=== PATIENT | female | born 1960 | race African-American/Black ===

== ENCOUNTER 2016-08-29 16:27 | Emergency (ER) | payer MEDICARE, OTHER ==
[~2016-08-29] VITALS: Ht 162.6 cm; Wt 113.4 kg
[~2016-08-29 16:27] MED LIST: ATOR10TA PO; CITA20TA9 PO; CYCL10TA2 PO; DOXE10CA PO; DULO60CA6 PO; FERR325T58 PO; GABA600T2 PO; GLIM1TAB2 PO; IBUP-1007 PO; LINA5TAB PO; MORP30TA83 PO; ONDA4TAB12 PO; OXYC10TA32 PO; OXYC20TA34 PO; OXYC30TA PO; POLY17PO5 PO; POTA10TA10 PO; PREG75CA PO; TRAZ100T12 PO; TRAZ50TA15 PO; VENL75CA PO; WARF5TAB PO
[2016-08-29 16:45] VITALS: BP 135/73
[2016-08-29] MEDS ORDERED: OXYCODONE/APAP 10/325 TABLET. PO ONE (17:00)
--- NOTE | 2016-08-29 17:32 | PHYS DOC ---
Past Medical History Past Medical History: Arthritis, Diabetes-Type II, Fibromyalgia, High Cholesterol, Hypertension, Hepatitis, Other Additional Past Medical Histor: HEP C, DM WITH NEUROPATHY, back pain,insomnia, chronic cough Past Surgical History: Hip Replacement, Hysterectomy, Tonsillectomy, Other Additional Past Surgical Histo: ROTATOR CUFF SX, CYST REMOVAL X 3, R FOOT SX WITH NERVE DAMAGE low back Alcohol Use: None Drug Use: None Adult General Chief Complaint Chief Complaint: KNEE INJURY HPI HPI 56-year-old female states one of her knees gave out she fell to the ground landing on both of her knees. She states she now has quite a bit knee pain. She states she took more than 20 mg of OxyContin prior to arrival secondary to the pain. She denies any other injuries. She was able to stand after the injury. [] Review of Systems Review of Systems Constitutional: Denies fever or chills [] Eyes: Denies change in visual acuity, redness, or eye pain [] HENT: Denies nasal congestion or sore throat [] Respiratory: Denies cough or shortness of breath [] Cardiovascular: No additional information not addressed in HPI [] GI: Denies abdominal pain, nausea, vomiting, bloody stools or diarrhea [] : Denies dysuria or hematuria [] Musculoskeletal: Per history of present illness [] Integument: Denies rash or skin lesions [] Neurologic: Denies headache, focal weakness or sensory changes [] Endocrine: Denies polyuria or polydipsia [] Current Medications Current Medications Current Medications Medications (Trade) Dose Ordered Sig/Doris Start Time Stop Time Status Last Admin Dose Admin Oxycodone/ Acetaminophen (Percocet 10/325) 1 tab 1X ONCE 08/29/16 17:00 08/29/16 17:01 DC Allergies Allergies Allergies Coded Allergies Type Severity Reaction Last Updated Verified metformin Allergy Intermediate Diarrhea 04/20/16 Yes sitagliptin Allergy Intermediate Diarrhea 04/20/16 Yes milk Allergy Mild 04/20/16 Yes Physical Exam Physical Exam Constitutional: Well developed, well nourished, no acute distress, non-toxic appearance. [] HENT: Normocephalic, atraumatic, bilateral external ears normal, oropharynx moist, no oral exudates, nose normal. [] Eyes: PERRLA, EOMI, conjunctiva normal, no discharge. [] Neck: Normal range of motion, no tenderness, supple, no stridor. [] Cardiovascular:Heart rate regular rhythm, no murmur [] Lungs & Thorax: Bilateral breath sounds clear to auscultation [] Abdomen: Bowel sounds normal, soft, no tenderness, no masses, no pulsatile masses. [] Skin: Warm, dry, no erythema, no rash. [] Back: No tenderness, no CVA tenderness. [] Extremities: Mild tenderness palpable over both patellas no patellar apprehension no obvious deformity. [] Neurologic: Alert and oriented X 3, normal motor function, normal sensory function, no focal deficits noted. [] Psychologic: Affect normal, judgement normal, mood normal. [] Current Patient Data Vital Signs Vital Signs Date Time Temp Pulse Resp B/P Pulse Ox O2 Delivery O2 Flow Rate FiO2 08/29/16 16:45 98.2 58 22 135/73 97 Room Air 98.2 EKG EKG [] Radiology/Procedures Radiology/Procedures [] Impressions: Bilateral knee x-rays: Negative exam as interpreted by me Course & Med Decision Making Course & Med Decision Making Pertinent Labs and Imaging studies reviewed. (See chart for details) [] Dragon Disclaimer Dragon Disclaimer This electronic medical record was generated, in whole or in part, using a voice recognition dictation system. Departure Departure Impression: Primary Impression: Knee contusion Disposition: 01 HOME, SELF-CARE Condition: STABLE Referrals: STEFAN CAMARA MD (PCP) Patient Instructions: Knee Pain Additional Instructions: Take your pain medicine as needed. Follow with Dr. Sutherland this week for recheck. Return him or department with any new or concerning symptoms Problem Qualifiers Primary Impression: Knee contusion Encounter type: initial encounter Laterality: unspecified laterality Qualified Code: S80.00XA - Contusion of unspecified knee, initial encounter SARA STANLEY DO Aug 29, 2016 17:32
--- NOTE | 2016-08-30 08:02 | RAD ---
Exam performed: 3 views bilateral knee. Clinical indication: Bilateral knee pain, status post fall today Date of Service: 08/29/16 Comparison:3 views bilateral knees from 07/28/16 Findings: There is minimal narrowing of the left medial tibiofemoral joint. The patellofemoral joint is essentially preserved. There is no acute fracture or dislocation. No soft tissue swelling or joint effusion seen. There is mild narrowing of the right patellofemoral joint with osteophytic spurring. There is also spurring of the right tibial spine. There is no acute fracture or dislocation. No soft tissue swelling or joint effusion seen. Impression: Degenerative arthrosis involving bilateral knees as outlined above. No acute bony abnormality seen.
[2016-09-07] MEDS ORDERED: HYDR-2672 PO (13:10)
== END 2016-08-29 18:04 | disposition home or self-care (01) ==
LOC: ER 16:27
DX: S80.02XA Contusion of left knee, initial encounter (principal); S80.01XA Contusion of right knee, initial encounter; E11.40 Type 2 diabetes mellitus with diabetic neuropathy, unspecified; M19.90 Unspecified osteoarthritis, unspecified site; M79.7 Fibromyalgia; E78.00 Pure hypercholesterolemia, unspecified; I10 Essential (primary) hypertension; G47.00 Insomnia, unspecified; Z96.649 Presence of unspecified artificial hip joint; Z88.8 Allergy status to other drugs, medicaments and biological substances; Z86.19 Personal history of other infectious and parasitic diseases; Z91.011 Allergy to milk products; Z90.710 Acquired absence of both cervix and uterus; W18.39XA Other fall on same level, initial encounter; Y93.89 Activity, other specified; Y92.89 Other specified places as the place of occurrence of the external cause; Y99.8 Other external cause status
CPT/HCPCS: 73562; 99284

== ENCOUNTER → 2016-09-07 | Outpatient (CLI) | payer MEDICARE, OTHER ==
[2016-08-29 16:45] VITALS: BP 135/73
[~2016-09-07] MED LIST changes: +HYDR-2672 PO
--- NOTE | 2016-09-07 13:31 | EKG ---
[facility] [address] [place] [address] Test Date: 2016-09-07 Test Time: 13:38:36 Pat Name: YANNICK KNIGHT Department: Room: Gender: F Science Writer: WIL : 1960 Requested By: BERNADETTE TOLENTINO Order Number: [id number] Reading MD: Measurements Intervals [place] Rate: 54 P: 44 NH: 190 QRS: 0 QRSD: 90 T: 20 QT: 448 QTc: 427 Interpretive Statements SINUS RHYTHM LEFTWARD AXIS OTHERWISE NORMAL ECG RI6.01 Compared to ECG 04/05/2016 12:57:22 No significant changes
[2016-09-07 14:47] LABS: INR 1.1 (0.8-1.1); PROTHROMBIN TIME PATIENT 13.4 SEC (11.7-14.0)
--- NOTE | 2016-09-07 14:52 | RAD ---
EXAM: Chest 2 views. HISTORY: Preoperative risk factors. COMPARISON: 11/23/2015. FINDINGS: Frontal and lateral views of the chest are obtained. There are no confluent infiltrates. There is no pneumothorax or pleural effusion. The heart is mildly enlarged. There are atherosclerotic calcifications of the aorta. There are moderate compression deformities within the upper thoracic spine. IMPRESSION: 1. Mild cardiomegaly.
== END | disposition home or self-care (01) ==
LOC: SURGPAT 12:20
PROVIDERS: ATTEND Orthopaedic Surgery
DX: Z01.818 Encounter for other preprocedural examination (principal); Z96.651 Presence of right artificial knee joint; I51.7 Cardiomegaly; I70.0 Atherosclerosis of aorta
CPT/HCPCS: 36415; 71020; 82040; 83036; 85610; 85651; 85730; 87641; 93005

== ENCOUNTER → 2016-09-08 | Outpatient (CLI) | payer MEDICARE, OTHER ==
[2016-08-29 16:45] VITALS: BP 135/73
[2016-09-08 13:01] LABS: BILIRUBIN,URINE NEGATIVE (NEG); GLUCOSE,URINE NEGATIVE (NEG); NITRITE,URINE NEGATIVE (NEG); PROTEIN,URINE NEGATIVE (NEG-TRACE); UROBILINOGEN,URINE 0.2 mg/dL (0.2 mg/dL)
[2016-09-08 13:14] LABS: BACTERIA,URINE 0 /HPF (0-FEW); RBC,URINE 0 /HPF (0-2); SQUAMOUS EPITHELIAL CELL,UR FEW /LPF
== END | disposition home or self-care (01) ==
LOC: LAB 12:35
PROVIDERS: ATTEND Orthopaedic Surgery
DX: Z96.651 Presence of right artificial knee joint (principal)
CPT/HCPCS: 81001

== ENCOUNTER 2016-09-21 05:48 | Inpatient (IN) | payer MEDICARE, OTHER ==
[2016-09-21] VITALS (8 sets, daily range): BP systolic 138–169; BP diastolic 73–94
[~2016-09-21] VITALS: Ht 165.1 cm; Wt 130.6 kg
[2016-09-21] MEDS ORDERED: CELECOXIB 200 MG CAPSULE PO PRN (06:00)
[2016-09-21] MEDS ORDERED: CEFAZOLIN 2GM PREMIX 50 ML IV PRN (06:00)
[2016-09-21] MEDS ORDERED: HYDROCODONE/APAP 7.5/325MG TABLET. PO PRN ×2 (06:00→11:00)
[2016-09-21] MEDS ORDERED: TRANEXAMIC ACID 1,000 MG in IV NS 50ML -- 1ST BAG INJ ONE (06:00)
[2016-09-21] MEDS ORDERED: MORPHINE SULFATE 5 MG, KETOROLAC TROMETHAMINE 30 MG, ROPIVacaine 0.5% PF 60 ML, EPINEPH... INT ART ONE ×5 (06:00)
[2016-09-21] MEDS ORDERED: FENTANYL PF 100 MCG/2 ML VIAL. IV PRN ×2 (07:00→11:00)
[2016-09-21] MEDS ORDERED: PROCHLORPERAZINE 10 MG/2 ML VIAL. IV PRN ×2 (07:00→11:00)
[2016-09-21] MEDS ORDERED: LIDOCAINE 1% 1 ML SYRINGE. ID PRN (07:00)
[2016-09-21] MEDS ORDERED: IV RINGERS,LACTATED 1000ML 1,000 ML IV SCH (07:00)
[2016-09-21] MEDS ORDERED: ROCURONIUM 50 MG/5 ML VIAL. ONE (07:20)
[2016-09-21] MEDS ORDERED: FENTANYL PF 250 MCG/5 ML VIAL. ONE (07:20)
[2016-09-21] MEDS ORDERED: ONDANSETRON PF 4 MG/2 ML VIAL. ONE (07:21)
[2016-09-21] MEDS ORDERED: DEXAMETHASONE SOD PHOS 20 MG/5 ML VIAL. ONE (07:21)
[2016-09-21] MEDS ORDERED: PHENYLEPHRINE in 0.9% NACL PF 1 MG/10 ML DISP.SYRIN. IV ONE (07:21)
[2016-09-21] MEDS ORDERED: PROPOFOL 20 ML IV ONE (07:21)
[2016-09-21] MEDS ORDERED: LIDOCAINE 2% 100 MG/5 ML DISP.SYRIN. ONE (07:21)
[2016-09-21] MEDS ORDERED: DESFLURANE > 120 MINUTES IH ONE (07:21)
[2016-09-21] MEDS ORDERED: TRANEXAMIC ACID 1,000 MG in IV NS 50ML -- 2ND BAG INJ ONE (08:00)
[2016-09-21] MEDS ORDERED: ESMOLOL 100 MG/10 ML VIAL. IV ONE (08:17)
[2016-09-21] MEDS ORDERED: LABETALOL 20 MG/4 ML DISP.SYRIN. ONE (08:19)
[2016-09-21] MEDS ORDERED: NEOSTIGMINE METHYLSULFATE 5 MG/5 ML SYRINGE. ONE (09:44)
[2016-09-21] MEDS ORDERED: GLYCOPYRROLATE 1 MG/5 ML VIAL. ONE (09:44)
--- NOTE | 2016-09-21 10:12 | HP ---
ADMIT DATE: 09/21/2016 PREOPERATIVE HISTORY AND PHYSICAL PRINCIPAL DIAGNOSIS: Right knee pain. HISTORY OF PRESENT ILLNESS: The patient continues to have right knee pain very severely, limiting her activities of daily living, it has been unresponsive to injections, activity modification and is giving her a lot of problems walking, getting up from a chair, stairs, aching after activity and wishes to really be much more active than what the knee allows her at this point. PAST MEDICAL HISTORY: Significant for type 2 diabetes, inflammatory bowel disease, incontinence, obesity, osteoarthritis, traumatic brain injury, depression, anxiety, vitamin D deficiency, hyperlipidemia. PAST SURGICAL HISTORY: Significant for previous rotator cuff repair, foot surgery, , tonsil-adenoidectomy, hysterectomy, lumbar fusion and a right total hip arthroplasty, doing very well. FAMILY HISTORY: Mother and father both , mother from a brain tumor and father from complications of diabetes. SOCIAL HISTORY: Denies smoking, alcohol or drug use. She lives alone. MEDICATIONS: List is reviewed. ALLERGIES: INCLUDE METFORMIN AND JANUVIA. REVIEW OF SYSTEMS: Denies any chest pain, shortness of breath, fever, chills, radiating pain in the extremities, focal weakness, numbness, tingling, recent visual changes, change in bowel or bladder habits, urinary incontinence is at baseline. PHYSICAL EXAMINATION: HEENT: Atraumatic, normocephalic. HEART: Regular rate and rhythm. LUNGS: Clear to auscultation bilaterally. ABDOMEN: Benign. EXTREMITIES: Examination of bilateral knees reveals joint line tenderness, worse on the right than the left. She has moderate patellofemoral crepitus, tenderness over the patellofemoral joint bilaterally, no tracking or instability. She has slight valgus on the right, normal alignment on the left, normal motion, stability of bilateral hips and ankles with intact motor function, distal pulses, sensation, reflexes and skin in both lower extremities throughout. IMAGING: X-rays show degenerative changes, most prominent in the lateral and patellofemoral compartments on the right, mainly isolated to patellofemoral compartment on the left. IMPRESSION: Bilateral knee pain, right worse and right knee degenerative joint disease. TREATMENT PLAN: I went over with her previously the risks, benefits, postoperative course of total knee arthroplasty as she has exhausted her nonoperative alternatives, is not really a candidate for a brace. I went over with her that weight loss is certainly very desirable as the more weight she carries, worse complications typically of premature wear or loosening as well as difficulty with her diabetes, which can raise the risk of an infection and other complications also. We also talked about the possibility of nerve or blood vessel damage, other medical or other anesthetic complications. All her questions were answered. Consent was obtained and she agrees to proceed with operative evaluation and treatment and will undergo joint center admission following her surgery today. BERNADETTE TOLENTINO MD DR: ERIN/karey JOB#: [id number] / [id number] STEFAN Skinner MD
[2016-09-21] MEDS: MORPHINE SULFATE 2 MG/ML DISP.SYRIN. IV PRN ×2 (10:36→10:53)
[2016-09-21] MEDS: FENTANYL PF 100 MCG/2 ML VIAL. IV PRN ×7 (10:37→19:20)
[2016-09-21] MEDS ORDERED: OXYCODONE/APAP 5/325 TABLET. PO PRN (11:00)
[2016-09-21] MEDS ORDERED: 0.9 % SODIUM CHLORIDE 10 ML DISP.SYRIN. IV PRN (11:00)
[2016-09-21] MEDS ORDERED: PROCHLORPERAZINE 5 MG TABLET. PO PRN (11:00)
[2016-09-21] MEDS ORDERED: DIPHENHYDRAMINE 50 MG/ML VIAL IV PRN (11:00)
[2016-09-21] MEDS ORDERED: TRAMADOL 50 MG TABLET. PO PRN ×2 (11:00)
[2016-09-21] MEDS ORDERED: ACETAMINOPHEN 325 MG TABLET. PO PRN (11:00)
[2016-09-21] MEDS ORDERED: IV DEXTROSE 5 %-0.45 % NACL 1,000 ML IV SCH (11:00)
[2016-09-21] MEDS ORDERED: MORPHINE SULFATE 4 MG/ML DISP.SYRIN. IV PRN ×2 (11:00)
[2016-09-21] MEDS ORDERED: MORPHINE SULFATE 2 MG/ML DISP.SYRIN. IV PRN (11:00)
[2016-09-21] MEDS ORDERED: DEXTROSE 50% 25 GM / 50ML DISP.SYRIN. IV PRN ×2 (11:00→14:45)
[2016-09-21] MEDS ORDERED: CALCIUM CARBONATE 500 MG TAB.CHEW PO PRN (11:00)
[2016-09-21] MEDS ORDERED: ZOLPIDEM 5 MG TABLET. PO PRN (11:00)
[2016-09-21] MEDS ORDERED: MORPHINE SULFATE 10 MG/ML VIAL. IV PRN (11:00)
[2016-09-21] MEDS: HYDROMORPHONE 2 MG/ML VIAL. IV PRN ×4 (11:07→11:49)
--- NOTE | 2016-09-21 11:13 | PDOC ---
BRIEF OPERATIVE NOTE Date: Sep 21, 2016 Pre-Op Diagnosis djd right knee Post-Op Diagnosis same Procedure Performed right total knee arthroplasty Surgeon Koko Anesthesia Type: General Blood Loss 500cc Specimens Obtained cartilage surfaces to pathology Findings above Complications none BERNADETTE TOLENTINO MD Sep 21, 2016 11:13
[2016-09-21] MEDS ORDERED: ONDANSETRON ODT 4 MG TAB.RAPDIS PO PRN (11:15)
[2016-09-21] MEDS ORDERED: HYDROCODONE/APAP 10/325 TABLET. PO PRN (11:15)
--- NOTE | 2016-09-21 11:27 | RAD ---
Indication postop knee replacement. AP and lateral views of the right knee were obtained. There is a total knee replacement. No complication is seen.
[2016-09-21 13:04] LABS: INR 1.1 (0.8-1.1); PROTHROMBIN TIME PATIENT 13.5 SEC (11.7-14.0)
[2016-09-21] MEDS: CEFAZOLIN SODIUM 3 GM in IV NORMAL SALINE 100ML 100 ML IV SCH ×2 (14:27→19:20)
[2016-09-21] MEDS: GABAPENTIN 300 MG CAPSULE. PO SCH ×2 (15:48→21:12)
[2016-09-21] MEDS ORDERED: WARFARIN 7.5 MG TABLET. PO ONE (16:00)
[2016-09-21] MEDS: INSULIN ASPART 300 UNITS/3 ML INSULN.PEN SQ SCH (16:14)
[2016-09-21] MEDS: FERROUS SULFATE 325 MG TABLET PO SCH (17:15)
[2016-09-21] MEDS: KETOROLAC TROMETHAMINE 30 MG, BUPIVACAINE MPF 0.25% 20 ML, EPINEPHRINE 0.5 MG in TOTAL ... INT ART SCH ×2 (17:18→18:54)
[2016-09-21] MEDS ORDERED: OXYCODONE ER 10 MG TAB.ER.12H. PO SCH (21:00)
[2016-09-21] MEDS ORDERED: FERROUS SULFATE 325 MG TABLET PO SCH (21:00)
[2016-09-21] MEDS: OXYCODONE ER 40 MG TAB.ER.12H. PO SCH (21:12)
[2016-09-21] MEDS: DOXEPIN HCL 10 MG CAPSULE PO SCH (21:12)
[2016-09-21] MEDS: ATORVASTATIN CALCIUM 10 MG TABLET. PO SCH (21:12)
[2016-09-21] MEDS: traZODone 50 MG TABLET. PO SCH (21:12)
[2016-09-21] MEDS: CYCLOBENZAPRINE 10 MG TABLET. PO SCH (21:12)
[2016-09-21] MEDS: CELECOXIB 200 MG CAPSULE PO SCH (21:13)
[2016-09-22] MEDS: CEFAZOLIN SODIUM 3 GM in IV NORMAL SALINE 100ML 100 ML IV SCH (02:30)
[2016-09-22 03:30] VITALS: BP 124/69
[2016-09-22] MEDS ORDERED: MAGNESIUM HYDROXIDE 2,400 MG/30 ML ORAL.SUSP. PO PRN (06:00)
[2016-09-22] MEDS: FENTANYL PF 100 MCG/2 ML VIAL. IV PRN ×2 (06:39→12:18)
[2016-09-22 06:49] LABS: HEMATOCRIT 28.6 % (36.0-47.0); HEMOGLOBIN 9.4 g/dL (12.0-15.5); RED BLOOD COUNT 3.49 x10^6/uL (3.50-5.40); RED CELL DISTRIBUTION WIDTH 19.2 % (11.5-14.5); WHITE BLOOD COUNT 10.1 x10^3/uL (4.0-11.0)
[2016-09-22 07:01] LABS: INR 1.2 (0.8-1.1); PROTHROMBIN TIME PATIENT 14.4 SEC (11.7-14.0)
[2016-09-22 07:43] VITALS: BP 145/53
[2016-09-22] MEDS: INSULIN ASPART 300 UNITS/3 ML INSULN.PEN SQ SCH ×3 (08:00→17:06)
[2016-09-22] MEDS: LINAGLIPTIN 5 MG TABLET PO SCH (08:06)
[2016-09-22] MEDS: CITALOPRAM 20 MG TABLET. PO SCH (08:07)
[2016-09-22] MEDS: CELECOXIB 200 MG CAPSULE PO SCH ×2 (08:07→21:30)
[2016-09-22] MEDS: SENNOSIDES/DOCUSATE 8.6/50MG TABLET. PO SCH (08:07)
[2016-09-22] MEDS: GABAPENTIN 300 MG CAPSULE. PO SCH ×3 (08:07→21:30)
[2016-09-22] MEDS: OXYCODONE ER 40 MG TAB.ER.12H. PO SCH ×2 (08:08→21:29)
[2016-09-22] MEDS: CYCLOBENZAPRINE 10 MG TABLET. PO SCH ×3 (08:08→21:30)
[2016-09-22] MEDS: POTASSIUM CHLORIDE 10 MEQ TABLET.ER. PO SCH (08:08)
[2016-09-22] MEDS: MULTIVITAMIN with MINERAL TABLET. PO SCH (08:08)
[2016-09-22] MEDS: FERROUS SULFATE 325 MG TABLET PO SCH ×2 (08:08→17:03)
[2016-09-22] MEDS: GLIMEPIRIDE 2 MG TABLET PO SCH (08:09)
--- NOTE | 2016-09-22 11:01 | OP ---
DATE OF SURGERY: 09/21/2016 PREOPERATIVE DIAGNOSIS: Right knee degenerative joint disease. POSTOPERATIVE DIAGNOSIS: Right knee degenerative joint disease. PROCEDURE: Right total knee arthroplasty. SURGEON: Monico Sutherland M.D. ANESTHESIA: General endotracheal. ESTIMATED BLOOD LOSS: About 500 mL. COMPLICATIONS: None. OPERATIVE INDICATIONS: The patient is a 56-year-old female with severe right knee pain, unresponsive to nonoperative management including corticosteroid and hyaluronic acid injections and activity modification. She says that her pain is so severe and it is markedly affecting her daily activities of living. We had previously gone over the possibility of continued pain, nerve, or blood vessel damage, medical or other anesthetic complications, infection, premature wear or loosening, especially increased risk of complications with her diabetes and her weight. All of her questions were answered. Consent was obtained and she agrees to proceed with operative evaluation and treatment. DESCRIPTION OF PROCEDURE: The patient was identified, procedure verified, patient placed in the supine position on operating table and a thigh tourniquet was placed on the right lower extremity and the right lower extremity was prepped and draped in standard sterile fashion. After timeout was performed, the patient and procedure identified and verified. The right lower extremity was exsanguinated by elevation, tourniquet inflated to 350 mmHg and a standard midline incision was made with a medial parapatellar approach. Patella was everted, fat pad was excised and had severe chondromalacia. She had significant degenerative changes particularly in the lateral compartment with lateral tibial plateau wear and then also had lateral osteophytes present. The ACL was excised and the femoral drill was used to establish path with an intramedullary guide, which was set 5 degree right with standard distal cut. The anterior, posterior measuring jig was then used with posterior condyles as the reference and sized at a size 5 femur with 3 degrees external rotation, then drilled in this position. The anterior, posterior and chamfer cuts were then made. Tibial extramedullary cutting guide was used and a 10-mm spacer block revealed excellent ligament balance in flexion and extension, along with good balance in varus and valgus. Trial components were then placed with a size E tibial component. A size 5 trial femoral component and a 10-mm medial congruent spacer, which again gave excellent range of motion stability and ligament balance. Patella was resurfaced with a 32-mm trial patellar button medialized with lateral bone removed to avoid impingement and excellent tracking was noted. The trial components were removed. It should be noted that through the process of obtaining the cuts, tourniquet was noted to be ineffective probably establishing a venous tourniquet and I elected to take the tourniquet down after approximately one half hour. Bleeding points in the capsule were controlled by electrocautery. Thorough irrigation carried out with normal saline solution and Roseann Persona components were cemented in with polymethylmethacrylate cement as follows following preparation and drying of the bone, a size E standard tibial component, a size 5 standard femoral component. Excess cement was removed. A size 10 medial congruent spacer was used with the knee held in extension and a size 32-mm vitamin E patellar button. Removal was then accomplished of the spacer and no inner reaming soft tissues. Excess cement was removed as well with an osteotome and the corresponding 10-mm vitamin E medial congruent spacer was placed and locked into place. The pain catheter mixture was injected into the tissues of pain catheter and Hemovac drain was placed. The retinaculum was closed with #2 Ethibond suture in an interrupted fashion, #1 Vicryl in a running fashion for support. Subcutaneous closure with buried Vicryl sutures, skin closure with danay. Sterile dressings were applied. The patient was extubated and transferred to postop holding in stable condition having tolerated the procedure well. MONICO SUTHERLAND MD DR: ERIN/karey JOB#: [id number] / [id number] STEFAN Skinner MD
[2016-09-22] MEDS: OXYCODONE/APAP 7.5/325 TABLET. PO PRN (11:22)
[2016-09-22] MEDS: HYDROCODONE/APAP 10/325 TABLET. PO PRN ×2 (15:30→19:30)
[2016-09-22] MEDS ORDERED: BISACODYL 10 MG SUPP.RECT PR PRN (16:00)
[2016-09-22] MEDS ORDERED: WARFARIN 6 MG TABLET. PO ONE (16:00)
[2016-09-22 18:10] VITALS: BP 126/69
--- NOTE | 2016-09-22 19:02 | PDOC ---
PROGRESS NOTES Subjective Subjective Problems overnight: Ciara looks very comfortable today she said she got around well yesterday with physical therapy little bit more pain today but pleased with her progress so far Objective Vital Signs Vital Signs Date Time Temp Pulse Resp B/P Pulse Ox O2 Delivery O2 Flow Rate FiO2 09/22/16 18:10 97.7 69 18 126/69 95 Room Air 97.7 09/22/16 08:30 2.0 Physical Exam Dressings were clean dry intact pain catheter would not infuse but Hemovac is intact she has good range of motion stability intact distal neurovascular status Labs Laboratory Tests Test 09/21/16 06:45 09/21/16 10:40 09/21/16 12:45 09/21/16 16:00 Glucose (Fingerstick) 156mg/dL (70-99) 231mg/dL (70-99) 234mg/dL (70-99) Prothrombin Time 13.5SEC (11.7-14.0) Prothromb Time International Ratio 1.1 (0.8-1.1) Test 09/22/16 06:15 White Blood Count 10.1x10^3/uL (4.0-11.0) Red Blood Count 3.49x10^6/uL (3.50-5.40) Hemoglobin 9.4g/dL (12.0-15.5) Hematocrit 28.6% (36.0-47.0) Mean Corpuscular Volume 82fL (79-100) Mean Corpuscular Hemoglobin 27pg (25-35) Mean Corpuscular Hemoglobin Concent 33g/dL (31-37) Red Cell Distribution Width 19.2% (11.5-14.5) Platelet Count 254x10^3/uL (140-400) Prothrombin Time 14.4SEC (11.7-14.0) Prothromb Time International Ratio 1.2 (0.8-1.1) Laboratory Tests Test 09/22/16 06:15 White Blood Count 10.1x10^3/uL (4.0-11.0) Red Blood Count 3.49x10^6/uL (3.50-5.40) Hemoglobin 9.4g/dL (12.0-15.5) Hematocrit 28.6% (36.0-47.0) Mean Corpuscular Volume 82fL (79-100) Mean Corpuscular Hemoglobin 27pg (25-35) Mean Corpuscular Hemoglobin Concent 33g/dL (31-37) Red Cell Distribution Width 19.2% (11.5-14.5) Platelet Count 254x10^3/uL (140-400) Prothrombin Time 14.4SEC (11.7-14.0) Prothromb Time International Ratio 1.2 (0.8-1.1) Imaging Postop x-rays show excellent placement of the total knee arthroplasty Assessment Assessment POD# [1], S/P [right total knee arthroplasty] Problems: Plan Plan of Care Continue mobilize with physical therapy She is on chronic pain medication including OxyContin and breakthrough as necessary Coumadin anticoagulation Placement plans on discharge BERNADETTE TOLENTINO MD Sep 22, 2016 19:02
[2016-09-22] MEDS: traZODone 50 MG TABLET. PO SCH (21:30)
[2016-09-22] MEDS: ATORVASTATIN CALCIUM 10 MG TABLET. PO SCH (21:30)
[2016-09-22] MEDS: DOXEPIN HCL 10 MG CAPSULE PO SCH (21:30)
[2016-09-23] MEDS: OXYCODONE/APAP 7.5/325 TABLET. PO PRN ×3 (03:04→17:13)
[2016-09-23 05:30] VITALS: BP 133/77
[2016-09-23] MEDS: FENTANYL PF 100 MCG/2 ML VIAL. IV PRN ×4 (05:32→19:45)
[2016-09-23 06:37] LABS: HEMATOCRIT 26.7 % (36.0-47.0); HEMOGLOBIN 8.5 g/dL (12.0-15.5)
[2016-09-23 07:05] LABS: INR 1.3 (0.8-1.1); PROTHROMBIN TIME PATIENT 15.6 SEC (11.7-14.0)
[2016-09-23] MEDS: FERROUS SULFATE 325 MG TABLET PO SCH ×2 (08:43→17:13)
[2016-09-23] MEDS: OXYCODONE ER 40 MG TAB.ER.12H. PO SCH ×2 (08:44→20:57)
[2016-09-23] MEDS: POTASSIUM CHLORIDE 10 MEQ TABLET.ER. PO SCH (08:44)
[2016-09-23] MEDS: SENNOSIDES/DOCUSATE 8.6/50MG TABLET. PO SCH (08:44)
[2016-09-23] MEDS: CITALOPRAM 20 MG TABLET. PO SCH (08:44)
[2016-09-23] MEDS: GLIMEPIRIDE 2 MG TABLET PO SCH (08:44)
[2016-09-23] MEDS: CYCLOBENZAPRINE 10 MG TABLET. PO SCH ×3 (08:44→20:56)
[2016-09-23] MEDS: CELECOXIB 200 MG CAPSULE PO SCH ×2 (08:45→20:56)
[2016-09-23] MEDS: LINAGLIPTIN 5 MG TABLET PO SCH (08:45)
[2016-09-23] MEDS: MULTIVITAMIN with MINERAL TABLET. PO SCH (08:45)
[2016-09-23] MEDS: GABAPENTIN 300 MG CAPSULE. PO SCH ×3 (08:45→20:56)
[2016-09-23] MEDS: INSULIN ASPART 300 UNITS/3 ML INSULN.PEN SQ SCH ×3 (08:51→17:16)
--- NOTE | 2016-09-23 13:28 | PDOC ---
ORTHO PROGRESS NOTES Subjective Patient complains of pain, not well controlled with pain medication. Doing okay with therapy. Anticipates going home tomorrow. Asking about wheelchair. Post-op Day: 2 (Right TKA) Vitals Vital Signs Date Time Temp Pulse Resp B/P Pulse Ox O2 Delivery O2 Flow Rate FiO2 09/23/16 12:49 20 09/23/16 12:15 Room Air 09/23/16 09:15 96 09/23/16 05:30 98.2 71 133/77 98.2 09/22/16 08:30 2.0 Labs Laboratory Tests Test 09/21/16 16:00 09/22/16 06:15 09/22/16 06:38 09/22/16 11:20 Glucose (Fingerstick) 234mg/dL (70-99) 147mg/dL (70-99) 159mg/dL (70-99) White Blood Count 10.1x10^3/uL (4.0-11.0) Red Blood Count 3.49x10^6/uL (3.50-5.40) Hemoglobin 9.4g/dL (12.0-15.5) Hematocrit 28.6% (36.0-47.0) Mean Corpuscular Volume 82fL (79-100) Mean Corpuscular Hemoglobin 27pg (25-35) Mean Corpuscular Hemoglobin Concent 33g/dL (31-37) Red Cell Distribution Width 19.2% (11.5-14.5) Platelet Count 254x10^3/uL (140-400) Prothrombin Time 14.4SEC (11.7-14.0) Prothromb Time International Ratio 1.2 (0.8-1.1) Test 09/22/16 16:41 09/23/16 06:10 09/23/16 06:26 09/23/16 11:35 Glucose (Fingerstick) 192mg/dL (70-99) 157mg/dL (70-99) 137mg/dL (70-99) Hemoglobin 8.5g/dL (12.0-15.5) Hematocrit 26.7% (36.0-47.0) Mean Corpuscular Hemoglobin Concent 32g/dL (31-37) Prothrombin Time 15.6SEC (11.7-14.0) Prothromb Time International Ratio 1.3 (0.8-1.1) Laboratory Tests Test 09/22/16 16:41 09/23/16 06:10 09/23/16 06:26 09/23/16 11:35 Glucose (Fingerstick) 192mg/dL (70-99) 157mg/dL (70-99) 137mg/dL (70-99) Hemoglobin 8.5g/dL (12.0-15.5) Hematocrit 26.7% (36.0-47.0) Mean Corpuscular Hemoglobin Concent 32g/dL (31-37) Prothrombin Time 15.6SEC (11.7-14.0) Prothromb Time International Ratio 1.3 (0.8-1.1) Notes Patient is awake and alert sitting up in bed. Breathing unlabored, no acute distress. She is a little bit drowsy but she recently got a dose of fentanyl. She is able answer questions appropriately. Incision covered with dressing, shadow drainage noted on distal portion. Moderate edema. Neurovascular intact distally right lower extremity. Problems: (1) Right knee DJD Assessment and Plan Pain moderate only controlled. I explained to the patient that when she is on a significant amount of pain medication prior to the surgery to sometimes difficult to control pain and this will take time to improve. I strongly discouraged a wheelchair and explained how it is important to move and walk on her knee to prevent scar tissue adhesions that would limit her range of motion. She voiced understanding Anticoagulation per pharmacy Anticipate discharge tomorrow Problem Qualifiers (1) Right knee DJD: Osteoarthritis type: primary Qualified Code: M17.11 - Unilateral primary osteoarthritis, right knee GAYE STRONG APRN Sep 23, 2016 13:28
--- NOTE | 2016-09-23 15:37 | PATHOLOGY ---
PATHOLOGY REPORT * * * * * * * * FINAL DIAGNOSIS: Segments of bone and soft tissue, right total knee arthroplasty: - Advanced degenerative arthritis. (JPM:; d/t: 09/23/16) REPORT ELECTRONICALLY SIGNED BY: Eloy Fairbanks M.D. DATE/TIME: 09/23/2016 15:36 * * * * * * * * GROSS PATHOLOGY: Received in formalin labeled "Yannick Knight, right knee bone and tissue," are multiple segments of bone, including tibial plateau, measuring 12.8 x 7.5 x 2.4 cm in aggregate dimensions admixed with soft tissue; meniscus is present. The specimen shows focal eburnation of the articular surfaces. [employer] sections of bone and soft tissue are submitted in cassette A1, following decalcification. (CAA; 09/21/2016) INITIAL CPT CODE(S): A; 02942, 23098 Professional services performed [place] [facility] [place] [address] Technical services performed by [facility] at [address] [place] [address]. SPECIMEN(S) RECEIVED: A.Right knee bone and tissue CLINICAL HISTORY: OA PATIENT: YANNICK KNIGHT /AGE: 10 1960 (Age: 56) PATIENT #: [id number] ALT CASE #: SPECIMEN COLLECTION DATE: 09/21/2016 SPECIMEN RECEIVED DATE: 09/21/2016 [facility] - [address] [place] [address] - PHONE: [phone] * * * END OF REPORT * * *
[2016-09-23] MEDS ORDERED: WARFARIN 6 MG TABLET. PO ONE (16:00)
[2016-09-23] MEDS ORDERED: WARFARIN 5 MG TABLET. PO ONE (16:00)
[2016-09-23 17:47] VITALS: BP 102/61
[2016-09-23] MEDS: DOXEPIN HCL 10 MG CAPSULE PO SCH (20:56)
[2016-09-23] MEDS: ATORVASTATIN CALCIUM 10 MG TABLET. PO SCH (20:56)
[2016-09-23] MEDS: traZODone 50 MG TABLET. PO SCH (20:57)
[2016-09-24] MEDS: OXYCODONE/APAP 7.5/325 TABLET. PO PRN ×5 (04:20→17:55)
[2016-09-24 04:46] LABS: INR 1.4 (0.8-1.1); PROTHROMBIN TIME PATIENT 16.6 SEC (11.7-14.0)
[2016-09-24 04:48] VITALS: BP 118/68
[2016-09-24] MEDS: INSULIN ASPART 300 UNITS/3 ML INSULN.PEN SQ SCH ×3 (08:00→16:55)
[2016-09-24] MEDS: POTASSIUM CHLORIDE 10 MEQ TABLET.ER. PO SCH (08:58)
[2016-09-24] MEDS: GABAPENTIN 300 MG CAPSULE. PO SCH ×2 (08:59→15:48)
[2016-09-24] MEDS: CYCLOBENZAPRINE 10 MG TABLET. PO SCH ×2 (08:59→15:48)
[2016-09-24] MEDS: OXYCODONE ER 40 MG TAB.ER.12H. PO SCH (08:59)
[2016-09-24] MEDS: CELECOXIB 200 MG CAPSULE PO SCH (09:01)
[2016-09-24] MEDS: MULTIVITAMIN with MINERAL TABLET. PO SCH (09:01)
[2016-09-24] MEDS: FERROUS SULFATE 325 MG TABLET PO SCH ×2 (09:01→16:52)
[2016-09-24] MEDS: LINAGLIPTIN 5 MG TABLET PO SCH (09:01)
[2016-09-24] MEDS: GLIMEPIRIDE 2 MG TABLET PO SCH (09:02)
[2016-09-24] MEDS: SENNOSIDES/DOCUSATE 8.6/50MG TABLET. PO SCH (09:02)
[2016-09-24] MEDS: CITALOPRAM 20 MG TABLET. PO SCH (09:02)
--- NOTE | 2016-09-24 09:04 | DS ---
DATE OF DISCHARGE: 09/24/2016 PRINCIPAL DIAGNOSIS: Degenerative joint disease, right knee. PROCEDURE: Right total knee arthroplasty. DISPOSITION: Home with home health care, weightbearing as tolerated, standard total knee protocol. Report any redness, drainage, fever, chills, uncontrolled pain or other problems. Follow up in [address] Sutherland. Outpatient physical therapy plan following her initial home health. DISCHARGE MEDICATIONS: Include Coumadin as directed by anticoagulation clinic, resume preoperative OxyContin 40 mg p.o. b.i.d. scheduled and Percocet 7.5/325 one p.o. q. 6 hours p.r.n. breakthrough and resume rest of her preoperative medications. BRIEF DESCRIPTION OF HOSPITAL COURSE: The patient is a 56-year-old female that underwent an uncomplicated right total knee arthroplasty. Postoperatively, was medically stable. Pain generally well controlled. She did have some after the intraarticular injection were off and was taking some supplemental fentanyl particularly with physical therapy, had worse pain yesterday, better controlled last night and has been controlled on oral pain medication described above, otherwise was medically stable, getting along well with physical therapy, minimal incisional drainage, excellent range of motion, intact distal neurovascular status and following physical therapy, today was discharged home in stable condition again with home health initially, outpatient physical therapy to follow in her discharge plan. BERNADETTE SUTHERLAND MD DR: ERIN/karey JOB#: [id number] / [id number]
[2016-09-24 09:36] LABS: HEMATOCRIT 25.3 % (36.0-47.0); HEMOGLOBIN 8.3 g/dL (12.0-15.5)
[2016-09-24] MEDS ORDERED: OXYC-244 PO (10:32)
[2016-09-24] MEDS ORDERED: WARF7.5T PO (10:33)
[2016-09-24] MEDS ORDERED: WARFARIN 7.5 MG TABLET. PO ONE (12:00)
[2016-09-24 16:06] VITALS: BP 126/66
== END 2016-09-24 18:52 | disposition home health service (06) | DRG 470 ==
LOC: OPSVCIP 05:48 → 4 SOUTHEST 12:00
PROVIDERS: ADMIT Orthopaedic Surgery; ATTEND Orthopaedic Surgery
PROC: 0SRC0J9 Replacement of Right Knee Joint with Synthetic Substitute, Cemented, Open Approach (ICD-10-PCS; principal; 2016-09-21 07:30)
DX: M17.11 Unilateral primary osteoarthritis, right knee (principal); Z68.42 Body mass index [BMI] 45.0-49.9, adult; E11.9 Type 2 diabetes mellitus without complications; E78.5 Hyperlipidemia, unspecified; M94.20 Chondromalacia, unspecified site; Z83.3 Family history of diabetes mellitus; E66.9 Obesity, unspecified; F32.9 Major depressive disorder, single episode, unspecified; F41.9 Anxiety disorder, unspecified; Z88.8 Allergy status to other drugs, medicaments and biological substances; Z91.011 Allergy to milk products
CPT/HCPCS: 36415; 73560; 82947; 85014; 85018; 85027; 85610; 86850; 86900; 86901; 88305; 88311; J0171; J0690; J1100; J1170; J1815; J1885; J2270; J2370; J2405; J2704; J2710; J2795; J3010; J3490; J7030; J7120; Q0162; 97116; 97150; 97530; 97535; C1769

== ENCOUNTER 2016-10-23 15:09 | Emergency (ER) | payer MEDICARE, OTHER ==
[~2016-10-23 15:09] MED LIST changes: +OXYC-244 PO; +WARF7.5T PO
[2016-10-23 15:11] VITALS: BP 152/87
[2016-10-23] MEDS ORDERED: KETOROLAC TROMETHAMINE 60 MG/2 ML INJ. IM ONE (15:45)
[2016-10-23] MEDS ORDERED: HYDROMORPHONE 2 MG/ML VIAL. IM ONE (15:45)
[2016-10-23] MEDS ORDERED: OXYC40TA21 PO (15:52)
[2016-10-23] MEDS ORDERED: OXYC-244 PO (15:52)
--- NOTE | 2016-10-23 15:52 | PHYS DOC ---
Past Medical History Past Medical History: Arthritis, Diabetes-Type II, Fibromyalgia, High Cholesterol, Hypertension, Hepatitis, Other Additional Past Medical Histor: HEP C, DM WITH NEUROPATHY, back pain,insomnia, chronic cough Past Surgical History: Hip Replacement, Hysterectomy, Knee Replacement, Tonsillectomy, Other Additional Past Surgical Histo: ROTATOR CUFF SX, CYST REMOVAL X 3, R FOOT SX WITH NERVE DAMAGE low back Alcohol Use: None Drug Use: None Adult General Chief Complaint Chief Complaint: KNEE SWELLING HPI HPI Patient is a 56 year old female with history of fibromyalgia, high cholesterol , hypertension, diabetes type 2, who presents today with 10 out of 10 right knee pain that has been going on for couple days. Patient states she had knee replacement 4 weeks ago. She states she ran out of oxycodone and OxyContin. Dr. Loco was the orthopedic surgeon. He already called the ED and requested us to help patient with her pain. Review of Systems Review of Systems Constitutional: Denies fever or chills [] Eyes: Denies change in visual acuity, redness, or eye pain [] Musculoskeletal: Right knee pain Integument: Denies rash or skin lesions [] Neurologic: Denies headache, focal weakness or sensory changes [] Endocrine: Denies polyuria or polydipsia [] Current Medications Current Medications Current Medications Medications (Trade) Dose Ordered Sig/Doris Start Time Stop Time Status Last Admin Dose Admin Hydromorphone HCl (Dilaudid) 2 mg 1X ONCE 10/23/16 15:45 10/23/16 15:46 DC 10/23/16 15:44 2 MG Ketorolac Tromethamine (Toradol Im) 60 mg 1X ONCE 10/23/16 15:45 10/23/16 15:46 DC 10/23/16 15:45 60 MG Allergies Allergies Allergies Coded Allergies Type Severity Reaction Last Updated Verified metformin Allergy Intermediate Diarrhea 09/21/16 Yes sitagliptin Allergy Intermediate Diarrhea 09/21/16 Yes milk Allergy Mild 09/21/16 Yes Physical Exam Physical Exam Constitutional: Well developed, well nourished, no acute distress, non-toxic appearance. [] HENT: Normocephalic, atraumatic, bilateral external ears normal, oropharynx moist, no oral exudates, nose normal. [] Skin: Warm, dry, no erythema, no rash. [] Back: No tenderness, no CVA tenderness. [] Extremities: Right knee with no obvious deformity. Well healed surgical incision midline right knee. No signs of infection. Range of motion limited to the right knee due to pain. +2 right pedal pulse. Cap refill less than 2 seconds the right knee. Sensation intact to the right lower extremity. Neurologic: Alert and oriented X 3, normal motor function, normal sensory function, no focal deficits noted. [] Psychologic: Affect normal, judgement normal, mood normal. [] Current Patient Data Vital Signs Vital Signs Date Time Temp Pulse Resp B/P Pulse Ox O2 Delivery O2 Flow Rate FiO2 10/23/16 15:44 20 10/23/16 15:11 98.1 103 99 Room Air 98.1 EKG EKG [] Radiology/Procedures Radiology/Procedures [] Course & Med Decision Making Course & Med Decision Making Pertinent Labs and Imaging studies reviewed. (See chart for details) Patient is in the ED with right knee pain. No known injury. She had knee replacement 4 weeks ago. She ran out of her pain medicine.Dr. Loco called the ED and , requested us to assist patient with her pain. She'll be given Dilaudid IM in the ED and Toradol. She'll discharged with the same medicine she was taking OxyContin 40 mg twice a day and oxycodone 7.5 mg for breakthrough pain. She has an appointment with Dr. Loco Tuesday next week. Dragon Disclaimer Dragon Disclaimer This electronic medical record was generated, in whole or in part, using a voice recognition dictation system. Departure Departure Impression: Primary Impression: Right knee pain Disposition: HOME, SELF-CARE Condition: STABLE Referrals: STEFAN CAMARA MD (PCP) CHERRI SIFUENTES II, MD Follow-up with orthopedic doctor on Tuesday Patient Instructions: Knee Pain, [id number] Additional Instructions: You were seen for ongoing knee pain after surgery. Please take the prescribed medicines as ordered. Follow-up with on Tuesday as scheduled. Scripts Oxycodone/Apap 7.5-325 (Percocet 7.5-325 Mg Tablet)1 Each Tablet1 Tab PO Q4- 6HRS PRN PAIN #30 TAB Ref 0 for break through pain Prov:BONNIEUNGA,SANTIAGO TIPPLE GREASER 10/23/16 Oxycodone Hcl (Oxycontin)40 Mg Tab.er.12h40 Mg PO BID PAIN #20 TAB Prov:SANTIAGO ANDRADE APRN 10/23/16 Problem Qualifiers Primary Impression: Right knee pain Chronicity: acute Qualified Code: M25.561 - Pain in right knee SANTIAGO ANDRADE MARÍA Oct 23, 2016 15:52
== END 2016-10-23 16:03 | disposition home or self-care (01) ==
LOC: ER 15:09
DX: M25.561 Pain in right knee (principal); E11.40 Type 2 diabetes mellitus with diabetic neuropathy, unspecified; I10 Essential (primary) hypertension; E78.00 Pure hypercholesterolemia, unspecified; M79.7 Fibromyalgia; Z86.19 Personal history of other infectious and parasitic diseases; Z90.710 Acquired absence of both cervix and uterus; Z96.649 Presence of unspecified artificial hip joint; Z96.659 Presence of unspecified artificial knee joint; M19.90 Unspecified osteoarthritis, unspecified site; Z88.8 Allergy status to other drugs, medicaments and biological substances; Z91.011 Allergy to milk products
CPT/HCPCS: 96372; 99284; J1170; J1885

== ENCOUNTER → 2017-01-18 | Outpatient (CLI) | payer MEDICARE, OTHER ==
[~2017-01-18] MED LIST changes: -HYDR-2672 PO; +HYDR-2766 PO; -LINA5TAB PO; +LINA5TAB4 PO; -OXYC-244 PO; +OXYC-327 PO; -OXYC10TA32 PO; +OXYC10TA45 PO; +OXYC40TA21 PO; +POLY17PO29 PO; -POLY17PO5 PO; -POTA10TA10 PO; +POTA10TA12 PO; +WARF-78 PO; -WARF5TAB PO; -WARF7.5T PO; +WARF7.5T48 PO
--- NOTE | 2017-01-18 16:05 | KCIC ---
Bilateral lower extremity Doppler arterial ultrasound and ankle-brachial indices. TECHNIQUE: Grayscale, color Doppler and duplex analysis. Left ankle-brachial index measures 0.96. Right ankle brachial index measures 0.95. Right leg Right common femoral artery, superficial femoral artery and popliteal arteries demonstrate triphasic waveforms. Right posterior tibial artery demonstrates triphasic waveform. Peroneal artery, anterior tibial artery and dorsalis pedis artery demonstrate biphasic waveforms. No evidence of occlusion or evidence of a high-grade stenosis. Left leg Left common femoral artery and superficial femoral artery demonstrates triphasic waveforms. Left popliteal artery, posterior tibial artery, peroneal artery, anterior tibial artery and dorsalis pedis artery demonstrate biphasic waveforms. No evidence of occlusion or evidence suggestive of a high-grade stenosis. IMPRESSION: 1. Findings are compatible with generalized atherosclerotic disease, with distal biphasic waveforms bilaterally. No evidence of occlusive disease. 2. ABIs are at the lower limits of normal bilaterally. Electronically signed by: Howard Hylton MD (01/18/2017 4:01 PM) [facility]
== END | disposition home or self-care (01) ==
LOC: KCIC US 11:53
PROVIDERS: ATTEND Podiatrist Foot & Ankle Surgery
DX: I73.9 Peripheral vascular disease, unspecified (principal); I70.91 Generalized atherosclerosis
CPT/HCPCS: 93922; 93925

== ENCOUNTER → 2017-03-24 | Outpatient (CLI) | payer OTHER ==
[~2017-03-24] MED LIST changes: +GADOBUTROL 10 MMOL/10 ML VIAL IV ONE; +METH4TAB2 PO; +OXYC-323 PO
[2017-03-24 11:30] LABS: CREATININE 0.8 mg/dL (0.6-1.0); GFR 89.8
--- NOTE | 2017-03-24 14:39 | RAD ---
MRI of the lumbar spine without and with contrast 03/24/2017 Clinical history: Low back pain which radiates down both legs, right greater than left. History of lumbar fusion one year ago. TECHNIQUE: Unenhanced T1-weighted and T2-weighted sagittal and axial and inversion recovery sagittal images of the lumbar spine were obtained. After the intravenous administration of 10 cc of Gadavist, enhanced T1-weighted sagittal and axial images of the lumbar spine were obtained. FINDINGS: Comparison is made to a CT scan of the lumbar spine dated 08/21/2015. Additional comparison is made to a MRI of the lumbar spine dated 05/27/2015. On the CT scan hypoplastic ribs are seen at T12. L5 is partially sacralized. A somewhat hypoplastic disc is seen at L5-S1. Mild S-shaped curvature of the thoracolumbar spine is seen. Mild anterolisthesis of L4 in relation to L5 is again noted. The patient is post laminectomy and posterolateral fusion using what appears to be pedicle screws and stabilizing rods at L4-5. Degenerative signal changes are seen involving the L2-3, L3-4, L4-5 and L5-S1 discs. Loss of height of the L4-5 disc is noted. Degenerative signal changes are seen within the marrow surrounding this disc. A 1 cm hemangioma seen involving the L1 vertebral body. The conus medullaris is normal morphology, position, and signal characteristics. The L1-2 disc space is within normal limits. At the L2-3 and L3-4 disc spaces there are mild generalized disc bulges. Degenerative changes are seen involving the facet joints bilaterally. These findings do not result in significant central spinal canal or neural foraminal stenosis. At the L4-5 disc space there is a mild generalized disc bulge. This is eccentric to the right. Degenerative changes are seen involving the facet joints bilaterally. These findings when combined with the anterolisthesis result in moderate right neural foraminal stenosis. The left neural foramen is patent. At the L5-S1 disc space there is minimal generalized disc bulge. Degenerative changes are seen involving the facet joints bilaterally. These findings do not result in significant central spinal canal or neural foraminal stenosis. IMPRESSION: 1. Postlaminectomy and fusion at L4-5. 2. The changes of degenerative disc disease are seen involving the lumbar spine. These findings do not result in significant central spinal canal stenosis at any level. Moderate right neural foraminal stenosis is seen at L4-5. Electronically signed by: Fredy Layton MD (03/24/2017 2:36 PM) [facility]
== END | disposition home or self-care (01) ==
LOC: MRI 14:04
PROVIDERS: ATTEND Orthopaedic Surgery
DX: M54.5 Low back pain (principal); M25.562 Pain in left knee
CPT/HCPCS: 36415; 72158; 82565; A9585

== ENCOUNTER 2017-03-27 10:56 | Emergency (ER) | payer OTHER ==
[~2017-03-27] VITALS: Ht 165.1 cm; Wt 124.7 kg
[~2017-03-27 10:56] MED LIST changes: -GADOBUTROL 10 MMOL/10 ML VIAL IV ONE; -METH4TAB2 PO; -OXYC-323 PO
[2017-03-27 11:28] VITALS: BP 160/62
[2017-03-27] MEDS ORDERED: predniSONE 10 MG TABLET PO ONE (11:30)
[2017-03-27] MEDS ORDERED: HYDROmorphone 2 MG/ML VIAL IM ONE (11:30)
[2017-03-27] MEDS ORDERED: ONDANSETRON ODT 4 MG TAB.RAPDIS. PO ONE (11:30)
--- NOTE | 2017-03-27 11:37 | PHYS DOC ---
Past Medical History Past Medical History: Arthritis, Diabetes-Type II, Fibromyalgia, High Cholesterol, Hypertension, Hepatitis, Other Additional Past Medical Histor: HEP C, DM WITH NEUROPATHY, back pain,insomnia, chronic cough Past Surgical History: Hip Replacement, Hysterectomy, Knee Replacement, Tonsillectomy, Other Additional Past Surgical Histo: ROTATOR CUFF SX, CYST REMOVAL X 3, R FOOT SX WITH NERVE DAMAGE low back Alcohol Use: None Drug Use: None Adult General Chief Complaint Chief Complaint: LOWER BACK PAIN OR INJURY HPI HPI Patient is a 56 year old female who presents with complaint of right lower back pain. Patient states that she has history of sciatica and has been on chronic pain medications at home for treatment. Patient states that she started having worsening symptoms over the past 3 days. Patient states that currently her pain as 10 out of 10 and is causing severe problems with being able to walk as she is unable to do so because of her pain. Patient denies any loss of bowel or bladder control, saddle anesthesia, or foot drop. The patient had an MRI completed earlier this week. My review of the report showed no evidence of central canal stenosis but did show right neural foraminal stenosis at L4-L5. Patient states that she is currently on gabapentin therapy. Patient had been on OxyContin but states that she ran out of this medication prior to onset of worsening symptoms. Review of Systems Review of Systems Constitutional: Denies fever or chills [] Eyes: Denies change in visual acuity, redness, or eye pain [] HENT: Denies nasal congestion or sore throat [] Respiratory: Denies cough or shortness of breath [] Cardiovascular: Denies chest pain or edema[] GI: Denies abdominal pain, nausea, vomiting, bloody stools or diarrhea [] : Denies dysuria or hematuria [] Musculoskeletal: Back pain radiating into right lower extremity[] Integument: Denies rash or skin lesions [] Neurologic: Denies headache, focal weakness or sensory changes [] Current Medications Current Medications Current Medications Medications (Trade) Dose Ordered Sig/Doris Start Time Stop Time Status Last Admin Dose Admin Hydromorphone HCl (Dilaudid) 2 mg 1X ONCE 03/27/17 11:30 03/27/17 11:34 DC 03/27/17 11:41 2 MG Ondansetron HCl (Zofran Odt) 4 mg 1X ONCE 03/27/17 11:30 03/27/17 11:34 DC 03/27/17 11:40 4 MG Oxycodone/ Acetaminophen (Percocet 5/325) 1 tab 1X ONCE 03/27/17 12:45 03/27/17 12:46 03/27/17 12:34 1 TAB Prednisone (Prednisone) 50 mg 1X ONCE 03/27/17 11:30 03/27/17 11:34 DC 03/27/17 11:40 50 MG Allergies Allergies Allergies Coded Allergies Type Severity Reaction Last Updated Verified metformin Allergy Intermediate Diarrhea 09/21/16 Yes sitagliptin Allergy Intermediate Diarrhea 09/21/16 Yes milk Allergy Mild 09/21/16 Yes Physical Exam Physical Exam Constitutional: Alert, obese, afebrile, tearful, appears in moderate discomfort. [] HENT: Normocephalic, atraumatic, bilateral external ears normal, oropharynx moist, no oral exudates, nose normal. [] Eyes: PERRLA, EOMI, conjunctiva normal, no discharge. [] Neck: Normal range of motion, no tenderness, supple, no stridor. [] Cardiovascular:Heart rate regular rhythm, no murmur [] Lungs & Thorax: Bilateral breath sounds clear to auscultation [] Abdomen: Bowel sounds normal, soft, no tenderness, no masses, no pulsatile masses. [] Skin: Warm, dry, no erythema, no rash. [] Back: Right lower lumbar paraspinous muscle tenderness to palpation, no midline tenderness, positive straight leg test and right lower extremity. [] Extremities: No tenderness, no cyanosis, no clubbing, ROM intact, no edema. [] Neurologic: Alert and oriented X 3, normal motor function, normal sensory function, no focal deficits noted. [] Current Patient Data Vital Signs Vital Signs Date Time Temp Pulse Resp B/P (MAP) Pulse Ox O2 Delivery O2 Flow Rate FiO2 03/27/17 11:28 98.0 66 16 100 Room Air 98.0 Lab Values None performed EKG EKG Not performed[] Radiology/Procedures Radiology/Procedures Not performed[] Course & Med Decision Making Course & Med Decision Making Pertinent Labs and Imaging studies reviewed. (See chart for details) Patient was treated with oral prednisone, IM Dilaudid, and oral Zofran in the emergency department. On reevaluation, patient states that her pain has improved at this time. Patient was given bridge therapy with oral Percocet. Patient's symptoms are consistent with lumbosacral radiculopathy. Spoke with patient regarding the findings of her MRI from this past week. Advised patient to follow-up with both orthopedic surgeon, Dr. Sutherland, and her primary physician, Dr. Rothman in the next 2-3 days for reevaluation. Advised return emergency department for any worsening symptoms. We'll continue patient on outpatient course of Percocet and Medrol Dosepak until patient has been able to follow-up with her physicians. Patient voiced understanding and in agreement with treatment plan. Dragon Disclaimer Dragon Disclaimer This electronic medical record was generated, in whole or in part, using a voice recognition dictation system. Departure Departure Impression: Primary Impression: Lumbar radiculopathy Disposition: HOME, SELF-CARE Condition: IMPROVED Referrals: STEFAN ROTHMAN MD (PCP) Patient Instructions: Lumbosacral Radiculopathy Additional Instructions: Follow-up he primary doctor in 2-3 days for reevaluation. Return to emergency department for any worsening symptoms. Scripts Oxycodone/Apap 5-325 (PERCOCET 5-325 MG TABLET) 1 Each Tablet 1-2 TAB PO Q4-6HRS Y for PAIN, #20 TAB Prov: MARY FRAGOSO MD 03/27/17 Methylprednisolone (MEDROL) 4 Mg Tab.ds.pk 1 PKG PO UD, #1 PKG Prov: MARY FRAGOSO MD 03/27/17 MARY FRAGOSO MD Mar 27, 2017 11:36
[2017-03-27] MEDS ORDERED: METH4TAB2 PO (12:34)
[2017-03-27] MEDS ORDERED: OXYC-323 PO (12:34)
[2017-03-27] MEDS ORDERED: oxyCODONE/APAP 5/325 1 TAB TABLET PO ONE (12:45)
== END 2017-03-27 12:38 | disposition home or self-care (01) ==
LOC: ER 10:56
DX: M54.16 Radiculopathy, lumbar region (principal); M19.90 Unspecified osteoarthritis, unspecified site; E11.40 Type 2 diabetes mellitus with diabetic neuropathy, unspecified; M79.7 Fibromyalgia; E78.00 Pure hypercholesterolemia, unspecified; I10 Essential (primary) hypertension; E66.9 Obesity, unspecified; G89.29 Other chronic pain; G47.00 Insomnia, unspecified; Z86.19 Personal history of other infectious and parasitic diseases; Z79.84 Long term (current) use of oral hypoglycemic drugs; Z79.891 Long term (current) use of opiate analgesic; Z88.8 Allergy status to other drugs, medicaments and biological substances; Z91.011 Allergy to milk products; Z68.42 Body mass index [BMI] 45.0-49.9, adult
CPT/HCPCS: 96372; 99284; J1170; J7512; Q0162

== ENCOUNTER → 2017-04-13 | Outpatient (CLI) | payer OTHER ==
[2017-03-27 11:28] VITALS: BP 160/62
[~2017-04-13] MED LIST changes: +IOHEXOL 180 MG/ML 10 ML VIAL. ONE; +METH4TAB2 PO; +OXYC-323 PO; +OXYC-328 PO; +OXYC60TA7 PO; +methylPREDNISolone ACETATE 40 MG/ML VIAL. ONE; +methylPREDNISolone ACETATE 80 MG/ML VIAL. ONE
--- NOTE | 2017-04-13 11:07 | PN ---
DATE: 04/13/2017 PROGRESS NOTE FOR PAIN CLINIC DIAGNOSES: 1. Lumbar radiculopathy with post-lumbar laminectomy syndrome. 2. Right hip joint pain and right knee joint pain with osteoarthritis of the right hip and knee joint. HISTORY OF PRESENT ILLNESS: The patient is a 57-year-old female who returns for followup, last seen 02/2016. The patient underwent hip joint injection. She since had her right hip and right knee replaced over the last year, also has had decompressive lumbar laminectomy at L4-L5 with instrumentation and posterior fusion. The patient returns today reporting that she still has significant pain in the low back, more on the right side than the left, but present bilaterally in the lower extremities, mostly in the lateral aspect of the thighs, posterior thighs, medial thighs to some extent on the right side as well into the lower legs and calf, into the feet that is aching, shooting, tingling, burning, cramping, stabbing and constant. It can be severe and radiating into the legs. She rates it as a 10 on a scale of 10 at its worse, it averages at 10 and is 7 at least and is a 10 today. The patient reports that she is having some difficulty using her walker as her back is hurting more after the knee replacement on the right. The patient did have a new MRI scan of the lumbar spine, which is dated 03/24/2017, showing post-laminectomy and fusion at L4-L5 with degenerative disk disease involving the lumbar spine; moderate right neural foraminal stenosis at L4-L5 with eccentric generalized disk bulge to the right, resulting in moderate right neural foraminal stenosis. The patient reports no loss of motor function, but significant fatigability, difficulty walking without her walker, even bearing weight and standing. It is better with sitting or lying down. The patient reports it does awaken her from sleep about every 4 hours, she has to reposition or take pain medication to get back to sleep. PAST MEDICAL HISTORY: Significant for peripheral neuropathy, diabetes, fibromyalgia and hepatitis C. PAST SURGICAL HISTORY: Previous surgeries include rotator cuff repair, ovarian cystectomy, right foot surgery, recent right hip and right knee total replacement and lumbar laminectomy with fusion within the last year. CURRENT MEDICATIONS: Updated and well documented on the patient's chart. ALLERGIES: The patient has no known drug allergies, with the exception of JANUVIA AND METFORMIN. SOCIAL HISTORY: The patient does not use alcohol, does not smoke cigarettes and does not use any illegal or illicit drugs or substances. She is currently retired. REVIEW OF SYSTEMS: Positive for those items mentioned in the history of present illness. All systems reviewed and well documented on the patient's chart and otherwise negative. PHYSICAL EXAMINATION: VITAL SIGNS: The patient's blood pressure is 139/65, pulse 69, respirations 18 and temperature 98.2 degrees Fahrenheit. Height is 5 feet 5 inches, weight is 282 pounds. GENERAL: The patient is awake, alert, oriented and appropriate. She has a very pleasant demeanor. HEENT: Head shows normocephalic, atraumatic. Extraocular movements are intact and symmetrical. Oral cavity, mucous membranes moist and pink. Dentition is intact. NECK: Shows anterior throat supple, without palpable lymphadenopathy noted. Swallow reflex is symmetrical. CHEST: Shows normal on inspection. Breath sounds are clear to auscultation bilaterally. HEART: Shows S1 and S2 clear. No murmurs auscultated. ABDOMEN: Obese, soft, nontender and nondistended. No palpable organomegaly is noted. BACK: Shows spine grossly in the midline. Normal-appearing thoracic kyphosis and some flattening of the lumbar lordotic curvature. Well-healed midline surgical scar is noted in the lumbar distribution. Lumbar paraspinous muscle shows symmetrical on inspection with palpation. It shows some moderate tenderness throughout the upper, middle and lower distribution of the paraspinous muscles diffusely, slightly worse on the right than the left, but present bilaterally and symmetrical. The patient has good rotational motion both laterally as well as extension and flexion, without significant pain reported. Limited flexion to about 40 degrees, extension to about 10 degrees. EXTREMITIES: Lower extremities show deep tendon reflexes at 1+ in the patellar tendons. Motor exam is approximately 4 on a scale of 5, but symmetrical with dorsiflexion, extension, quadriceps and hamstring flexion. Peripheral pulses are 1+ posterior tibia. No peripheral edema is noted. The patient is walking with a significant shuffling gait and using a walker to ambulate. Options were discussed with the patient. The patient's old chart was reviewed as her current medication regimen and updated. Current review of systems updated today as well and we will proceed with a caudal approach epidural steroid injection today with fluoroscopic guidance. Risks were again discussed including, but not limited to bleeding, infection, possibility of epidural hematoma, subsequent neurologic compromise, dural puncture, headaches, spinal cord and/or nerve damage, side effects of steroid medication and poor results regarding pain control. The patient understands and wishes to proceed. The patient will return to the clinic in approximately 2 weeks for followup, was counseled to return appointment, activity level and side effects to be aware of. DIAGNOSES: Lumbar radiculopathy with post-lumbar laminectomy syndrome. PROCEDURE: Lumbar epidural steroid injection, open caudal approach using C-arm fluoroscopic guidance under sterile prep and drape using local anesthetic. MEDICATIONS INJECTED: A total of 120 Depo-Medrol plus 10 mL preservative-free normal saline and 2 mL of Isovue for contrast. CONDITION AT DISCHARGE: Stable. The patient tolerated the procedure well, had no complications. The patient will follow up again in 2 weeks. We also ordered water therapy for the patient to begin in the meantime and they will contact her to get discharged well. The patient was counseled as to activity level as well as increase in activity as tolerated and we will follow up as scheduled. NICOLETTE FRANK MD DR: ANJEL/karey JOB#: [id number] / [id number]
== END | disposition home or self-care (01) ==
LOC: PNCL 08:41
PROVIDERS: ATTEND Anesthesiology
DX: M54.16 Radiculopathy, lumbar region (principal); M96.1 Postlaminectomy syndrome, not elsewhere classified; E11.42 Type 2 diabetes mellitus with diabetic polyneuropathy; B19.20 Unspecified viral hepatitis C without hepatic coma; E78.00 Pure hypercholesterolemia, unspecified; I10 Essential (primary) hypertension; E66.9 Obesity, unspecified; F41.9 Anxiety disorder, unspecified; F32.9 Major depressive disorder, single episode, unspecified; Z90.710 Acquired absence of both cervix and uterus; Z86.69 Personal history of other diseases of the nervous system and sense organs; Z87.39 Personal history of other diseases of the musculoskeletal system and connective tissue; Z86.39 Personal history of other endocrine, nutritional and metabolic disease; Z96.641 Presence of right artificial hip joint; Z98.890 Other specified postprocedural states; Z91.011 Allergy to milk products; Z88.8 Allergy status to other drugs, medicaments and biological substances; Z91.048 Other nonmedicinal substance allergy status
CPT/HCPCS: 62323; J1030; J1040

== ENCOUNTER → 2017-05-18 | Outpatient (CLI) | payer OTHER ==
[~2017-05-18] MED LIST changes: +MORP1CAP13 PO
--- NOTE | 2017-05-18 22:02 | PAIN ---
DATE OF SERVICE: 05/18/2017 PROGRESS NOTE FOR PAIN CLINIC DIAGNOSES: 1. Lumbar radiculopathy with post-lumbar laminectomy syndrome. 2. Right hip joint pain and right knee joint pain with primary osteoarthritis. HISTORY OF PRESENT ILLNESS: The patient is a 57-year-old female who returns for followup status post caudal epidural steroid injections x 2. The patient reports about 30% improvement overall after the last injection, but about 50% before that. The pain has been returning now over the past few days, was much improved prior to that in the low back, bilateral lower extremities, right greater than left with radiation into the posterior gluteus, posterior thigh, posterior calf, again worse with walking and standing, change in positions, better with lying down or sitting. The patient reports the pain as a 10 on a scale of 10 at its worst, on average and at its least and is a 10 today. The patient reports it is sharp shooting, tingling, stabbing, radiating, becoming more severe and more constant. The patient reports no new motor or sensory deficits, no new bowel or bladder incontinence or other complaints. The patient reports that she has some occasional awakening at night from the pain, but it is only sporadic. She sleeps about 4 hours at a time and does not usually awaken up from the pain issues that she is unable to sleep. The patient reports otherwise doing well. No new changes. PHYSICAL EXAMINATION: VITAL SIGNS: The patient's blood pressure is 132/73, pulse 56, respirations 20, temperature 97.7 degrees Fahrenheit and weight is 276 pounds. GENERAL: The patient is awake, alert, oriented, appropriate and very pleasant demeanor. HEENT: Head shows normocephalic and atraumatic. Extraocular movements are intact and symmetrical. Oral cavity: Mucous membranes are moist and pink. Dentition is intact. NECK: Shows anterior throat supple without palpable lymphadenopathy noted. Swallow reflex is symmetrical. CHEST: Shows normal on inspection. Breath sounds are clear to auscultation bilaterally. HEART: Shows S1 and S2 clear. ABDOMEN: Obese, soft, nontender and nondistended. No palpable organomegaly noted. No rebound or guarding demonstrated. MUSCULOSKELETAL: Back shows spine grossly in the midline. Lumbar paraspinous muscle shows normal appearance with well-healed surgical scarring in the lumbar distribution, some flattening of the lumbar lordotic curvature and normal thoracic kyphotic curvature. Palpation of the lumbar paraspinous muscle shows diffuse tenderness to a moderate extent bilaterally throughout the middle and lower distribution of the paraspinous muscles, but without radiation. No tenderness over the sacrum or sacroiliac regions. The patient has good rotational motion of the lumbar spine, both laterally as well as extension and flexion. Lower extremities showed deep tendon reflexes 1+ in the patellar and tendo calcaneus tendons. Motor exam is approximately 4 on a scale of 5 pretty equal with dorsiflexion, extension, quadriceps and hamstring flexion and symmetrical right and left. Peripheral pulses are 1+. No peripheral edema is noted. Options were discussed with the patient. The patient's old chart was reviewed as is her current medication regimen and updated. Current review of systems updated today as well. We will proceed with a lumbar caudal approach epidural steroid injection today with fluoroscopic guidance. Risks were again discussed including, but not limited to bleeding, infection, possibility of epidural hematoma, subsequent neurologic compromise, dural puncture, headaches, spinal cord and/or nerve damage, side effects of steroid medication and poor results regarding pain control. The patient understands and wishes to proceed. The patient will return to the clinic in approximately 2 weeks for followup, was counseled on return appointment, activity level and side effects to be aware of. DIAGNOSIS: Lumbar radiculopathy with post-lumbar laminectomy syndrome. PROCEDURE: Caudal approach epidural steroid injection with C-arm fluoroscopic guidance under sterile prep and drape using local anesthetic. MEDICATIONS INJECTED: A total of 120 mg Depo-Medrol plus 10 mL of preservative-free normal saline and 2 mL of Isovue for contrast. CONDITION AT DISCHARGE: Stable. The patient tolerated the procedure well and had no complications. NICOLETTE FRANK MD DR: ANJEL/karey JOB#: [id number] / [id number]
== END ==
LOC: PNCL 10:15
PROVIDERS: ATTEND Anesthesiology
DX: M54.16 Radiculopathy, lumbar region (principal); M96.1 Postlaminectomy syndrome, not elsewhere classified; M16.11 Unilateral primary osteoarthritis, right hip; M17.11 Unilateral primary osteoarthritis, right knee; Z98.890 Other specified postprocedural states; E11.42 Type 2 diabetes mellitus with diabetic polyneuropathy; E78.00 Pure hypercholesterolemia, unspecified; I10 Essential (primary) hypertension; E66.9 Obesity, unspecified; K21.9 Gastro-esophageal reflux disease without esophagitis; Z90.710 Acquired absence of both cervix and uterus; Z96.641 Presence of right artificial hip joint; F32.9 Major depressive disorder, single episode, unspecified; F41.9 Anxiety disorder, unspecified; Z82.49 Family history of ischemic heart disease and other diseases of the circulatory system; Z83.3 Family history of diabetes mellitus
CPT/HCPCS: 62323; J1030; J1040

== ENCOUNTER → 2017-09-05 | Outpatient (CLI) | payer OTHER | END | disposition home or self-care (01) | LOC: PNCL 11:56 | DX: M54.16 Radiculopathy, lumbar region (principal); M17.11 Unilateral primary osteoarthritis, right knee; M25.551 Pain in right hip; R53.83 Other fatigue | CPT/HCPCS: G0463 ==

== ENCOUNTER 2017-09-21 15:17 | Emergency (ER) | payer OTHER ==
[2017-09-21 17:33] LABS: ADD MAN DIFF? NO
[2017-09-21 17:36] LABS: BASO # 0.1 x10^3/uL (0.0-0.2); BASO % 1 % (0-3); EOS # 0.1 x10^3/uL (0.0-0.7); EOS % 1 % (0-3); HEMATOCRIT 40.8 % (36.0-47.0); HEMOGLOBIN 13.5 g/dL (12.0-15.5); LYMPH # 2.3 x10^3/uL (1.0-4.8); LYMPH % 35 % (24-48); MEAN CORPUSCULAR HEMOGLOBIN 30 pg (25-35); MEAN CORPUSCULAR HGB CONC 33 g/dL (31-37); MEAN CORPUSCULAR VOLUME 92 fL (79-100); MONO # 0.4 x10^3/uL (0.0-1.1); MONO % 7 % (0-9); NEUT # 3.6 x10^3uL (1.8-7.7); NEUT % 56 % (31-73); PLATELET COUNT 254 x10^3/uL (140-400); RED BLOOD COUNT 4.45 x10^6/uL (3.50-5.40); RED CELL DISTRIBUTION WIDTH 13.4 % (11.5-14.5); WHITE BLOOD COUNT 6.4 x10^3/uL (4.0-11.0)
[2017-09-21 17:38] LABS: BILIRUBIN,URINE NEGATIVE (NEG); CLARITY,URINE CLEAR; COLOR,URINE YELLOW; GLUCOSE,URINE >=1000 mg/dL (NEG); NITRITE,URINE NEGATIVE (NEG); PROTEIN,URINE NEGATIVE (NEG-TRACE)
[2017-09-21 17:47] LABS: BACTERIA,URINE FEW /HPF (0-FEW); SQUAMOUS EPITHELIAL CELL,UR MOD /LPF
[2017-09-21 17:49] LABS: ANION GAP 11 (6-14); BLOOD UREA NITROGEN 9 mg/dL (7-20); BUN/CREATININE RATIO 13 (6-20); CALCIUM 9.2 mg/dL (8.5-10.1); CARBON DIOXIDE 28 mmol/L (21-32); CHLORIDE 103 mmol/L (98-107); CREATININE 0.7 mg/dL (0.6-1.0); GFR 104.4; GLUCOSE 143 mg/dL (70-99); POTASSIUM 3.7 mmol/L (3.5-5.1); SODIUM 142 mmol/L (136-145)
[2017-09-21 17:55] LABS: ALBUMIN 3.1 g/dL (3.4-5.0); ALBUMIN/GLOBULIN RATIO 0.6 (1.0-1.7); ALK PHOS 111 U/L (46-116); ALT (SGPT) 24 U/L (14-59); AST (SGOT) 32 U/L (15-37); LIPASE 123 U/L (73-393); TOTAL BILIRUBIN 0.6 mg/dL (0.2-1.0); TOTAL PROTEIN 8.4 g/dL (6.4-8.2)
[2017-09-21] MEDS: IV NORMAL SALINE 1000ML BAG 1,000 ML IV (18:16)
[2017-09-21] MEDS: FAMOTIDINE 20 MG/2 ML VIAL IVP (18:16)
[2017-09-21] MEDS: ONDANSETRON PF 4 MG/2 ML VIAL. IV (18:17)
[2017-09-21] MEDS: DICYCLOMINE 20 MG/2 ML AMPUL. IM (18:17)
[2017-09-21] MEDS: fentaNYL PF VIAL 100 MCG/2 ML VIAL IV (18:18)
[2017-09-21] MEDS: HYDROcodone/APAP 7.5/325MG 1 TAB TABLET PO (20:02)
== END 2017-09-21 20:15 | disposition home or self-care (01) ==
LOC: ER 15:17
DX: R10.32 Left lower quadrant pain (principal); R11.2 Nausea with vomiting, unspecified; R19.7 Diarrhea, unspecified; E11.40 Type 2 diabetes mellitus with diabetic neuropathy, unspecified; E78.00 Pure hypercholesterolemia, unspecified; I10 Essential (primary) hypertension; Z90.710 Acquired absence of both cervix and uterus; Z96.649 Presence of unspecified artificial hip joint; Z96.659 Presence of unspecified artificial knee joint; K58.9 Irritable bowel syndrome, unspecified; M79.7 Fibromyalgia; Z88.8 Allergy status to other drugs, medicaments and biological substances; Z91.011 Allergy to milk products
CPT/HCPCS: 36415; 74176; 80053; 81001; 83690; 85025; 96361; 96372; 96374; 96375; 99285-25; J0500; J2405; J3010; J7030; S0028

== ENCOUNTER 2017-09-27 15:21 | Inpatient (IN) | payer OTHER ==
[2017-09-27] MEDS: MORPHINE SULFATE 4 MG/ML DISP.SYRIN. IV/SQ ×2 (17:16→20:04)
[2017-09-27] MEDS: ONDANSETRON PF 4 MG/2 ML VIAL. IV (17:16)
[2017-09-27 17:19] LABS: BILIRUBIN,URINE NEGATIVE (NEG); CLARITY,URINE CLEAR; COLOR,URINE YELLOW; GLUCOSE,URINE >=1000 mg/dL (NEG); NITRITE,URINE NEGATIVE (NEG); PROTEIN,URINE NEGATIVE (NEG-TRACE)
[2017-09-27 17:23] LABS: ADD MAN DIFF? NO
[2017-09-27 17:26] LABS: BASO % 1 % (0-3); EOS % 1 % (0-3); HEMOGLOBIN 13.9 g/dL (12.0-15.5); LYMPH # 2.3 x10^3/uL (1.0-4.8); LYMPH % 30 % (24-48); MEAN CORPUSCULAR HEMOGLOBIN 30 pg (25-35); MEAN CORPUSCULAR HGB CONC 33 g/dL (31-37); MEAN CORPUSCULAR VOLUME 91 fL (79-100); MONO # 0.6 x10^3/uL (0.0-1.1); MONO % 8 % (0-9); NEUT # 4.6 x10^3uL (1.8-7.7); NEUT % 61 % (31-73); PLATELET COUNT 302 x10^3/uL (140-400); RED BLOOD COUNT 4.62 x10^6/uL (3.50-5.40); RED CELL DISTRIBUTION WIDTH 13.7 % (11.5-14.5); WHITE BLOOD COUNT 7.6 x10^3/uL (4.0-11.0)
[2017-09-27 17:36] LABS: BACTERIA,URINE FEW /HPF (0-FEW); SQUAMOUS EPITHELIAL CELL,UR MOD /LPF
[2017-09-27 17:39] LABS: ANION GAP 11 (6-14); BLOOD UREA NITROGEN 9 mg/dL (7-20); CALCIUM 9.9 mg/dL (8.5-10.1); CARBON DIOXIDE 28 mmol/L (21-32); CHLORIDE 100 mmol/L (98-107); GFR 69.1; GLUCOSE 195 mg/dL (70-99); POTASSIUM 3.4 mmol/L (3.5-5.1); SODIUM 139 mmol/L (136-145)
[2017-09-27] MEDS: 0.9 % SODIUM CHLORIDE 10 ML DISP.SYRIN. IV (17:44)
[2017-09-27 17:45] LABS: ALBUMIN 3.3 g/dL (3.4-5.0); ALK PHOS 121 U/L (46-116); ALT (SGPT) 25 U/L (14-59); AST (SGOT) 31 U/L (15-37); DIRECT BILIRUBIN 0.2 mg/dL (0.0-0.2); LIPASE 148 U/L (73-393); TOTAL BILIRUBIN 0.6 mg/dL (0.2-1.0); TOTAL PROTEIN 8.7 g/dL (6.4-8.2)
[2017-09-27] MEDS: IV NORMAL SALINE 1000ML BAG 1,000 ML IV ×2 (17:45→19:34)
[2017-09-27 17:52] LABS: TROPONINI < 0.017 ng/mL (0.000-0.055)
[2017-09-27 17:53] LABS: CKMB MASS 0.7 ng/mL (0.0-3.6); CREATINE KINASE 43 U/L (26-192)
[2017-09-27] MEDS ORDERED: ONDANSETRON PF 4 MG/2 ML VIAL. IV (18:15)
[2017-09-27] MEDS ORDERED: ACETAMINOPHEN 325 MG TABLET. PO (18:15)
[2017-09-27] MEDS ORDERED: oxyCODONE/APAP 10/325 1 TAB TABLET PO (23:45)
[2017-09-28] MEDS: DOXEPIN HCL 10 MG CAPSULE. PO ×2 (00:49→21:02)
[2017-09-28] MEDS: GABAPENTIN 300 MG CAPSULE. PO ×4 (00:49→21:02)
[2017-09-28] MEDS: CYCLOBENZAPRINE 10 MG TABLET. PO ×4 (00:49→21:02)
[2017-09-28] MEDS: traZODone 50 MG TABLET. PO ×2 (00:49→21:02)
[2017-09-28] MEDS: FERROUS SULFATE 325 MG TABLET. PO ×2 (08:00→16:27)
[2017-09-28] MEDS: POTASSIUM CHLORIDE 10 MEQ TABLET.ER. PO (09:00)
[2017-09-28] MEDS ORDERED: CYCLOBENZAPRINE 10 MG TABLET. PO (09:00)
[2017-09-28] MEDS: NON FORMULARY ITEM (Canagliflozin (Invokana) 100 MG) PO (09:00)
[2017-09-28] MEDS ORDERED: NON FORMULARY ITEM (Gabapentin 600 MG) PO (09:00)
[2017-09-28] MEDS ORDERED: DEXTROSE 50% 25 GM / 50ML DISP.SYRIN. IV (10:00)
[2017-09-28] MEDS: IV NORMAL SALINE 1000ML BAG 1,000 ML IV ×2 (10:12→11:34)
[2017-09-28 10:57] LABS: POC GLUCOSE 105 mg/dL (70-99)
[2017-09-28 11:05] LABS: POC GLUCOSE 98 mg/dL (70-99)
[2017-09-28] MEDS: INSULIN ASPART 300 UNITS/3 ML INSULN.PEN SQ ×2 (11:18→17:00)
[2017-09-28] MEDS: MORPHINE SULFATE 4 MG/ML DISP.SYRIN. IV ×2 (11:34→17:25)
[2017-09-28] MEDS: ONDANSETRON ODT 4 MG TAB.RAPDIS. PO ×2 (11:34→17:24)
[2017-09-28 17:08] LABS: POC GLUCOSE 87 mg/dL (70-99)
[2017-09-28] MEDS: POLYETHYLENE GLYCOL 3350 238 GM POWDER PO (17:42)
[2017-09-28] MEDS ORDERED: traZODone 50 MG TABLET. PO (21:00)
[2017-09-28] MEDS ORDERED: DOXEPIN HCL 10 MG CAPSULE. PO (21:00)
[2017-09-29] MEDS: GABAPENTIN 300 MG CAPSULE. PO ×3 (07:21→21:03)
[2017-09-29] MEDS: FERROUS SULFATE 325 MG TABLET. PO ×2 (07:21→17:20)
[2017-09-29] MEDS: CYCLOBENZAPRINE 10 MG TABLET. PO ×3 (07:21→21:03)
[2017-09-29] MEDS: POTASSIUM CHLORIDE 10 MEQ TABLET.ER. PO (07:21)
[2017-09-29] MEDS: INSULIN ASPART 300 UNITS/3 ML INSULN.PEN SQ ×4 (08:00→17:22)
[2017-09-29 08:10] LABS: POC GLUCOSE 117 mg/dL (70-99)
[2017-09-29] MEDS: HYDROcodone/APAP 5/325MG 1 TAB TABLET PO (09:19)
[2017-09-29] MEDS: ALPRAZolam 0.25 MG TABLET PO (10:21)
[2017-09-29] MEDS ORDERED: LIDOCAINE 1% PF 2 ML VIAL. ID (10:30)
[2017-09-29] MEDS ORDERED: fentaNYL PF VIAL 100 MCG/2 ML VIAL IV ×2 (10:30)
[2017-09-29] MEDS ORDERED: MIDAZOLAM HCL/PF 2 MG/2 ML VIAL. IV (10:30)
[2017-09-29] MEDS: IV RINGERS,LACTATED 1000ML 1,000 ML IV (11:49)
[2017-09-29 12:21] LABS: POC GLUCOSE 96 mg/dL (70-99)
[2017-09-29] MEDS ORDERED: PROPOFOL 20 ML IV (13:06)
[2017-09-29] MEDS: oxyCODONE/APAP 10/325 1 TAB TABLET PO ×2 (15:15→21:03)
[2017-09-29 16:30] LABS: POC GLUCOSE 105 mg/dL (70-99)
[2017-09-29] MEDS ORDERED: ZOLPIDEM 5 MG TABLET. PO (19:15)
[2017-09-29 20:02] LABS: POC GLUCOSE 205 mg/dL (70-99)
[2017-09-29] MEDS: traZODone 50 MG TABLET. PO (21:03)
[2017-09-29] MEDS: DOXEPIN HCL 10 MG CAPSULE. PO (21:03)
[2017-09-29 21:08] LABS: POC GLUCOSE 130 mg/dL (70-99)
[2017-09-30] MEDS: oxyCODONE/APAP 10/325 1 TAB TABLET PO (04:06)
[2017-09-30 08:24] LABS: POC GLUCOSE 176 mg/dL (70-99)
[2017-09-30] MEDS: CYCLOBENZAPRINE 10 MG TABLET. PO ×2 (09:20→13:58)
[2017-09-30] MEDS: POTASSIUM CHLORIDE 10 MEQ TABLET.ER. PO (09:20)
[2017-09-30] MEDS: FERROUS SULFATE 325 MG TABLET. PO ×2 (09:20→16:39)
[2017-09-30] MEDS: GABAPENTIN 300 MG CAPSULE. PO ×2 (09:21→13:58)
[2017-09-30] MEDS: INSULIN ASPART 300 UNITS/3 ML INSULN.PEN SQ ×3 (09:29→17:23)
[2017-09-30 11:40] LABS: POC GLUCOSE 170 mg/dL (70-99)
[2017-09-30 17:15] LABS: POC GLUCOSE 153 mg/dL (70-99)
[2017-10-01 05:28] LABS: HCV ANTIBODY >11.0 s/co ratio (0.0-0.9); HEP A IGM ABDY Negative (Negative); HEP B SURFACE AG Negative (Negative)
== END 2017-09-30 19:43 | disposition home or self-care (01) | DRG 394 ==
LOC: ER 15:21 → ED HOLD 18:16 → 5 NORTH 22:24
PROC: 0DJD8ZZ Inspection of Lower Intestinal Tract, Via Natural or Artificial Opening Endoscopic (ICD-10-PCS; principal; 2017-09-29 12:30)
DX: K43.9 Ventral hernia without obstruction or gangrene (principal); F11.20 Opioid dependence, uncomplicated; E11.42 Type 2 diabetes mellitus with diabetic polyneuropathy; E66.01 Morbid (severe) obesity due to excess calories; K31.84 Gastroparesis; Z68.42 Body mass index [BMI] 45.0-49.9, adult; E78.5 Hyperlipidemia, unspecified; F32.9 Major depressive disorder, single episode, unspecified; F41.9 Anxiety disorder, unspecified; G89.29 Other chronic pain; I10 Essential (primary) hypertension; K21.9 Gastro-esophageal reflux disease without esophagitis; K64.1 Second degree hemorrhoids; Z96.651 Presence of right artificial knee joint; Z96.641 Presence of right artificial hip joint; Z90.710 Acquired absence of both cervix and uterus; Z83.3 Family history of diabetes mellitus; N20.0 Calculus of kidney; K58.0 Irritable bowel syndrome with diarrhea; Z98.891 History of uterine scar from previous surgery; Z98.1 Arthrodesis status; Z88.8 Allergy status to other drugs, medicaments and biological substances; Z91.011 Allergy to milk products; M43.16 Spondylolisthesis, lumbar region; K42.9 Umbilical hernia without obstruction or gangrene; M19.90 Unspecified osteoarthritis, unspecified site; B19.20 Unspecified viral hepatitis C without hepatic coma; M54.9 Dorsalgia, unspecified; Z90.722 Acquired absence of ovaries, bilateral
CPT/HCPCS: 36415; 74176; 80048; 80074; 80076; 81001; 82553; 82962; 83690; 84484; 85025; 93005; 96374; 96375; 96376; 97110-GP; 97161-GP; 97166-GO; 99285; 99285-25; J1815; J2060; J2270; J2405; J2704; J7030; J7120; Q0162

== ENCOUNTER → 2017-11-02 | Outpatient (CLI) | payer OTHER ==
[~2017-11-02] MED LIST changes: -ATOR10TA PO; -CITA20TA9 PO; -CYCL10TA2 PO; -DOXE10CA PO; -DULO60CA6 PO; -FERR325T58 PO; -GABA600T2 PO; -GLIM1TAB2 PO; -HYDR-2766 PO; -IBUP-1007 PO; +IOHEXOL 180 MG/ML 10 ML VIAL.; -IOHEXOL 180 MG/ML 10 ML VIAL. ONE; -LINA5TAB4 PO; -METH4TAB2 PO; -MORP1CAP13 PO; -MORP30TA83 PO; -ONDA4TAB12 PO; -OXYC-323 PO; -OXYC-327 PO; -OXYC-328 PO; -OXYC10TA45 PO; -OXYC20TA34 PO; -OXYC30TA PO; -OXYC40TA21 PO; -OXYC60TA7 PO; -POLY17PO29 PO; -POTA10TA12 PO; -PREG75CA PO; -TRAZ100T12 PO; -TRAZ50TA15 PO; -VENL75CA PO; -WARF-78 PO; -WARF7.5T48 PO; +methylPREDNISolone ACETATE 40 MG/ML VIAL.; -methylPREDNISolone ACETATE 40 MG/ML VIAL. ONE; +methylPREDNISolone ACETATE 80 MG/ML VIAL.; -methylPREDNISolone ACETATE 80 MG/ML VIAL. ONE
== END | disposition home or self-care (01) ==
LOC: PNCL 10:00
DX: M54.16 Radiculopathy, lumbar region (principal); M96.1 Postlaminectomy syndrome, not elsewhere classified; M17.11 Unilateral primary osteoarthritis, right knee; M16.11 Unilateral primary osteoarthritis, right hip; I10 Essential (primary) hypertension; K21.9 Gastro-esophageal reflux disease without esophagitis; E11.42 Type 2 diabetes mellitus with diabetic polyneuropathy; F41.9 Anxiety disorder, unspecified; F32.9 Major depressive disorder, single episode, unspecified; E78.00 Pure hypercholesterolemia, unspecified; E66.9 Obesity, unspecified; M79.7 Fibromyalgia; Z98.890 Other specified postprocedural states; Z86.69 Personal history of other diseases of the nervous system and sense organs; Z90.710 Acquired absence of both cervix and uterus; Z96.641 Presence of right artificial hip joint; Z86.19 Personal history of other infectious and parasitic diseases; Z87.09 Personal history of other diseases of the respiratory system; Z82.49 Family history of ischemic heart disease and other diseases of the circulatory system; Z83.3 Family history of diabetes mellitus
CPT/HCPCS: 62323; J1030; J1040; Q9965

== ENCOUNTER → 2018-01-30 | Outpatient (CLI) | payer OTHER | END | disposition home or self-care (01) | LOC: MRI 09:44 | DX: S46.011A Strain of muscle(s) and tendon(s) of the rotator cuff of right shoulder, initial encounter (principal); M19.011 Primary osteoarthritis, right shoulder; X58.XXXA Exposure to other specified factors, initial encounter; Y93.89 Activity, other specified; Y92.89 Other specified places as the place of occurrence of the external cause; Y99.8 Other external cause status | CPT/HCPCS: 73221 ==

== ENCOUNTER → 2018-02-14 | Outpatient (CLI) | payer OTHER ==
[2017-09-30 15:00] VITALS: BP 118/66
[~2018-02-14] MED LIST changes: +ATOR10TA PO; +CANA100T PO; +CITA20TA9 PO; +CYCL10TA2 PO; +DOXE10CA PO; +DULO60CA6 PO; +FERR325T58 PO; +GABA600T2 PO; +GLIM1TAB2 PO; +HYDR-2766 PO; +HYDR-971 PO; +IBUP-1007 PO; -IOHEXOL 180 MG/ML 10 ML VIAL.; +LINA5TAB4 PO; +METH4TAB2 PO; +MORP1CAP13 PO; +MORP30TA83 PO; +ONDA4TAB10 SL; +ONDA4TAB12 PO; +OXYC-323 PO; +OXYC-327 PO; +OXYC-328 PO; +OXYC10TA45 PO; +OXYC20TA34 PO; +OXYC30TA PO; +OXYC40TA21 PO; +OXYC60TA7 PO; +POLY17PO29 PO; +POTA10TA12 PO; +PREG75CA PO; +TRAZ-85 PO; +TRAZ-86 PO; +VENL75CA PO; +WARF-78 PO; +WARF7.5T48 PO; -methylPREDNISolone ACETATE 40 MG/ML VIAL.; -methylPREDNISolone ACETATE 80 MG/ML VIAL.
--- NOTE | 2018-02-15 13:37 | RAD ---
History: Routine Screening. Technique: Bilateral digital mammographic routine views were obtained with CAD - computer aided detection. Comparison: None. Findings: Breast Tissue Density A : The breast tissue is predominately fatty replaced. There are no suspicious masses, microcalcifications or areas of architectural distortion. Impression: Negative mammogram. Recommendation: In the absence of new clinical symptoms or change in physical exam, annual screening mammography is recommended. BI-RADS Category 1: Negative. A mammogram does not have 100% sensitivity and therefore a negative imaging study should not delay further work up of a suspicious abnormality. The patient will receive a letter with the results in the mail. Patient information is entered into the reminder system with a target due date for the next screening mammogram. The patient will receive a reminder. "Our facility is accredited by the [employer] Mammography Program."
== END | disposition home or self-care (01) ==
LOC: MAMMO 13:59
PROVIDERS: ATTEND Family Medicine
DX: Z12.31 Encounter for screening mammogram for malignant neoplasm of breast (principal); E11.9 Type 2 diabetes mellitus without complications; I10 Essential (primary) hypertension; E78.00 Pure hypercholesterolemia, unspecified; M19.90 Unspecified osteoarthritis, unspecified site; K21.9 Gastro-esophageal reflux disease without esophagitis
CPT/HCPCS: 77067

== ENCOUNTER 2018-02-20 12:28 | Emergency (ER) | payer OTHER ==
[~2018-02-20] VITALS: Ht 165.1 cm; Wt 124.7 kg
[2018-02-20 14:03] VITALS: BP 155/83
--- NOTE | 2018-02-20 14:18 | PHYS DOC ---
Past Medical History Past Medical History: Arthritis, Diabetes-Type II, Fibromyalgia, High Cholesterol, Hypertension, Hepatitis, Other Additional Past Medical Histor: HEP C, DM WITH NEUROPATHY, back pain,insomnia, chronic cough Past Surgical History: Hip Replacement, Hysterectomy, Knee Replacement, Tonsillectomy, Other Additional Past Surgical Histo: ROTATOR CUFF SX, CYST REMOVAL X 3, R FOOT SX WITH NERVE DAMAGE low back Alcohol Use: None Drug Use: None Adult General Chief Complaint Chief Complaint: SHOULDER INJURY HPI HPI Patient is a 57 year old [f__sex] who presents with [] Review of Systems Review of Systems Constitutional: Denies fever or chills [] Eyes: Denies change in visual acuity, redness, or eye pain [] HENT: Denies nasal congestion or sore throat [] Respiratory: Denies cough or shortness of breath [] Cardiovascular: No additional information not addressed in HPI [] GI: Denies abdominal pain, nausea, vomiting, bloody stools or diarrhea [] : Denies dysuria or hematuria [] Musculoskeletal: Denies back pain or joint pain [] Integument: Denies rash or skin lesions [] Neurologic: Denies headache, focal weakness or sensory changes [] Endocrine: Denies polyuria or polydipsia [] All other systems were reviewed and found to be within normal limits, except as documented in this note. Current Medications Current Medications Current Medications Medications (Trade) Dose Ordered Sig/Dor[facility] Start Time Stop Time Status Last Admin Dose Admin Ketorolac Tromethamine (Toradol Im) 60 mg 1X ONCE 02/20/18 14:45 02/20/18 14:46 Allergies Allergies Allergies Coded Allergies Type Severity Reaction Last Updated Verified metformin Allergy Intermediate Diarrhea 09/29/17 Yes sitagliptin Allergy Intermediate Diarrhea 09/29/17 Yes milk Allergy Mild 09/29/17 Yes Physical Exam Physical Exam Constitutional: Well developed, well nourished, no acute distress, non-toxic appearance. [] HENT: Normocephalic, atraumatic, bilateral external ears normal, oropharynx moist, no oral exudates, nose normal. [] Eyes: PERRLA, EOMI, conjunctiva normal, no discharge. [] Neck: Normal range of motion, no tenderness, supple, no stridor. [] Cardiovascular:Heart rate regular rhythm, no murmur [] Lungs & Thorax: Bilateral breath sounds clear to auscultation [] Abdomen: Bowel sounds normal, soft, no tenderness, no masses, no pulsatile masses. [] Skin: Warm, dry, no erythema, no rash. [] Back: No tenderness, no CVA tenderness. [] Extremities: No tenderness, no cyanosis, no clubbing, ROM intact, no edema. [] Neurologic: Alert and oriented X 3, normal motor function, normal sensory function, no focal deficits noted. [] Psychologic: Affect normal, judgement normal, mood normal. [] Current Patient Data Vital Signs Vital Signs Date Time Temp Pulse Resp B/P (MAP) Pulse Ox O2 Delivery O2 Flow Rate FiO2 02/20/18 14:03 98.3 64 18 155/83 (107) 98 98.3 EKG EKG [] Radiology/Procedures Radiology/Procedures [] Course & Med Decision Making Course & Med Decision Making Pertinent Labs and Imaging studies reviewed. (See chart for details) [] Dragon Disclaimer Dragon Disclaimer This electronic medical record was generated, in whole or in part, using a voice recognition dictation system. Departure Departure Impression: Primary Impression: Shoulder pain Disposition: 01 HOME, SELF-CARE Condition: STABLE Referrals: STEFAN ROTHMAN MD (PCP) BERNADETTE SUTHERLAND MD Patient Instructions: Shoulder Pain Additional Instructions: Follow-up with Dr. Sutherland or Dr. Rothman for refill of your pain medication. Keep your scheduled orthopedic appointment. If worsening return to the emergency department. ALEJANDRA ALEGRE APRN Feb 20, 2018 14:18
[2018-02-20] MEDS ORDERED: KETOROLAC 60 MG/2 ML INJ. IM ONE (14:45)
== END 2018-02-20 14:44 | disposition home or self-care (01) ==
LOC: ER 12:28
DX: M25.511 Pain in right shoulder (principal); E78.00 Pure hypercholesterolemia, unspecified; I10 Essential (primary) hypertension; E11.40 Type 2 diabetes mellitus with diabetic neuropathy, unspecified; Z98.890 Other specified postprocedural states; M79.7 Fibromyalgia; Z88.8 Allergy status to other drugs, medicaments and biological substances; Z91.011 Allergy to milk products
CPT/HCPCS: 96372; 99283; J1885

== ENCOUNTER → 2018-03-01 | Outpatient (CLI) | payer OTHER ==
[2018-02-20 14:03] VITALS: BP 155/83
[~2018-03-01] MED LIST changes: +IOHEXOL 180 MG/ML 10 ML VIAL. ONE; +LIDOCAINE 2% PF 2ML VIAL. ONE; +methylPREDNISolone ACETATE 40 MG/ML VIAL. ONE; +methylPREDNISolone ACETATE 80 MG/ML VIAL. ONE
--- NOTE | 2018-03-01 21:59 | PAIN ---
DATE OF SERVICE: 03/01/2018 DIAGNOSES: Lumbar radiculopathy with post-lumbar laminectomy syndrome. HISTORY OF PRESENT ILLNESS: The patient is a 57-year-old female, returns for followup status post caudal epidural steroid injection x 1, 11/02/2017. The patient did very well with this with about 80% improvement initially, but the pain returned over the past 1-2 months. The patient reports she did very well for the first month or so, but the pain returning now that is over the past month or so. The patient reports no new motor or sensory deficits, no new bowel or bladder incontinence or other complaints. Still significant pain in the low back, bilateral lower extremities, mostly in the low back radiating to posterior gluteus, posterior thighs bilaterally, posterior calves bilaterally to the ankles, aching, sharp, stabbing, constant, becoming more severe, more unbearable in quality. The patient reports it is a 10 on a scale of 10 at its worst, average, and at its least and is a 10 on scale of 10 today. The patient reports no new motor or sensory deficits, better with lying down, occasionally awakens her from sleep at night, but not usually. The patient reports it is better off of her feet, sitting, or lying down. The patient has lost about 10 pounds since her last visit and is quite pleased with this and I encouraged her to continue with this as well as this will improve her pain also. PHYSICAL EXAMINATION: VITAL SIGNS: Today, the patient's blood pressure 138/79, pulse 67, respirations 18, temperature 98.2 degrees Fahrenheit, height is 5 feet 5 inches, weight is 256 pounds. GENERAL: The patient is awake, alert, oriented, appropriate, very pleasant demeanor. HEENT: Shows normocephalic, atraumatic. Extraocular movements are intact and symmetrical. Oral cavity: Mucous membranes moist and pink. Dentition is intact. NECK: Shows anterior throat supple without palpable lymphadenopathy noted. Swallow reflex symmetrical. CHEST: Shows normal on inspection. Breath sounds clear to auscultation bilaterally. HEART: Shows S1, S2 clear. No murmurs auscultated. ABDOMEN: Soft, nontender, nondistended. No palpable organomegaly. No rebound or guarding demonstrated. Obese. BACK: Shows spine grossly in the midline with normal-appearing thoracic kyphosis and minor flattening of lumbar lordotic curvature. Well healed surgical scarring of skin noted. Lumbar paraspinous muscle shows symmetrical on inspection. On palpation shows some mild tenderness, but only diffusely throughout the upper, middle and lower distribution of paraspinous muscles, and again without radiation, without asymmetry. The patient has good rotational motion of lumbar spine both laterally as well as extension and flexion without significant difficulty. EXTREMITIES: Lower extremities show deep tendon reflexes 1+ in the patellar and tendo calcaneus tendons are equal. Motor exam is approximately 4 on a scale of 5, but equal and symmetrical with dorsiflexion, extension, quadriceps and hamstring flexion bilaterally. Peripheral pulses are 1+ posterior tibia. No peripheral edema is noted. Options were discussed with the patient. The patient's old chart was reviewed as is her current medication regimen updated. Current review of systems is updated today as well. We will proceed with a second in this series of caudal epidural steroid injection. Risks were discussed including but not limited to bleeding, infection, possibility of epidural hematoma, subsequent neurologic compromise, dural puncture, headaches, spinal cord and/or nerve damage, side effects of steroid medication and poor results regarding pain control. The patient understands and wished to proceed. The patient will return to the clinic in approximately 2 weeks for followup. She was counseled to return appointment, activity level and side effects to be aware of. DIAGNOSIS: Lumbar radiculopathy with post-lumbar laminectomy syndrome. PROCEDURE: Caudal approach epidural steroid injection using C-arm fluoroscopic guidance under sterile prep and drape using local anesthetic. MEDICATION INJECTED: A total of 120 mg Depo-Medrol plus 10 mL of preservative-free normal saline and 2 mL of Isovue for contrast. CONDITION AT DISCHARGE: Stable. The patient tolerated the procedure well, had no complications. NICOLETTE FRANK MD DR: ANJEL/karey JOB#: [id number] / [id number]
== END | disposition home or self-care (01) ==
LOC: PNCL 10:20
PROVIDERS: ATTEND Anesthesiology
DX: M54.6 Pain in thoracic spine (principal); M96.1 Postlaminectomy syndrome, not elsewhere classified; Z88.8 Allergy status to other drugs, medicaments and biological substances; Z91.011 Allergy to milk products
CPT/HCPCS: 62323; J1030; J1040; J2001; Q9965

== ENCOUNTER 2018-07-27 18:30 | Inpatient (IN) | payer OTHER ==
[~2018-07-27] VITALS: Ht 165.1 cm; Wt 110.3 kg
[~2018-07-27 18:30] MED LIST changes: +ASPI325T8 PO; +ATOR10TA60 PO; +CLOP75TA PO; -HYDR-2766 PO; +HYDR-2769 PO; +HYDR-3164 PO; -HYDR-971 PO; -IOHEXOL 180 MG/ML 10 ML VIAL. ONE; -LIDOCAINE 2% PF 2ML VIAL. ONE; +LINA5TAB PO; -LINA5TAB4 PO; -OXYC-323 PO; -OXYC-327 PO; -OXYC-328 PO; -OXYC10TA45 PO; +OXYC10TA46 PO; +OXYC1TAB15 PO; +OXYC1TAB19 PO; +OXYC1TAB22 PO; -OXYC30TA PO; +OXYC30TA3 PO; -methylPREDNISolone ACETATE 40 MG/ML VIAL. ONE; -methylPREDNISolone ACETATE 80 MG/ML VIAL. ONE
[2018-07-27] MEDS ORDERED: NALOXONE 0.4 MG/ML VIAL. ONE (18:49)
[2018-07-27] MEDS ORDERED: NALOXONE 0.4 MG/ML VIAL. IV ONE (19:00)
[2018-07-27] MEDS ORDERED: IV NORMAL SALINE 500ML BAG 500 ML IV ONE (19:00)
[2018-07-27 19:30] LABS: BILIRUBIN,URINE NEGATIVE (NEG); CLARITY,URINE CLEAR; COLOR,URINE YELLOW; NITRITE,URINE POSITIVE (NEG); PROTEIN,URINE 100 mg/dL (NEG-TRACE)
[2018-07-27 19:30] LABS: BASO % 0 % (0-3); EOS % 0 % (0-3); HEMATOCRIT 37.3 % (36.0-47.0); HEMOGLOBIN 12.2 g/dL (12.0-15.5); LYMPH # 0.7 x10^3/uL (1.0-4.8); LYMPH % 6 % (24-48); MEAN CORPUSCULAR HEMOGLOBIN 30 pg (25-35); MEAN CORPUSCULAR HGB CONC 33 g/dL (31-37); MEAN CORPUSCULAR VOLUME 93 fL (79-100); MONO # 0.8 x10^3/uL (0.0-1.1); MONO % 7 % (0-9); NEUT # 9.7 x10^3uL (1.8-7.7); NEUT % 86 % (31-73); PLATELET COUNT 266 x10^3/uL (140-400); RED BLOOD COUNT 4.02 x10^6/uL (3.50-5.40); RED CELL DISTRIBUTION WIDTH 15.1 % (11.5-14.5); WHITE BLOOD COUNT 11.2 x10^3/uL (4.0-11.0)
[2018-07-27 19:37] LABS: CALCIUM 9.3 mg/dL (8.5-10.1); CREATININE 1.1 mg/dL (0.6-1.0); GFR 61.7; POTASSIUM 3.3 mmol/L (3.5-5.1)
[2018-07-27 19:37] LABS: BACTERIA,URINE MANY /HPF (0-FEW); BARBITURATES NEG (NEG); BENZODIAZEPINES NEG (NEG); CANNABINOIDS NEG (NEG); COCAINE NEG (NEG); METHADONE NEG (NEG); OPIATES POS (NEG); PHENCYCLIDINE NEG (NEG); SQUAMOUS EPITHELIAL CELL,UR OCC /LPF
[2018-07-27 19:38] LABS: AMPHETAMINE/METHAMPHETAMINE NEG (NEG)
[2018-07-27 19:44] LABS: INFLUENZA A PATIENT NEGATIVE (NEGATIVE); INFLUENZA B PATIENT NEGATIVE (NEGATIVE)
[2018-07-27 19:51] LABS: ALBUMIN 3.3 g/dL (3.4-5.0); ALBUMIN/GLOBULIN RATIO 0.6 (1.0-1.7); MAGNESIUM 1.8 mg/dL (1.8-2.4); TOTAL BILIRUBIN 0.6 mg/dL (0.2-1.0); TOTAL PROTEIN 8.5 g/dL (6.4-8.2)
[2018-07-27 19:53] LABS: % BANDS 2 % (0-9); % LYMPHS 6 % (24-48); % MONOS 8 % (0-10); % SEGS 84 % (35-66)
[2018-07-27 19:55] LABS: PLT ESTIMATE ADEQUATE (ADEQUATE)
[2018-07-27 19:57] LABS: ANISOCYTOSIS SLIGHT; OVALOCYTES FEW
[2018-07-27] MEDS ORDERED: cefTRIAXone IV Push 1 GM VIAL. IVP ONE (20:15)
[2018-07-27] MEDS ORDERED: KETOROLAC 30 MG/ML VIAL. IV ONE (20:30)
[2018-07-27] MEDS ORDERED: ACETAMINOPHEN 500 MG TABLET PO ONE (20:30)
--- NOTE | 2018-07-27 21:06 | PHYS DOC ---
Past Medical History Past Medical History: Arthritis, Diabetes-Type II, Fibromyalgia, High Cholesterol, Hypertension, Hepatitis, Other Additional Past Medical Histor: HEP C, DM WITH NEUROPATHY, back pain,insomnia, chronic cough Past Surgical History: Hip Replacement, Hysterectomy, Knee Replacement, Tonsillectomy, Other Additional Past Surgical Histo: ROTATOR CUFF SX, CYST REMOVAL X 3, R FOOT SX WITH NERVE DAMAGE low back Alcohol Use: None Drug Use: None Adult General Chief Complaint Chief Complaint: ALTERED MENTAL STATUS HPI HPI Patient is a 58-year-old female who presents via EMS with report of altered mental status and fever. EMS reports that patient not responsive to verbal stimuli and localizes to painful stimuli. Additional history is limited due to patient's mental status. Review of Systems Review of Systems Constitutional: Positive fever[] Cardiovascular: No additional information not addressed in HPI [] GI: No report of vomiting or diarrhea [] Neurologic: Positive mental status changes [] Unable to fully assess review of systems due to patient's mental status. Current Medications Current Medications Current Medications Medications (Trade) Dose Ordered Sig/[facility] Start Time Stop Time Status Last Admin Dose Admin Acetaminophen (Tylenol) 1,000 mg 1X ONCE 07/27/18 20:30 07/27/18 20:31 DC 07/27/18 20:45 1,000 MG Ceftriaxone Sodium (Rocephin) 1 gm 1X ONCE 07/27/18 20:15 07/27/18 20:18 DC Ketorolac Tromethamine (Toradol 30mg Vial) 30 mg 1X ONCE 07/27/18 20:30 07/27/18 20:31 DC 07/27/18 20:45 30 MG Naloxone HCl (Narcan) 0.8 mg 1X ONCE 07/27/18 19:00 07/27/18 19:01 DC 07/27/18 18:57 0.8 MG Sodium Chloride 500 ml @ 500 mls/hr 1X ONCE 07/27/18 19:00 07/27/18 20:12 DC 07/27/18 19:02 500 MLS/HR Allergies Allergies Allergies Coded Allergies Type Severity Reaction Last Updated Verified metformin Allergy Intermediate Diarrhea 09/29/17 Yes sitagliptin Allergy Intermediate Diarrhea 09/29/17 Yes milk Allergy Mild 09/29/17 Yes Physical Exam Physical Exam Constitutional: Well developed, well nourished, no acute distress, non-toxic appearance. [] HENT: Normocephalic, atraumatic, bilateral external ears normal, oropharynx moist, no oral exudates, nose normal. [] Eyes: PERRLA, EOMI, conjunctiva normal, no discharge. [] Neck: Normal range of motion, no tenderness, supple, no stridor. [] Cardiovascular:Heart rate regular rhythm, no murmur [] Lungs & Thorax: Bilateral breath sounds clear to auscultation [] Abdomen: Bowel sounds normal, soft, no tenderness, no masses, no pulsatile masses. [] Skin: Warm, dry, no erythema, no rash. [] Back: No tenderness, no CVA tenderness. [] Extremities: No tenderness, no cyanosis, no clubbing, ROM intact, no edema. [] Neurologic: Alert and oriented X 3, normal motor function, normal sensory function, no focal deficits noted. [] Psychologic: Affect normal, judgement normal, mood normal. [] Current Patient Data Vital Signs Vital Signs Date Time Temp Pulse Resp B/P (MAP) Pulse Ox O2 Delivery O2 Flow Rate FiO2 07/27/18 18:30 102.7 104 24 143/90 (107) 100 Nasal Cannula 2.0 102.7 Lab Values Laboratory Tests Test 07/27/18 19:00 07/27/18 19:15 Urine Collection Type U cath Urine Color Yellow Urine Clarity Clear Urine pH 6.0 Urine Specific [place] >=1.030 Urine Protein 100 mg/dL (NEG-TRACE) Urine Glucose (UA) >=1000 mg/dL (NEG) Urine Ketones (Stick) Negative mg/dL (NEG) Urine Blood Small (NEG) Urine Nitrite Positive (NEG) Urine Bilirubin Negative (NEG) Urine Urobilinogen Dipstick 1.0 mg/dL (0.2 mg/dL) Urine Leukocyte Esterase Negative (NEG) Urine RBC 1-2 /HPF (0-2) Urine WBC 5-10 /HPF (0-4) Urine Squamous Epithelial Cells Occ /LPF Urine Bacteria Many /HPF (0-FEW) Urine Opiates Screen Pos (NEG) Urine Methadone Screen Neg (NEG) Urine Barbiturates Neg (NEG) Urine Phencyclidine Screen Neg (NEG) Urine Amphetamine/Methamphetamine Neg (NEG) Urine Benzodiazepines Screen Neg (NEG) Urine Cocaine Screen Neg (NEG) Urine Cannabinoids Screen Neg (NEG) Urine Ethyl Alcohol Neg (NEG) White Blood Count 11.2 x10^3/uL (4.0-11.0) H Red Blood Count 4.02 x10^6/uL (3.50-5.40) Hemoglobin 12.2 g/dL (12.0-15.5) Hematocrit 37.3 % (36.0-47.0) Mean Corpuscular Volume 93 fL (79-100) Mean Corpuscular Hemoglobin 30 pg (25-35) Mean Corpuscular Hemoglobin Concent 33 g/dL (31-37) Red Cell Distribution Width 15.1 % (11.5-14.5) H Platelet Count 266 x10^3/uL (140-400) Neutrophils (%) (Auto) 86 % (31-73) H Lymphocytes (%) (Auto) 6 % (24-48) L Monocytes (%) (Auto) 7 % (0-9) Eosinophils (%) (Auto) 0 % (0-3) Basophils (%) (Auto) 0 % (0-3) Neutrophils # (Auto) 9.7 x10^3uL (1.8-7.7) H Lymphocytes # (Auto) 0.7 x10^3/uL (1.0-4.8) L Monocytes # (Auto) 0.8 x10^3/uL (0.0-1.1) Eosinophils # (Auto) 0.0 x10^3/uL (0.0-0.7) Basophils # (Auto) 0.0 x10^3/uL (0.0-0.2) Segmented Neutrophils % 84 % (35-66) H Band Neutrophils % 2 % (0-9) Lymphocytes % 6 % (24-48) L Monocytes % 8 % (0-10) Platelet Estimate Adequate (ADEQUATE) Anisocytosis Slight Ovalocytes Few Sodium Level 140 mmol/L (136-145) Potassium Level 3.3 mmol/L (3.5-5.1) L Chloride Level 101 mmol/L (98-107) Carbon Dioxide Level 26 mmol/L (21-32) Anion Gap 13 (6-14) Blood Urea Nitrogen 17 mg/dL (7-20) Creatinine 1.1 mg/dL (0.6-1.0) H Estimated GFR (Cockcroft-Gault) 61.7 BUN/Creatinine Ratio 15 (6-20) Glucose Level 184 mg/dL (70-99) H Lactic Acid Level 1.9 mmol/L (0.4-2.0) Calcium Level 9.3 mg/dL (8.5-10.1) Magnesium Level 1.8 mg/dL (1.8-2.4) Total Bilirubin 0.6 mg/dL (0.2-1.0) Aspartate Amino Transferase (AST) 23 U/L (15-37) Alanine Aminotransferase (ALT) 23 U/L (14-59) Alkaline Phosphatase 100 U/L (46-116) PF-Rpo-H-Type Natriuretic Peptide 237 pg/mL (0-124) H Total Protein 8.5 g/dL (6.4-8.2) H Albumin 3.3 g/dL (3.4-5.0) L Albumin/Globulin Ratio 0.6 (1.0-1.7) L Influenza Type A Antigen Negative (NEGATIVE) Influenza Type B Antigen Negative (NEGATIVE) Laboratory Tests 07/27/18 19:15 Laboratory Tests 07/27/18 19:15 EKG EKG [] Interpretation Time: EKG demonstrates normal sinus rhythm with rate of 98. Radiology/Procedures Radiology/Procedures [] Impressions: Chest x-ray demonstrates no acute process. Course & Med Decision Making Course & Med Decision Making Pertinent Labs and Imaging studies reviewed. (See chart for details) [] Dragon Disclaimer Dragon Disclaimer This electronic medical record was generated, in whole or in part, using a voice recognition dictation system. Departure Departure Impression: Primary Impression: Altered mental status Additional Impressions: Urinary tract infection Fever Admitting Physician: Adela Wright Condition: IMPROVED Referrals: STEFAN CAMARA MD (PCP) Problem Qualifiers Primary Impression: Altered mental status Altered mental status type: unspecified Qualified Codes: R41.82 - Altered mental status, unspecified Additional Impressions: Urinary tract infection Urinary tract infection type: site unspecified Hematuria presence: without hematuria Qualified Codes: N39.0 - Urinary tract infection, site not specified Fever Fever type: unspecified Qualified Codes: R50.9 - Fever, unspecified CONCEPCION CHARLES Jr. DO Jul 27, 2018 21:06
[2018-07-27] MEDS ORDERED: ONDANSETRON PF 4 MG/2 ML VIAL. IV PRN (21:15)
--- NOTE | 2018-07-27 21:36 | PDOC1 ---
History and Physical Date of Admission Date of Admission DATE: 07/27/18 TIME: 21:30 Source Source: Chart review, Patient History of Present Illness History of Present Illness Ciara is a 58-year-old female brought bu EMS with report of altered mental status and fever. She was obtunded on arrival, better with narcan, now drowsy again, taking percocet for chronic knee and hip pain, now with recent abd pain, pain with urination, burning, she reports days of abd pain and pain to right hip. She got toradol for pain in the ER, some more fatigued appearance now. Past Medical History Cardiovascular: No pertinent hx Pulmonary: No pertinent hx CENTRAL NERVOUS SYSTEM: Carpal Tunnel Syndrome GI: Irritable bowel disease Heme/Onc: No pertinent hx Hepatobiliary: No pertinent hx Psych: Anxiety, Depression, Other Musculoskeletal: low back pain, Osteoarthritis Rheumatologic: No pertinent hx Infectious disease: No pertinent hx Renal/: No pertinent hx Endocrine: Diabetes, Other Past Surgical History Past Surgical History: , Total hip replacement, Total knee replacement , Tonsillectomy, Hysterectomy, Other Family History Family History: No Significant, Hypertension Family History: Parent Social History Smoke: No ALCOHOL: none Drugs: None Current Problem List Problem List Problems Medical Problems: (1) Altered mental status Status: Acute (2) Fever Status: Acute (3) Urinary tract infection Status: Acute Current Medications Current Medications Current Medications Naloxone HCl (Narcan) 0.4 mg STK-MED ONCE .ROUTE ; Start 07/27/18 at 18:49; Stop 07/27/18 at 18:51; Status DC Sodium Chloride 500 ml @ 500 mls/hr 1X ONCE IV Last administered on at 19:02; Start 07/27/18 at 19:00; Stop 07/27/18 at 20:12; Status DC Naloxone HCl (Narcan) 0.8 mg 1X ONCE IV Last administered on 07/27/18at 18:57; Start 07/27/18 at 19:00; Stop 07/27/18 at 19:01; Status DC Ceftriaxone Sodium (Rocephin) 1 gm 1X ONCE IVP Last administered on 07/27/18at 21:23; Start 07/27/18 at 20:15; Stop 07/27/18 at 20:18; Status DC Ketorolac Tromethamine (Toradol 30mg Vial) 30 mg 1X ONCE IV Last administered on 07/27/18at 20:45; Start 07/27/18 at 20:30; Stop 07/27/18 at 20:31; Status DC Acetaminophen (Tylenol) 1,000 mg 1X ONCE PO Last administered on 07/27/18at 20: 45; Start 07/27/18 at 20:30; Stop 07/27/18 at 20:31; Status DC Ondansetron HCl (Zofran) 4 mg PRN Q8HRS PRN IV NAUSEA/VOMITING; Start 07/27/18 at 21:15; Stop 07/28/18 at 21:14 Sodium Chloride 1,000 ml @ 125 mls/hr Q8H IV ; Start 07/27/18 at 21:06; Stop at 21:05 Acetaminophen (Tylenol) 650 mg PRN Q4HRS PRN PO FEVER; Start 07/27/18 at 21:15 ; Stop 07/28/18 at 21:14 Active Scripts Active Aspirin 325 Mg Tablet 325 Mg PO [id number] 90 Days Atorvastatin Calcium 10 Mg Tablet 10 Mg PO QHS 90 Days Clopidogrel (Clopidogrel Bisulfate) 75 Mg Tablet 75 Mg PO DAILY 30 Days Zofran Odt (Ondansetron) 4 Mg Tab.rapdis 1 Tab SL Q8HRS PRN Iron Supplement (Ferrous Sulfate) 325 Mg Tablet 1 Tab PO BID Tradjenta (Linagliptin) 5 Mg Tablet 5 Mg PO DAILY Reported Invokana (Canagliflozin) 100 Mg Tablet 100 Mg PO DAILY Percocet 10-325 Mg Tablet (Oxycodone/Acetaminophen) 1 Each Tablet 1 Tab PO TID PRN Gabapentin 600 Mg Tablet 600 Mg PO TID Doxepin Hcl 10 Mg Capsule 10 Mg PO HS LAST DOSE GIVEN: DATE:09/23/16 TIME:9:00 p.m. NEXT DOSE DUE: DATE:09/24/16 TIME:9:00 p.m. Cyclobenzaprine Hcl 10 Mg Tablet 10 Mg PO TID last dose given at 1400 next dose is at bedtime or 9 pm NEXT DOSE DUE: DATE:04-23-16 TIME:12:30 if needed for muscle spasm Potassium Chloride 10 Meq Tablet.er 10 Meq PO DAILY LAST DOSE GIVEN: DATE:09/24/16 TIME:8:30 a.m. NEXT DOSE DUE: DATE:09/25/16 TIME:8:30 a.m. Ondansetron Odt (Ondansetron) 4 Mg Tab.rapdis 1 Tab PO PRN Q6-8HRS May resume at home as needed for nausea Trazodone Hcl 50 Mg Tablet 50 Mg PO HS LAST DOSE GIVEN: DATE:09/23/16 TIME:9:00 p.m. NEXT DOSE DUE: DATE:09/24/16 TIME:9:00 p.m. Allergies Allergies: Coded Allergies: metformin (Verified Allergy, Intermediate, Diarrhea, 09/29/17) sitagliptin (Verified Allergy, Intermediate, Diarrhea, 09/29/17) LINAGLIPTIN HOME MED milk (Verified Allergy, Mild, 09/29/17) ROS Review of System limited due to poor mental status, lethargic, unable to complete General: YES: Fatigue, Malaise Physical Exam General: Alert, Cooperative, mild distress, moderate distress, Other ( disoriented 07/07) HEENT: EOMI, Mucous membr. moist/pink Lungs: Clear to auscultation ( dull bases), Normal air movement Heart: no gallops Cardiovascular: S2 Abdomen: Normal bowel sounds, Soft (tender midline, ) Extremities: No cyanosis, Other (tr edema) Skin: No rashes Neuro: Normal tone, Sensation intact, Reflexes 2+ Psych/Mental Status: Other (lethargic, confused) Vitals Vitals Vital Signs Date Time Temp Pulse Resp B/P (MAP) Pulse Ox O2 Delivery O2 Flow Rate FiO2 07/27/18 18:30 102.7 104 24 143/90 (107) 100 Nasal Cannula 2.0 102.7 Labs Labs Laboratory Tests Test 07/27/18 19:00 07/27/18 19:15 Urine Collection Type U cath Urine Color Yellow Urine Clarity Clear Urine pH 6.0 Urine Specific [place] >=1.030 Urine Protein 100 mg/dL (NEG-TRACE) Urine Glucose (UA) >=1000 mg/dL (NEG) Urine Ketones (Stick) Negative mg/dL (NEG) Urine Blood Small (NEG) Urine Nitrite Positive (NEG) Urine Bilirubin Negative (NEG) Urine Urobilinogen Dipstick 1.0 mg/dL (0.2 mg/dL) Urine Leukocyte Esterase Negative (NEG) Urine RBC 1-2 /HPF (0-2) Urine WBC 5-10 /HPF (0-4) Urine Squamous Epithelial Cells Occ /LPF Urine Bacteria Many /HPF (0-FEW) Urine Opiates Screen Pos (NEG) Urine Methadone Screen Neg (NEG) Urine Barbiturates Neg (NEG) Urine Phencyclidine Screen Neg (NEG) Urine Amphetamine/Methamphetamine Neg (NEG) Urine Benzodiazepines Screen Neg (NEG) Urine Cocaine Screen Neg (NEG) Urine Cannabinoids Screen Neg (NEG) Urine Ethyl Alcohol Neg (NEG) White Blood Count 11.2 x10^3/uL (4.0-11.0) Red Blood Count 4.02 x10^6/uL (3.50-5.40) Hemoglobin 12.2 g/dL (12.0-15.5) Hematocrit 37.3 % (36.0-47.0) Mean Corpuscular Volume 93 fL (79-100) Mean Corpuscular Hemoglobin 30 pg (25-35) Mean Corpuscular Hemoglobin Concent 33 g/dL (31-37) Red Cell Distribution Width 15.1 % (11.5-14.5) Platelet Count 266 x10^3/uL (140-400) Neutrophils (%) (Auto) 86 % (31-73) Lymphocytes (%) (Auto) 6 % (24-48) Monocytes (%) (Auto) 7 % (0-9) Eosinophils (%) (Auto) 0 % (0-3) Basophils (%) (Auto) 0 % (0-3) Neutrophils # (Auto) 9.7 x10^3uL (1.8-7.7) Lymphocytes # (Auto) 0.7 x10^3/uL (1.0-4.8) Monocytes # (Auto) 0.8 x10^3/uL (0.0-1.1) Eosinophils # (Auto) 0.0 x10^3/uL (0.0-0.7) Basophils # (Auto) 0.0 x10^3/uL (0.0-0.2) Segmented Neutrophils % 84 % (35-66) Band Neutrophils % 2 % (0-9) Lymphocytes % 6 % (24-48) Monocytes % 8 % (0-10) Platelet Estimate Adequate (ADEQUATE) Anisocytosis Slight Ovalocytes Few Sodium Level 140 mmol/L (136-145) Potassium Level 3.3 mmol/L (3.5-5.1) Chloride Level 101 mmol/L (98-107) Carbon Dioxide Level 26 mmol/L (21-32) Anion Gap 13 (6-14) Blood Urea Nitrogen 17 mg/dL (7-20) Creatinine 1.1 mg/dL (0.6-1.0) Estimated GFR (Cockcroft-Gault) 61.7 BUN/Creatinine Ratio 15 (6-20) Glucose Level 184 mg/dL (70-99) Lactic Acid Level 1.9 mmol/L (0.4-2.0) Calcium Level 9.3 mg/dL (8.5-10.1) Magnesium Level 1.8 mg/dL (1.8-2.4) Total Bilirubin 0.6 mg/dL (0.2-1.0) Aspartate Amino Transf (AST/SGOT) 23 U/L (15-37) Alanine Aminotransferase (ALT/SGPT) 23 U/L (14-59) Alkaline Phosphatase 100 U/L (46-116) WR-Xbo-M-Type Natriuretic Peptide 237 pg/mL (0-124) Total Protein 8.5 g/dL (6.4-8.2) Albumin 3.3 g/dL (3.4-5.0) Albumin/Globulin Ratio 0.6 (1.0-1.7) Influenza Type A Antigen Negative (NEGATIVE) Influenza Type B Antigen Negative (NEGATIVE) Laboratory Tests Test 07/27/18 19:00 07/27/18 19:15 Urine Collection Type U cath Urine Color Yellow Urine Clarity Clear Urine pH 6.0 Urine Specific [place] >=1.030 Urine Protein 100 mg/dL (NEG-TRACE) Urine Glucose (UA) >=1000 mg/dL (NEG) Urine Ketones (Stick) Negative mg/dL (NEG) Urine Blood Small (NEG) Urine Nitrite Positive (NEG) Urine Bilirubin Negative (NEG) Urine Urobilinogen Dipstick 1.0 mg/dL (0.2 mg/dL) Urine Leukocyte Esterase Negative (NEG) Urine RBC 1-2 /HPF (0-2) Urine WBC 5-10 /HPF (0-4) Urine Squamous Epithelial Cells Occ /LPF Urine Bacteria Many /HPF (0-FEW) Urine Opiates Screen Pos (NEG) Urine Methadone Screen Neg (NEG) Urine Barbiturates Neg (NEG) Urine Phencyclidine Screen Neg (NEG) Urine Amphetamine/Methamphetamine Neg (NEG) Urine Benzodiazepines Screen Neg (NEG) Urine Cocaine Screen Neg (NEG) Urine Cannabinoids Screen Neg (NEG) Urine Ethyl Alcohol Neg (NEG) White Blood Count 11.2 x10^3/uL (4.0-11.0) Red Blood Count 4.02 x10^6/uL (3.50-5.40) Hemoglobin 12.2 g/dL (12.0-15.5) Hematocrit 37.3 % (36.0-47.0) Mean Corpuscular Volume 93 fL (79-100) Mean Corpuscular Hemoglobin 30 pg (25-35) Mean Corpuscular Hemoglobin Concent 33 g/dL (31-37) Red Cell Distribution Width 15.1 % (11.5-14.5) Platelet Count 266 x10^3/uL (140-400) Neutrophils (%) (Auto) 86 % (31-73) Lymphocytes (%) (Auto) 6 % (24-48) Monocytes (%) (Auto) 7 % (0-9) Eosinophils (%) (Auto) 0 % (0-3) Basophils (%) (Auto) 0 % (0-3) Neutrophils # (Auto) 9.7 x10^3uL (1.8-7.7) Lymphocytes # (Auto) 0.7 x10^3/uL (1.0-4.8) Monocytes # (Auto) 0.8 x10^3/uL (0.0-1.1) Eosinophils # (Auto) 0.0 x10^3/uL (0.0-0.7) Basophils # (Auto) 0.0 x10^3/uL (0.0-0.2) Segmented Neutrophils % 84 % (35-66) Band Neutrophils % 2 % (0-9) Lymphocytes % 6 % (24-48) Monocytes % 8 % (0-10) Platelet Estimate Adequate (ADEQUATE) Anisocytosis Slight Ovalocytes Few Sodium Level 140 mmol/L (136-145) Potassium Level 3.3 mmol/L (3.5-5.1) Chloride Level 101 mmol/L (98-107) Carbon Dioxide Level 26 mmol/L (21-32) Anion Gap 13 (6-14) Blood Urea Nitrogen 17 mg/dL (7-20) Creatinine 1.1 mg/dL (0.6-1.0) Estimated GFR (Cockcroft-Gault) 61.7 BUN/Creatinine Ratio 15 (6-20) Glucose Level 184 mg/dL (70-99) Lactic Acid Level 1.9 mmol/L (0.4-2.0) Calcium Level 9.3 mg/dL (8.5-10.1) Magnesium Level 1.8 mg/dL (1.8-2.4) Total Bilirubin 0.6 mg/dL (0.2-1.0) Aspartate Amino Transf (AST/SGOT) 23 U/L (15-37) Alanine Aminotransferase (ALT/SGPT) 23 U/L (14-59) Alkaline Phosphatase 100 U/L (46-116) YR-Bxo-S-Type Natriuretic Peptide 237 pg/mL (0-124) Total Protein 8.5 g/dL (6.4-8.2) Albumin 3.3 g/dL (3.4-5.0) Albumin/Globulin Ratio 0.6 (1.0-1.7) Influenza Type A Antigen Negative (NEGATIVE) Influenza Type B Antigen Negative (NEGATIVE) VTE Prophylaxis Ordered VTE Prophylaxis Devices: No VTE Pharmacological Prophylaxi: Yes Assessment/Plan Assessment/Plan acute metabolic encephalopathy UTI, suspect pyelonephritis from pain history sepsis obesity confusion from pain meds acute on chronic pain, knee pain, hip pain AIDE FERRO MD Jul 27, 2018 21:36
[2018-07-27 22:46] VITALS: BP 142/77
[2018-07-27] MEDS: IV NORMAL SALINE 1000ML BAG 1,000 ML IV SCH (23:19)
--- NOTE | 2018-07-28 02:01 | RAD ---
EXAM: CHEST 1 VIEW History: Fever COMPARISON: 09/07/2016 TECHNIQUE: Single portable radiograph of the chest FINDINGS: The cardiac silhouette is unremarkable. Minimal bibasilar lung airspace opacities. IMPRESSION: Minimal bibasilar lung airspace opacities likely atelectasis or infiltrates. Electronically signed by: Ashok Irvin MD (07/28/2018 1:56 AM) [facility]
[2018-07-28 02:48] VITALS: BP 123/72
[2018-07-28] MEDS: IV NORMAL SALINE 1000ML BAG 1,000 ML IV SCH ×2 (06:20→17:53)
--- NOTE | 2018-07-28 06:58 | EKG ---
[facility] [address] [place] [address] Test Date: 2018-07-27 Test Time: 19:21:12 Pat Name: YANNICK KNIGHT Department: Room: 4 Gender: F [employer]: : 1960 Requested By: CONCEPCION CHARLES Order Number: [id number] Reading MD: Shane Bravo Measurements Intervals [place] Rate: 98 P: 0 CO: 176 QRS: -1 QRSD: 92 T: 53 QT: 348 QTc: 446 Interpretive Statements SINUS RHYTHM LEFTWARD AXIS Electronically Signed On 08-02-2018 17:34:58 [employer] by Shane Bravo
[2018-07-28 07:41] VITALS: BP 133/63
[2018-07-28 08:38] LABS: BASO % 0 % (0-3); EOS % 0 % (0-3); HEMATOCRIT 35.3 % (36.0-47.0); HEMOGLOBIN 11.5 g/dL (12.0-15.5); LYMPH # 0.8 x10^3/uL (1.0-4.8); LYMPH % 6 % (24-48); MEAN CORPUSCULAR HEMOGLOBIN 30 pg (25-35); MEAN CORPUSCULAR HGB CONC 33 g/dL (31-37); MEAN CORPUSCULAR VOLUME 92 fL (79-100); MONO # 1.1 x10^3/uL (0.0-1.1); MONO % 9 % (0-9); NEUT # 11.5 x10^3uL (1.8-7.7); NEUT % 85 % (31-73); PLATELET COUNT 231 x10^3/uL (140-400); RED BLOOD COUNT 3.83 x10^6/uL (3.50-5.40); RED CELL DISTRIBUTION WIDTH 15.3 % (11.5-14.5); WHITE BLOOD COUNT 13.4 x10^3/uL (4.0-11.0)
[2018-07-28 08:55] LABS: CALCIUM 8.8 mg/dL (8.5-10.1); CREATININE 0.7 mg/dL (0.6-1.0); POTASSIUM 3.2 mmol/L (3.5-5.1)
[2018-07-28] MEDS ORDERED: ENOXAPARIN 40 MG/0.4 ML SYRINGE. SQ SCH (09:00)
[2018-07-28] MEDS ORDERED: KETOROLAC 15 MG/ML VIAL. IV ONE (09:15)
[2018-07-28] MEDS: ACETAMINOPHEN 325 MG TABLET. PO PRN ×2 (11:06→18:00)
[2018-07-28 11:24] VITALS: BP 127/67
[2018-07-28] MEDS ORDERED: ONDANSETRON PF 4 MG/2 ML VIAL. IV PRN (13:45)
[2018-07-28] MEDS ORDERED: AMPICILLIN SODIUM 2 GM in IV NORMAL SALINE 100ML 100 ML IV SCH (14:00)
[2018-07-28] MEDS ORDERED: oxyCODONE/APAP 5/325 1 TAB TABLET PO PRN (14:15)
--- NOTE | 2018-07-28 14:15 | PDOC ---
PROGRESS NOTES Chief Complaint Chief Complaint Met ken NUNEZ in the background of sepsis-resolved Narcotic dependence - on perc 10 UTI Gram-negative bacteremia Obesity, BMI 41 History of Present Illness History of Present Illness Encephalopathy has resolved-she is asking for Percocet tens Called by RN, gram-negative rods on blood cultures 2 out of 4 Did get Rocephin 1 Does have UTI on UA Plan Continue Rocephin IV daily Urine culture ID consult Okay for Percocet 10-mental status has resolved Vitals Vitals Vital Signs Date Time Temp Pulse Resp B/P (MAP) Pulse Ox O2 Delivery O2 Flow Rate FiO2 07/28/18 11:24 99.7 96 20 127/67 (87) 98 Room Air 99.7 07/28/18 07:41 2.0 Physical Exam General: Alert, Oriented X3, Cooperative, No acute distress, Other ( disoriented 07/07) Heart: Regular rate, Normal S1, Normal S2 Lungs: Clear Abdomen: Normal bowel sounds, Soft (tender midline, ) Extremities: No cyanosis, Other (tr edema) Skin: No rashes, No breakdown Labs LABS Laboratory Tests Test 07/27/18 19:00 07/27/18 19:15 07/28/18 07:28 07/28/18 08:10 Urine Collection Type U cath Urine Color Yellow Urine Clarity Clear Urine pH 6.0 Urine Specific [place] >=1.030 Urine Protein 100 mg/dL (NEG-TRACE) Urine Glucose (UA) >=1000 mg/dL (NEG) Urine Ketones (Stick) Negative mg/dL (NEG) Urine Blood Small (NEG) Urine Nitrite Positive (NEG) Urine Bilirubin Negative (NEG) Urine Urobilinogen Dipstick 1.0 mg/dL (0.2 mg/dL) Urine Leukocyte Esterase Negative (NEG) Urine RBC 1-2 /HPF (0-2) Urine WBC 5-10 /HPF (0-4) Urine Squamous Epithelial Cells Occ /LPF Urine Bacteria Many /HPF (0-FEW) Urine Opiates Screen Pos (NEG) Urine Methadone Screen Neg (NEG) Urine Barbiturates Neg (NEG) Urine Phencyclidine Screen Neg (NEG) Urine Amphetamine/Methamphetamine Neg (NEG) Urine Benzodiazepines Screen Neg (NEG) Urine Cocaine Screen Neg (NEG) Urine Cannabinoids Screen Neg (NEG) Urine Ethyl Alcohol Neg (NEG) White Blood Count 11.2 x10^3/uL (4.0-11.0) 13.4 x10^3/uL (4.0-11.0) Red Blood Count 4.02 x10^6/uL (3.50-5.40) 3.83 x10^6/uL (3.50-5.40) Hemoglobin 12.2 g/dL (12.0-15.5) 11.5 g/dL (12.0-15.5) Hematocrit 37.3 % (36.0-47.0) 35.3 % (36.0-47.0) Mean Corpuscular Volume 93 fL (79-100) 92 fL (79-100) Mean Corpuscular Hemoglobin 30 pg (25-35) 30 pg (25-35) Mean Corpuscular Hemoglobin Concent 33 g/dL (31-37) 33 g/dL (31-37) Red Cell Distribution Width 15.1 % (11.5-14.5) 15.3 % (11.5-14.5) Platelet Count 266 x10^3/uL (140-400) 231 x10^3/uL (140-400) Neutrophils (%) (Auto) 86 % (31-73) 85 % (31-73) Lymphocytes (%) (Auto) 6 % (24-48) 6 % (24-48) Monocytes (%) (Auto) 7 % (0-9) 9 % (0-9) Eosinophils (%) (Auto) 0 % (0-3) 0 % (0-3) Basophils (%) (Auto) 0 % (0-3) 0 % (0-3) Neutrophils # (Auto) 9.7 x10^3uL (1.8-7.7) 11.5 x10^3uL (1.8-7.7) Lymphocytes # (Auto) 0.7 x10^3/uL (1.0-4.8) 0.8 x10^3/uL (1.0-4.8) Monocytes # (Auto) 0.8 x10^3/uL (0.0-1.1) 1.1 x10^3/uL (0.0-1.1) Eosinophils # (Auto) 0.0 x10^3/uL (0.0-0.7) 0.0 x10^3/uL (0.0-0.7) Basophils # (Auto) 0.0 x10^3/uL (0.0-0.2) 0.0 x10^3/uL (0.0-0.2) Segmented Neutrophils % 84 % (35-66) Band Neutrophils % 2 % (0-9) Lymphocytes % 6 % (24-48) Monocytes % 8 % (0-10) Platelet Estimate Adequate (ADEQUATE) Anisocytosis Slight Ovalocytes Few Sodium Level 140 mmol/L (136-145) 140 mmol/L (136-145) Potassium Level 3.3 mmol/L (3.5-5.1) 3.2 mmol/L (3.5-5.1) Chloride Level 101 mmol/L (98-107) 103 mmol/L (98-107) Carbon Dioxide Level 26 mmol/L (21-32) 23 mmol/L (21-32) Anion Gap 13 (6-14) 14 (6-14) Blood Urea Nitrogen 17 mg/dL (7-20) 15 mg/dL (7-20) Creatinine 1.1 mg/dL (0.6-1.0) 0.7 mg/dL (0.6-1.0) Estimated GFR (Cockcroft-Gault) 61.7 104.0 BUN/Creatinine Ratio 15 (6-20) Glucose Level 184 mg/dL (70-99) 153 mg/dL (70-99) Lactic Acid Level 1.9 mmol/L (0.4-2.0) Calcium Level 9.3 mg/dL (8.5-10.1) 8.8 mg/dL (8.5-10.1) Magnesium Level 1.8 mg/dL (1.8-2.4) Total Bilirubin 0.6 mg/dL (0.2-1.0) Aspartate Amino Transf (AST/SGOT) 23 U/L (15-37) Alanine Aminotransferase (ALT/SGPT) 23 U/L (14-59) Alkaline Phosphatase 100 U/L (46-116) FB-[id number]-[id number]-Type Natriuretic Peptide 237 pg/mL (0-124) Total Protein 8.5 g/dL (6.4-8.2) Albumin 3.3 g/dL (3.4-5.0) Albumin/Globulin Ratio 0.6 (1.0-1.7) Influenza Type A Antigen Negative (NEGATIVE) Influenza Type B Antigen Negative (NEGATIVE) Group A Streptococcus Rapid Negative (NEGATIVE) Glucose (Fingerstick) 136 mg/dL (70-99) Test 07/28/18 11:50 Glucose (Fingerstick) 223 mg/dL (70-99) Review of Systems Review of Systems A 14 point ROS was completed with the following noted as positive: Other systems reviewed and negative. \CONSTITUTIONAL: No fever or chills EYES: No recent changes SKIN: No rash or itching CARDIOVASCULAR: No chest pain, syncope, palpitations, or edema RESPIRATORY: No SOB or cough GASTROINTESTINAL: No nausea, vomiting or abdominal pain NEUROLOGICAL: No headaches or weakness ENDOCRINE: No cold or heat intolerance GENITOURINARY: No urgency or frequency of urination MUSCULOSKELETAL: No back pain or joint pain LYMPHATICS: No enlarged lymph nodes PSYCHIATRIC: No anxiety or depression Assessment and Plan Assessmemt and Plan Problems Medical Problems: (1) Altered mental status Status: Acute (2) Fever Status: Acute (3) Urinary tract infection Status: Acute Comment Review of Relevant I have reviewed the following items melanie (where applicable) has been applied. Labs Laboratory Tests Test 07/27/18 19:00 07/27/18 19:15 07/28/18 07:28 07/28/18 08:10 Urine Collection Type U cath Urine Color Yellow Urine Clarity Clear Urine pH 6.0 Urine Specific [place] >=1.030 Urine Protein 100 mg/dL (NEG-TRACE) Urine Glucose (UA) >=1000 mg/dL (NEG) Urine Ketones (Stick) Negative mg/dL (NEG) Urine Blood Small (NEG) Urine Nitrite Positive (NEG) Urine Bilirubin Negative (NEG) Urine Urobilinogen Dipstick 1.0 mg/dL (0.2 mg/dL) Urine Leukocyte Esterase Negative (NEG) Urine RBC 1-2 /HPF (0-2) Urine WBC 5-10 /HPF (0-4) Urine Squamous Epithelial Cells Occ /LPF Urine Bacteria Many /HPF (0-FEW) Urine Opiates Screen Pos (NEG) Urine Methadone Screen Neg (NEG) Urine Barbiturates Neg (NEG) Urine Phencyclidine Screen Neg (NEG) Urine Amphetamine/Methamphetamine Neg (NEG) Urine Benzodiazepines Screen Neg (NEG) Urine Cocaine Screen Neg (NEG) Urine Cannabinoids Screen Neg (NEG) Urine Ethyl Alcohol Neg (NEG) White Blood Count 11.2 x10^3/uL (4.0-11.0) 13.4 x10^3/uL (4.0-11.0) Red Blood Count 4.02 x10^6/uL (3.50-5.40) 3.83 x10^6/uL (3.50-5.40) Hemoglobin 12.2 g/dL (12.0-15.5) 11.5 g/dL (12.0-15.5) Hematocrit 37.3 % (36.0-47.0) 35.3 % (36.0-47.0) Mean Corpuscular Volume 93 fL (79-100) 92 fL (79-100) Mean Corpuscular Hemoglobin 30 pg (25-35) 30 pg (25-35) Mean Corpuscular Hemoglobin Concent 33 g/dL (31-37) 33 g/dL (31-37) Red Cell Distribution Width 15.1 % (11.5-14.5) 15.3 % (11.5-14.5) Platelet Count 266 x10^3/uL (140-400) 231 x10^3/uL (140-400) Neutrophils (%) (Auto) 86 % (31-73) 85 % (31-73) Lymphocytes (%) (Auto) 6 % (24-48) 6 % (24-48) Monocytes (%) (Auto) 7 % (0-9) 9 % (0-9) Eosinophils (%) (Auto) 0 % (0-3) 0 % (0-3) Basophils (%) (Auto) 0 % (0-3) 0 % (0-3) Neutrophils # (Auto) 9.7 x10^3uL (1.8-7.7) 11.5 x10^3uL (1.8-7.7) Lymphocytes # (Auto) 0.7 x10^3/uL (1.0-4.8) 0.8 x10^3/uL (1.0-4.8) Monocytes # (Auto) 0.8 x10^3/uL (0.0-1.1) 1.1 x10^3/uL (0.0-1.1) Eosinophils # (Auto) 0.0 x10^3/uL (0.0-0.7) 0.0 x10^3/uL (0.0-0.7) Basophils # (Auto) 0.0 x10^3/uL (0.0-0.2) 0.0 x10^3/uL (0.0-0.2) Segmented Neutrophils % 84 % (35-66) Band Neutrophils % 2 % (0-9) Lymphocytes % 6 % (24-48) Monocytes % 8 % (0-10) Platelet Estimate Adequate (ADEQUATE) Anisocytosis Slight Ovalocytes Few Sodium Level 140 mmol/L (136-145) 140 mmol/L (136-145) Potassium Level 3.3 mmol/L (3.5-5.1) 3.2 mmol/L (3.5-5.1) Chloride Level 101 mmol/L (98-107) 103 mmol/L (98-107) Carbon Dioxide Level 26 mmol/L (21-32) 23 mmol/L (21-32) Anion Gap 13 (6-14) 14 (6-14) Blood Urea Nitrogen 17 mg/dL (7-20) 15 mg/dL (7-20) Creatinine 1.1 mg/dL (0.6-1.0) 0.7 mg/dL (0.6-1.0) Estimated GFR (Cockcroft-Gault) 61.7 104.0 BUN/Creatinine Ratio 15 (6-20) Glucose Level 184 mg/dL (70-99) 153 mg/dL (70-99) Lactic Acid Level 1.9 mmol/L (0.4-2.0) Calcium Level 9.3 mg/dL (8.5-10.1) 8.8 mg/dL (8.5-10.1) Magnesium Level 1.8 mg/dL (1.8-2.4) Total Bilirubin 0.6 mg/dL (0.2-1.0) Aspartate Amino Transf (AST/SGOT) 23 U/L (15-37) Alanine Aminotransferase (ALT/SGPT) 23 U/L (14-59) Alkaline Phosphatase 100 U/L (46-116) JK-Oco-S-Type Natriuretic Peptide 237 pg/mL (0-124) Total Protein 8.5 g/dL (6.4-8.2) Albumin 3.3 g/dL (3.4-5.0) Albumin/Globulin Ratio 0.6 (1.0-1.7) Influenza Type A Antigen Negative (NEGATIVE) Influenza Type B Antigen Negative (NEGATIVE) Group A Streptococcus Rapid Negative (NEGATIVE) Glucose (Fingerstick) 136 mg/dL (70-99) Test 07/28/18 11:50 Glucose (Fingerstick) 223 mg/dL (70-99) Laboratory Tests Test 07/27/18 19:00 07/27/18 19:15 07/28/18 07:28 07/28/18 08:10 Urine Collection Type U cath Urine Color Yellow Urine Clarity Clear Urine pH 6.0 Urine Specific [place] >=1.030 Urine Protein 100 mg/dL (NEG-TRACE) Urine Glucose (UA) >=1000 mg/dL (NEG) Urine Ketones (Stick) Negative mg/dL (NEG) Urine Blood Small (NEG) Urine Nitrite Positive (NEG) Urine Bilirubin Negative (NEG) Urine Urobilinogen Dipstick 1.0 mg/dL (0.2 mg/dL) Urine Leukocyte Esterase Negative (NEG) Urine RBC 1-2 /HPF (0-2) Urine WBC 5-10 /HPF (0-4) Urine Squamous Epithelial Cells Occ /LPF Urine Bacteria Many /HPF (0-FEW) Urine Opiates Screen Pos (NEG) Urine Methadone Screen Neg (NEG) Urine Barbiturates Neg (NEG) Urine Phencyclidine Screen Neg (NEG) Urine Amphetamine/Methamphetamine Neg (NEG) Urine Benzodiazepines Screen Neg (NEG) Urine Cocaine Screen Neg (NEG) Urine Cannabinoids Screen Neg (NEG) Urine Ethyl Alcohol Neg (NEG) White Blood Count 11.2 x10^3/uL (4.0-11.0) 13.4 x10^3/uL (4.0-11.0) Red Blood Count 4.02 x10^6/uL (3.50-5.40) 3.83 x10^6/uL (3.50-5.40) Hemoglobin 12.2 g/dL (12.0-15.5) 11.5 g/dL (12.0-15.5) Hematocrit 37.3 % (36.0-47.0) 35.3 % (36.0-47.0) Mean Corpuscular Volume 93 fL (79-100) 92 fL (79-100) Mean Corpuscular Hemoglobin 30 pg (25-35) 30 pg (25-35) Mean Corpuscular Hemoglobin Concent 33 g/dL (31-37) 33 g/dL (31-37) Red Cell Distribution Width 15.1 % (11.5-14.5) 15.3 % (11.5-14.5) Platelet Count 266 x10^3/uL (140-400) 231 x10^3/uL (140-400) Neutrophils (%) (Auto) 86 % (31-73) 85 % (31-73) Lymphocytes (%) (Auto) 6 % (24-48) 6 % (24-48) Monocytes (%) (Auto) 7 % (0-9) 9 % (0-9) Eosinophils (%) (Auto) 0 % (0-3) 0 % (0-3) Basophils (%) (Auto) 0 % (0-3) 0 % (0-3) Neutrophils # (Auto) 9.7 x10^3uL (1.8-7.7) 11.5 x10^3uL (1.8-7.7) Lymphocytes # (Auto) 0.7 x10^3/uL (1.0-4.8) 0.8 x10^3/uL (1.0-4.8) Monocytes # (Auto) 0.8 x10^3/uL (0.0-1.1) 1.1 x10^3/uL (0.0-1.1) Eosinophils # (Auto) 0.0 x10^3/uL (0.0-0.7) 0.0 x10^3/uL (0.0-0.7) Basophils # (Auto) 0.0 x10^3/uL (0.0-0.2) 0.0 x10^3/uL (0.0-0.2) Segmented Neutrophils % 84 % (35-66) Band Neutrophils % 2 % (0-9) Lymphocytes % 6 % (24-48) Monocytes % 8 % (0-10) Platelet Estimate Adequate (ADEQUATE) Anisocytosis Slight Ovalocytes Few Sodium Level 140 mmol/L (136-145) 140 mmol/L (136-145) Potassium Level 3.3 mmol/L (3.5-5.1) 3.2 mmol/L (3.5-5.1) Chloride Level 101 mmol/L (98-107) 103 mmol/L (98-107) Carbon Dioxide Level 26 mmol/L (21-32) 23 mmol/L (21-32) Anion Gap 13 (6-14) 14 (6-14) Blood Urea Nitrogen 17 mg/dL (7-20) 15 mg/dL (7-20) Creatinine 1.1 mg/dL (0.6-1.0) 0.7 mg/dL (0.6-1.0) Estimated GFR (Cockcroft-Gault) 61.7 104.0 BUN/Creatinine Ratio 15 (6-20) Glucose Level 184 mg/dL (70-99) 153 mg/dL (70-99) Lactic Acid Level 1.9 mmol/L (0.4-2.0) Calcium Level 9.3 mg/dL (8.5-10.1) 8.8 mg/dL (8.5-10.1) Magnesium Level 1.8 mg/dL (1.8-2.4) Total Bilirubin 0.6 mg/dL (0.2-1.0) Aspartate Amino Transf (AST/SGOT) 23 U/L (15-37) Alanine Aminotransferase (ALT/SGPT) 23 U/L (14-59) Alkaline Phosphatase 100 U/L (46-116) LZ-Eqk-G-Type Natriuretic Peptide 237 pg/mL (0-124) Total Protein 8.5 g/dL (6.4-8.2) Albumin 3.3 g/dL (3.4-5.0) Albumin/Globulin Ratio 0.6 (1.0-1.7) Influenza Type A Antigen Negative (NEGATIVE) Influenza Type B Antigen Negative (NEGATIVE) Group A Streptococcus Rapid Negative (NEGATIVE) Glucose (Fingerstick) 136 mg/dL (70-99) Test 07/28/18 11:50 Glucose (Fingerstick) 223 mg/dL (70-99) Microbiology 07/27/18 Blood Culture - Final, Complete Medications Current Medications Naloxone HCl (Narcan) 0.4 mg STK-MED ONCE .ROUTE ; Start 07/27/18 at 18:49; Stop 07/27/18 at 18:51; Status DC Sodium Chloride 500 ml @ 500 mls/hr 1X ONCE IV Last administered on 19:02; Start 07/27/18 at 19:00; Stop 07/27/18 at 20:12; Status DC Naloxone HCl (Narcan) 0.8 mg 1X ONCE IV Last administered on 07/27/18at 18:57; Start 07/27/18 at 19:00; Stop 07/27/18 at 19:01; Status DC Ceftriaxone Sodium (Rocephin) 1 gm 1X ONCE IVP Last administered on 07/27/18at 21:23; Start 07/27/18 at 20:15; Stop 07/27/18 at 20:18; Status DC Ketorolac Tromethamine (Toradol 30mg Vial) 30 mg 1X ONCE IV Last administered on 07/27/18at 20:45; Start 07/27/18 at 20:30; Stop 07/27/18 at 20:31; Status DC Acetaminophen (Tylenol) 1,000 mg 1X ONCE PO Last administered on 07/27/18at 20: 45; Start 07/27/18 at 20:30; Stop 07/27/18 at 20:31; Status DC Ondansetron HCl (Zofran) 4 mg PRN Q8HRS PRN IV NAUSEA/VOMITING; Start 07/27/18 at 21:15; Stop 07/28/18 at 13:43; Status DC Sodium Chloride 1,000 ml @ 125 mls/hr Q8H IV Last administered on 07/28/18at 06 :20; Start 07/27/18 at 21:06; Stop 07/28/18 at 21:05 Acetaminophen (Tylenol) 650 mg PRN Q4HRS PRN PO FEVER Last administered on 07/28at 11:06; Start 07/27/18 at 21:15; Stop 07/28/18 at 21:14 Enoxaparin Sodium (Lovenox Per Pharmacy Prophylaxis Dosing) 1 each PRN DAILY PRN MC SEE COMMENTS; Start 07/28/18 at 09:00 Enoxaparin Sodium (Lovenox 40mg Syringe) 40 mg DAILY SQ Last administered on at 09:16; Start 07/28/18 at 09:00 Ketorolac Tromethamine (Toradol 15mg Vial) 15 mg 1X ONCE IV Last administered on 07/28/18at 09:15; Start 07/28/18 at 09:15; Stop 07/28/18 at 09:16; Status DC Ondansetron HCl (Zofran) 4 mg PRN Q6HRS PRN IV NAUSEA/VOMITING; Start 07/28/18 at 13:45 Ampicillin Sodium 2 gm/Sodium Chloride 100 ml @ 200 mls/hr Q6HRS IV ; Start at 14:00 Active Scripts Active Aspirin 325 Mg Tablet 325 Mg PO DAILYWBKFT 90 Days Atorvastatin Calcium 10 Mg Tablet 10 Mg PO QHS 90 Days Clopidogrel (Clopidogrel Bisulfate) 75 Mg Tablet 75 Mg PO DAILY 30 Days Zofran Odt (Ondansetron) 4 Mg Tab.rapdis 1 Tab SL Q8HRS PRN Iron Supplement (Ferrous Sulfate) 325 Mg Tablet 1 Tab PO BID Tradjenta (Linagliptin) 5 Mg Tablet 5 Mg PO DAILY Reported Invokana (Canagliflozin) 100 Mg Tablet 100 Mg PO DAILY Percocet 10-325 Mg Tablet (Oxycodone/Acetaminophen) 1 Each Tablet 1 Tab PO TID PRN Gabapentin 600 Mg Tablet 600 Mg PO TID Doxepin Hcl 10 Mg Capsule 10 Mg PO HS LAST DOSE GIVEN: DATE:09/23/16 TIME:9:00 p.m. NEXT DOSE DUE: DATE:09/24/16 TIME:9:00 p.m. Cyclobenzaprine Hcl 10 Mg Tablet 10 Mg PO TID last dose given at 1400 next dose is at bedtime or 9 pm NEXT DOSE DUE: DATE:04-23-16 TIME:12:30 if needed for muscle spasm Potassium Chloride 10 Meq Tablet.er 10 Meq PO DAILY LAST DOSE GIVEN: DATE:09/24/16 TIME:8:30 a.m. NEXT DOSE DUE: DATE:09/25/16 TIME:8:30 a.m. Ondansetron Odt (Ondansetron) 4 Mg Tab.rapdis 1 Tab PO PRN Q6-8HRS May resume at home as needed for nausea Trazodone Hcl 50 Mg Tablet 50 Mg PO HS LAST DOSE GIVEN: DATE:09/23/16 TIME:9:00 p.m. NEXT DOSE DUE: DATE:09/24/16 TIME:9:00 p.m. Vitals/I & O Vital Sign - Last 24 Hours 07/27/18 07/27/18 07/27/18 07/27/18 18:30 20:00 20:15 20:30 Temp 102.7 102.7 Pulse 104 94 94 90 Resp B/P (MAP) 143/90 (107) Pulse Ox 100 97 96 91 O2 Delivery Nasal Cannula O2 Flow Rate 2.0 07/27/18 07/27/18 07/27/18 07/27/18 20:45 21:00 21:30 22:30 Pulse 91 96 98 Resp 27 20 Pulse Ox 96 92 100 O2 Delivery Nasal Cannula O2 Flow Rate 2.0 07/27/18 07/27/18 07/28/18 07/28/18 22:46 22:46 02:48 07:41 Temp 99.9 99.9 98.8 100.6 99.9 99.9 98.8 100.6 Pulse 106 106 73 113 Resp B/P (MAP) 142/77 (98) 142/77 (98) 123/72 (89) 133/63 (86) Pulse Ox 99 99 100 98 O2 Delivery Room Air Room Air Nasal Cannula Nasal Cannula O2 Flow Rate 2.0 2.0 07/28/18 07/28/18 08:00 11:24 Temp 99.7 99.7 Pulse 96 Resp 20 B/P (MAP) 127/67 (87) Pulse Ox 98 O2 Delivery Room Air Room Air Intake and Output 07/27/18 07/27/18 07/28/18 15:01 23:01 07:01 Output Total 300 ml Balance -300 ml MARYCRUZ MENDOSA MD Jul 28, 2018 14:15
[2018-07-28] MEDS: oxyCODONE/APAP 10/325 1 TAB TABLET PO PRN ×2 (15:00→21:09)
[2018-07-28 15:19] VITALS: BP 155/83
[2018-07-28] MEDS ORDERED: POTASSIUM CHLORIDE 20 MEQ TABLET.ER. PO ONE (16:00)
[2018-07-28] MEDS ORDERED: PIP/TAZO PER PHARMACY MC PRN (16:30)
[2018-07-28] MEDS: PIPERACILLIN/TAZOBACTAM 4.5 GM in IV NORMAL SALINE 100ML 100 ML IV SCH (17:53)
[2018-07-28] MEDS ORDERED: ONDANSETRON ODT 4 MG TAB.RAPDIS. PO PRN ×2 (18:15)
[2018-07-28 19:20] VITALS: BP 145/67
[2018-07-28] MEDS: traZODone 50 MG TABLET. PO SCH (19:55)
[2018-07-28] MEDS: LACTOBACILLUS RHAMNOSUS GG 1 CAPSULE. PO SCH (19:55)
[2018-07-28] MEDS: GABAPENTIN 300 MG CAPSULE. PO SCH (19:55)
[2018-07-28] MEDS: ATORVASTATIN CALCIUM 10 MG TABLET. PO SCH (19:55)
[2018-07-28] MEDS: DOXEPIN HCL 10 MG CAPSULE. PO SCH (19:55)
[2018-07-28] MEDS: CYCLOBENZAPRINE 10 MG TABLET. PO SCH (19:55)
[2018-07-28] MEDS ORDERED: cefTRIAXone IV Push 1 GM VIAL. IVP SCH (21:00)
[2018-07-28 23:25] VITALS: BP 151/74
[2018-07-29] MEDS: PIPERACILLIN/TAZOBACTAM 4.5 GM in IV NORMAL SALINE 100ML 100 ML IV SCH ×4 (01:46→18:34)
[2018-07-29 03:25] VITALS: BP 131/73
[2018-07-29 05:05] LABS: BASO % 0 % (0-3); EOS % 0 % (0-3); HEMATOCRIT 33.2 % (36.0-47.0); LYMPH # 0.8 x10^3/uL (1.0-4.8); LYMPH % 11 % (24-48); MEAN CORPUSCULAR HEMOGLOBIN 31 pg (25-35); MEAN CORPUSCULAR HGB CONC 33 g/dL (31-37); MEAN CORPUSCULAR VOLUME 93 fL (79-100); MONO # 0.5 x10^3/uL (0.0-1.1); MONO % 6 % (0-9); NEUT # 6.3 x10^3uL (1.8-7.7); NEUT % 83 % (31-73); PLATELET COUNT 211 x10^3/uL (140-400); RED BLOOD COUNT 3.59 x10^6/uL (3.50-5.40); RED CELL DISTRIBUTION WIDTH 14.9 % (11.5-14.5); WHITE BLOOD COUNT 7.6 x10^3/uL (4.0-11.0)
[2018-07-29 07:00] VITALS: BP 141/85
[2018-07-29] MEDS: GABAPENTIN 300 MG CAPSULE. PO SCH ×3 (08:06→20:56)
[2018-07-29] MEDS: LACTOBACILLUS RHAMNOSUS GG 1 CAPSULE. PO SCH ×2 (08:07→20:56)
[2018-07-29] MEDS: ASPIRIN 325 MG TABLET PO SCH (08:07)
[2018-07-29] MEDS: CLOPIDOGREL BISULFATE 75 MG TABLET PO SCH (08:07)
[2018-07-29] MEDS: CYCLOBENZAPRINE 10 MG TABLET. PO SCH ×3 (08:07→20:56)
[2018-07-29] MEDS: FERROUS SULFATE 325 MG TABLET. PO SCH ×2 (08:08→18:33)
[2018-07-29] MEDS: oxyCODONE/APAP 10/325 1 TAB TABLET PO PRN ×3 (08:08→20:56)
[2018-07-29] MEDS: LINAGLIPTIN 5 MG TABLET PO SCH (08:08)
[2018-07-29] MEDS: NON FORMULARY ITEM (Canagliflozin (Invokana) 100 MG) PO SCH (08:12)
[2018-07-29] MEDS ORDERED: POTASSIUM CHLORIDE 10 MEQ TABLET.ER. PO SCH (09:00)
--- NOTE | 2018-07-29 10:25 | PDOC ---
Infectious Disease Note Vital Sign Vital Signs Vital Signs Date Time Temp Pulse Resp B/P (MAP) Pulse Ox O2 Delivery O2 Flow Rate FiO2 07/29/18 08:08 20 Room Air 07/29/18 07:00 100.0 97 141/85 (103) 95 100.0 07/28/18 07:41 2.0 Labs Lab Laboratory Tests Test 07/28/18 11:50 07/28/18 17:10 07/28/18 21:10 07/29/18 04:00 Glucose (Fingerstick) 223 mg/dL (70-99) 109 mg/dL (70-99) 204 mg/dL (70-99) White Blood Count 7.6 x10^3/uL (4.0-11.0) Red Blood Count 3.59 x10^6/uL (3.50-5.40) Hemoglobin 11.0 g/dL (12.0-15.5) Hematocrit 33.2 % (36.0-47.0) Mean Corpuscular Volume 93 fL (79-100) Mean Corpuscular Hemoglobin 31 pg (25-35) Mean Corpuscular Hemoglobin Concent 33 g/dL (31-37) Red Cell Distribution Width 14.9 % (11.5-14.5) Platelet Count 211 x10^3/uL (140-400) Neutrophils (%) (Auto) 83 % (31-73) Lymphocytes (%) (Auto) 11 % (24-48) Monocytes (%) (Auto) 6 % (0-9) Eosinophils (%) (Auto) 0 % (0-3) Basophils (%) (Auto) 0 % (0-3) Neutrophils # (Auto) 6.3 x10^3uL (1.8-7.7) Lymphocytes # (Auto) 0.8 x10^3/uL (1.0-4.8) Monocytes # (Auto) 0.5 x10^3/uL (0.0-1.1) Eosinophils # (Auto) 0.0 x10^3/uL (0.0-0.7) Basophils # (Auto) 0.0 x10^3/uL (0.0-0.2) Test 07/29/18 08:15 Glucose (Fingerstick) 121 mg/dL (70-99) IMPRESSION: Minimal bibasilar lung airspace opacities likely atelectasis or infiltrates. Micro BLOOD CULTURE Final GRAM NEGATIVE RODS IN 3 OF 4 BOTTLES(ANAEROBIC BOTTLE THIS SET);REPRESENTING 2 SETS DRAWN. THE RESULT WAS CALLED TO ROB CHUNG(6S)ON 07/28/18 AT 1310 BY Robert BE. THE BLOOD CULTURE HAS BEEN SENT TO [facility] FOR FURTHER WORKUP. AMMENDED REPORT: 07/29/18 THE FINAL BOTTLE IS NOW POSITIVE, IT HAS BOTH GRAM NEGATIVE RODS AND GRAM POSITIVE COCCI. 4 OF 4 BOTTLES, TWO SETS DRAWN. Objective Assessment GNR sepsis, POA from 07/27/2018 GPC bacteremia (1 of 4 bottles), likely contaminate Questionable UTI, POA- asympto atic - has abd pain Fever Diarrhea h/o IBD Encephalopathy - improved Chronic knee pain h/o TKA, 2017 Chronic back pain Morbid obesity w/ BMI 40 DM II Hep C h/o treatment. Would need Viral load to see if still active Plan Plan of Care Continue Zosyn f/u GNR and GPC ID/sensitivities Vanc times one CT abd/pelvis f/u UC Pain management per primary Monitor labs/temp Supportive care Thank you [phone] Attending Co-Sign Attending Co-Sign The patient was seen and interviewed as well as examined at the bedside. The chart was reviewed. The case was discussed. Agree with the plan of care. CARRILLO MOSQUEDA APRN Jul 29, 2018 10:25 JOSEPH MOHAN MD Jul 29, 2018 17:19
[2018-07-29] MEDS ORDERED: IBUPROFEN 200 MG TABLET. PO PRN (11:15)
[2018-07-29 11:17] VITALS: BP 118/68
--- NOTE | 2018-07-29 11:22 | PDOC ---
PROGRESS NOTES Subjective Subjective Patient c/o pain "all over". Objective Objective Vital Signs Date Time Temp Pulse Resp B/P (MAP) Pulse Ox O2 Delivery O2 Flow Rate FiO2 07/29/18 08:08 20 Room Air 07/29/18 07:00 100.0 97 141/85 (103) 95 100.0 07/28/18 07:41 2.0 Intake and Output 07/29/18 07:01 Intake Total 750 ml Output Total 800 ml Balance -50 ml Intake Oral 750 ml Output Urine Total 800 ml # Voids 2 Physical Exam Abdomen: Normal bowel sounds, Soft Heart: Regular rate Extremities: No edema General: Alert, Oriented X3, No acute distress Lungs: Clear to auscultation Assessment Assessment Problems Medical Problems: (1) Altered mental status Status: Acute (2) Fever Status: Acute (3) Urinary tract infection Status: Acute Plan Plan of Care 1. Sepsis with probable UTI - blood cultures positive for GNR - now on Zosyn per ID. Continues to have intermittent fevers. Await final culture reports. 2. metabolic encephalopathy - appears resolved, patient at baseline mental status. 3. chronic pain - continue Percocet, add Ibuprofen prn. Avoid increasing narcotics. 4. DM2 - controlled, continue present medications. 5. hypokalemia - increase po replacement and follow. Comment Review of Relevant I have reviewed the following items melanie (where applicable) has been applied. Labs Laboratory Tests Test 07/27/18 19:00 07/27/18 19:15 07/28/18 07:28 07/28/18 08:10 Urine Collection Type U cath Urine Color Yellow Urine Clarity Clear Urine pH 6.0 Urine Specific [place] >=1.030 Urine Protein 100 mg/dL (NEG-TRACE) Urine Glucose (UA) >=1000 mg/dL (NEG) Urine Ketones (Stick) Negative mg/dL (NEG) Urine Blood Small (NEG) Urine Nitrite Positive (NEG) Urine Bilirubin Negative (NEG) Urine Urobilinogen Dipstick 1.0 mg/dL (0.2 mg/dL) Urine Leukocyte Esterase Negative (NEG) Urine RBC 1-2 /HPF (0-2) Urine WBC 5-10 /HPF (0-4) Urine Squamous Epithelial Cells Occ /LPF Urine Bacteria Many /HPF (0-FEW) Urine Opiates Screen Pos (NEG) Urine Methadone Screen Neg (NEG) Urine Barbiturates Neg (NEG) Urine Phencyclidine Screen Neg (NEG) Urine Amphetamine/Methamphetamine Neg (NEG) Urine Benzodiazepines Screen Neg (NEG) Urine Cocaine Screen Neg (NEG) Urine Cannabinoids Screen Neg (NEG) Urine Ethyl Alcohol Neg (NEG) White Blood Count 11.2 x10^3/uL (4.0-11.0) 13.4 x10^3/uL (4.0-11.0) Red Blood Count 4.02 x10^6/uL (3.50-5.40) 3.83 x10^6/uL (3.50-5.40) Hemoglobin 12.2 g/dL (12.0-15.5) 11.5 g/dL (12.0-15.5) Hematocrit 37.3 % (36.0-47.0) 35.3 % (36.0-47.0) Mean Corpuscular Volume 93 fL (79-100) 92 fL (79-100) Mean Corpuscular Hemoglobin 30 pg (25-35) 30 pg (25-35) Mean Corpuscular Hemoglobin Concent 33 g/dL (31-37) 33 g/dL (31-37) Red Cell Distribution Width 15.1 % (11.5-14.5) 15.3 % (11.5-14.5) Platelet Count 266 x10^3/uL (140-400) 231 x10^3/uL (140-400) Neutrophils (%) (Auto) 86 % (31-73) 85 % (31-73) Lymphocytes (%) (Auto) 6 % (24-48) 6 % (24-48) Monocytes (%) (Auto) 7 % (0-9) 9 % (0-9) Eosinophils (%) (Auto) 0 % (0-3) 0 % (0-3) Basophils (%) (Auto) 0 % (0-3) 0 % (0-3) Neutrophils # (Auto) 9.7 x10^3uL (1.8-7.7) 11.5 x10^3uL (1.8-7.7) Lymphocytes # (Auto) 0.7 x10^3/uL (1.0-4.8) 0.8 x10^3/uL (1.0-4.8) Monocytes # (Auto) 0.8 x10^3/uL (0.0-1.1) 1.1 x10^3/uL (0.0-1.1) Eosinophils # (Auto) 0.0 x10^3/uL (0.0-0.7) 0.0 x10^3/uL (0.0-0.7) Basophils # (Auto) 0.0 x10^3/uL (0.0-0.2) 0.0 x10^3/uL (0.0-0.2) Segmented Neutrophils % 84 % (35-66) Band Neutrophils % 2 % (0-9) Lymphocytes % 6 % (24-48) Monocytes % 8 % (0-10) Platelet Estimate Adequate (ADEQUATE) Anisocytosis Slight Ovalocytes Few Sodium Level 140 mmol/L (136-145) 140 mmol/L (136-145) Potassium Level 3.3 mmol/L (3.5-5.1) 3.2 mmol/L (3.5-5.1) Chloride Level 101 mmol/L (98-107) 103 mmol/L (98-107) Carbon Dioxide Level 26 mmol/L (21-32) 23 mmol/L (21-32) Anion Gap 13 (6-14) 14 (6-14) Blood Urea Nitrogen 17 mg/dL (7-20) 15 mg/dL (7-20) Creatinine 1.1 mg/dL (0.6-1.0) 0.7 mg/dL (0.6-1.0) Estimated GFR (Cockcroft-Gault) 61.7 104.0 BUN/Creatinine Ratio 15 (6-20) Glucose Level 184 mg/dL (70-99) 153 mg/dL (70-99) Lactic Acid Level 1.9 mmol/L (0.4-2.0) Calcium Level 9.3 mg/dL (8.5-10.1) 8.8 mg/dL (8.5-10.1) Magnesium Level 1.8 mg/dL (1.8-2.4) Total Bilirubin 0.6 mg/dL (0.2-1.0) Aspartate Amino Transf (AST/SGOT) 23 U/L (15-37) Alanine Aminotransferase (ALT/SGPT) 23 U/L (14-59) Alkaline Phosphatase 100 U/L (46-116) YD-Ghd-L-Type Natriuretic Peptide 237 pg/mL (0-124) Total Protein 8.5 g/dL (6.4-8.2) Albumin 3.3 g/dL (3.4-5.0) Albumin/Globulin Ratio 0.6 (1.0-1.7) Influenza Type A Antigen Negative (NEGATIVE) Influenza Type B Antigen Negative (NEGATIVE) Group A Streptococcus Rapid Negative (NEGATIVE) Glucose (Fingerstick) 136 mg/dL (70-99) Test 07/28/18 11:50 07/28/18 17:10 07/28/18 21:10 07/29/18 04:00 Glucose (Fingerstick) 223 mg/dL (70-99) 109 mg/dL (70-99) 204 mg/dL (70-99) White Blood Count 7.6 x10^3/uL (4.0-11.0) Red Blood Count 3.59 x10^6/uL (3.50-5.40) Hemoglobin 11.0 g/dL (12.0-15.5) Hematocrit 33.2 % (36.0-47.0) Mean Corpuscular Volume 93 fL (79-100) Mean Corpuscular Hemoglobin 31 pg (25-35) Mean Corpuscular Hemoglobin Concent 33 g/dL (31-37) Red Cell Distribution Width 14.9 % (11.5-14.5) Platelet Count 211 x10^3/uL (140-400) Neutrophils (%) (Auto) 83 % (31-73) Lymphocytes (%) (Auto) 11 % (24-48) Monocytes (%) (Auto) 6 % (0-9) Eosinophils (%) (Auto) 0 % (0-3) Basophils (%) (Auto) 0 % (0-3) Neutrophils # (Auto) 6.3 x10^3uL (1.8-7.7) Lymphocytes # (Auto) 0.8 x10^3/uL (1.0-4.8) Monocytes # (Auto) 0.5 x10^3/uL (0.0-1.1) Eosinophils # (Auto) 0.0 x10^3/uL (0.0-0.7) Basophils # (Auto) 0.0 x10^3/uL (0.0-0.2) Test 07/29/18 08:15 Glucose (Fingerstick) 121 mg/dL (70-99) Laboratory Tests Test 07/28/18 11:50 07/28/18 17:10 07/28/18 21:10 07/29/18 04:00 Glucose (Fingerstick) 223 mg/dL (70-99) 109 mg/dL (70-99) 204 mg/dL (70-99) White Blood Count 7.6 x10^3/uL (4.0-11.0) Red Blood Count 3.59 x10^6/uL (3.50-5.40) Hemoglobin 11.0 g/dL (12.0-15.5) Hematocrit 33.2 % (36.0-47.0) Mean Corpuscular Volume 93 fL (79-100) Mean Corpuscular Hemoglobin 31 pg (25-35) Mean Corpuscular Hemoglobin Concent 33 g/dL (31-37) Red Cell Distribution Width 14.9 % (11.5-14.5) Platelet Count 211 x10^3/uL (140-400) Neutrophils (%) (Auto) 83 % (31-73) Lymphocytes (%) (Auto) 11 % (24-48) Monocytes (%) (Auto) 6 % (0-9) Eosinophils (%) (Auto) 0 % (0-3) Basophils (%) (Auto) 0 % (0-3) Neutrophils # (Auto) 6.3 x10^3uL (1.8-7.7) Lymphocytes # (Auto) 0.8 x10^3/uL (1.0-4.8) Monocytes # (Auto) 0.5 x10^3/uL (0.0-1.1) Eosinophils # (Auto) 0.0 x10^3/uL (0.0-0.7) Basophils # (Auto) 0.0 x10^3/uL (0.0-0.2) Test 07/29/18 08:15 Glucose (Fingerstick) 121 mg/dL (70-99) Microbiology 07/27/18 Blood Culture - Final, Complete Medications Current Medications Naloxone HCl (Narcan) 0.4 mg STK-MED ONCE .ROUTE ; Start 07/27/18 at 18:49; Stop 07/27/18 at 18:51; Status DC Sodium Chloride 500 ml @ 500 mls/hr 1X ONCE IV Last administered on at 19:02; Start 07/27/18 at 19:00; Stop 07/27/18 at 20:12; Status DC Naloxone HCl (Narcan) 0.8 mg 1X ONCE IV Last administered on 07/27/18at 18:57; Start 07/27/18 at 19:00; Stop 07/27/18 at 19:01; Status DC Ceftriaxone Sodium (Rocephin) 1 gm 1X ONCE IVP Last administered on 07/27/18at 21:23; Start 07/27/18 at 20:15; Stop 07/27/18 at 20:18; Status DC Ketorolac Tromethamine (Toradol 30mg Vial) 30 mg 1X ONCE IV Last administered on 07/27/18at 20:45; Start 07/27/18 at 20:30; Stop 07/27/18 at 20:31; Status DC Acetaminophen (Tylenol) 1,000 mg 1X ONCE PO Last administered on 07/27/18at 20: 45; Start 07/27/18 at 20:30; Stop 07/27/18 at 20:31; Status DC Ondansetron HCl (Zofran) 4 mg PRN Q8HRS PRN IV NAUSEA/VOMITING; Start 07/27/18 at 21:15; Stop 07/28/18 at 13:43; Status DC Sodium Chloride 1,000 ml @ 125 mls/hr Q8H IV Last administered on 07/28/18at 17 :53; Start 07/27/18 at 21:06; Stop 07/28/18 at 21:05; Status DC Acetaminophen (Tylenol) 650 mg PRN Q4HRS PRN PO FEVER Last administered on 07/28at 18:00; Start 07/27/18 at 21:15; Stop 07/28/18 at 21:14; Status DC Enoxaparin Sodium (Lovenox Per Pharmacy Prophylaxis Dosing) 1 each PRN DAILY PRN MC SEE COMMENTS; Start 07/28/18 at 09:00; Stop 07/28/18 at 14:14; Status DC Enoxaparin Sodium (Lovenox 40mg Syringe) 40 mg DAILY SQ Last administered on at 09:16; Start 07/28/18 at 09:00; Stop 07/28/18 at 14:13; Status DC Ketorolac Tromethamine (Toradol 15mg Vial) 15 mg 1X ONCE IV Last administered on 07/28/18at 09:15; Start 07/28/18 at 09:15; Stop 07/28/18 at 09:16; Status DC Ondansetron HCl (Zofran) 4 mg PRN Q6HRS PRN IV NAUSEA/VOMITING Last administered on 07/28/18at 19:56; Start 07/28/18 at 13:45 Ampicillin Sodium 2 gm/Sodium Chloride 100 ml @ 200 mls/hr Q6HRS IV ; Start at 14:00; Stop 07/28/18 at 14:13; Status DC Ceftriaxone Sodium (Rocephin) 1 gm Q24H IVP ; Start 07/28/18 at 21:00; Status Cancel Oxycodone/ Acetaminophen (Percocet 5/325) 1 tab PRN Q6HRS PRN PO MODERATE PAIN ; Start 07/28/18 at 14:15; Stop 07/28/18 at 14:59; Status DC Oxycodone/ Acetaminophen (Percocet 10/325) 1 tab PRN Q6HRS PRN PO SEVERE PAIN Last administered on 07/28/18at 21:09; Start 07/28/18 at 14:15; Stop 07/29/18 at 07:01; Status DC Lactobacillus Rhamnosus (Culturelle) 1 cap BID PO Last administered on at 08:07; Start 07/28/18 at 21:00 Potassium Chloride (Klor-Con) 40 meq ONCE ONCE PO Last administered on at 17:52; Start 07/28/18 at 16:00; Stop 07/28/18 at 16:01; Status DC Piperacillin Sod/ Tazobactam Sod (Zosyn Per Pharmacy) 1 each PRN DAILY PRN MC SEE COMMENTS; Start 07/28/18 at 16:30 Piperacillin Sod/ Tazobactam Sod 4.5 gm/Sodium Chloride 100 ml @ 200 mls/hr Q6HRS IV Last administered on 07/29/18at 06:09; Start 07/28/18 at 17:00 Aspirin (Kely Aspirin) 325 mg DAILYWBKFT PO Last administered on 07/29/18 08: 07; Start 07/29/18 at 08:00 Atorvastatin Calcium (Lipitor) 10 mg QHS PO Last administered on 07/28/18 19: 55; Start 07/28/18 at 21:00 Clopidogrel Bisulfate (Plavix) 75 mg DAILY PO Last administered on 07/29/18 08 :07; Start 07/29/18 at 09:00 Cyclobenzaprine HCl (Flexeril) 10 mg TID PO Last administered on 07/29/18 08: 07; Start 07/28/18 at 21:00 Doxepin HCl (SINequan) 10 mg HS PO Last administered on 07/28/18 19:55; Start 07/28/18 at 21:00 Ferrous Sulfate (Feosol) 325 mg BIDWMEALS PO Last administered on 07/29/18 08: 08; Start 07/29/18 at 08:00 Linagliptin (Tradjenta) 5 mg DAILY PO Last administered on 07/29/18 08:08; Start 07/29/18 at 09:00 Ondansetron HCl (Zofran Odt) 4 mg PRN Q8HRS PRN PO NAUSEA Last administered on 07/28/18 19:55; Start 07/28/18 at 18:15 Oxycodone/ Acetaminophen (Percocet 10/325) 1 tab PRN TID PRN PO SEVERE PAIN Last administered on 07/29/18 08:08; Start 07/28/18 at 18:15 Potassium Chloride (Klor-Con) 10 meq DAILY PO Last administered on 07/29/18 08 :08; Start 07/29/18 at 09:00 Trazodone HCl (Desyrel) 50 mg HS PO Last administered on 07/28/18 19:55; Start 07/28/18 at 21:00 Non-Formulary Medication (Canagliflozin (Invokana)) 100 mg DAILY PO ; Start at 09:00; Status UNV Gabapentin (Neurontin) 600 mg TID PO Last administered on 07/29/18 08:06; Start 07/28/18 at 21:00 Ondansetron HCl (Zofran Odt) 4 mg PRN Q8HRS PRN PO NAUSEA/VOMITING; Start 07/28 at 18:15; Status Cancel Active Scripts Active Aspirin 325 Mg Tablet 325 Mg PO DAILYWBKFT 90 Days Atorvastatin Calcium 10 Mg Tablet 10 Mg PO QHS 90 Days Clopidogrel (Clopidogrel Bisulfate) 75 Mg Tablet 75 Mg PO DAILY 30 Days Zofran Odt (Ondansetron) 4 Mg Tab.rapdis 1 Tab SL Q8HRS PRN Iron Supplement (Ferrous Sulfate) 325 Mg Tablet 1 Tab PO BID Tradjenta (Linagliptin) 5 Mg Tablet 5 Mg PO DAILY Reported Invokana (Canagliflozin) 100 Mg Tablet 100 Mg PO DAILY Percocet 10-325 Mg Tablet (Oxycodone/Acetaminophen) 1 Each Tablet 1 Tab PO TID PRN Gabapentin 600 Mg Tablet 600 Mg PO TID Doxepin Hcl 10 Mg Capsule 10 Mg PO HS LAST DOSE GIVEN: DATE:09/23/16 TIME:9:00 p.m. NEXT DOSE DUE: DATE:09/24/16 TIME:9:00 p.m. Cyclobenzaprine Hcl 10 Mg Tablet 10 Mg PO TID last dose given at 1400 next dose is at bedtime or 9 pm NEXT DOSE DUE: DATE:04-23-16 TIME:12:30 if needed for muscle spasm Potassium Chloride 10 Meq Tablet.er 10 Meq PO DAILY LAST DOSE GIVEN: DATE:09/24/16 TIME:8:30 a.m. NEXT DOSE DUE: DATE:09/25/16 TIME:8:30 a.m. Ondansetron Odt (Ondansetron) 4 Mg Tab.rapdis 1 Tab PO PRN Q6-8HRS May resume at home as needed for nausea Trazodone Hcl 50 Mg Tablet 50 Mg PO HS LAST DOSE GIVEN: DATE:09/23/16 TIME:9:00 p.m. NEXT DOSE DUE: DATE:09/24/16 TIME:9:00 p.m. Vitals/I & O Vital Sign - Last 24 Hours 07/28/18 07/28/18 07/28/18 07/28/18 11:24 15:00 15:19 16:00 Temp 99.7 98.3 99.7 98.3 Pulse 96 79 Resp 20 18 18 17 B/P (MAP) 127/67 (87) 155/83 (107) Pulse Ox 98 100 O2 Delivery Room Air Room Air Room Air 07/28/18 07/28/18 07/28/18 07/28/18 19:20 20:00 21:09 22:38 Temp 100.2 100.2 Pulse 89 Resp 18 B/P (MAP) 145/67 (93) Pulse Ox 100 O2 Delivery Room Air Room Air Room Air Room Air 07/28/18 07/29/18 07/29/18 07/29/18 23:25 03:25 07:00 08:08 Temp 100.6 98.3 100.0 100.6 98.3 100.0 Pulse 91 94 97 Resp 18 18 20 20 B/P (MAP) 151/74 (99) 131/73 (92) 141/85 (103) Pulse Ox 100 98 95 O2 Delivery Room Air Room Air Room Air Room Air Intake and Output 07/28/18 07/28/18 07/29/18 15:01 23:01 07:01 Intake Total 100 ml 100 ml 550 ml Output Total 800 ml Balance 100 ml 100 ml -250 ml GATRH NEVILLE MD Jul 29, 2018 11:22
[2018-07-29 15:01] VITALS: BP 109/65
[2018-07-29] MEDS ORDERED: VANCOMYCIN 1.25 GM in IV NORMAL SALINE 250ML 250 ML IV ONE (17:30)
[2018-07-29] MEDS: POTASSIUM CHLORIDE 10 MEQ TABLET.ER. PO SCH (18:33)
[2018-07-29 19:50] VITALS: BP 129/75
[2018-07-29] MEDS: traZODone 50 MG TABLET. PO SCH (20:56)
[2018-07-29] MEDS: ATORVASTATIN CALCIUM 10 MG TABLET. PO SCH (20:56)
[2018-07-29] MEDS: DOXEPIN HCL 10 MG CAPSULE. PO SCH (20:56)
[2018-07-29 23:18] VITALS: BP 126/76
--- NOTE | 2018-07-30 00:41 | CONS ---
DATE OF CONSULTATION: 07/29/2018 This is Lee Kaplan, Nurse practitioner dictating for Dr. Joseph Mohan, Infectious Disease. REFERRING PHYSICIAN: Violet Maxwell M.D. REASON FOR CONSULTATION: Gram-negative brayden bacteremia. HISTORY OF PRESENT ILLNESS: This patient is a 58-year-old -[place]yp[place] female with a PMH of diabetes type 2, obesity, chronic back and right knee pain who for the last week or so has been feeling pretty "rotten." She had developed a cough, runny nose, fevers and generalized body aches as well as nausea and diarrhea. She thought initially she had had the flu. She took Thera-Flu for symptom of relief; however, symptoms persisted. She became increasingly weak and at one point had passed out, prompting ER visit. On arrival, she had a fever of 102.7 with mild leukocytosis and a normal lactic acid level. A chest x-ray showed minimal bibasilar lung airspace opacities, likely atelectasis or infiltrate. An urinalysis showed wbc's 5-10, leukocyte esterase negative, nitrite positive with occasional squamous epithelial cells and many bacteria. Urine culture is pending. Blood cultures have returned with gram-negative rods in 4 of 4 bottles and gram-positive cocci in 1 of 4 bottles. She is currently on Zosyn. The patient is most bothered by the ongoing body aches, low right-sided back pain and stomach pain. She has a headache with sinus congestion/pressure. Denies confusion, dizziness or sore throat. She denies dysuria, increased frequency or urgency. She states she has a history of chronic diarrhea related to inflammatory bowel disease. She denies nausea or vomiting. She was hospitalized a month ago for SMA stent placement. Other than a preop antibiotic, she denies antibiotic use within the last several months. PAST MEDICAL HISTORY: Diabetes mellitus type 2, peripheral neuropathy, fibromyalgia, GERD, nephrolithiasis, chronic mesenteric ischemia status post SMA stent placement in 2018, obesity, osteoarthritis, history of traumatic brain injury, depression, anxiety, internal hemorrhoids, vitamin D deficiency, hyperlipidemia and hepatitis C, IBD and chronic back pain. PAST SURGICAL HISTORY: Rotator cuff repair, right foot surgery, right total knee arthroplasty in 2017, right total hip arthroplasty, section, hysterectomy with BSO, tonsillectomy, adenoidectomy and L4-L5 laminectomy with fusion in 2016. FAMILY HISTORY: Positive for a brain tumor and diabetes. SOCIAL HISTORY: The patient lives at home. Nonsmoker. ALLERGIES: METFORMIN, MILK and SITAGLIPTIN. MEDICATIONS: Zosyn since July 28 and probiotics. Other medications are available and have been reviewed on the SEP. REVIEW OF SYSTEMS: Per HPI, otherwise all other review of systems are negative. PHYSICAL EXAMINATION: VITAL SIGNS: Temperature 100.0, blood pressure 141/85, heart rate 97, respiratory rate 20, pulse oximetry 95% on room air and BMI 40.5. GENERAL: The patient is propped up in bed, alert and teary eyed. HEENT: Pupils equally round. Normal conjunctivae. Oral cavity, pharynx pink and moist. Mild sinus tenderness. NECK: Supple. LUNGS: Clear to auscultation. HEART: S1 and S2. ABDOMEN: Obese, soft and tender with rebound and bowel sounds present. EXTREMITIES: No gross edema or cyanosis. Right knee incision well healed. SKIN: Warm without rash. NEUROLOGICAL: Alert and oriented x 3. Moves all extremities. LINES: REJ looks okay. LABORATORY DATA: Today's WBC 7.6 from 13.4; hemoglobin 11.0 and platelets 211,000. Creatinine 0.7, BUN 15, sodium 140 and potassium 3.2. Lactic acid 1.9, glucose 153, total bilirubin 0.6, AST 23 and ALT 23. BNP 237. Albumin 3.3. Urinalysis per HPI. Urine and blood cultures per HPI. Urine toxicology positive for opiates. Influenza screen negative. Group A strep rapid screen negative. RADIOLOGICAL DATA: Chest x-ray per HPI. IMPRESSION: 1. Gram-negative brayden sepsis, present on admission from 07/27/2018. 2. Gram-positive cocci bacteremia (1 of 4 bottles, likely contaminant). 3. Questionable urinary tract infection, present on admission. 4. Fever. 5. Diarrhea. 6. Encephalopathy, improved. 7. Chronic knee pain. 8. Chronic back pain. 9. Morbid obesity with a body mass index of 40. 10. Diabetes type 2. 11. Hepatitis C. PLAN: Continue the Zosyn and add an one time dose of vancomycin. We will follow up on a GNR and GPC identification and susceptibilities. Also will order CT abdomen and pelvis with contrast. Continue to monitor laboratory values, temperature and renal function closely. Pain management per primary. Supportive care. Thank you, Dr. Maxwell, for asking us to participate in this patient's care. Should you have further questions or concerns, please call. JOSEPH MOHAN MD DR: RADHA/karey JOB#: [id number] / [id number] HESHAM
[2018-07-30] MEDS: PIPERACILLIN/TAZOBACTAM 4.5 GM in IV NORMAL SALINE 100ML 100 ML IV SCH ×5 (00:52→23:58)
[2018-07-30 03:06] VITALS: BP 113/73
[2018-07-30 05:10] LABS: BASO % 1 % (0-3); EOS # 0.1 x10^3/uL (0.0-0.7); EOS % 3 % (0-3); HEMATOCRIT 30.6 % (36.0-47.0); LYMPH # 0.8 x10^3/uL (1.0-4.8); LYMPH % 21 % (24-48); MEAN CORPUSCULAR HEMOGLOBIN 30 pg (25-35); MEAN CORPUSCULAR HGB CONC 33 g/dL (31-37); MEAN CORPUSCULAR VOLUME 93 fL (79-100); MONO # 0.4 x10^3/uL (0.0-1.1); MONO % 10 % (0-9); NEUT # 2.5 x10^3uL (1.8-7.7); NEUT % 65 % (31-73); PLATELET COUNT 195 x10^3/uL (140-400); RED CELL DISTRIBUTION WIDTH 15.1 % (11.5-14.5); WHITE BLOOD COUNT 3.8 x10^3/uL (4.0-11.0)
[2018-07-30 05:25] LABS: CALCIUM 8.1 mg/dL (8.5-10.1); CREATININE 0.7 mg/dL (0.6-1.0); POTASSIUM 3.9 mmol/L (3.5-5.1)
[2018-07-30] MEDS: oxyCODONE/APAP 10/325 1 TAB TABLET PO PRN ×3 (07:29→23:57)
[2018-07-30 07:57] VITALS: BP 147/80
[2018-07-30] MEDS ORDERED: CONTRAST GIVEN. MC PRN (08:00)
[2018-07-30] MEDS ORDERED: IOHEXOL 240 MG/ML 50ML VIAL. PO ONE (08:00)
[2018-07-30] MEDS ORDERED: IOHEXOL 300 MG/ML 100ML VIAL. IV ONE (08:00)
[2018-07-30] MEDS: NON FORMULARY ITEM (Canagliflozin (Invokana) 100 MG) PO SCH (09:00)
[2018-07-30] MEDS: ASPIRIN 325 MG TABLET PO SCH (09:57)
[2018-07-30] MEDS: GABAPENTIN 300 MG CAPSULE. PO SCH ×3 (09:57→20:47)
[2018-07-30] MEDS: LACTOBACILLUS RHAMNOSUS GG 1 CAPSULE. PO SCH ×2 (09:59→20:48)
[2018-07-30] MEDS: POTASSIUM CHLORIDE 10 MEQ TABLET.ER. PO SCH ×2 (09:59→17:14)
[2018-07-30] MEDS: LINAGLIPTIN 5 MG TABLET PO SCH (09:59)
[2018-07-30] MEDS: CLOPIDOGREL BISULFATE 75 MG TABLET PO SCH (09:59)
[2018-07-30] MEDS: FERROUS SULFATE 325 MG TABLET. PO SCH ×2 (09:59→17:13)
[2018-07-30] MEDS: CYCLOBENZAPRINE 10 MG TABLET. PO SCH ×3 (09:59→20:48)
[2018-07-30 11:35] VITALS: BP 156/92
--- NOTE | 2018-07-30 12:20 | PDOC ---
PROGRESS NOTES Subjective Subjective Patient without complaint, feels better since fever has resolved. Objective Objective Vital Signs Date Time Temp Pulse Resp B/P (MAP) Pulse Ox O2 Delivery O2 Flow Rate FiO2 07/30/18 11:35 97.5 76 18 156/92 (113) 97 Room Air 97.5 07/28/18 07:41 2.0 Intake and Output 07/30/18 07:01 Intake Total 420 ml Output Total 501 ml Balance -81 ml Intake Oral 420 ml Output Urine Total 500 ml Stool Total 1 ml # Voids 5 # Bowel Movements 2 Physical Exam Abdomen: Normal bowel sounds, Soft, No tenderness Heart: Regular rate Extremities: No edema General: Alert, Oriented X3, No acute distress Lungs: Clear to auscultation Assessment Assessment Problems Medical Problems: (1) Altered mental status Status: Acute (2) Fever Status: Acute (3) Urinary tract infection Status: Acute Plan Plan of Care 1. Sepsis with UTI - afebrile for over 24 hours now. Preliminary urine culture with E coli. Continue Zosyn per ID, await final blood and urine culture reports. 2. chronic pain - stable, continue po pain meds as needed. 3. DM2 - fairly well controlled, continue present medications. 4. hypokalemia - improved with increase in po replacement. Comment Review of Relevant I have reviewed the following items melanie (where applicable) has been applied. Labs Laboratory Tests Test 07/28/18 17:10 07/28/18 21:10 07/29/18 04:00 07/29/18 08:15 Glucose (Fingerstick) 109 mg/dL (70-99) 204 mg/dL (70-99) 121 mg/dL (70-99) White Blood Count 7.6 x10^3/uL (4.0-11.0) Red Blood Count 3.59 x10^6/uL (3.50-5.40) Hemoglobin 11.0 g/dL (12.0-15.5) Hematocrit 33.2 % (36.0-47.0) Mean Corpuscular Volume 93 fL (79-100) Mean Corpuscular Hemoglobin 31 pg (25-35) Mean Corpuscular Hemoglobin Concent 33 g/dL (31-37) Red Cell Distribution Width 14.9 % (11.5-14.5) Platelet Count 211 x10^3/uL (140-400) Neutrophils (%) (Auto) 83 % (31-73) Lymphocytes (%) (Auto) 11 % (24-48) Monocytes (%) (Auto) 6 % (0-9) Eosinophils (%) (Auto) 0 % (0-3) Basophils (%) (Auto) 0 % (0-3) Neutrophils # (Auto) 6.3 x10^3uL (1.8-7.7) Lymphocytes # (Auto) 0.8 x10^3/uL (1.0-4.8) Monocytes # (Auto) 0.5 x10^3/uL (0.0-1.1) Eosinophils # (Auto) 0.0 x10^3/uL (0.0-0.7) Basophils # (Auto) 0.0 x10^3/uL (0.0-0.2) Test 07/29/18 12:02 07/29/18 16:40 07/29/18 20:59 07/30/18 04:32 Glucose (Fingerstick) 202 mg/dL (70-99) 189 mg/dL (70-99) 239 mg/dL (70-99) Sodium Level 140 mmol/L (136-145) Potassium Level 3.9 mmol/L (3.5-5.1) Chloride Level 108 mmol/L (98-107) Carbon Dioxide Level 24 mmol/L (21-32) Anion Gap 8 (6-14) Blood Urea Nitrogen 12 mg/dL (7-20) Creatinine 0.7 mg/dL (0.6-1.0) Estimated GFR (Cockcroft-Gault) 104.0 Glucose Level 196 mg/dL (70-99) Calcium Level 8.1 mg/dL (8.5-10.1) Test 07/30/18 04:35 07/30/18 08:03 07/30/18 11:58 White Blood Count 3.8 x10^3/uL (4.0-11.0) Red Blood Count 3.30 x10^6/uL (3.50-5.40) Hemoglobin 10.0 g/dL (12.0-15.5) Hematocrit 30.6 % (36.0-47.0) Mean Corpuscular Volume 93 fL (79-100) Mean Corpuscular Hemoglobin 30 pg (25-35) Mean Corpuscular Hemoglobin Concent 33 g/dL (31-37) Red Cell Distribution Width 15.1 % (11.5-14.5) Platelet Count 195 x10^3/uL (140-400) Neutrophils (%) (Auto) 65 % (31-73) Lymphocytes (%) (Auto) 21 % (24-48) Monocytes (%) (Auto) 10 % (0-9) Eosinophils (%) (Auto) 3 % (0-3) Basophils (%) (Auto) 1 % (0-3) Neutrophils # (Auto) 2.5 x10^3uL (1.8-7.7) Lymphocytes # (Auto) 0.8 x10^3/uL (1.0-4.8) Monocytes # (Auto) 0.4 x10^3/uL (0.0-1.1) Eosinophils # (Auto) 0.1 x10^3/uL (0.0-0.7) Basophils # (Auto) 0.0 x10^3/uL (0.0-0.2) Glucose (Fingerstick) 142 mg/dL (70-99) 179 mg/dL (70-99) Laboratory Tests Test 07/29/18 16:40 07/29/18 20:59 07/30/18 04:32 07/30/18 04:35 Glucose (Fingerstick) 189 mg/dL (70-99) 239 mg/dL (70-99) Sodium Level 140 mmol/L (136-145) Potassium Level 3.9 mmol/L (3.5-5.1) Chloride Level 108 mmol/L (98-107) Carbon Dioxide Level 24 mmol/L (21-32) Anion Gap 8 (6-14) Blood Urea Nitrogen 12 mg/dL (7-20) Creatinine 0.7 mg/dL (0.6-1.0) Estimated GFR (Cockcroft-Gault) 104.0 Glucose Level 196 mg/dL (70-99) Calcium Level 8.1 mg/dL (8.5-10.1) White Blood Count 3.8 x10^3/uL (4.0-11.0) Red Blood Count 3.30 x10^6/uL (3.50-5.40) Hemoglobin 10.0 g/dL (12.0-15.5) Hematocrit 30.6 % (36.0-47.0) Mean Corpuscular Volume 93 fL (79-100) Mean Corpuscular Hemoglobin 30 pg (25-35) Mean Corpuscular Hemoglobin Concent 33 g/dL (31-37) Red Cell Distribution Width 15.1 % (11.5-14.5) Platelet Count 195 x10^3/uL (140-400) Neutrophils (%) (Auto) 65 % (31-73) Lymphocytes (%) (Auto) 21 % (24-48) Monocytes (%) (Auto) 10 % (0-9) Eosinophils (%) (Auto) 3 % (0-3) Basophils (%) (Auto) 1 % (0-3) Neutrophils # (Auto) 2.5 x10^3uL (1.8-7.7) Lymphocytes # (Auto) 0.8 x10^3/uL (1.0-4.8) Monocytes # (Auto) 0.4 x10^3/uL (0.0-1.1) Eosinophils # (Auto) 0.1 x10^3/uL (0.0-0.7) Basophils # (Auto) 0.0 x10^3/uL (0.0-0.2) Test 07/30/18 08:03 07/30/18 11:58 Glucose (Fingerstick) 142 mg/dL (70-99) 179 mg/dL (70-99) Microbiology 07/27/18 Blood Culture - Final, Complete 07/27/18 Urine Culture - Preliminary, Resulted 07/27/18 Urine Culture Result 1 (TEENA) - Preliminary, Resulted Medications Current Medications Naloxone HCl (Narcan) 0.4 mg STK-MED ONCE .ROUTE ; Start 07/27/18 at 18:49; Stop 07/27/18 at 18:51; Status DC Sodium Chloride 500 ml @ 500 mls/hr 1X ONCE IV Last administered on at 19:02; Start 07/27/18 at 19:00; Stop 07/27/18 at 20:12; Status DC Naloxone HCl (Narcan) 0.8 mg 1X ONCE IV Last administered on 07/27/18at 18:57; Start 07/27/18 at 19:00; Stop 07/27/18 at 19:01; Status DC Ceftriaxone Sodium (Rocephin) 1 gm 1X ONCE IVP Last administered on 07/27/18at 21:23; Start 07/27/18 at 20:15; Stop 07/27/18 at 20:18; Status DC Ketorolac Tromethamine (Toradol 30mg Vial) 30 mg 1X ONCE IV Last administered on 07/27/18at 20:45; Start 07/27/18 at 20:30; Stop 07/27/18 at 20:31; Status DC Acetaminophen (Tylenol) 1,000 mg 1X ONCE PO Last administered on 07/27/18at 20: 45; Start 07/27/18 at 20:30; Stop 07/27/18 at 20:31; Status DC Ondansetron HCl (Zofran) 4 mg PRN Q8HRS PRN IV NAUSEA/VOMITING; Start 07/27/18 at 21:15; Stop 07/28/18 at 13:43; Status DC Sodium Chloride 1,000 ml @ 125 mls/hr Q8H IV Last administered on 07/28/18at 17 :53; Start 07/27/18 at 21:06; Stop 07/28/18 at 21:05; Status DC Acetaminophen (Tylenol) 650 mg PRN Q4HRS PRN PO FEVER Last administered on 07/28at 18:00; Start 07/27/18 at 21:15; Stop 07/28/18 at 21:14; Status DC Enoxaparin Sodium (Lovenox Per Pharmacy Prophylaxis Dosing) 1 each PRN DAILY PRN MC SEE COMMENTS; Start 07/28/18 at 09:00; Stop 07/28/18 at 14:14; Status DC Enoxaparin Sodium (Lovenox 40mg Syringe) 40 mg DAILY SQ Last administered on at 09:16; Start 07/28/18 at 09:00; Stop 07/28/18 at 14:13; Status DC Ketorolac Tromethamine (Toradol 15mg Vial) 15 mg 1X ONCE IV Last administered on 07/28/18at 09:15; Start 07/28/18 at 09:15; Stop 07/28/18 at 09:16; Status DC Ondansetron HCl (Zofran) 4 mg PRN Q6HRS PRN IV NAUSEA/VOMITING Last administered on 07/28/18at 19:56; Start 07/28/18 at 13:45 Ampicillin Sodium 2 gm/Sodium Chloride 100 ml @ 200 mls/hr Q6HRS IV ; Start at 14:00; Stop 07/28/18 at 14:13; Status DC Ceftriaxone Sodium (Rocephin) 1 gm Q24H IVP ; Start 07/28/18 at 21:00; Status Cancel Oxycodone/ Acetaminophen (Percocet 5/325) 1 tab PRN Q6HRS PRN PO MODERATE PAIN ; Start 07/28/18 at 14:15; Stop 07/28/18 at 14:59; Status DC Oxycodone/ Acetaminophen (Percocet 10/325) 1 tab PRN Q6HRS PRN PO SEVERE PAIN Last administered on 07/28/18at 21:09; Start 07/28/18 at 14:15; Stop 07/29/18 at 07:01; Status DC Lactobacillus Rhamnosus (Culturelle) 1 cap BID PO Last administered on at 09:59; Start 07/28/18 at 21:00 Potassium Chloride (Klor-Con) 40 meq ONCE ONCE PO Last administered on at 17:52; Start 07/28/18 at 16:00; Stop 07/28/18 at 16:01; Status DC Piperacillin Sod/ Tazobactam Sod (Zosyn Per Pharmacy) 1 each PRN DAILY PRN MC SEE COMMENTS; Start 07/28/18 at 16:30 Piperacillin Sod/ Tazobactam Sod 4.5 gm/Sodium Chloride 100 ml @ 200 mls/hr Q6HRS IV Last administered on 07/30/18at 05:11; Start 07/28/18 at 17:00 Aspirin (Kely Aspirin) 325 mg DAILYWBKFT PO Last administered on 07/30/18at 09: 57; Start 07/29/18 at 08:00 Atorvastatin Calcium (Lipitor) 10 mg QHS PO Last administered on 07/29/18at 20: 56; Start 07/28/18 at 21:00 Clopidogrel Bisulfate (Plavix) 75 mg DAILY PO Last administered on 07/30/18at 09 :59; Start 07/29/18 at 09:00 Cyclobenzaprine HCl (Flexeril) 10 mg TID PO Last administered on 07/30/18 09: 59; Start 07/28/18 at 21:00 Doxepin HCl (SINequan) 10 mg HS PO Last administered on 07/29/18 20:56; Start 07/28/18 at 21:00 Ferrous Sulfate (Feosol) 325 mg BIDWMEALS PO Last administered on 07/30/18 09: 59; Start 07/29/18 at 08:00 Linagliptin (Tradjenta) 5 mg DAILY PO Last administered on 07/30/18 09:59; Start 07/29/18 at 09:00 Ondansetron HCl (Zofran Odt) 4 mg PRN Q8HRS PRN PO NAUSEA Last administered on 07/28/18 19:55; Start 07/28/18 at 18:15 Oxycodone/ Acetaminophen (Percocet 10/325) 1 tab PRN TID PRN PO SEVERE PAIN Last administered on 07/30/18 07:29; Start 07/28/18 at 18:15 Potassium Chloride (Klor-Con) 10 meq DAILY PO Last administered on 07/29/18 08 :08; Start 07/29/18 at 09:00; Stop 07/29/18 at 11:17; Status DC Trazodone HCl (Desyrel) 50 mg HS PO Last administered on 07/29/18 20:56; Start 07/28/18 at 21:00 Non-Formulary Medication (Canagliflozin (Invokana)) 100 mg DAILY PO ; Start at 09:00; Status UNV Gabapentin (Neurontin) 600 mg TID PO Last administered on 07/30/18 09:57; Start 07/28/18 at 21:00 Ondansetron HCl (Zofran Odt) 4 mg PRN Q8HRS PRN PO NAUSEA/VOMITING; Start 07/28 at 18:15; Status Cancel Potassium Chloride (Klor-Con) 10 meq BIDWMEALS PO Last administered on 09:59; Start 07/29/18 at 17:00 Ibuprofen (Motrin) 600 mg PRN Q8HRS PRN PO INFLAMMATION Last administered on 18:41; Start 07/29/18 at 11:15 Vancomycin HCl 1.25 gm/Sodium Chloride 250 ml @ 166.667 mls/hr 1X ONCE IV Last administered on 07/29/18at 21:01; Start 07/29/18 at 17:30; Stop 07/29/18 at 18:59; Status DC Iohexol (Omnipaque 300 Mg/ml) 75 ml 1X ONCE IV ; Start 07/30/18 at 08:00; Stop 07/30/18 at 08:01; Status DC Iohexol (Omnipaque 240 Mg/ml) 50 ml 1X ONCE PO Last administered on 07/30/18at 08:00; Start 07/30/18 at 08:00; Stop 07/30/18 at 08:01; Status DC Info (CONTRAST GIVEN -- Rx MONITORING) 1 each PRN DAILY PRN MC SEE COMMENTS; Start 07/30/18 at 08:00; Stop 08/01/18 at 07:59 Active Scripts Active Aspirin 325 Mg Tablet 325 Mg PO DAILYWBKFT 90 Days Atorvastatin Calcium 10 Mg Tablet 10 Mg PO QHS 90 Days Clopidogrel (Clopidogrel Bisulfate) 75 Mg Tablet 75 Mg PO DAILY 30 Days Zofran Odt (Ondansetron) 4 Mg Tab.rapdis 1 Tab SL Q8HRS PRN Iron Supplement (Ferrous Sulfate) 325 Mg Tablet 1 Tab PO BID Tradjenta (Linagliptin) 5 Mg Tablet 5 Mg PO DAILY Reported Invokana (Canagliflozin) 100 Mg Tablet 100 Mg PO DAILY Percocet 10-325 Mg Tablet (Oxycodone/Acetaminophen) 1 Each Tablet 1 Tab PO TID PRN Gabapentin 600 Mg Tablet 600 Mg PO TID Doxepin Hcl 10 Mg Capsule 10 Mg PO HS LAST DOSE GIVEN: DATE:09/23/16 TIME:9:00 p.m. NEXT DOSE DUE: DATE:09/24/16 TIME:9:00 p.m. Cyclobenzaprine Hcl 10 Mg Tablet 10 Mg PO TID last dose given at 1400 next dose is at bedtime or 9 pm NEXT DOSE DUE: DATE:04-23-16 TIME:12:30 if needed for muscle spasm Potassium Chloride 10 Meq Tablet.er 10 Meq PO DAILY LAST DOSE GIVEN: DATE:09/24/16 TIME:8:30 a.m. NEXT DOSE DUE: DATE:09/25/16 TIME:8:30 a.m. Ondansetron Odt (Ondansetron) 4 Mg Tab.rapdis 1 Tab PO PRN Q6-8HRS May resume at home as needed for nausea Trazodone Hcl 50 Mg Tablet 50 Mg PO HS LAST DOSE GIVEN: DATE:09/23/16 TIME:9:00 p.m. NEXT DOSE DUE: DATE:09/24/16 TIME:9:00 p.m. Vitals/I & O Vital Sign - Last 24 Hours 07/29/18 07/29/18 07/29/18 07/29/18 15:01 15:33 19:50 20:00 Temp 98.0 98.8 98.0 98.8 Pulse 77 84 Resp 20 17 20 B/P (MAP) 109/65 (80) 129/75 (93) Pulse Ox 98 100 O2 Delivery Room Air Room Air Room Air Room Air 07/29/18 07/29/18 07/30/18 07/30/18 20:56 23:18 03:06 07:29 Temp 98.4 97.4 98.4 97.4 Pulse 69 63 Resp 16 16 17 B/P (MAP) 126/76 (93) 113/73 (86) Pulse Ox 93 94 O2 Delivery Room Air Room Air Room Air Room Air 07/30/18 07/30/18 07/30/18 07/30/18 07:57 08:00 08:25 11:35 Temp 98.2 97.5 98.2 97.5 Pulse 68 76 Resp 20 18 18 B/P (MAP) 147/80 (102) 156/92 (113) Pulse Ox 97 97 O2 Delivery Room Air Room Air Room Air Room Air Intake and Output 07/29/18 07/29/18 07/30/18 15:01 23:01 07:01 Intake Total 180 ml 240 ml Output Total 501 ml Balance 180 ml -261 ml GARTH NEVILLE MD Jul 30, 2018 12:20
--- NOTE | 2018-07-30 12:33 | PDOC ---
Infectious Disease Note Subjective Subjective Feeling some better, Less abdominal pain No fevers last 24 hours Denies chills/aches/N/V/SOA ROS ROS per HPI Vital Sign Vital Signs Vital Signs Date Time Temp Pulse Resp B/P (MAP) Pulse Ox O2 Delivery O2 Flow Rate FiO2 07/30/18 11:35 97.5 76 18 156/92 (113) 97 Room Air 97.5 Physical Exam PHYSICAL EXAM GENERAL: Propped up in bed, eating an apple, smiling HEENT: Pupils equally round. Normal conjunctivae. Oral cavity, pharynx pink and moist. Mild sinus tenderness. NECK: Supple. LUNGS: Clear to auscultation. HEART: S1 and S2. ABDOMEN: Obese, soft, tender with bowel sounds present. EXTREMITIES: No gross edema or cyanosis. SKIN: Warm without rash. NEUROLOGICAL: Alert and oriented x 3. Moves all extremities. REJ looks okay. Labs Lab Laboratory Tests Test 07/29/18 16:40 07/29/18 20:59 07/30/18 04:32 07/30/18 04:35 Glucose (Fingerstick) 189 mg/dL (70-99) 239 mg/dL (70-99) Sodium Level 140 mmol/L (136-145) Potassium Level 3.9 mmol/L (3.5-5.1) Chloride Level 108 mmol/L (98-107) Carbon Dioxide Level 24 mmol/L (21-32) Anion Gap 8 (6-14) Blood Urea Nitrogen 12 mg/dL (7-20) Creatinine 0.7 mg/dL (0.6-1.0) Estimated GFR (Cockcroft-Gault) 104.0 Glucose Level 196 mg/dL (70-99) Calcium Level 8.1 mg/dL (8.5-10.1) White Blood Count 3.8 x10^3/uL (4.0-11.0) Red Blood Count 3.30 x10^6/uL (3.50-5.40) Hemoglobin 10.0 g/dL (12.0-15.5) Hematocrit 30.6 % (36.0-47.0) Mean Corpuscular Volume 93 fL (79-100) Mean Corpuscular Hemoglobin 30 pg (25-35) Mean Corpuscular Hemoglobin Concent 33 g/dL (31-37) Red Cell Distribution Width 15.1 % (11.5-14.5) Platelet Count 195 x10^3/uL (140-400) Neutrophils (%) (Auto) 65 % (31-73) Lymphocytes (%) (Auto) 21 % (24-48) Monocytes (%) (Auto) 10 % (0-9) Eosinophils (%) (Auto) 3 % (0-3) Basophils (%) (Auto) 1 % (0-3) Neutrophils # (Auto) 2.5 x10^3uL (1.8-7.7) Lymphocytes # (Auto) 0.8 x10^3/uL (1.0-4.8) Monocytes # (Auto) 0.4 x10^3/uL (0.0-1.1) Eosinophils # (Auto) 0.1 x10^3/uL (0.0-0.7) Basophils # (Auto) 0.0 x10^3/uL (0.0-0.2) Test 07/30/18 08:03 07/30/18 11:58 Glucose (Fingerstick) 142 mg/dL (70-99) 179 mg/dL (70-99) Micro BLOOD CULTURE Final GRAM NEGATIVE RODS IN 3 OF 4 BOTTLES(ANAEROBIC BOTTLE THIS SET);REPRESENTING 2 SETS DRAWN. THE RESULT WAS CALLED TO ROB CHUNG(6S)ON 07/28/18 AT 1310 BY Robert BE. THE BLOOD CULTURE HAS BEEN SENT TO [facility] FOR FURTHER WORKUP. AMMENDED REPORT: 07/29/18 THE FINAL BOTTLE IS NOW POSITIVE, IT HAS BOTH GRAM NEGATIVE RODS AND GRAM POSITIVE COCCI. 4 OF 4 BOTTLES, TWO SETS DRAWN. URINE CULTURE RES 1 Preliminary Escherichia coli Greater than 100,000 colony forming units per mL Objective Assessment GNR sepsis, POA from 07/27/2018. ID still pending GPC bacteremia (1 of 4 bottles), likely contaminate. ID still pending Questionable UTI, POA E. Coli Leukopenia Fever - better Diarrhea h/o IBD Encephalopathy - improved Chronic knee pain h/o TKA, 2017 Chronic back pain Morbid obesity w/ BMI 40 DM II Hep C Plan Plan of Care Continue Zosyn Dose Daptomycin f/u GNR and GPC ID/sensitivities One time dose vanc 07/29. CT abd/pelvis not done yet. Needing new IV - now some abd pain was better earlier - d/w nursing Pain management per primary Monitor labs in am/temp Supportive care D/w RN Attending Co-Sign Attending Co-Sign The patient was seen and interviewed as well as examined at the bedside. The chart was reviewed. The case was discussed. Agree with the plan of care. CARRILLO MOSQUEDA APRN Jul 30, 2018 12:33 JOSEPH MOHAN MD Jul 30, 2018 15:33
[2018-07-30 15:22] VITALS: BP 140/68
[2018-07-30 19:49] VITALS: BP 137/77
[2018-07-30] MEDS: DOXEPIN HCL 10 MG CAPSULE. PO SCH (20:47)
[2018-07-30] MEDS: ATORVASTATIN CALCIUM 10 MG TABLET. PO SCH (20:48)
[2018-07-30] MEDS: traZODone 50 MG TABLET. PO SCH (20:48)
[2018-07-30 23:05] VITALS: BP 137/68
[2018-07-31 03:16] VITALS: BP 143/67
[2018-07-31 04:23] LABS: BASO % 1 % (0-3); EOS # 0.2 x10^3/uL (0.0-0.7); EOS % 3 % (0-3); HEMOGLOBIN 10.2 g/dL (12.0-15.5); LYMPH # 1.6 x10^3/uL (1.0-4.8); LYMPH % 30 % (24-48); MEAN CORPUSCULAR HEMOGLOBIN 30 pg (25-35); MEAN CORPUSCULAR HGB CONC 33 g/dL (31-37); MEAN CORPUSCULAR VOLUME 92 fL (79-100); MONO # 0.7 x10^3/uL (0.0-1.1); MONO % 14 % (0-9); NEUT # 2.8 x10^3uL (1.8-7.7); NEUT % 53 % (31-73); PLATELET COUNT 225 x10^3/uL (140-400); RED BLOOD COUNT 3.37 x10^6/uL (3.50-5.40); RED CELL DISTRIBUTION WIDTH 14.8 % (11.5-14.5); WHITE BLOOD COUNT 5.3 x10^3/uL (4.0-11.0)
[2018-07-31 05:44] LABS: ALBUMIN/GLOBULIN RATIO 0.5 (1.0-1.7); CALCIUM 8.8 mg/dL (8.5-10.1); CREATININE 0.6 mg/dL (0.6-1.0); GFR 124.2; POTASSIUM 3.6 mmol/L (3.5-5.1); TOTAL BILIRUBIN 0.3 mg/dL (0.2-1.0); TOTAL PROTEIN 6.4 g/dL (6.4-8.2)
[2018-07-31] MEDS: PIPERACILLIN/TAZOBACTAM 4.5 GM in IV NORMAL SALINE 100ML 100 ML IV SCH ×3 (06:15→18:39)
[2018-07-31 07:00] VITALS: BP 150/74
[2018-07-31] MEDS: oxyCODONE/APAP 10/325 1 TAB TABLET PO PRN ×3 (08:09→23:05)
[2018-07-31] MEDS ORDERED: IOHEXOL 300 MG/ML 100ML VIAL. IV ONE (08:15)
[2018-07-31] MEDS ORDERED: CONTRAST GIVEN. MC PRN (08:15)
[2018-07-31] MEDS ORDERED: IOHEXOL 240 MG/ML 50ML VIAL. PO ONE (08:15)
[2018-07-31] MEDS: GABAPENTIN 300 MG CAPSULE. PO SCH ×3 (09:00→21:41)
[2018-07-31] MEDS: CYCLOBENZAPRINE 10 MG TABLET. PO SCH ×3 (09:00→21:42)
[2018-07-31 11:00] VITALS: BP 140/71
--- NOTE | 2018-07-31 11:03 | RAD ---
CT abdomen and pelvis with contrast 07/31/2018 Clinical indication: Gram-negative brayden sepsis and abdominal pain. COMPARISON: CT abdomen and pelvis 06/18/2018 TECHNIQUE: Multiple CT images of the abdomen and pelvis were obtained following the intravenous administration of 75 mL Omnipaque 300. Oral contrast was administered. *One or more of the following individualized dose reduction techniques were utilized for this examination: 1. Automated exposure control. 2. Adjustment of the mA and/or kV according to patient size. 3. Use of iterative reconstruction technique. FINDINGS: Mild cardiomegaly without significant pericardial effusion. There are mild airspace opacities in the posterior left lower lobe. Liver, gallbladder, spleen, adrenal glands and pancreas are unremarkable. There is a tiny, 3 mm, nonobstructive calculus in the superior pole the left kidney. There is subtle cortical medullary differentiation loss of the superior pole the right kidney series 4/image 33. There is minimal right renal inferior perinephric stranding. No loculated perinephric fluid collection. There is focal calcified plaque at the anterior suprarenal abdominal aorta resulting in 50 percent luminal stenosis. There is mild calcified plaque at the origins of the bilateral renal arteries without evidence of high-grade stenosis. There is a superior mesenteric stent at the origin with luminal patency not assessed due to phase of contrast timing. No retroperitoneal or mesenteric lymphadenopathy. Oral contrast reaches the right hemicolon. There is dilatation of the appendix measuring 0.9 cm without significant periappendiceal stranding or edema. No abdominal free fluid. There is a persistent umbilical hernia containing a portion of the antimesenteric mid transverse colon without evidence of obstruction. Evaluation of the pelvis is limited due to artifact from total right hip arthroplasty. No definite pelvic lymphadenopathy or free fluid, though limited. Urinary bladder is significantly limited evaluation. Probable hysterectomy. Posterior spinal fixation at L4-L5. Mild left hip osteoarthritis. IMPRESSION: 1. Right renal hypodensity with corticomedullary differentiation loss extending to the capsule. Differential considerations include pyelonephritis versus infarct. 2. Mildly dilated appendix, measuring 0.9 cm. There is no periappendiceal stranding, however there is inferior perinephric stranding which is immediately adjacent to the appendix. Findings are indeterminate and early acute appendicitis is not excluded. No periappendiceal abscess. 3. Mild left lower lobe airspace opacities, indeterminate between infectious or inflammatory pneumonitis. 4. Stable umbilical hernia containing nonobstructive transverse colon. Electronically signed by: Dmitriy Lewis MD (07/31/2018 10:59 AM) [facility]
--- NOTE | 2018-07-31 12:07 | PDOC ---
Infectious Disease Note Subjective Subjective Still having abd pain despite meds No fevers last 24 hours Denies chills/aches/N/V/SOA Some loose stools Vital Sign Vital Signs Vital Signs Date Time Temp Pulse Resp B/P (MAP) Pulse Ox O2 Delivery O2 Flow Rate FiO2 07/31/18 11:00 98.6 74 16 140/71 (94) 98 Room Air 98.6 07/31/18 08:09 2.0 Physical Exam PHYSICAL EXAM GENERAL: Propped up in bed, looks tired HEENT: Pupils equally round. Normal conjunctivae. Oral cavity, pharynx pink and moist. Mild sinus tenderness. NECK: Supple. LUNGS: Clear to auscultation. HEART: S1 and S2. ABDOMEN: Obese, soft, tender with bowel sounds present.+ guard and mild rebound EXTREMITIES: No gross edema or cyanosis. SKIN: Warm without rash. NEUROLOGICAL: Alert and oriented x 3. Moves all extremities. REJ looks okay. Labs Lab Laboratory Tests Test 07/30/18 16:57 07/30/18 20:31 07/31/18 03:55 07/31/18 07:15 Glucose (Fingerstick) 151 mg/dL (70-99) 270 mg/dL (70-99) 165 mg/dL (70-99) White Blood Count 5.3 x10^3/uL (4.0-11.0) Red Blood Count 3.37 x10^6/uL (3.50-5.40) Hemoglobin 10.2 g/dL (12.0-15.5) Hematocrit 31.0 % (36.0-47.0) Mean Corpuscular Volume 92 fL (79-100) Mean Corpuscular Hemoglobin 30 pg (25-35) Mean Corpuscular Hemoglobin Concent 33 g/dL (31-37) Red Cell Distribution Width 14.8 % (11.5-14.5) Platelet Count 225 x10^3/uL (140-400) Neutrophils (%) (Auto) 53 % (31-73) Lymphocytes (%) (Auto) 30 % (24-48) Monocytes (%) (Auto) 14 % (0-9) Eosinophils (%) (Auto) 3 % (0-3) Basophils (%) (Auto) 1 % (0-3) Neutrophils # (Auto) 2.8 x10^3uL (1.8-7.7) Lymphocytes # (Auto) 1.6 x10^3/uL (1.0-4.8) Monocytes # (Auto) 0.7 x10^3/uL (0.0-1.1) Eosinophils # (Auto) 0.2 x10^3/uL (0.0-0.7) Basophils # (Auto) 0.0 x10^3/uL (0.0-0.2) Sodium Level 139 mmol/L (136-145) Potassium Level 3.6 mmol/L (3.5-5.1) Chloride Level 105 mmol/L (98-107) Carbon Dioxide Level 23 mmol/L (21-32) Anion Gap 11 (6-14) Blood Urea Nitrogen 7 mg/dL (7-20) Creatinine 0.6 mg/dL (0.6-1.0) Estimated GFR (Cockcroft-Gault) 124.2 BUN/Creatinine Ratio 12 (6-20) Glucose Level 196 mg/dL (70-99) Calcium Level 8.8 mg/dL (8.5-10.1) Total Bilirubin 0.3 mg/dL (0.2-1.0) Aspartate Amino Transf (AST/SGOT) 71 U/L (15-37) Alanine Aminotransferase (ALT/SGPT) 43 U/L (14-59) Alkaline Phosphatase 77 U/L (46-116) Total Protein 6.4 g/dL (6.4-8.2) Albumin 2.0 g/dL (3.4-5.0) Albumin/Globulin Ratio 0.5 (1.0-1.7) Micro IMPRESSION: 1. Right renal hypodensity with corticomedullary differentiation loss extending to the capsule. Differential considerations include pyelonephritis versus infarct. 2. Mildly dilated appendix, measuring 0.9 cm. There is no periappendiceal stranding, however there is inferior perinephric stranding which is immediately adjacent to the appendix. Findings are indeterminate and early acute appendicitis is not excluded. No periappendiceal abscess. 3. Mild left lower lobe airspace opacities, indeterminate between infectious or inflammatory pneumonitis. 4. Stable umbilical hernia containing nonobstructive transverse colon. Microbiology 07/27/18 Blood Culture - Preliminary, Resulted 07/27/18 Blood Culture Result 1 (TEENA) - Preliminary, Resulted 07/27/18 Throat Culture - Final, Complete 07/27/18 - Final, Complete 07/27/18 Urine Culture - Final, Complete 07/27/18 Urine Culture Result 1 (TEENA) - Final, Complete 07/27/18 Antimicrobic Susceptibility - Final, Complete Objective Assessment GNR sepsis, POA from 07/27/2018. ID still pending GPC bacteremia (1 of 4 bottles), likely contaminate. ID still pending Abbnormal CT with peritoneal signs Questionable UTI, POA E. Coli Leukopenia - better Fever - better Diarrhea h/o IBD Encephalopathy - improved Chronic knee pain h/o TKA, 2017 Chronic back pain Morbid obesity w/ BMI 40 DM II Hep C Plan Plan of Care Continue Zosyn Dose Daptomycin times one (s/p contrast)- Blood cults only with GNR reporting out so far Gen surgery eval - Consult Dr. Singh f/u GNR and GPC ID/sensitivities One time dose vanc 07/29. Blood cults in am Pain management per primary Monitor labs /temp Supportive care D/w JOSEPH DEAN MD Jul 31, 2018 12:07
--- NOTE | 2018-07-31 13:55 | PDOC ---
PROGRESS NOTES Subjective Subjective Patient alert c/o defuse abd pain. Surgery eval in progress. CT raised question of appy but show clearer evidence of suspected pylo. D/W Dr. Singh Objective Objective Vital Signs Date Time Temp Pulse Resp B/P (MAP) Pulse Ox O2 Delivery O2 Flow Rate FiO2 07/31/18 11:00 98.6 74 16 140/71 (94) 98 Room Air 98.6 07/31/18 08:09 2.0 Intake and Output 07/31/18 07:01 Intake Total 300 ml Output Total 1750 ml Balance -1450 ml Intake Oral 300 ml Output Urine Total 1750 ml # Bowel Movements 3 Physical Exam Abdomen: Normal bowel sounds, Other (mod diffue tenderness with guarding and some emotional overlay. Neg rebound) Heart: Regular rate Extremities: No edema General: Alert Lungs: Clear to auscultation Assessment Assessment Problems Medical Problems: (1) Altered mental status Status: Acute (2) Fever Status: Acute (3) Urinary tract infection Status: Acute Metabolic Encephalopathy E-coli Sepsis UTI with Pyelonephritis Spinal stenosis with chronic pain Intestinal vascular Dz s/p stent Morbid Obesity DM2 Mod protein malnutrition Plan Plan of Care Continue IV antibx increase activity change to PO antibx and home when stable await surgery recc Comment Review of Relevant I have reviewed the following items melanie (where applicable) has been applied. Labs Laboratory Tests Test 07/29/18 16:40 07/29/18 20:59 07/30/18 04:32 07/30/18 04:35 Glucose (Fingerstick) 189 mg/dL (70-99) 239 mg/dL (70-99) Sodium Level 140 mmol/L (136-145) Potassium Level 3.9 mmol/L (3.5-5.1) Chloride Level 108 mmol/L (98-107) Carbon Dioxide Level 24 mmol/L (21-32) Anion Gap 8 (6-14) Blood Urea Nitrogen 12 mg/dL (7-20) Creatinine 0.7 mg/dL (0.6-1.0) Estimated GFR (Cockcroft-Gault) 104.0 Glucose Level 196 mg/dL (70-99) Calcium Level 8.1 mg/dL (8.5-10.1) White Blood Count 3.8 x10^3/uL (4.0-11.0) Red Blood Count 3.30 x10^6/uL (3.50-5.40) Hemoglobin 10.0 g/dL (12.0-15.5) Hematocrit 30.6 % (36.0-47.0) Mean Corpuscular Volume 93 fL (79-100) Mean Corpuscular Hemoglobin 30 pg (25-35) Mean Corpuscular Hemoglobin Concent 33 g/dL (31-37) Red Cell Distribution Width 15.1 % (11.5-14.5) Platelet Count 195 x10^3/uL (140-400) Neutrophils (%) (Auto) 65 % (31-73) Lymphocytes (%) (Auto) 21 % (24-48) Monocytes (%) (Auto) 10 % (0-9) Eosinophils (%) (Auto) 3 % (0-3) Basophils (%) (Auto) 1 % (0-3) Neutrophils # (Auto) 2.5 x10^3uL (1.8-7.7) Lymphocytes # (Auto) 0.8 x10^3/uL (1.0-4.8) Monocytes # (Auto) 0.4 x10^3/uL (0.0-1.1) Eosinophils # (Auto) 0.1 x10^3/uL (0.0-0.7) Basophils # (Auto) 0.0 x10^3/uL (0.0-0.2) Test 07/30/18 08:03 07/30/18 11:58 07/30/18 16:57 07/30/18 20:31 Glucose (Fingerstick) 142 mg/dL (70-99) 179 mg/dL (70-99) 151 mg/dL (70-99) 270 mg/dL (70-99) Test 07/31/18 03:55 07/31/18 07:15 07/31/18 11:49 White Blood Count 5.3 x10^3/uL (4.0-11.0) Red Blood Count 3.37 x10^6/uL (3.50-5.40) Hemoglobin 10.2 g/dL (12.0-15.5) Hematocrit 31.0 % (36.0-47.0) Mean Corpuscular Volume 92 fL (79-100) Mean Corpuscular Hemoglobin 30 pg (25-35) Mean Corpuscular Hemoglobin Concent 33 g/dL (31-37) Red Cell Distribution Width 14.8 % (11.5-14.5) Platelet Count 225 x10^3/uL (140-400) Neutrophils (%) (Auto) 53 % (31-73) Lymphocytes (%) (Auto) 30 % (24-48) Monocytes (%) (Auto) 14 % (0-9) Eosinophils (%) (Auto) 3 % (0-3) Basophils (%) (Auto) 1 % (0-3) Neutrophils # (Auto) 2.8 x10^3uL (1.8-7.7) Lymphocytes # (Auto) 1.6 x10^3/uL (1.0-4.8) Monocytes # (Auto) 0.7 x10^3/uL (0.0-1.1) Eosinophils # (Auto) 0.2 x10^3/uL (0.0-0.7) Basophils # (Auto) 0.0 x10^3/uL (0.0-0.2) Sodium Level 139 mmol/L (136-145) Potassium Level 3.6 mmol/L (3.5-5.1) Chloride Level 105 mmol/L (98-107) Carbon Dioxide Level 23 mmol/L (21-32) Anion Gap 11 (6-14) Blood Urea Nitrogen 7 mg/dL (7-20) Creatinine 0.6 mg/dL (0.6-1.0) Estimated GFR (Cockcroft-Gault) 124.2 BUN/Creatinine Ratio 12 (6-20) Glucose Level 196 mg/dL (70-99) Calcium Level 8.8 mg/dL (8.5-10.1) Total Bilirubin 0.3 mg/dL (0.2-1.0) Aspartate Amino Transf (AST/SGOT) 71 U/L (15-37) Alanine Aminotransferase (ALT/SGPT) 43 U/L (14-59) Alkaline Phosphatase 77 U/L (46-116) Total Protein 6.4 g/dL (6.4-8.2) Albumin 2.0 g/dL (3.4-5.0) Albumin/Globulin Ratio 0.5 (1.0-1.7) Glucose (Fingerstick) 165 mg/dL (70-99) 210 mg/dL (70-99) Laboratory Tests Test 07/30/18 16:57 07/30/18 20:31 07/31/18 03:55 07/31/18 07:15 Glucose (Fingerstick) 151 mg/dL (70-99) 270 mg/dL (70-99) 165 mg/dL (70-99) White Blood Count 5.3 x10^3/uL (4.0-11.0) Red Blood Count 3.37 x10^6/uL (3.50-5.40) Hemoglobin 10.2 g/dL (12.0-15.5) Hematocrit 31.0 % (36.0-47.0) Mean Corpuscular Volume 92 fL (79-100) Mean Corpuscular Hemoglobin 30 pg (25-35) Mean Corpuscular Hemoglobin Concent 33 g/dL (31-37) Red Cell Distribution Width 14.8 % (11.5-14.5) Platelet Count 225 x10^3/uL (140-400) Neutrophils (%) (Auto) 53 % (31-73) Lymphocytes (%) (Auto) 30 % (24-48) Monocytes (%) (Auto) 14 % (0-9) Eosinophils (%) (Auto) 3 % (0-3) Basophils (%) (Auto) 1 % (0-3) Neutrophils # (Auto) 2.8 x10^3uL (1.8-7.7) Lymphocytes # (Auto) 1.6 x10^3/uL (1.0-4.8) Monocytes # (Auto) 0.7 x10^3/uL (0.0-1.1) Eosinophils # (Auto) 0.2 x10^3/uL (0.0-0.7) Basophils # (Auto) 0.0 x10^3/uL (0.0-0.2) Sodium Level 139 mmol/L (136-145) Potassium Level 3.6 mmol/L (3.5-5.1) Chloride Level 105 mmol/L (98-107) Carbon Dioxide Level 23 mmol/L (21-32) Anion Gap 11 (6-14) Blood Urea Nitrogen 7 mg/dL (7-20) Creatinine 0.6 mg/dL (0.6-1.0) Estimated GFR (Cockcroft-Gault) 124.2 BUN/Creatinine Ratio 12 (6-20) Glucose Level 196 mg/dL (70-99) Calcium Level 8.8 mg/dL (8.5-10.1) Total Bilirubin 0.3 mg/dL (0.2-1.0) Aspartate Amino Transf (AST/SGOT) 71 U/L (15-37) Alanine Aminotransferase (ALT/SGPT) 43 U/L (14-59) Alkaline Phosphatase 77 U/L (46-116) Total Protein 6.4 g/dL (6.4-8.2) Albumin 2.0 g/dL (3.4-5.0) Albumin/Globulin Ratio 0.5 (1.0-1.7) Test 07/31/18 11:49 Glucose (Fingerstick) 210 mg/dL (70-99) Microbiology 07/27/18 Blood Culture - Preliminary, Resulted 07/27/18 Blood Culture Result 1 (TEENA) - Preliminary, Resulted 07/27/18 Throat Culture - Final, Complete 07/27/18 - Final, Complete 07/27/18 Urine Culture - Final, Complete 07/27/18 Urine Culture Result 1 (TEENA) - Final, Complete 07/27/18 Antimicrobic Susceptibility - Final, Complete Medications Current Medications Naloxone HCl (Narcan) 0.4 mg STK-MED ONCE .ROUTE ; Start 07/27/18 at 18:49; Stop 07/27/18 at 18:51; Status DC Sodium Chloride 500 ml @ 500 mls/hr 1X ONCE IV Last administered on at 19:02; Start 07/27/18 at 19:00; Stop 07/27/18 at 20:12; Status DC Naloxone HCl (Narcan) 0.8 mg 1X ONCE IV Last administered on 07/27/18at 18:57; Start 07/27/18 at 19:00; Stop 07/27/18 at 19:01; Status DC Ceftriaxone Sodium (Rocephin) 1 gm 1X ONCE IVP Last administered on 07/27/18at 21:23; Start 07/27/18 at 20:15; Stop 07/27/18 at 20:18; Status DC Ketorolac Tromethamine (Toradol 30mg Vial) 30 mg 1X ONCE IV Last administered on 07/27/18at 20:45; Start 07/27/18 at 20:30; Stop 07/27/18 at 20:31; Status DC Acetaminophen (Tylenol) 1,000 mg 1X ONCE PO Last administered on 07/27/18at 20: 45; Start 07/27/18 at 20:30; Stop 07/27/18 at 20:31; Status DC Ondansetron HCl (Zofran) 4 mg PRN Q8HRS PRN IV NAUSEA/VOMITING; Start 07/27/18 at 21:15; Stop 07/28/18 at 13:43; Status DC Sodium Chloride 1,000 ml @ 125 mls/hr Q8H IV Last administered on 07/28/18at 17 :53; Start 07/27/18 at 21:06; Stop 07/28/18 at 21:05; Status DC Acetaminophen (Tylenol) 650 mg PRN Q4HRS PRN PO FEVER Last administered on 07/28at 18:00; Start 07/27/18 at 21:15; Stop 07/28/18 at 21:14; Status DC Enoxaparin Sodium (Lovenox Per Pharmacy Prophylaxis Dosing) 1 each PRN DAILY PRN MC SEE COMMENTS; Start 07/28/18 at 09:00; Stop 07/28/18 at 14:14; Status DC Enoxaparin Sodium (Lovenox 40mg Syringe) 40 mg DAILY SQ Last administered on at 09:16; Start 07/28/18 at 09:00; Stop 07/28/18 at 14:13; Status DC Ketorolac Tromethamine (Toradol 15mg Vial) 15 mg 1X ONCE IV Last administered on 07/28/18at 09:15; Start 07/28/18 at 09:15; Stop 07/28/18 at 09:16; Status DC Ondansetron HCl (Zofran) 4 mg PRN Q6HRS PRN IV NAUSEA/VOMITING Last administered on 07/28/18at 19:56; Start 07/28/18 at 13:45 Ampicillin Sodium 2 gm/Sodium Chloride 100 ml @ 200 mls/hr Q6HRS IV ; Start at 14:00; Stop 07/28/18 at 14:13; Status DC Ceftriaxone Sodium (Rocephin) 1 gm Q24H IVP ; Start 07/28/18 at 21:00; Status Cancel Oxycodone/ Acetaminophen (Percocet 5/325) 1 tab PRN Q6HRS PRN PO MODERATE PAIN ; Start 07/28/18 at 14:15; Stop 07/28/18 at 14:59; Status DC Oxycodone/ Acetaminophen (Percocet 10/325) 1 tab PRN Q6HRS PRN PO SEVERE PAIN Last administered on 07/28/18at 21:09; Start 07/28/18 at 14:15; Stop 07/29/18 at 07:01; Status DC Lactobacillus Rhamnosus (Culturelle) 1 cap BID PO Last administered on at 20:48; Start 07/28/18 at 21:00 Potassium Chloride (Klor-Con) 40 meq ONCE ONCE PO Last administered on at 17:52; Start 07/28/18 at 16:00; Stop 07/28/18 at 16:01; Status DC Piperacillin Sod/ Tazobactam Sod (Zosyn Per Pharmacy) 1 each PRN DAILY PRN MC SEE COMMENTS; Start 07/28/18 at 16:30 Piperacillin Sod/ Tazobactam Sod 4.5 gm/Sodium Chloride 100 ml @ 200 mls/hr Q6HRS IV Last administered on 07/31/18at 06:15; Start 07/28/18 at 17:00 Aspirin (Kely Aspirin) 325 mg DAILYWBKFT PO Last administered on 07/30/18at 09: 57; Start 07/29/18 at 08:00 Atorvastatin Calcium (Lipitor) 10 mg QHS PO Last administered on 07/30/18at 20: 48; Start 07/28/18 at 21:00 Clopidogrel Bisulfate (Plavix) 75 mg DAILY PO Last administered on 07/30/18at 09 :59; Start 07/29/18 at 09:00 Cyclobenzaprine HCl (Flexeril) 10 mg TID PO Last administered on 07/30/18 20: 48; Start 07/28/18 at 21:00 Doxepin HCl (SINequan) 10 mg HS PO Last administered on 07/30/18at 20:47; Start 07/28/18 at 21:00 Ferrous Sulfate (Feosol) 325 mg BIDWMEALS PO Last administered on 07/30/18at 17: 13; Start 07/29/18 at 08:00 Linagliptin (Tradjenta) 5 mg DAILY PO Last administered on 07/30/18at 09:59; Start 07/29/18 at 09:00 Ondansetron HCl (Zofran Odt) 4 mg PRN Q8HRS PRN PO NAUSEA Last administered on 07/28/18at 19:55; Start 07/28/18 at 18:15 Oxycodone/ Acetaminophen (Percocet 10/325) 1 tab PRN TID PRN PO SEVERE PAIN Last administered on 07/31/18at 08:09; Start 07/28/18 at 18:15 Potassium Chloride (Klor-Con) 10 meq DAILY PO Last administered on 07/29/18at 08 :08; Start 07/29/18 at 09:00; Stop 07/29/18 at 11:17; Status DC Trazodone HCl (Desyrel) 50 mg HS PO Last administered on 07/30/18at 20:48; Start 07/28/18 at 21:00 Non-Formulary Medication (Canagliflozin (Invokana)) 100 mg DAILY PO ; Start at 09:00; Stop 07/31/18 at 11:53; Status DC Gabapentin (Neurontin) 600 mg TID PO Last administered on 07/30/18at 20:47; Start 07/28/18 at 21:00 Ondansetron HCl (Zofran Odt) 4 mg PRN Q8HRS PRN PO NAUSEA/VOMITING; Start 07/28 at 18:15; Status Cancel Potassium Chloride (Klor-Con) 10 meq BIDWMEALS PO Last administered on at 17:14; Start 07/29/18 at 17:00 Ibuprofen (Motrin) 600 mg PRN Q8HRS PRN PO INFLAMMATION Last administered on at 18:41; Start 07/29/18 at 11:15 Vancomycin HCl 1.25 gm/Sodium Chloride 250 ml @ 166.667 mls/hr 1X ONCE IV Last administered on 07/29/18at 21:01; Start 07/29/18 at 17:30; Stop 07/29/18 at 18:59; Status DC Iohexol (Omnipaque 300 Mg/ml) 75 ml 1X ONCE IV ; Start 07/30/18 at 08:00; Stop 07/30/18 at 08:01; Status DC Iohexol (Omnipaque 240 Mg/ml) 50 ml 1X ONCE PO Last administered on 07/30/18at 08:00; Start 07/30/18 at 08:00; Stop 07/30/18 at 08:01; Status DC Info (CONTRAST GIVEN -- Rx MONITORING) 1 each PRN DAILY PRN MC SEE COMMENTS; Start 07/30/18 at 08:00; Stop 07/31/18 at 08:08; Status DC Daptomycin 660 mg/ Sodium Chloride 50 ml @ 100 mls/hr Q24H IV Last administered on 07/30/18at 17:13; Start 07/30/18 at 16:30; Stop 07/31/18 at 18:00 Iohexol (Omnipaque 300 Mg/ml) 75 ml 1X ONCE IV Last administered on 07/31/18at 08:15; Start 07/31/18 at 08:15; Stop 07/31/18 at 08:16; Status DC Iohexol (Omnipaque 240 Mg/ml) 50 ml 1X ONCE PO Last administered on 07/31/18at 08:15; Start 07/31/18 at 08:15; Stop 07/31/18 at 08:16; Status DC Info (CONTRAST GIVEN -- Rx MONITORING) 1 each PRN DAILY PRN MC SEE COMMENTS; Start 07/31/18 at 08:15; Stop 08/02/18 at 08:14 Daptomycin 660 mg/ Sodium Chloride 50 ml @ 100 mls/hr ONCE ONCE IV ; Start at 12:15; Stop 07/31/18 at 12:44; Status UNV Active Scripts Active Aspirin 325 Mg Tablet 325 Mg PO DAILYWBKFT 90 Days Atorvastatin Calcium 10 Mg Tablet 10 Mg PO QHS 90 Days Clopidogrel (Clopidogrel Bisulfate) 75 Mg Tablet 75 Mg PO DAILY 30 Days Zofran Odt (Ondansetron) 4 Mg Tab.rapdis 1 Tab SL Q8HRS PRN Iron Supplement (Ferrous Sulfate) 325 Mg Tablet 1 Tab PO BID Tradjenta (Linagliptin) 5 Mg Tablet 5 Mg PO DAILY Reported Invokana (Canagliflozin) 100 Mg Tablet 100 Mg PO DAILY Percocet 10-325 Mg Tablet (Oxycodone/Acetaminophen) 1 Each Tablet 1 Tab PO TID PRN Gabapentin 600 Mg Tablet 600 Mg PO TID Doxepin Hcl 10 Mg Capsule 10 Mg PO HS LAST DOSE GIVEN: DATE:09/23/16 TIME:9:00 p.m. NEXT DOSE DUE: DATE:09/24/16 TIME:9:00 p.m. Cyclobenzaprine Hcl 10 Mg Tablet 10 Mg PO TID last dose given at 1400 next dose is at bedtime or 9 pm NEXT DOSE DUE: DATE:04-23-16 TIME:12:30 if needed for muscle spasm Potassium Chloride 10 Meq Tablet.er 10 Meq PO DAILY LAST DOSE GIVEN: DATE:09/24/16 TIME:8:30 a.m. NEXT DOSE DUE: DATE:09/25/16 TIME:8:30 a.m. Ondansetron Odt (Ondansetron) 4 Mg Tab.rapdis 1 Tab PO PRN Q6-8HRS May resume at home as needed for nausea Trazodone Hcl 50 Mg Tablet 50 Mg PO HS LAST DOSE GIVEN: DATE:09/23/16 TIME:9:00 p.m. NEXT DOSE DUE: DATE:09/24/16 TIME:9:00 p.m. Vitals/I & O Vital Sign - Last 24 Hours 07/30/18 07/30/18 07/30/18 07/30/18 15:22 15:23 16:20 19:49 Temp 98.0 98.9 98.0 98.9 Pulse 88 88 Resp 20 19 17 20 B/P (MAP) 140/68 (92) 137/77 (97) Pulse Ox 96 99 O2 Delivery Room Air Room Air Room Air 07/30/18 07/30/18 07/30/18 07/31/18 20:00 23:05 23:57 00:57 Temp 99.5 99.5 Pulse 80 Resp 20 18 B/P (MAP) 137/68 (91) Pulse Ox 99 99 99 O2 Delivery Room Air Room Air Room Air Room Air O2 Flow Rate 2.0 07/31/18 07/31/18 07/31/18 07/31/18 03:16 07:00 08:00 08:09 Temp 98.4 98.4 98.4 98.4 Pulse 73 70 Resp 18 18 B/P (MAP) 143/67 (92) 150/74 (99) Pulse Ox 96 98 96 O2 Delivery Room Air Room Air Room Air Room Air O2 Flow Rate 2.0 07/31/18 11:00 Temp 98.6 98.6 Pulse 74 Resp 16 B/P (MAP) 140/71 (94) Pulse Ox 98 O2 Delivery Room Air Intake and Output 07/30/18 07/30/18 07/31/18 15:01 23:01 07:01 Intake Total 300 ml 0 ml Output Total 400 ml 1350 ml Balance -100 ml -1350 ml STEFAN CAMARA MD Jul 31, 2018 13:54
--- NOTE | 2018-07-31 14:03 | PDOC2 ---
CONSULT Date of Consult Date of Consult DATE: 07/31/18 TIME: 14:01 History of Present Illness Reason for Visit: The patient is a 58 year old female who was admitted with altered mental status and potential UTI. She admits to having somewhat chronic abdominal pain. She had a stenting of the SMA fairly recently which she states did help some. However over the last 1-2 weeks she has continued to have pain in the mid abdomen and right side. She denies nausea or vomiting. Past Medical History Cardiovascular: No pertinent hx Pulmonary: No pertinent hx CENTRAL NERVOUS SYSTEM: Carpal Tunnel Syndrome GI: Irritable bowel disease Heme/Onc: No pertinent hx Hepatobiliary: No pertinent hx Psych: Anxiety, Depression, Other Musculoskeletal: low back pain, Osteoarthritis Rheumatologic: No pertinent hx Infectious disease: No pertinent hx Renal/: No pertinent hx Endocrine: Diabetes, Other Past Surgical History Past Surgical History: , Total hip replacement, Total knee replacement , Tonsillectomy, Hysterectomy, Other Family History Family History: No Significant, Hypertension Social History Social History: Parent No ALCOHOL: none Drugs: None Current Problem List Problem List Problems Medical Problems: (1) Altered mental status Status: Acute (2) Fever Status: Acute (3) Urinary tract infection Status: Acute Current Medications Current Medications Current Medications Naloxone HCl (Narcan) 0.4 mg STK-MED ONCE .ROUTE ; Start 07/27/18 at 18:49; Stop 07/27/18 at 18:51; Status DC Sodium Chloride 500 ml @ 500 mls/hr 1X ONCE IV Last administered on at 19:02; Start 07/27/18 at 19:00; Stop 07/27/18 at 20:12; Status DC Naloxone HCl (Narcan) 0.8 mg 1X ONCE IV Last administered on 07/27/18at 18:57; Start 07/27/18 at 19:00; Stop 07/27/18 at 19:01; Status DC Ceftriaxone Sodium (Rocephin) 1 gm 1X ONCE IVP Last administered on 07/27/18at 21:23; Start 07/27/18 at 20:15; Stop 07/27/18 at 20:18; Status DC Ketorolac Tromethamine (Toradol 30mg Vial) 30 mg 1X ONCE IV Last administered on 07/27/18at 20:45; Start 07/27/18 at 20:30; Stop 07/27/18 at 20:31; Status DC Acetaminophen (Tylenol) 1,000 mg 1X ONCE PO Last administered on 07/27/18at 20: 45; Start 07/27/18 at 20:30; Stop 07/27/18 at 20:31; Status DC Ondansetron HCl (Zofran) 4 mg PRN Q8HRS PRN IV NAUSEA/VOMITING; Start 07/27/18 at 21:15; Stop 07/28/18 at 13:43; Status DC Sodium Chloride 1,000 ml @ 125 mls/hr Q8H IV Last administered on 07/28/18at 17 :53; Start 07/27/18 at 21:06; Stop 07/28/18 at 21:05; Status DC Acetaminophen (Tylenol) 650 mg PRN Q4HRS PRN PO FEVER Last administered on 07/28at 18:00; Start 07/27/18 at 21:15; Stop 07/28/18 at 21:14; Status DC Enoxaparin Sodium (Lovenox Per Pharmacy Prophylaxis Dosing) 1 each PRN DAILY PRN MC SEE COMMENTS; Start 07/28/18 at 09:00; Stop 07/28/18 at 14:14; Status DC Enoxaparin Sodium (Lovenox 40mg Syringe) 40 mg DAILY SQ Last administered on at 09:16; Start 07/28/18 at 09:00; Stop 07/28/18 at 14:13; Status DC Ketorolac Tromethamine (Toradol 15mg Vial) 15 mg 1X ONCE IV Last administered on 07/28/18at 09:15; Start 07/28/18 at 09:15; Stop 07/28/18 at 09:16; Status DC Ondansetron HCl (Zofran) 4 mg PRN Q6HRS PRN IV NAUSEA/VOMITING Last administered on 07/28/18at 19:56; Start 07/28/18 at 13:45 Ampicillin Sodium 2 gm/Sodium Chloride 100 ml @ 200 mls/hr Q6HRS IV ; Start at 14:00; Stop 07/28/18 at 14:13; Status DC Ceftriaxone Sodium (Rocephin) 1 gm Q24H IVP ; Start 07/28/18 at 21:00; Status Cancel Oxycodone/ Acetaminophen (Percocet 5/325) 1 tab PRN Q6HRS PRN PO MODERATE PAIN ; Start 07/28/18 at 14:15; Stop 07/28/18 at 14:59; Status DC Oxycodone/ Acetaminophen (Percocet 10/325) 1 tab PRN Q6HRS PRN PO SEVERE PAIN Last administered on 07/28/18at 21:09; Start 07/28/18 at 14:15; Stop 07/29/18 at 07:01; Status DC Lactobacillus Rhamnosus (Culturelle) 1 cap BID PO Last administered on at 20:48; Start 07/28/18 at 21:00 Potassium Chloride (Klor-Con) 40 meq ONCE ONCE PO Last administered on at 17:52; Start 07/28/18 at 16:00; Stop 07/28/18 at 16:01; Status DC Piperacillin Sod/ Tazobactam Sod (Zosyn Per Pharmacy) 1 each PRN DAILY PRN MC SEE COMMENTS; Start 07/28/18 at 16:30 Piperacillin Sod/ Tazobactam Sod 4.5 gm/Sodium Chloride 100 ml @ 200 mls/hr Q6HRS IV Last administered on 07/31/18at 06:15; Start 07/28/18 at 17:00 Aspirin (Kely Aspirin) 325 mg DAILYWBKFT PO Last administered on 07/30/18at 09: 57; Start 07/29/18 at 08:00 Atorvastatin Calcium (Lipitor) 10 mg QHS PO Last administered on 07/30/18at 20: 48; Start 07/28/18 at 21:00 Clopidogrel Bisulfate (Plavix) 75 mg DAILY PO Last administered on 07/30/18at 09 :59; Start 07/29/18 at 09:00 Cyclobenzaprine HCl (Flexeril) 10 mg TID PO Last administered on 07/30/18 20: 48; Start 07/28/18 at 21:00 Doxepin HCl (SINequan) 10 mg HS PO Last administered on 07/30/18 20:47; Start 07/28/18 at 21:00 Ferrous Sulfate (Feosol) 325 mg BIDWMEALS PO Last administered on 07/30/18at 17: 13; Start 07/29/18 at 08:00 Linagliptin (Tradjenta) 5 mg DAILY PO Last administered on 07/30/18at 09:59; Start 07/29/18 at 09:00 Ondansetron HCl (Zofran Odt) 4 mg PRN Q8HRS PRN PO NAUSEA Last administered on 07/28/18at 19:55; Start 07/28/18 at 18:15 Oxycodone/ Acetaminophen (Percocet 10/325) 1 tab PRN TID PRN PO SEVERE PAIN Last administered on 07/31/18at 08:09; Start 07/28/18 at 18:15 Potassium Chloride (Klor-Con) 10 meq DAILY PO Last administered on 07/29/18at 08 :08; Start 07/29/18 at 09:00; Stop 07/29/18 at 11:17; Status DC Trazodone HCl (Desyrel) 50 mg HS PO Last administered on 07/30/18at 20:48; Start 07/28/18 at 21:00 Non-Formulary Medication (Canagliflozin (Invokana)) 100 mg DAILY PO ; Start at 09:00; Stop 07/31/18 at 11:53; Status DC Gabapentin (Neurontin) 600 mg TID PO Last administered on 07/30/18at 20:47; Start 07/28/18 at 21:00 Ondansetron HCl (Zofran Odt) 4 mg PRN Q8HRS PRN PO NAUSEA/VOMITING; Start 07/28 at 18:15; Status Cancel Potassium Chloride (Klor-Con) 10 meq BIDWMEALS PO Last administered on at 17:14; Start 07/29/18 at 17:00 Ibuprofen (Motrin) 600 mg PRN Q8HRS PRN PO INFLAMMATION Last administered on at 18:41; Start 07/29/18 at 11:15 Vancomycin HCl 1.25 gm/Sodium Chloride 250 ml @ 166.667 mls/hr 1X ONCE IV Last administered on 07/29/18at 21:01; Start 07/29/18 at 17:30; Stop 07/29/18 at 18:59; Status DC Iohexol (Omnipaque 300 Mg/ml) 75 ml 1X ONCE IV ; Start 07/30/18 at 08:00; Stop 07/30/18 at 08:01; Status DC Iohexol (Omnipaque 240 Mg/ml) 50 ml 1X ONCE PO Last administered on 07/30/18at 08:00; Start 07/30/18 at 08:00; Stop 07/30/18 at 08:01; Status DC Info (CONTRAST GIVEN -- Rx MONITORING) 1 each PRN DAILY PRN MC SEE COMMENTS; Start 07/30/18 at 08:00; Stop 07/31/18 at 08:08; Status DC Daptomycin 660 mg/ Sodium Chloride 50 ml @ 100 mls/hr Q24H IV Last administered on 07/30/18at 17:13; Start 07/30/18 at 16:30; Stop 07/31/18 at 18:00 Iohexol (Omnipaque 300 Mg/ml) 75 ml 1X ONCE IV Last administered on 07/31/18at 08:15; Start 07/31/18 at 08:15; Stop 07/31/18 at 08:16; Status DC Iohexol (Omnipaque 240 Mg/ml) 50 ml 1X ONCE PO Last administered on 07/31/18at 08:15; Start 07/31/18 at 08:15; Stop 07/31/18 at 08:16; Status DC Info (CONTRAST GIVEN -- Rx MONITORING) 1 each PRN DAILY PRN MC SEE COMMENTS; Start 07/31/18 at 08:15; Stop 08/02/18 at 08:14 Daptomycin 660 mg/ Sodium Chloride 50 ml @ 100 mls/hr ONCE ONCE IV ; Start at 12:15; Stop 07/31/18 at 12:44; Status UNV Active Scripts Active Aspirin 325 Mg Tablet 325 Mg PO DAILYWBKFT 90 Days Atorvastatin Calcium 10 Mg Tablet 10 Mg PO QHS 90 Days Clopidogrel (Clopidogrel Bisulfate) 75 Mg Tablet 75 Mg PO DAILY 30 Days Zofran Odt (Ondansetron) 4 Mg Tab.rapdis 1 Tab SL Q8HRS PRN Iron Supplement (Ferrous Sulfate) 325 Mg Tablet 1 Tab PO BID Tradjenta (Linagliptin) 5 Mg Tablet 5 Mg PO DAILY Reported Invokana (Canagliflozin) 100 Mg Tablet 100 Mg PO DAILY Percocet 10-325 Mg Tablet (Oxycodone/Acetaminophen) 1 Each Tablet 1 Tab PO TID PRN Gabapentin 600 Mg Tablet 600 Mg PO TID Doxepin Hcl 10 Mg Capsule 10 Mg PO HS LAST DOSE GIVEN: DATE:09/23/16 TIME:9:00 p.m. NEXT DOSE DUE: DATE:09/24/16 TIME:9:00 p.m. Cyclobenzaprine Hcl 10 Mg Tablet 10 Mg PO TID last dose given at 1400 next dose is at bedtime or 9 pm NEXT DOSE DUE: DATE:04-23-16 TIME:12:30 if needed for muscle spasm Potassium Chloride 10 Meq Tablet.er 10 Meq PO DAILY LAST DOSE GIVEN: DATE:09/24/16 TIME:8:30 a.m. NEXT DOSE DUE: DATE:09/25/16 TIME:8:30 a.m. Ondansetron Odt (Ondansetron) 4 Mg Tab.rapdis 1 Tab PO PRN Q6-8HRS May resume at home as needed for nausea Trazodone Hcl 50 Mg Tablet 50 Mg PO HS LAST DOSE GIVEN: DATE:09/23/16 TIME:9:00 p.m. NEXT DOSE DUE: DATE:09/24/16 TIME:9:00 p.m. Allergies Allergies: Coded Allergies: metformin (Verified Allergy, Intermediate, Diarrhea, 09/29/17) sitagliptin (Verified Allergy, Intermediate, Diarrhea, 09/29/17) LINAGLIPTIN HOME MED milk (Verified Allergy, Mild, 09/29/17) ROS General: No: Chills, Night Sweats, Fatigue, Malaise, Appetite, Other PSYCHOLOGICAL ROS: No: Anxiety, Behavioral Disorder, Concentration difficultie , Decreased libido, Depression, Disorientation, Hallucinations, Hostility, Irritablity, Memory difficulties, Mood Swings, Obsessive thoughts, Physical abuse, Sexual abuse, Sleep disturbances, Suicidal ideation, Other Eyes: No Blurry vision, No Decreased vision, No Double vision, No Dry eyes, No Excessive tearing, No Eye Pain, No Itchy Eyes, No Loss of vision, No Photophobia , No Scotomata, No Uses contacts, No Uses glasses, No Other ALLERGY AND IMMUNOLOGY: No: Hives, Insect Bite Sensitivity, Itchy/Watery Eyes, Nasal Congestion, Post Nasal Drip, Seasonal Allergies, Other ENDOCRINE: No: Breast Changes, Galactorrhea, Hair Pattern Changes, Hot Flashes , Malaise/lethargy, Mood Swings, Palpitations, Polydipsia/polyuria, Skin Changes , Temperature Intolerance, Unexpected Weight Changes, Other Respiratory: No: Cough, Hemoptysis, Orthopnea, Pleuritic Pain, Shortness of breath, SOB with excertion, Sputum Changes, Stridor, Tachypnea, Wheezing, Other Cardiovascular: No Chest Pain, No Palpitations, No Orthopnea, No Paroxysmal Noc. Dyspnea, No Edema, No Lt Headedness, No Other Gastrointestinal: Yes Abdominal Pain Neurological: No Behavorial Changes, No Bowel/Bladder ControlChng, No Confusion , No Dizziness, No Gait Disturbance, No Headaches, No Impaired Coord/balance, No Memory Loss, No Numbness/Tingling, No Seizures, No Speech Problems, No Tremors, No Visual Changes, No Weakness, No Other Skin: No Dry Skin, No Eczema, No Hair Changes, No Lumps, No Mole Changes, No Mottling, No Nail Changes, No Pruritus, No Rash, No Skin Lesion Changes, No Other, No Acne Physical Exam General: Alert, Oriented X3 HEENT: Atraumatic Lungs: Clear to auscultation Heart: Regular rate Abdomen: Soft (obese, tender diffusely, no guarding with palpation at this time, reducible mid abdominal hernia) Extremities: No clubbing, No cyanosis Skin: No rashes Neuro: Normal speech Psych/Mental Status: Mental status NL MUSCULOSKELETAL: No joint tenderness, No deformity Vitals VITALS Vital Signs Date Time Temp Pulse Resp B/P (MAP) Pulse Ox O2 Delivery O2 Flow Rate FiO2 07/31/18 13:46 98 Room Air 2.0 07/31/18 11:00 98.6 74 16 140/71 (94) 98.6 Labs Labs Laboratory Tests Test 07/29/18 16:40 07/29/18 20:59 07/30/18 04:32 07/30/18 04:35 Glucose (Fingerstick) 189 mg/dL (70-99) 239 mg/dL (70-99) Sodium Level 140 mmol/L (136-145) Potassium Level 3.9 mmol/L (3.5-5.1) Chloride Level 108 mmol/L (98-107) Carbon Dioxide Level 24 mmol/L (21-32) Anion Gap 8 (6-14) Blood Urea Nitrogen 12 mg/dL (7-20) Creatinine 0.7 mg/dL (0.6-1.0) Estimated GFR (Cockcroft-Gault) 104.0 Glucose Level 196 mg/dL (70-99) Calcium Level 8.1 mg/dL (8.5-10.1) White Blood Count 3.8 x10^3/uL (4.0-11.0) Red Blood Count 3.30 x10^6/uL (3.50-5.40) Hemoglobin 10.0 g/dL (12.0-15.5) Hematocrit 30.6 % (36.0-47.0) Mean Corpuscular Volume 93 fL (79-100) Mean Corpuscular Hemoglobin 30 pg (25-35) Mean Corpuscular Hemoglobin Concent 33 g/dL (31-37) Red Cell Distribution Width 15.1 % (11.5-14.5) Platelet Count 195 x10^3/uL (140-400) Neutrophils (%) (Auto) 65 % (31-73) Lymphocytes (%) (Auto) 21 % (24-48) Monocytes (%) (Auto) 10 % (0-9) Eosinophils (%) (Auto) 3 % (0-3) Basophils (%) (Auto) 1 % (0-3) Neutrophils # (Auto) 2.5 x10^3uL (1.8-7.7) Lymphocytes # (Auto) 0.8 x10^3/uL (1.0-4.8) Monocytes # (Auto) 0.4 x10^3/uL (0.0-1.1) Eosinophils # (Auto) 0.1 x10^3/uL (0.0-0.7) Basophils # (Auto) 0.0 x10^3/uL (0.0-0.2) Test 07/30/18 08:03 07/30/18 11:58 07/30/18 16:57 07/30/18 20:31 Glucose (Fingerstick) 142 mg/dL (70-99) 179 mg/dL (70-99) 151 mg/dL (70-99) 270 mg/dL (70-99) Test 07/31/18 03:55 07/31/18 07:15 07/31/18 11:49 White Blood Count 5.3 x10^3/uL (4.0-11.0) Red Blood Count 3.37 x10^6/uL (3.50-5.40) Hemoglobin 10.2 g/dL (12.0-15.5) Hematocrit 31.0 % (36.0-47.0) Mean Corpuscular Volume 92 fL (79-100) Mean Corpuscular Hemoglobin 30 pg (25-35) Mean Corpuscular Hemoglobin Concent 33 g/dL (31-37) Red Cell Distribution Width 14.8 % (11.5-14.5) Platelet Count 225 x10^3/uL (140-400) Neutrophils (%) (Auto) 53 % (31-73) Lymphocytes (%) (Auto) 30 % (24-48) Monocytes (%) (Auto) 14 % (0-9) Eosinophils (%) (Auto) 3 % (0-3) Basophils (%) (Auto) 1 % (0-3) Neutrophils # (Auto) 2.8 x10^3uL (1.8-7.7) Lymphocytes # (Auto) 1.6 x10^3/uL (1.0-4.8) Monocytes # (Auto) 0.7 x10^3/uL (0.0-1.1) Eosinophils # (Auto) 0.2 x10^3/uL (0.0-0.7) Basophils # (Auto) 0.0 x10^3/uL (0.0-0.2) Sodium Level 139 mmol/L (136-145) Potassium Level 3.6 mmol/L (3.5-5.1) Chloride Level 105 mmol/L (98-107) Carbon Dioxide Level 23 mmol/L (21-32) Anion Gap 11 (6-14) Blood Urea Nitrogen 7 mg/dL (7-20) Creatinine 0.6 mg/dL (0.6-1.0) Estimated GFR (Cockcroft-Gault) 124.2 BUN/Creatinine Ratio 12 (6-20) Glucose Level 196 mg/dL (70-99) Calcium Level 8.8 mg/dL (8.5-10.1) Total Bilirubin 0.3 mg/dL (0.2-1.0) Aspartate Amino Transf (AST/SGOT) 71 U/L (15-37) Alanine Aminotransferase (ALT/SGPT) 43 U/L (14-59) Alkaline Phosphatase 77 U/L (46-116) Total Protein 6.4 g/dL (6.4-8.2) Albumin 2.0 g/dL (3.4-5.0) Albumin/Globulin Ratio 0.5 (1.0-1.7) Glucose (Fingerstick) 165 mg/dL (70-99) 210 mg/dL (70-99) Laboratory Tests Test 07/30/18 16:57 07/30/18 20:31 07/31/18 03:55 07/31/18 07:15 Glucose (Fingerstick) 151 mg/dL (70-99) 270 mg/dL (70-99) 165 mg/dL (70-99) White Blood Count 5.3 x10^3/uL (4.0-11.0) Red Blood Count 3.37 x10^6/uL (3.50-5.40) Hemoglobin 10.2 g/dL (12.0-15.5) Hematocrit 31.0 % (36.0-47.0) Mean Corpuscular Volume 92 fL (79-100) Mean Corpuscular Hemoglobin 30 pg (25-35) Mean Corpuscular Hemoglobin Concent 33 g/dL (31-37) Red Cell Distribution Width 14.8 % (11.5-14.5) Platelet Count 225 x10^3/uL (140-400) Neutrophils (%) (Auto) 53 % (31-73) Lymphocytes (%) (Auto) 30 % (24-48) Monocytes (%) (Auto) 14 % (0-9) Eosinophils (%) (Auto) 3 % (0-3) Basophils (%) (Auto) 1 % (0-3) Neutrophils # (Auto) 2.8 x10^3uL (1.8-7.7) Lymphocytes # (Auto) 1.6 x10^3/uL (1.0-4.8) Monocytes # (Auto) 0.7 x10^3/uL (0.0-1.1) Eosinophils # (Auto) 0.2 x10^3/uL (0.0-0.7) Basophils # (Auto) 0.0 x10^3/uL (0.0-0.2) Sodium Level 139 mmol/L (136-145) Potassium Level 3.6 mmol/L (3.5-5.1) Chloride Level 105 mmol/L (98-107) Carbon Dioxide Level 23 mmol/L (21-32) Anion Gap 11 (6-14) Blood Urea Nitrogen 7 mg/dL (7-20) Creatinine 0.6 mg/dL (0.6-1.0) Estimated GFR (Cockcroft-Gault) 124.2 BUN/Creatinine Ratio 12 (6-20) Glucose Level 196 mg/dL (70-99) Calcium Level 8.8 mg/dL (8.5-10.1) Total Bilirubin 0.3 mg/dL (0.2-1.0) Aspartate Amino Transf (AST/SGOT) 71 U/L (15-37) Alanine Aminotransferase (ALT/SGPT) 43 U/L (14-59) Alkaline Phosphatase 77 U/L (46-116) Total Protein 6.4 g/dL (6.4-8.2) Albumin 2.0 g/dL (3.4-5.0) Albumin/Globulin Ratio 0.5 (1.0-1.7) Test 07/31/18 11:49 Glucose (Fingerstick) 210 mg/dL (70-99) Images Images CT abdomen: IMPRESSION: 1. Right renal hypodensity with corticomedullary differentiation loss extending to the capsule. Differential considerations include pyelonephritis versus infarct. 2. Mildly dilated appendix, measuring 0.9 cm. There is no periappendiceal stranding, however there is inferior perinephric stranding which is immediately adjacent to the appendix. Findings are indeterminate and early acute appendicitis is not excluded. No periappendiceal abscess. 3. Mild left lower lobe airspace opacities, indeterminate between infectious or inflammatory pneumonitis. 4. Stable umbilical hernia containing nonobstructive transverse colon. Assessment/Plan Assessment/Plan 58 year old female with abdominal pain, G neg bacteremia, CT reviewed, normal WBC. CT findings are borderline and not definitive for appendicitis. Would not recommend surgical intervention at this time, will continue with observation, serial exams, labs etc. Thanks for the consult! CHACHO BRINK MD Jul 31, 2018 14:03
[2018-07-31] MEDS: ASPIRIN 325 MG TABLET PO SCH (14:19)
[2018-07-31] MEDS: LINAGLIPTIN 5 MG TABLET PO SCH (14:20)
[2018-07-31] MEDS: CLOPIDOGREL BISULFATE 75 MG TABLET PO SCH (14:20)
[2018-07-31] MEDS: LACTOBACILLUS RHAMNOSUS GG 1 CAPSULE. PO SCH ×2 (14:20→21:42)
[2018-07-31] MEDS: FERROUS SULFATE 325 MG TABLET. PO SCH ×2 (14:21→17:04)
[2018-07-31] MEDS: POTASSIUM CHLORIDE 10 MEQ TABLET.ER. PO SCH ×2 (14:21→17:04)
[2018-07-31 15:00] VITALS: BP 129/78
[2018-07-31 19:30] VITALS: BP 137/64
[2018-07-31] MEDS: DOXEPIN HCL 10 MG CAPSULE. PO SCH (21:42)
[2018-07-31] MEDS: ATORVASTATIN CALCIUM 10 MG TABLET. PO SCH (21:42)
[2018-07-31] MEDS: traZODone 50 MG TABLET. PO SCH (21:42)
[2018-07-31 23:41] VITALS: BP 134/68
[2018-08-01] MEDS: PIPERACILLIN/TAZOBACTAM 4.5 GM in IV NORMAL SALINE 100ML 100 ML IV SCH ×4 (00:50→17:56)
[2018-08-01 03:28] VITALS: BP 122/61
[2018-08-01 03:46] LABS: BASO # 0.1 x10^3/uL (0.0-0.2); BASO % 1 % (0-3); EOS # 0.2 x10^3/uL (0.0-0.7); EOS % 4 % (0-3); HEMATOCRIT 32.5 % (36.0-47.0); LYMPH # 1.6 x10^3/uL (1.0-4.8); LYMPH % 30 % (24-48); MEAN CORPUSCULAR HEMOGLOBIN 31 pg (25-35); MEAN CORPUSCULAR HGB CONC 34 g/dL (31-37); MEAN CORPUSCULAR VOLUME 91 fL (79-100); MONO # 0.8 x10^3/uL (0.0-1.1); MONO % 16 % (0-9); NEUT # 2.7 x10^3uL (1.8-7.7); NEUT % 50 % (31-73); PLATELET COUNT 269 x10^3/uL (140-400); RED BLOOD COUNT 3.58 x10^6/uL (3.50-5.40); RED CELL DISTRIBUTION WIDTH 14.6 % (11.5-14.5); WHITE BLOOD COUNT 5.4 x10^3/uL (4.0-11.0)
[2018-08-01 07:00] VITALS: BP 125/71
[2018-08-01] MEDS: CLOPIDOGREL BISULFATE 75 MG TABLET PO SCH (08:43)
[2018-08-01] MEDS: ASPIRIN 325 MG TABLET PO SCH (08:43)
[2018-08-01] MEDS: GABAPENTIN 300 MG CAPSULE. PO SCH ×3 (08:43→20:36)
[2018-08-01] MEDS: CYCLOBENZAPRINE 10 MG TABLET. PO SCH ×3 (08:44→20:36)
[2018-08-01] MEDS: POTASSIUM CHLORIDE 10 MEQ TABLET.ER. PO SCH ×2 (08:44→17:00)
[2018-08-01] MEDS: oxyCODONE/APAP 10/325 1 TAB TABLET PO PRN ×2 (08:44→16:59)
[2018-08-01] MEDS: LINAGLIPTIN 5 MG TABLET PO SCH (08:45)
[2018-08-01] MEDS: FERROUS SULFATE 325 MG TABLET. PO SCH ×2 (08:45→17:00)
[2018-08-01] MEDS: LACTOBACILLUS RHAMNOSUS GG 1 CAPSULE. PO SCH ×2 (08:45→20:36)
--- NOTE | 2018-08-01 08:50 | NUR ---
SW following pt for anticipated dc needs. Chart reviewed and BRITTNEY RN. Pt lives at home alone. PT pending. SW will await for PT evaluation to assess dc needs.
[2018-08-01] MEDS ORDERED: AMOX1TAB61 PO (08:57)
--- NOTE | 2018-08-01 08:58 | PDOC ---
Infectious Disease Note Subjective Subjective Still having abd pain but starting to improve No fevers last 24 hours Denies chills/aches/N/V/SOA Some loose stools ROS ROS o/w neg Vital Sign Vital Signs Vital Signs Date Time Temp Pulse Resp B/P (MAP) Pulse Ox O2 Delivery O2 Flow Rate FiO2 08/01/18 08:44 97 Room Air 2.0 08/01/18 07:00 97.9 61 16 125/71 (89) 97.9 Physical Exam PHYSICAL EXAM GENERAL: Propped up in bed, looks bed HEENT: Pupils equally round. Normal conjunctivae. Oral cavity, pharynx pink and moist. Mild sinus tenderness. NECK: Supple. LUNGS: Clear to auscultation. HEART: S1 and S2. ABDOMEN: Obese, soft, tender with bowel sounds present.No guard and mild rebound EXTREMITIES: No gross edema or cyanosis. SKIN: Warm without rash. NEUROLOGICAL: Alert and oriented x 3. Moves all extremities. REJ looks okay. Labs Lab Laboratory Tests Test 07/31/18 11:49 07/31/18 17:04 07/31/18 20:44 08/01/18 03:15 Glucose (Fingerstick) 210 mg/dL (70-99) 153 mg/dL (70-99) 237 mg/dL (70-99) White Blood Count 5.4 x10^3/uL (4.0-11.0) Red Blood Count 3.58 x10^6/uL (3.50-5.40) Hemoglobin 11.0 g/dL (12.0-15.5) Hematocrit 32.5 % (36.0-47.0) Mean Corpuscular Volume 91 fL (79-100) Mean Corpuscular Hemoglobin 31 pg (25-35) Mean Corpuscular Hemoglobin Concent 34 g/dL (31-37) Red Cell Distribution Width 14.6 % (11.5-14.5) Platelet Count 269 x10^3/uL (140-400) Neutrophils (%) (Auto) 50 % (31-73) Lymphocytes (%) (Auto) 30 % (24-48) Monocytes (%) (Auto) 16 % (0-9) Eosinophils (%) (Auto) 4 % (0-3) Basophils (%) (Auto) 1 % (0-3) Neutrophils # (Auto) 2.7 x10^3uL (1.8-7.7) Lymphocytes # (Auto) 1.6 x10^3/uL (1.0-4.8) Monocytes # (Auto) 0.8 x10^3/uL (0.0-1.1) Eosinophils # (Auto) 0.2 x10^3/uL (0.0-0.7) Basophils # (Auto) 0.1 x10^3/uL (0.0-0.2) Test 08/01/18 07:31 Glucose (Fingerstick) 155 mg/dL (70-99) Micro 07/27 Blood BLOOD CULTURE LC Final Final report BLD CULT RESULT 1 Final Escherichia coli ANTIMICROBIAL SUSCEPTIBILITY Final Comment S = Susceptible; I = Intermediate; R = Resistant P = Positive; N = Negative MICS are expressed in micrograms per mL Antibiotic RSLT#1 RSLT#2 RSLT#3 RSLT#4 Amoxicillin/Clavulanic Acid S =4 Ampicillin S =4 Cefepime S<=0.12 Ceftriaxone S<=0.25 Cefuroxime I =8 Ciprofloxacin S<=0.25 Ertapenem S<=0.12 Gentamicin S<=1 Imipenem S<=0.25 Levofloxacin S<=0.12 Meropenem S<=0.25 Nitrofurantoin S<=16 Piperacillin/Tazobactam S<=4 Tetracycline S<=1 Tobramycin S<=1 Trimethoprim/Sulfa S<=20 Urine 07/27 URINE CULTURE RES 1 Final Escherichia coli Greater than 100,000 colony forming units per mL Cefazolin <=4 ug/mL Cefazolin with an TEENA <=16 predicts susceptibility to the oral agents cefaclor, cefdinir, cefpodoxime, cefprozil, cefuroxime, cephalexin, and loracarbef when used for therapy of uncomplicated urinary tract infections due to E. coli, Klebsiella pneumoniae, and Proteus mirabilis. ANTIMICROBIAL SUSCEPTIBILITY Final Comment S = Susceptible; I = Intermediate; R = Resistant P = Positive; N = Negative MICS are expressed in micrograms per mL Antibiotic RSLT#1 RSLT#2 RSLT#3 RSLT#4 Amoxicillin/Clavulanic Acid S =4 Ampicillin S =8 Cefepime S<=0.12 Ceftriaxone S<=0.25 Cefuroxime S =4 Ciprofloxacin S<=0.25 Ertapenem S<=0.12 Gentamicin S<=1 Imipenem S<=0.25 Levofloxacin S<=0.12 Meropenem S<=0.25 Nitrofurantoin S<=16 Piperacillin/Tazobactam S<=4 Tetracycline S<=1 Tobramycin S<=1 Trimethoprim/Sulfa S<=20 IMPRESSION: 1. Right renal hypodensity with corticomedullary differentiation loss extending to the capsule. Differential considerations include pyelonephritis versus infarct. 2. Mildly dilated appendix, measuring 0.9 cm. There is no periappendiceal stranding, however there is inferior perinephric stranding which is immediately adjacent to the appendix. Findings are indeterminate and early acute appendicitis is not excluded. No periappendiceal abscess. 3. Mild left lower lobe airspace opacities, indeterminate between infectious or inflammatory pneumonitis. 4. Stable umbilical hernia containing nonobstructive transverse colon. Microbiology 07/27/18 Blood Culture - Preliminary, Resulted 07/27/18 Blood Culture Result 1 (TEENA) - Preliminary, Resulted 07/27/18 Throat Culture - Final, Complete 07/27/18 - Final, Complete 07/27/18 Urine Culture - Final, Complete 07/27/18 Urine Culture Result 1 (TEENA) - Final, Complete 07/27/18 Antimicrobic Susceptibility - Final, Complete Objective Assessment Ecoli sepsis, POA from 07/27/2018 [facility] bacteremia (1 of 4 bottles), likely contaminate. ID still pending Abbnormal CT with peritoneal signs Questionable UTI, POA E. Coli Leukopenia - better Fever - better Diarrhea h/o IBD Encephalopathy - improved Chronic knee pain h/o TKA, 2017 Chronic back pain Morbid obesity w/ BMI 40 DM II Hep C Plan Plan of Care Appreciate Surg eval Continue Zosyn Dosing Daptomycin (s/p contrast)- Awaiting [facility] ID that was in one bottle 07/27 concerned could be intraabdominal source Taper abx hopefully 08/02 One time dose vanc 07/29. F/u Blood cults in am Pain management per primary Monitor labs /temp Supportive care D/w JOSEPH DEAN MD Aug 01, 2018 08:58
[2018-08-01 11:00] VITALS: BP 112/63
--- NOTE | 2018-08-01 12:30 | PDOC ---
JACE CONNOLLY LIFE SKILLS EDUCATOR 08/01/18 1230: SURGICAL PROGRESS NOTE Subjective still some pain, she does have chronic pain overall not as sore as she was some loose stool Vital Signs Vital Signs Date Time Temp Pulse Resp B/P (MAP) Pulse Ox O2 Delivery O2 Flow Rate FiO2 08/01/18 11:00 98.0 83 18 112/63 (79) 97 Room Air 98.0 08/01/18 09:51 2.0 I&O Intake and Output 08/01/18 07:01 Intake Total 1020 ml Output Total 300 ml Balance 720 ml Intake Oral 1020 ml Output Urine Total 300 ml General: Alert, Oriented X3, Cooperative, No acute distress Abdomen: Soft, Other (ND, NTTP on exam) Labs Laboratory Tests Test 07/30/18 16:57 07/30/18 20:31 07/31/18 03:55 07/31/18 07:15 Glucose (Fingerstick) 151 mg/dL (70-99) 270 mg/dL (70-99) 165 mg/dL (70-99) White Blood Count 5.3 x10^3/uL (4.0-11.0) Red Blood Count 3.37 x10^6/uL (3.50-5.40) Hemoglobin 10.2 g/dL (12.0-15.5) Hematocrit 31.0 % (36.0-47.0) Mean Corpuscular Volume 92 fL (79-100) Mean Corpuscular Hemoglobin 30 pg (25-35) Mean Corpuscular Hemoglobin Concent 33 g/dL (31-37) Red Cell Distribution Width 14.8 % (11.5-14.5) Platelet Count 225 x10^3/uL (140-400) Neutrophils (%) (Auto) 53 % (31-73) Lymphocytes (%) (Auto) 30 % (24-48) Monocytes (%) (Auto) 14 % (0-9) Eosinophils (%) (Auto) 3 % (0-3) Basophils (%) (Auto) 1 % (0-3) Neutrophils # (Auto) 2.8 x10^3uL (1.8-7.7) Lymphocytes # (Auto) 1.6 x10^3/uL (1.0-4.8) Monocytes # (Auto) 0.7 x10^3/uL (0.0-1.1) Eosinophils # (Auto) 0.2 x10^3/uL (0.0-0.7) Basophils # (Auto) 0.0 x10^3/uL (0.0-0.2) Sodium Level 139 mmol/L (136-145) Potassium Level 3.6 mmol/L (3.5-5.1) Chloride Level 105 mmol/L (98-107) Carbon Dioxide Level 23 mmol/L (21-32) Anion Gap 11 (6-14) Blood Urea Nitrogen 7 mg/dL (7-20) Creatinine 0.6 mg/dL (0.6-1.0) Estimated GFR (Cockcroft-Gault) 124.2 BUN/Creatinine Ratio 12 (6-20) Glucose Level 196 mg/dL (70-99) Calcium Level 8.8 mg/dL (8.5-10.1) Total Bilirubin 0.3 mg/dL (0.2-1.0) Aspartate Amino Transf (AST/SGOT) 71 U/L (15-37) Alanine Aminotransferase (ALT/SGPT) 43 U/L (14-59) Alkaline Phosphatase 77 U/L (46-116) Total Protein 6.4 g/dL (6.4-8.2) Albumin 2.0 g/dL (3.4-5.0) Albumin/Globulin Ratio 0.5 (1.0-1.7) Test 07/31/18 11:49 07/31/18 17:04 07/31/18 20:44 08/01/18 03:15 Glucose (Fingerstick) 210 mg/dL (70-99) 153 mg/dL (70-99) 237 mg/dL (70-99) White Blood Count 5.4 x10^3/uL (4.0-11.0) Red Blood Count 3.58 x10^6/uL (3.50-5.40) Hemoglobin 11.0 g/dL (12.0-15.5) Hematocrit 32.5 % (36.0-47.0) Mean Corpuscular Volume 91 fL (79-100) Mean Corpuscular Hemoglobin 31 pg (25-35) Mean Corpuscular Hemoglobin Concent 34 g/dL (31-37) Red Cell Distribution Width 14.6 % (11.5-14.5) Platelet Count 269 x10^3/uL (140-400) Neutrophils (%) (Auto) 50 % (31-73) Lymphocytes (%) (Auto) 30 % (24-48) Monocytes (%) (Auto) 16 % (0-9) Eosinophils (%) (Auto) 4 % (0-3) Basophils (%) (Auto) 1 % (0-3) Neutrophils # (Auto) 2.7 x10^3uL (1.8-7.7) Lymphocytes # (Auto) 1.6 x10^3/uL (1.0-4.8) Monocytes # (Auto) 0.8 x10^3/uL (0.0-1.1) Eosinophils # (Auto) 0.2 x10^3/uL (0.0-0.7) Basophils # (Auto) 0.1 x10^3/uL (0.0-0.2) Test 08/01/18 07:31 08/01/18 11:18 Glucose (Fingerstick) 155 mg/dL (70-99) 204 mg/dL (70-99) Laboratory Tests Test 07/31/18 17:04 07/31/18 20:44 08/01/18 03:15 08/01/18 07:31 Glucose (Fingerstick) 153 mg/dL (70-99) 237 mg/dL (70-99) 155 mg/dL (70-99) White Blood Count 5.4 x10^3/uL (4.0-11.0) Red Blood Count 3.58 x10^6/uL (3.50-5.40) Hemoglobin 11.0 g/dL (12.0-15.5) Hematocrit 32.5 % (36.0-47.0) Mean Corpuscular Volume 91 fL (79-100) Mean Corpuscular Hemoglobin 31 pg (25-35) Mean Corpuscular Hemoglobin Concent 34 g/dL (31-37) Red Cell Distribution Width 14.6 % (11.5-14.5) Platelet Count 269 x10^3/uL (140-400) Neutrophils (%) (Auto) 50 % (31-73) Lymphocytes (%) (Auto) 30 % (24-48) Monocytes (%) (Auto) 16 % (0-9) Eosinophils (%) (Auto) 4 % (0-3) Basophils (%) (Auto) 1 % (0-3) Neutrophils # (Auto) 2.7 x10^3uL (1.8-7.7) Lymphocytes # (Auto) 1.6 x10^3/uL (1.0-4.8) Monocytes # (Auto) 0.8 x10^3/uL (0.0-1.1) Eosinophils # (Auto) 0.2 x10^3/uL (0.0-0.7) Basophils # (Auto) 0.1 x10^3/uL (0.0-0.2) Test 08/01/18 11:18 Glucose (Fingerstick) 204 mg/dL (70-99) Problem List Problems Medical Problems: (1) Altered mental status Status: Acute (2) Fever Status: Acute (3) Urinary tract infection Status: Acute Assessment/Plan no surgical needs CHACHO BRINK MD 08/02/18 0854: SURGICAL PROGRESS NOTE Assessment/Plan Agree with above JACE CONNOLLY APRN Aug 01, 2018 12:30 CHACHO BRINK MD Aug 02, 2018 08:54
--- NOTE | 2018-08-01 13:17 | PDOC ---
PROGRESS NOTES Subjective Subjective Patient feeling better. No surgical intervention recommended at this time. Urine and blood culture reports reveal sensitive Escherichia coli. One out of 4 blood cultures revealed a gram-positive cocci which infectious diseases evaluating prior to switching to by mouth antibiotics. Patient tolerating diet and ambulating with physical therapy and now at baseline physically. Objective Objective Vital Signs Date Time Temp Pulse Resp B/P (MAP) Pulse Ox O2 Delivery O2 Flow Rate FiO2 08/01/18 11:00 98.0 83 18 112/63 (79) 97 Room Air 98.0 08/01/18 09:51 2.0 Intake and Output 08/01/18 07:01 Intake Total 1020 ml Output Total 300 ml Balance 720 ml Intake Oral 1020 ml Output Urine Total 300 ml Physical Exam Abdomen: Normal bowel sounds Heart: Regular rate Extremities: No edema General: Alert Lungs: Clear to auscultation Assessment Assessment Problems Medical Problems: (1) Altered mental status Status: Acute (2) Fever Status: Acute (3) Urinary tract infection Status: Acute Metabolic Encephalopathy-resolved E-coli Sepsis UTI with Pyelonephritis Spinal stenosis with chronic pain Intestinal vascular Dz s/p stent Morbid Obesity DM2 Mod protein malnutrition Plan Plan of Care Continue IV antibx await ID final recc and repeat blood clx increase activity home when stable on po antibx Comment Review of Relevant I have reviewed the following items melanie (where applicable) has been applied. Labs Laboratory Tests Test 07/30/18 16:57 07/30/18 20:31 07/31/18 03:55 07/31/18 07:15 Glucose (Fingerstick) 151 mg/dL (70-99) 270 mg/dL (70-99) 165 mg/dL (70-99) White Blood Count 5.3 x10^3/uL (4.0-11.0) Red Blood Count 3.37 x10^6/uL (3.50-5.40) Hemoglobin 10.2 g/dL (12.0-15.5) Hematocrit 31.0 % (36.0-47.0) Mean Corpuscular Volume 92 fL (79-100) Mean Corpuscular Hemoglobin 30 pg (25-35) Mean Corpuscular Hemoglobin Concent 33 g/dL (31-37) Red Cell Distribution Width 14.8 % (11.5-14.5) Platelet Count 225 x10^3/uL (140-400) Neutrophils (%) (Auto) 53 % (31-73) Lymphocytes (%) (Auto) 30 % (24-48) Monocytes (%) (Auto) 14 % (0-9) Eosinophils (%) (Auto) 3 % (0-3) Basophils (%) (Auto) 1 % (0-3) Neutrophils # (Auto) 2.8 x10^3uL (1.8-7.7) Lymphocytes # (Auto) 1.6 x10^3/uL (1.0-4.8) Monocytes # (Auto) 0.7 x10^3/uL (0.0-1.1) Eosinophils # (Auto) 0.2 x10^3/uL (0.0-0.7) Basophils # (Auto) 0.0 x10^3/uL (0.0-0.2) Sodium Level 139 mmol/L (136-145) Potassium Level 3.6 mmol/L (3.5-5.1) Chloride Level 105 mmol/L (98-107) Carbon Dioxide Level 23 mmol/L (21-32) Anion Gap 11 (6-14) Blood Urea Nitrogen 7 mg/dL (7-20) Creatinine 0.6 mg/dL (0.6-1.0) Estimated GFR (Cockcroft-Gault) 124.2 BUN/Creatinine Ratio 12 (6-20) Glucose Level 196 mg/dL (70-99) Calcium Level 8.8 mg/dL (8.5-10.1) Total Bilirubin 0.3 mg/dL (0.2-1.0) Aspartate Amino Transf (AST/SGOT) 71 U/L (15-37) Alanine Aminotransferase (ALT/SGPT) 43 U/L (14-59) Alkaline Phosphatase 77 U/L (46-116) Total Protein 6.4 g/dL (6.4-8.2) Albumin 2.0 g/dL (3.4-5.0) Albumin/Globulin Ratio 0.5 (1.0-1.7) Test 07/31/18 11:49 07/31/18 17:04 07/31/18 20:44 08/01/18 03:15 Glucose (Fingerstick) 210 mg/dL (70-99) 153 mg/dL (70-99) 237 mg/dL (70-99) White Blood Count 5.4 x10^3/uL (4.0-11.0) Red Blood Count 3.58 x10^6/uL (3.50-5.40) Hemoglobin 11.0 g/dL (12.0-15.5) Hematocrit 32.5 % (36.0-47.0) Mean Corpuscular Volume 91 fL (79-100) Mean Corpuscular Hemoglobin 31 pg (25-35) Mean Corpuscular Hemoglobin Concent 34 g/dL (31-37) Red Cell Distribution Width 14.6 % (11.5-14.5) Platelet Count 269 x10^3/uL (140-400) Neutrophils (%) (Auto) 50 % (31-73) Lymphocytes (%) (Auto) 30 % (24-48) Monocytes (%) (Auto) 16 % (0-9) Eosinophils (%) (Auto) 4 % (0-3) Basophils (%) (Auto) 1 % (0-3) Neutrophils # (Auto) 2.7 x10^3uL (1.8-7.7) Lymphocytes # (Auto) 1.6 x10^3/uL (1.0-4.8) Monocytes # (Auto) 0.8 x10^3/uL (0.0-1.1) Eosinophils # (Auto) 0.2 x10^3/uL (0.0-0.7) Basophils # (Auto) 0.1 x10^3/uL (0.0-0.2) Test 08/01/18 07:31 08/01/18 11:18 Glucose (Fingerstick) 155 mg/dL (70-99) 204 mg/dL (70-99) Laboratory Tests Test 07/31/18 17:04 07/31/18 20:44 08/01/18 03:15 08/01/18 07:31 Glucose (Fingerstick) 153 mg/dL (70-99) 237 mg/dL (70-99) 155 mg/dL (70-99) White Blood Count 5.4 x10^3/uL (4.0-11.0) Red Blood Count 3.58 x10^6/uL (3.50-5.40) Hemoglobin 11.0 g/dL (12.0-15.5) Hematocrit 32.5 % (36.0-47.0) Mean Corpuscular Volume 91 fL (79-100) Mean Corpuscular Hemoglobin 31 pg (25-35) Mean Corpuscular Hemoglobin Concent 34 g/dL (31-37) Red Cell Distribution Width 14.6 % (11.5-14.5) Platelet Count 269 x10^3/uL (140-400) Neutrophils (%) (Auto) 50 % (31-73) Lymphocytes (%) (Auto) 30 % (24-48) Monocytes (%) (Auto) 16 % (0-9) Eosinophils (%) (Auto) 4 % (0-3) Basophils (%) (Auto) 1 % (0-3) Neutrophils # (Auto) 2.7 x10^3uL (1.8-7.7) Lymphocytes # (Auto) 1.6 x10^3/uL (1.0-4.8) Monocytes # (Auto) 0.8 x10^3/uL (0.0-1.1) Eosinophils # (Auto) 0.2 x10^3/uL (0.0-0.7) Basophils # (Auto) 0.1 x10^3/uL (0.0-0.2) Test 08/01/18 11:18 Glucose (Fingerstick) 204 mg/dL (70-99) Microbiology 07/27/18 Blood Culture - Preliminary, Resulted 07/27/18 Blood Culture Result 1 (TEENA) - Preliminary, Resulted 07/27/18 Throat Culture - Final, Complete 07/27/18 - Final, Complete 07/27/18 Urine Culture - Final, Complete 07/27/18 Urine Culture Result 1 (TEENA) - Final, Complete 07/27/18 Antimicrobic Susceptibility - Final, Complete Medications Current Medications Naloxone HCl (Narcan) 0.4 mg STK-MED ONCE .ROUTE ; Start 07/27/18 at 18:49; Stop 07/27/18 at 18:51; Status DC Sodium Chloride 500 ml @ 500 mls/hr 1X ONCE IV Last administered on at 19:02; Start 07/27/18 at 19:00; Stop 07/27/18 at 20:12; Status DC Naloxone HCl (Narcan) 0.8 mg 1X ONCE IV Last administered on 07/27/18at 18:57; Start 07/27/18 at 19:00; Stop 07/27/18 at 19:01; Status DC Ceftriaxone Sodium (Rocephin) 1 gm 1X ONCE IVP Last administered on 07/27/18at 21:23; Start 07/27/18 at 20:15; Stop 07/27/18 at 20:18; Status DC Ketorolac Tromethamine (Toradol 30mg Vial) 30 mg 1X ONCE IV Last administered on 07/27/18at 20:45; Start 07/27/18 at 20:30; Stop 07/27/18 at 20:31; Status DC Acetaminophen (Tylenol) 1,000 mg 1X ONCE PO Last administered on 07/27/18at 20: 45; Start 07/27/18 at 20:30; Stop 07/27/18 at 20:31; Status DC Ondansetron HCl (Zofran) 4 mg PRN Q8HRS PRN IV NAUSEA/VOMITING; Start 07/27/18 at 21:15; Stop 07/28/18 at 13:43; Status DC Sodium Chloride 1,000 ml @ 125 mls/hr Q8H IV Last administered on 07/28/18at 17 :53; Start 07/27/18 at 21:06; Stop 07/28/18 at 21:05; Status DC Acetaminophen (Tylenol) 650 mg PRN Q4HRS PRN PO FEVER Last administered on 07/28at 18:00; Start 07/27/18 at 21:15; Stop 07/28/18 at 21:14; Status DC Enoxaparin Sodium (Lovenox Per Pharmacy Prophylaxis Dosing) 1 each PRN DAILY PRN MC SEE COMMENTS; Start 07/28/18 at 09:00; Stop 07/28/18 at 14:14; Status DC Enoxaparin Sodium (Lovenox 40mg Syringe) 40 mg DAILY SQ Last administered on at 09:16; Start 07/28/18 at 09:00; Stop 07/28/18 at 14:13; Status DC Ketorolac Tromethamine (Toradol 15mg Vial) 15 mg 1X ONCE IV Last administered on 07/28/18at 09:15; Start 07/28/18 at 09:15; Stop 07/28/18 at 09:16; Status DC Ondansetron HCl (Zofran) 4 mg PRN Q6HRS PRN IV NAUSEA/VOMITING Last administered on 07/28/18at 19:56; Start 07/28/18 at 13:45 Ampicillin Sodium 2 gm/Sodium Chloride 100 ml @ 200 mls/hr Q6HRS IV ; Start at 14:00; Stop 07/28/18 at 14:13; Status DC Ceftriaxone Sodium (Rocephin) 1 gm Q24H IVP ; Start 07/28/18 at 21:00; Status Cancel Oxycodone/ Acetaminophen (Percocet 5/325) 1 tab PRN Q6HRS PRN PO MODERATE PAIN ; Start 07/28/18 at 14:15; Stop 07/28/18 at 14:59; Status DC Oxycodone/ Acetaminophen (Percocet 10/325) 1 tab PRN Q6HRS PRN PO SEVERE PAIN Last administered on 07/28/18at 21:09; Start 07/28/18 at 14:15; Stop 07/29/18 at 07:01; Status DC Lactobacillus Rhamnosus (Culturelle) 1 cap BID PO Last administered on at 08:45; Start 07/28/18 at 21:00 Potassium Chloride (Klor-Con) 40 meq ONCE ONCE PO Last administered on at 17:52; Start 07/28/18 at 16:00; Stop 07/28/18 at 16:01; Status DC Piperacillin Sod/ Tazobactam Sod (Zosyn Per Pharmacy) 1 each PRN DAILY PRN MC SEE COMMENTS; Start 07/28/18 at 16:30 Piperacillin Sod/ Tazobactam Sod 4.5 gm/Sodium Chloride 100 ml @ 200 mls/hr Q6HRS IV Last administered on 08/01/18at 12:43; Start 07/28/18 at 17:00 Aspirin (Kely Aspirin) 325 mg DAILYWBKFT PO Last administered on 08/01/18at 08: 43; Start 07/29/18 at 08:00 Atorvastatin Calcium (Lipitor) 10 mg QHS PO Last administered on 07/31/18at 21: 42; Start 07/28/18 at 21:00 Clopidogrel Bisulfate (Plavix) 75 mg DAILY PO Last administered on 08/01/18 08 :43; Start 07/29/18 at 09:00 Cyclobenzaprine HCl (Flexeril) 10 mg TID PO Last administered on 08/01/18 08: 44; Start 07/28/18 at 21:00 Doxepin HCl (SINequan) 10 mg HS PO Last administered on 07/31/18 21:42; Start 07/28/18 at 21:00 Ferrous Sulfate (Feosol) 325 mg BIDWMEALS PO Last administered on 08/01/18 08: 45; Start 07/29/18 at 08:00 Linagliptin (Tradjenta) 5 mg DAILY PO Last administered on 08/01/18 08:45; Start 07/29/18 at 09:00 Ondansetron HCl (Zofran Odt) 4 mg PRN Q8HRS PRN PO NAUSEA Last administered on 07/28/18 19:55; Start 07/28/18 at 18:15 Oxycodone/ Acetaminophen (Percocet 10/325) 1 tab PRN TID PRN PO SEVERE PAIN Last administered on 08/01/18 08:44; Start 07/28/18 at 18:15 Potassium Chloride (Klor-Con) 10 meq DAILY PO Last administered on 07/29/18 08 :08; Start 07/29/18 at 09:00; Stop 07/29/18 at 11:17; Status DC Trazodone HCl (Desyrel) 50 mg HS PO Last administered on 07/31/18 21:42; Start 07/28/18 at 21:00 Non-Formulary Medication (Canagliflozin (Invokana)) 100 mg DAILY PO ; Start at 09:00; Stop 07/31/18 at 11:53; Status DC Gabapentin (Neurontin) 600 mg TID PO Last administered on 08/01/18 08:43; Start 07/28/18 at 21:00 Ondansetron HCl (Zofran Odt) 4 mg PRN Q8HRS PRN PO NAUSEA/VOMITING; Start 07/28 at 18:15; Status Cancel Potassium Chloride (Klor-Con) 10 meq BIDWMEALS PO Last administered on 08:44; Start 07/29/18 at 17:00 Ibuprofen (Motrin) 600 mg PRN Q8HRS PRN PO INFLAMMATION Last administered on at 18:41; Start 07/29/18 at 11:15 Vancomycin HCl 1.25 gm/Sodium Chloride 250 ml @ 166.667 mls/hr 1X ONCE IV Last administered on 07/29/18at 21:01; Start 07/29/18 at 17:30; Stop 07/29/18 at 18:59; Status DC Iohexol (Omnipaque 300 Mg/ml) 75 ml 1X ONCE IV ; Start 07/30/18 at 08:00; Stop 07/30/18 at 08:01; Status DC Iohexol (Omnipaque 240 Mg/ml) 50 ml 1X ONCE PO Last administered on 07/30/18at 08:00; Start 07/30/18 at 08:00; Stop 07/30/18 at 08:01; Status DC Info (CONTRAST GIVEN -- Rx MONITORING) 1 each PRN DAILY PRN MC SEE COMMENTS; Start 07/30/18 at 08:00; Stop 07/31/18 at 08:08; Status DC Daptomycin 660 mg/ Sodium Chloride 50 ml @ 100 mls/hr Q24H IV Last administered on 07/31/18at 17:03; Start 07/30/18 at 16:30; Stop 07/31/18 at 18:00 ; Status DC Iohexol (Omnipaque 300 Mg/ml) 75 ml 1X ONCE IV Last administered on 07/31/18at 08:15; Start 07/31/18 at 08:15; Stop 07/31/18 at 08:16; Status DC Iohexol (Omnipaque 240 Mg/ml) 50 ml 1X ONCE PO Last administered on 07/31/18at 08:15; Start 07/31/18 at 08:15; Stop 07/31/18 at 08:16; Status DC Info (CONTRAST GIVEN -- Rx MONITORING) 1 each PRN DAILY PRN MC SEE COMMENTS; Start 07/31/18 at 08:15; Stop 08/02/18 at 08:14 Daptomycin 660 mg/ Sodium Chloride 50 ml @ 100 mls/hr ONCE ONCE IV ; Start at 12:15; Stop 07/31/18 at 12:44; Status UNV Active Scripts Active Augmentin 875-125 Tablet (Amoxicillin/Potassium Clav) 1 Each Tablet 1 Tab PO BID Aspirin 325 Mg Tablet 325 Mg PO DAILYWBKFT 90 Days Atorvastatin Calcium 10 Mg Tablet 10 Mg PO QHS 90 Days Clopidogrel (Clopidogrel Bisulfate) 75 Mg Tablet 75 Mg PO DAILY 30 Days Zofran Odt (Ondansetron) 4 Mg Tab.rapdis 1 Tab SL Q8HRS PRN Iron Supplement (Ferrous Sulfate) 325 Mg Tablet 1 Tab PO BID Tradjenta (Linagliptin) 5 Mg Tablet 5 Mg PO DAILY Reported Invokana (Canagliflozin) 100 Mg Tablet 100 Mg PO DAILY Percocet 10-325 Mg Tablet (Oxycodone/Acetaminophen) 1 Each Tablet 1 Tab PO TID PRN Gabapentin 600 Mg Tablet 600 Mg PO TID Doxepin Hcl 10 Mg Capsule 10 Mg PO HS LAST DOSE GIVEN: DATE:09/23/16 TIME:9:00 p.m. NEXT DOSE DUE: DATE:09/24/16 TIME:9:00 p.m. Cyclobenzaprine Hcl 10 Mg Tablet 10 Mg PO TID last dose given at 1400 next dose is at bedtime or 9 pm NEXT DOSE DUE: DATE:04-23-16 TIME:12:30 if needed for muscle spasm Potassium Chloride 10 Meq Tablet.er 10 Meq PO DAILY LAST DOSE GIVEN: DATE:09/24/16 TIME:8:30 a.m. NEXT DOSE DUE: DATE:09/25/16 TIME:8:30 a.m. Ondansetron Odt (Ondansetron) 4 Mg Tab.rapdis 1 Tab PO PRN Q6-8HRS May resume at home as needed for nausea Trazodone Hcl 50 Mg Tablet 50 Mg PO HS LAST DOSE GIVEN: DATE:09/23/16 TIME:9:00 p.m. NEXT DOSE DUE: DATE:09/24/16 TIME:9:00 p.m. Vitals/I & O Vital Sign - Last 24 Hours 07/31/18 07/31/18 07/31/18 07/31/18 14:20 15:00 19:30 20:00 Temp 98.1 97.9 98.1 97.9 Pulse 62 72 Resp 16 16 B/P (MAP) 129/78 (95) 137/64 (88) Pulse Ox 98 98 99 O2 Delivery Room Air Room Air Room Air Room Air O2 Flow Rate 2.0 07/31/18 07/31/18 08/01/18 08/01/18 23:05 23:41 03:28 07:00 Temp 97.4 97.8 97.9 97.4 97.8 97.9 Pulse 70 69 61 Resp 16 16 16 B/P (MAP) 134/68 (90) 122/61 (81) 125/71 (89) Pulse Ox 100 100 97 O2 Delivery Room Air Room Air Room Air Room Air 08/01/18 08/01/18 08/01/18 08/01/18 08:00 08:44 09:51 11:00 Temp 98.0 98.0 Pulse 83 Resp 18 B/P (MAP) 112/63 (79) Pulse Ox 97 97 97 O2 Delivery Room Air Room Air Room Air Room Air O2 Flow Rate 2.0 2.0 Intake and Output 07/31/18 07/31/18 08/01/18 15:01 23:01 07:01 Intake Total 180 ml 440 ml 400 ml Output Total 300 ml Balance 180 ml 140 ml 400 ml STEFAN CAMARA MD Aug 01, 2018 13:17
[2018-08-01 15:00] VITALS: BP 112/67
[2018-08-01 19:30] VITALS: BP 132/86
[2018-08-01] MEDS: ATORVASTATIN CALCIUM 10 MG TABLET. PO SCH (20:36)
[2018-08-01] MEDS: DOXEPIN HCL 10 MG CAPSULE. PO SCH (20:36)
[2018-08-01] MEDS: traZODone 50 MG TABLET. PO SCH (20:36)
[2018-08-01 23:25] VITALS: BP 132/60
[2018-08-02] MEDS: PIPERACILLIN/TAZOBACTAM 4.5 GM in IV NORMAL SALINE 100ML 100 ML IV SCH ×2 (00:11→05:28)
[2018-08-02] MEDS: oxyCODONE/APAP 10/325 1 TAB TABLET PO PRN ×3 (00:12→16:19)
[2018-08-02 03:59] VITALS: BP 141/83
[2018-08-02 07:00] VITALS: BP 155/81
[2018-08-02] MEDS: POTASSIUM CHLORIDE 10 MEQ TABLET.ER. PO SCH (08:45)
[2018-08-02] MEDS: GABAPENTIN 300 MG CAPSULE. PO SCH ×2 (08:45→16:19)
[2018-08-02] MEDS: CYCLOBENZAPRINE 10 MG TABLET. PO SCH ×2 (08:46→16:19)
[2018-08-02] MEDS: ASPIRIN 325 MG TABLET PO SCH (08:46)
[2018-08-02] MEDS: FERROUS SULFATE 325 MG TABLET. PO SCH (08:46)
[2018-08-02] MEDS: LACTOBACILLUS RHAMNOSUS GG 1 CAPSULE. PO SCH (08:46)
[2018-08-02] MEDS: CLOPIDOGREL BISULFATE 75 MG TABLET PO SCH (08:46)
[2018-08-02] MEDS: LINAGLIPTIN 5 MG TABLET PO SCH (08:46)
[2018-08-02] MEDS ORDERED: BENZONATATE 100 MG CAPSULE. PO PRN (09:15)
--- NOTE | 2018-08-02 09:24 | PDOC ---
PROGRESS NOTES Subjective Subjective getting better, some pain across abdomen but better than before Objective Objective Vital Signs Date Time Temp Pulse Resp B/P (MAP) Pulse Ox O2 Delivery O2 Flow Rate FiO2 08/02/18 08:50 18 Room Air 08/02/18 07:00 98.5 67 155/81 (105) 100 98.5 08/02/18 01:12 2.0 Intake and Output 08/02/18 07:01 Intake Total 1390 ml Balance 1390 ml Intake Oral 1390 ml # Voids 4 # Bowel Movements 2 Physical Exam Abdomen: Soft (tender across mid abdomen and RLQ) Heart: Regular rate General: Alert, Oriented X3 Lungs: Clear to auscultation Neuro: Normal speech, Strength at 5/5 X4 ext Assessment Assessment Problems Medical Problems: (1) Altered mental status Status: Acute (2) Fever Status: Acute (3) Urinary tract infection Status: Acute Plan Plan of Care Blood and urine with E coli, improving with medical management, no surgical recs; will sign off Comment Review of Relevant I have reviewed the following items melanie (where applicable) has been applied. Labs Laboratory Tests Test 07/31/18 11:49 07/31/18 17:04 07/31/18 20:44 08/01/18 03:15 Glucose (Fingerstick) 210 mg/dL (70-99) 153 mg/dL (70-99) 237 mg/dL (70-99) White Blood Count 5.4 x10^3/uL (4.0-11.0) Red Blood Count 3.58 x10^6/uL (3.50-5.40) Hemoglobin 11.0 g/dL (12.0-15.5) Hematocrit 32.5 % (36.0-47.0) Mean Corpuscular Volume 91 fL (79-100) Mean Corpuscular Hemoglobin 31 pg (25-35) Mean Corpuscular Hemoglobin Concent 34 g/dL (31-37) Red Cell Distribution Width 14.6 % (11.5-14.5) Platelet Count 269 x10^3/uL (140-400) Neutrophils (%) (Auto) 50 % (31-73) Lymphocytes (%) (Auto) 30 % (24-48) Monocytes (%) (Auto) 16 % (0-9) Eosinophils (%) (Auto) 4 % (0-3) Basophils (%) (Auto) 1 % (0-3) Neutrophils # (Auto) 2.7 x10^3uL (1.8-7.7) Lymphocytes # (Auto) 1.6 x10^3/uL (1.0-4.8) Monocytes # (Auto) 0.8 x10^3/uL (0.0-1.1) Eosinophils # (Auto) 0.2 x10^3/uL (0.0-0.7) Basophils # (Auto) 0.1 x10^3/uL (0.0-0.2) Test 08/01/18 07:31 08/01/18 11:18 08/01/18 17:01 08/01/18 20:41 Glucose (Fingerstick) 155 mg/dL (70-99) 204 mg/dL (70-99) 143 mg/dL (70-99) 247 mg/dL (70-99) Test 08/02/18 07:01 Glucose (Fingerstick) 161 mg/dL (70-99) Laboratory Tests Test 08/01/18 11:18 08/01/18 17:01 08/01/18 20:41 08/02/18 07:01 Glucose (Fingerstick) 204 mg/dL (70-99) 143 mg/dL (70-99) 247 mg/dL (70-99) 161 mg/dL (70-99) Microbiology 08/01/18 Blood Culture - Preliminary, Resulted NO GROWTH AFTER 1 DAY 07/27/18 Throat Culture - Final, Complete 07/27/18 - Final, Complete 07/27/18 Urine Culture - Final, Complete 07/27/18 Urine Culture Result 1 (TEENA) - Final, Complete 07/27/18 Antimicrobic Susceptibility - Final, Complete Medications Current Medications Naloxone HCl (Narcan) 0.4 mg STK-MED ONCE .ROUTE ; Start 07/27/18 at 18:49; Stop 07/27/18 at 18:51; Status DC Sodium Chloride 500 ml @ 500 mls/hr 1X ONCE IV Last administered on at 19:02; Start 07/27/18 at 19:00; Stop 07/27/18 at 20:12; Status DC Naloxone HCl (Narcan) 0.8 mg 1X ONCE IV Last administered on 07/27/18at 18:57; Start 07/27/18 at 19:00; Stop 07/27/18 at 19:01; Status DC Ceftriaxone Sodium (Rocephin) 1 gm 1X ONCE IVP Last administered on 07/27/18at 21:23; Start 07/27/18 at 20:15; Stop 07/27/18 at 20:18; Status DC Ketorolac Tromethamine (Toradol 30mg Vial) 30 mg 1X ONCE IV Last administered on 07/27/18at 20:45; Start 07/27/18 at 20:30; Stop 07/27/18 at 20:31; Status DC Acetaminophen (Tylenol) 1,000 mg 1X ONCE PO Last administered on 07/27/18at 20: 45; Start 07/27/18 at 20:30; Stop 07/27/18 at 20:31; Status DC Ondansetron HCl (Zofran) 4 mg PRN Q8HRS PRN IV NAUSEA/VOMITING; Start 07/27/18 at 21:15; Stop 07/28/18 at 13:43; Status DC Sodium Chloride 1,000 ml @ 125 mls/hr Q8H IV Last administered on 07/28/18at 17 :53; Start 07/27/18 at 21:06; Stop 07/28/18 at 21:05; Status DC Acetaminophen (Tylenol) 650 mg PRN Q4HRS PRN PO FEVER Last administered on 07/28at 18:00; Start 07/27/18 at 21:15; Stop 07/28/18 at 21:14; Status DC Enoxaparin Sodium (Lovenox Per Pharmacy Prophylaxis Dosing) 1 each PRN DAILY PRN MC SEE COMMENTS; Start 07/28/18 at 09:00; Stop 07/28/18 at 14:14; Status DC Enoxaparin Sodium (Lovenox 40mg Syringe) 40 mg DAILY SQ Last administered on at 09:16; Start 07/28/18 at 09:00; Stop 07/28/18 at 14:13; Status DC Ketorolac Tromethamine (Toradol 15mg Vial) 15 mg 1X ONCE IV Last administered on 07/28/18at 09:15; Start 07/28/18 at 09:15; Stop 07/28/18 at 09:16; Status DC Ondansetron HCl (Zofran) 4 mg PRN Q6HRS PRN IV NAUSEA/VOMITING Last administered on 07/28/18at 19:56; Start 07/28/18 at 13:45 Ampicillin Sodium 2 gm/Sodium Chloride 100 ml @ 200 mls/hr Q6HRS IV ; Start at 14:00; Stop 07/28/18 at 14:13; Status DC Ceftriaxone Sodium (Rocephin) 1 gm Q24H IVP ; Start 07/28/18 at 21:00; Status Cancel Oxycodone/ Acetaminophen (Percocet 5/325) 1 tab PRN Q6HRS PRN PO MODERATE PAIN ; Start 07/28/18 at 14:15; Stop 07/28/18 at 14:59; Status DC Oxycodone/ Acetaminophen (Percocet 10/325) 1 tab PRN Q6HRS PRN PO SEVERE PAIN Last administered on 07/28/18at 21:09; Start 07/28/18 at 14:15; Stop 07/29/18 at 07:01; Status DC Lactobacillus Rhamnosus (Culturelle) 1 cap BID PO Last administered on at 08:46; Start 07/28/18 at 21:00 Potassium Chloride (Klor-Con) 40 meq ONCE ONCE PO Last administered on at 17:52; Start 07/28/18 at 16:00; Stop 07/28/18 at 16:01; Status DC Piperacillin Sod/ Tazobactam Sod (Zosyn Per Pharmacy) 1 each PRN DAILY PRN MC SEE COMMENTS; Start 07/28/18 at 16:30 Piperacillin Sod/ Tazobactam Sod 4.5 gm/Sodium Chloride 100 ml @ 200 mls/hr Q6HRS IV Last administered on 08/02/18at 05:28; Start 07/28/18 at 17:00 Aspirin (Kely Aspirin) 325 mg DAILYWBKFT PO Last administered on 08/02/18at 08: 46; Start 07/29/18 at 08:00 Atorvastatin Calcium (Lipitor) 10 mg QHS PO Last administered on 08/01/18at 20: 36; Start 07/28/18 at 21:00 Clopidogrel Bisulfate (Plavix) 75 mg DAILY PO Last administered on 08/02/18at 08 :46; Start 07/29/18 at 09:00 Cyclobenzaprine HCl (Flexeril) 10 mg TID PO Last administered on 08/02/18 08: 46; Start 07/28/18 at 21:00 Doxepin HCl (SINequan) 10 mg HS PO Last administered on 08/01/18 20:36; Start 07/28/18 at 21:00 Ferrous Sulfate (Feosol) 325 mg BIDWMEALS PO Last administered on 08/02/18 08: 46; Start 07/29/18 at 08:00 Linagliptin (Tradjenta) 5 mg DAILY PO Last administered on 08/02/18 08:46; Start 07/29/18 at 09:00 Ondansetron HCl (Zofran Odt) 4 mg PRN Q8HRS PRN PO NAUSEA Last administered on 07/28/18 19:55; Start 07/28/18 at 18:15 Oxycodone/ Acetaminophen (Percocet 10/325) 1 tab PRN TID PRN PO SEVERE PAIN Last administered on 08/02/18 07:46; Start 07/28/18 at 18:15 Potassium Chloride (Klor-Con) 10 meq DAILY PO Last administered on 07/29/18 08 :08; Start 07/29/18 at 09:00; Stop 07/29/18 at 11:17; Status DC Trazodone HCl (Desyrel) 50 mg HS PO Last administered on 08/01/18 20:36; Start 07/28/18 at 21:00 Non-Formulary Medication (Canagliflozin (Invokana)) 100 mg DAILY PO ; Start at 09:00; Stop 07/31/18 at 11:53; Status DC Gabapentin (Neurontin) 600 mg TID PO Last administered on 08/02/18 08:45; Start 07/28/18 at 21:00 Ondansetron HCl (Zofran Odt) 4 mg PRN Q8HRS PRN PO NAUSEA/VOMITING; Start 07/28 at 18:15; Status Cancel Potassium Chloride (Klor-Con) 10 meq BIDWMEALS PO Last administered on 08:45; Start 07/29/18 at 17:00 Ibuprofen (Motrin) 600 mg PRN Q8HRS PRN PO INFLAMMATION Last administered on at 18:41; Start 07/29/18 at 11:15 Vancomycin HCl 1.25 gm/Sodium Chloride 250 ml @ 166.667 mls/hr 1X ONCE IV Last administered on 07/29/18at 21:01; Start 07/29/18 at 17:30; Stop 07/29/18 at 18:59; Status DC Iohexol (Omnipaque 300 Mg/ml) 75 ml 1X ONCE IV ; Start 07/30/18 at 08:00; Stop 07/30/18 at 08:01; Status DC Iohexol (Omnipaque 240 Mg/ml) 50 ml 1X ONCE PO Last administered on 07/30/18at 08:00; Start 07/30/18 at 08:00; Stop 07/30/18 at 08:01; Status DC Info (CONTRAST GIVEN -- Rx MONITORING) 1 each PRN DAILY PRN MC SEE COMMENTS; Start 07/30/18 at 08:00; Stop 07/31/18 at 08:08; Status DC Daptomycin 660 mg/ Sodium Chloride 50 ml @ 100 mls/hr Q24H IV Last administered on 07/31/18at 17:03; Start 07/30/18 at 16:30; Stop 07/31/18 at 18:00 ; Status DC Iohexol (Omnipaque 300 Mg/ml) 75 ml 1X ONCE IV Last administered on 07/31/18at 08:15; Start 07/31/18 at 08:15; Stop 07/31/18 at 08:16; Status DC Iohexol (Omnipaque 240 Mg/ml) 50 ml 1X ONCE PO Last administered on 07/31/18at 08:15; Start 07/31/18 at 08:15; Stop 07/31/18 at 08:16; Status DC Info (CONTRAST GIVEN -- Rx MONITORING) 1 each PRN DAILY PRN MC SEE COMMENTS; Start 07/31/18 at 08:15; Stop 08/02/18 at 08:14; Status DC Daptomycin 660 mg/ Sodium Chloride 50 ml @ 100 mls/hr ONCE ONCE IV ; Start at 12:15; Stop 07/31/18 at 12:44; Status UNV Benzonatate (Tessalon Perle) 100 mg TID PRN PRN PO cough; Start 08/02/18 at 09: 15 Fluticasone Propionate (Flonase) 2 spray DAILY NS ; Start 08/02/18 at 09:30 Active Scripts Active Augmentin 875-125 Tablet (Amoxicillin/Potassium Clav) 1 Each Tablet 1 Tab PO BID Aspirin 325 Mg Tablet 325 Mg PO DAILYWBKFT 90 Days Atorvastatin Calcium 10 Mg Tablet 10 Mg PO QHS 90 Days Clopidogrel (Clopidogrel Bisulfate) 75 Mg Tablet 75 Mg PO DAILY 30 Days Zofran Odt (Ondansetron) 4 Mg Tab.rapdis 1 Tab SL Q8HRS PRN Iron Supplement (Ferrous Sulfate) 325 Mg Tablet 1 Tab PO BID Tradjenta (Linagliptin) 5 Mg Tablet 5 Mg PO DAILY Reported Invokana (Canagliflozin) 100 Mg Tablet 100 Mg PO DAILY Percocet 10-325 Mg Tablet (Oxycodone/Acetaminophen) 1 Each Tablet 1 Tab PO TID PRN Gabapentin 600 Mg Tablet 600 Mg PO TID Doxepin Hcl 10 Mg Capsule 10 Mg PO HS LAST DOSE GIVEN: DATE:09/23/16 TIME:9:00 p.m. NEXT DOSE DUE: DATE:09/24/16 TIME:9:00 p.m. Cyclobenzaprine Hcl 10 Mg Tablet 10 Mg PO TID last dose given at 1400 next dose is at bedtime or 9 pm NEXT DOSE DUE: DATE:04-23-16 TIME:12:30 if needed for muscle spasm Potassium Chloride 10 Meq Tablet.er 10 Meq PO DAILY LAST DOSE GIVEN: DATE:09/24/16 TIME:8:30 a.m. NEXT DOSE DUE: DATE:09/25/16 TIME:8:30 a.m. Ondansetron Odt (Ondansetron) 4 Mg Tab.rapdis 1 Tab PO PRN Q6-8HRS May resume at home as needed for nausea Trazodone Hcl 50 Mg Tablet 50 Mg PO HS LAST DOSE GIVEN: DATE:09/23/16 TIME:9:00 p.m. NEXT DOSE DUE: DATE:09/24/16 TIME:9:00 p.m. Vitals/I & O Vital Sign - Last 24 Hours 08/01/18 08/01/18 08/01/18 08/01/18 11:00 15:00 16:59 19:30 Temp 98.0 97.5 97.4 98.0 97.5 97.4 Pulse 83 75 83 Resp 18 18 20 B/P (MAP) 112/63 (79) 112/67 (82) 132/86 (101) Pulse Ox 97 96 96 97 O2 Delivery Room Air Room Air Room Air Room Air O2 Flow Rate 2.0 08/01/18 08/01/18 08/02/18 08/02/18 20:00 23:25 00:12 01:12 Temp 98.0 98.0 Pulse 66 Resp 20 B/P (MAP) 132/60 (84) Pulse Ox 95 95 96 O2 Delivery Room Air Room Air Room Air O2 Flow Rate 2.0 08/02/18 08/02/18 08/02/18 08/02/18 03:59 07:00 07:46 08:00 Temp 98.1 98.5 98.1 98.5 Pulse 64 67 Resp 18 18 18 B/P (MAP) 141/83 (102) 155/81 (105) Pulse Ox 95 100 O2 Delivery Room Air Room Air Room Air Room Air 08/02/18 08:50 Resp 18 O2 Delivery Room Air Intake and Output 08/01/18 08/01/18 08/02/18 15:01 23:01 07:01 Intake Total 480 ml 590 ml 320 ml Balance 480 ml 590 ml 320 ml CHACHO BRINK MD Aug 02, 2018 09:24
[2018-08-02] MEDS ORDERED: FLUTICASONE 50MCG/NASAL SPRAY 16GM BOTTLE. NS SCH (09:30)
--- NOTE | 2018-08-02 10:36 | PDOC ---
Infectious Disease Note Subjective Subjective better and eating. Ready to go home No fevers last 24 hours Denies chills/aches/N/V/SOA Some loose stools Vital Sign Vital Signs Vital Signs Date Time Temp Pulse Resp B/P (MAP) Pulse Ox O2 Delivery O2 Flow Rate FiO2 08/02/18 08:50 18 Room Air 08/02/18 07:00 98.5 67 155/81 (105) 100 98.5 08/02/18 01:12 2.0 Physical Exam PHYSICAL EXAM GENERAL: Propped up in chair, looks bed HEENT: Pupils equally round. Normal conjunctivae. Oral cavity, pharynx pink and moist. Mild sinus tenderness. NECK: Supple. LUNGS: Clear to auscultation. HEART: S1 and S2. ABDOMEN: Obese, soft, NT - No guard and mild rebound EXTREMITIES: No gross edema or cyanosis. SKIN: Warm without rash. NEUROLOGICAL: Alert and oriented x 3. Moves all extremities. REJ looks okay. Labs Lab Laboratory Tests Test 08/01/18 11:18 08/01/18 17:01 08/01/18 20:41 08/02/18 07:01 Glucose (Fingerstick) 204 mg/dL (70-99) 143 mg/dL (70-99) 247 mg/dL (70-99) 161 mg/dL (70-99) Micro 1/24 Blood BLOOD CULTURE LC Final Final report BLD CULT RESULT 1 Final Escherichia coli ANTIMICROBIAL SUSCEPTIBILITY Final Comment S = Susceptible; I = Intermediate; R = Resistant P = Positive; N = Negative MICS are expressed in micrograms per mL Antibiotic RSLT#1 RSLT#2 RSLT#3 RSLT#4 Amoxicillin/Clavulanic Acid S =4 Ampicillin S =4 Cefepime S<=0.12 Ceftriaxone S<=0.25 Cefuroxime I =8 Ciprofloxacin S<=0.25 Ertapenem S<=0.12 Gentamicin S<=1 Imipenem S<=0.25 Levofloxacin S<=0.12 Meropenem S<=0.25 Nitrofurantoin S<=16 Piperacillin/Tazobactam S<=4 Tetracycline S<=1 Tobramycin S<=1 Trimethoprim/Sulfa S<=20 Urine 1/24 URINE CULTURE RES 1 Final Escherichia coli Greater than 100,000 colony forming units per mL Cefazolin <=4 ug/mL Cefazolin with an TEENA <=16 predicts susceptibility to the oral agents cefaclor, cefdinir, cefpodoxime, cefprozil, cefuroxime, cephalexin, and loracarbef when used for therapy of uncomplicated urinary tract infections due to E. coli, Klebsiella pneumoniae, and Proteus mirabilis. ANTIMICROBIAL SUSCEPTIBILITY Final Comment S = Susceptible; I = Intermediate; R = Resistant P = Positive; N = Negative MICS are expressed in micrograms per mL Antibiotic RSLT#1 RSLT#2 RSLT#3 RSLT#4 Amoxicillin/Clavulanic Acid S =4 Ampicillin S =8 Cefepime S<=0.12 Ceftriaxone S<=0.25 Cefuroxime S =4 Ciprofloxacin S<=0.25 Ertapenem S<=0.12 Gentamicin S<=1 Imipenem S<=0.25 Levofloxacin S<=0.12 Meropenem S<=0.25 Nitrofurantoin S<=16 Piperacillin/Tazobactam S<=4 Tetracycline S<=1 Tobramycin S<=1 Trimethoprim/Sulfa S<=20 IMPRESSION: 1. Right renal hypodensity with corticomedullary differentiation loss extending to the capsule. Differential considerations include pyelonephritis versus infarct. 2. Mildly dilated appendix, measuring 0.9 cm. There is no periappendiceal stranding, however there is inferior perinephric stranding which is immediately adjacent to the appendix. Findings are indeterminate and early acute appendicitis is not excluded. No periappendiceal abscess. 3. Mild left lower lobe airspace opacities, indeterminate between infectious or inflammatory pneumonitis. 4. Stable umbilical hernia containing nonobstructive transverse colon. Microbiology 07/27/18 Blood Culture - Preliminary, Resulted 07/27/18 Blood Culture Result 1 (TEENA) - Preliminary, Resulted 07/27/18 Throat Culture - Final, Complete 07/27/18 - Final, Complete 07/27/18 Urine Culture - Final, Complete 07/27/18 Urine Culture Result 1 (TEENA) - Final, Complete 07/27/18 Antimicrobic Susceptibility - Final, Complete Objective Assessment Ecoli sepsis, POA from 07/27/2018 [facility] bacteremia (1 of 4 bottles), likely contaminate- D/w [facility] this am. No Cults Pos for [facility] only Ecoli Abbnormal CT with peritoneal signs Questionable UTI, POA E. Coli Leukopenia - better Fever - better Diarrhea h/o IBD Encephalopathy - improved Chronic knee pain h/o TKA, 2017 Chronic back pain Morbid obesity w/ BMI 40 DM II Hep C Plan Plan of Care D/c Zosyn Dose Rocephin now to complete 7 days of IV Home on Cephalexin for 7 days to treat potential pyeo Ok to d/c home D/w Dr. Rothman this am Can F/u with Dr. Rothman D/w JOSEPH DEAN MD Aug 02, 2018 10:36
[2018-08-02 11:00] VITALS: BP 131/76
[2018-08-02] MEDS ORDERED: cefTRIAXone IV Push 2 GM VIAL. IVP ONE (11:00)
[2018-08-02] MEDS ORDERED: CEPH-264 PO (13:08)
[2018-08-02 15:00] VITALS: BP 133/64
--- NOTE | 2018-08-02 16:58 | DS ---
DATE OF DISCHARGE: 08/02/2018 ADMITTING DIAGNOSIS: Metabolic encephalopathy. DISMISSAL DIAGNOSES: Resolved metabolic encephalopathy, Escherichia coli sepsis, urinary tract infection, morbid obesity, type 2 diabetes, moderate protein malnutrition, history of intestinal vascular disease with stent placement, history of spinal stenosis with chronic pain. HOSPITAL COURSE: The patient is a 58-year-old -[place] female who came in with changes in mental status and confusion, found to have evidence of UTI and sepsis. She had positive blood cultures with E. coli 4/4 bottles during hospital stay. She improved with IV fluids, IV antibiotics and finally improved and the patient having tolerating a regular diet. She was also able to ambulate and went back to baseline. Cultures returned with sensitivities noted revealing highly sensitive E. coli. The patient was switched to p.o. antibiotics and discharged to home. DISCHARGE MEDICATIONS: She was discharged on the following medications: Keflex 500 mg 2 capsules b.i.d. for 1 week, aspirin 325 mg daily, atorvastatin 10 mg daily, Invokana 100 mg daily, Plavix 75 mg daily, Flexeril 10 mg q.8 hours p.r.n., doxepin 10 mg at bedtime for sleep, iron sulfate 325 mg b.i.d., gabapentin 600 mg t.i.d., Tradjenta 5 mg daily, Zofran 4 mg q. 6 p.r.n., potassium 10 mEq daily, trazodone 50 mg p.o. at bedtime. FOLLOWUP INSTRUCTIONS: She will follow up in the office for continued care in 1-2 weeks. STEFAN CAMARA MD DR: RUSLAN/karey JOB#: [id number] / [id number]
--- NOTE | 2018-08-02 18:10 | NUR ---
Pt discharged to home with daughter. Discharge teaching done re: diet, activity, medications and follow up. Both daughter and pt verbalized understanding
== END 2018-08-02 18:10 | disposition home or self-care (01) | DRG 871 ==
LOC: ER 18:30 → 6 SOUTH 21:00
PROVIDERS: ADMIT Family Medicine; ATTEND Family Medicine
DX: A41.50 Gram-negative sepsis, unspecified (principal); G93.41 Metabolic encephalopathy; E44.0 Moderate protein-calorie malnutrition; F11.20 Opioid dependence, uncomplicated; N12 Tubulo-interstitial nephritis, not specified as acute or chronic; Z68.41 Body mass index [BMI] 40.0-44.9, adult; E11.42 Type 2 diabetes mellitus with diabetic polyneuropathy; E66.01 Morbid (severe) obesity due to excess calories; E78.00 Pure hypercholesterolemia, unspecified; E78.5 Hyperlipidemia, unspecified; G89.29 Other chronic pain; I10 Essential (primary) hypertension; K21.9 Gastro-esophageal reflux disease without esophagitis; K42.9 Umbilical hernia without obstruction or gangrene; K58.0 Irritable bowel syndrome with diarrhea; M48.00 Spinal stenosis, site unspecified; F32.9 Major depressive disorder, single episode, unspecified; M79.7 Fibromyalgia; Z82.49 Family history of ischemic heart disease and other diseases of the circulatory system; Z87.442 Personal history of urinary calculi; Z87.820 Personal history of traumatic brain injury; Z90.710 Acquired absence of both cervix and uterus; Z96.641 Presence of right artificial hip joint; Z96.651 Presence of right artificial knee joint; Z83.3 Family history of diabetes mellitus; F41.9 Anxiety disorder, unspecified; G47.00 Insomnia, unspecified; M19.90 Unspecified osteoarthritis, unspecified site; Z88.8 Allergy status to other drugs, medicaments and biological substances; Z91.011 Allergy to milk products
CPT/HCPCS: 36415; 71045; 74177; 80048; 80053; 80307; 81001; 82962; 83605; 83735; 83880; 85007; 85025; 87040; 87070; 87086; 87186; 87205; 87493; 87804; 87880; 93005; 96361; 96374; 96375; J0696; J0878; J1650; J1885; J2310; J2405; J2543; J3370; J7030; J7040; J7050; Q0162; Q9966; Q9967; 97530; 99285-25

== ENCOUNTER 2018-10-24 07:34 | Inpatient (IN) | payer OTHER ==
[2018-10-24] VITALS (7 sets, daily range): BP systolic 156–175; BP diastolic 81–93
[~2018-10-24] VITALS: Ht 165.1 cm; Wt 93.9 kg
[~2018-10-24 07:34] MED LIST changes: +AMOX1TAB61 PO; +CEPH-264 PO; -GABA600T2 PO; +GABA600T7 PO; +IV RINGERS,LACTATED 1000ML 1,000 ML IV SCH; +LIDOCAINE 1% PF 2 ML VIAL. ID PRN; +LISI-338 PO; +MORPHINE SULFATE 2 MG/ML VIAL. IV PRN; +ONDANSETRON PF 4 MG/2 ML VIAL. IV PRN; +TAPE100T9 PO; +TRAZ-118 PO; -TRAZ-85 PO; +fentaNYL PF VIAL 100 MCG/2 ML VIAL IV PRN
[2018-10-24] MEDS ORDERED: EPINEPHrine VIAL 30 MG/30 ML VIAL ONE (07:52)
[2018-10-24] MEDS ORDERED: ceFAZolin 2GM PREMIX 2 GM/50 ML BAG IV ONE (08:00)
[2018-10-24] MEDS ORDERED: MIDAZOLAM HCL/PF 2 MG/2 ML VIAL. ONE (08:07)
[2018-10-24] MEDS ORDERED: ONDANSETRON PF 4 MG/2 ML VIAL. ONE (08:08)
[2018-10-24] MEDS ORDERED: SEVOFLURANE 61 TO 120 MINUTES. IH ONE (08:08)
[2018-10-24] MEDS ORDERED: DEXAMETHASONE SOD PHOS 20 MG/5 ML VIAL. ONE (08:08)
[2018-10-24] MEDS ORDERED: PROPOFOL 20 ML IV ONE (08:08)
[2018-10-24] MEDS ORDERED: PHENYLEPHRINE 10 MG/ML VIAL. ONE (08:08)
[2018-10-24] MEDS ORDERED: LIDOCAINE 2% PF 5 ML VIAL. ONE (08:08)
[2018-10-24] MEDS ORDERED: KETOROLAC 30 MG/ML INJ FOR OR. INJ ONE (08:08)
[2018-10-24] MEDS ORDERED: ROCURONIUM 50 MG/5 ML VIAL. ONE (08:36)
[2018-10-24] MEDS ORDERED: fentaNYL PF VIAL 100 MCG/2 ML VIAL IV ONE (09:15)
--- NOTE | 2018-10-24 11:00 | HP ---
ADMIT DATE: 10/24/2018 CHIEF COMPLAINT: Right shoulder pain. HISTORY OF PRESENT ILLNESS: The patient is well known to me from right hip and leg pain, followup from previous arthroplasties with some ongoing radicular symptoms. She has had some longer standing several-month history of right shoulder pain, difficult to get rest at night as well as use her walker. She is less symptomatic with her arm at her side, more so trying to lift away from her body, push or pull and the more she uses it, the more it hurts. PAST MEDICAL HISTORY: Significant for type 2 diabetes, vitamin D deficiency, hyperlipidemia, traumatic brain injury, depression, anxiety, chronic pain, inflammatory bowel syndrome, incontinence, osteoarthritis and obesity. PAST SURGICAL HISTORY: Previous rotator cuff repair, right total hip arthroplasty, right total knee arthroplasty and a lumbar fusion, hysterectomy and oophorectomy. FAMILY HISTORY: Mother is with a brain tumor. Father of type 2 diabetes. SOCIAL HISTORY: Denies smoking, alcohol or drug use. MEDICATIONS: List is reviewed. ALLERGIES: Include STOMACH UPSET WITH METFORMIN and JANUVIA as well as SIDE EFFECTS of EMBEDA PAIN MEDICINE. REVIEW OF SYSTEMS: Denies any chest pain, shortness of breath, fever, chills, but significant for the ongoing radiculopathy and right lower extremity as well as right shoulder pain. PHYSICAL EXAMINATION: VITAL SIGNS: Per admission sheet. HEENT: Atraumatic, normocephalic. HEART: Regular rate and rhythm. LUNGS: Clear to auscultation bilaterally. ABDOMEN: Benign. EXTREMITIES: Examination of the right shoulder reveals weakness, especially in abduction more so than external rotation, internal rotation. Strength normal. No apprehension or instability. Normal examination of contralateral shoulder, bilateral elbows and wrists. IMAGING: MRI shows a full-thickness tear of the distal supraspinatus insertion. TREATMENT PLAN: I had previously gone over with her risks, benefits, postoperative course of possible rotator cuff repair. We had waited until she was less involved with her grandkids. I was concerned about the possibility of protecting the repair if she had to get up and around a lot with her walker. She is ready at this point as her pain is worsening. We had covered risks, benefits, postoperative course of the procedure including the possibility of nonhealing, continued pain, nerve or blood vessel damage, medical or other anesthetic complications, the long recovery process expected and all her questions were answered. She wishes to proceed with surgical evaluation and treatment today, possible overnight admission due to her preexisting pain tolerance and other medical issues. BERNADETTE TOLENTINO MD DR: ERIN/karey JOB#: [id number] / [id number] STEFAN Skinner MD
[2018-10-24] MEDS ORDERED: fentaNYL PF VIAL 100 MCG/2 ML VIAL ONE (11:05)
[2018-10-24] MEDS ORDERED: GLYCOPYRROLATE 1 MG/5 ML VIAL. ONE (11:15)
[2018-10-24] MEDS ORDERED: NEOSTIGMINE METHYLSULFATE 5 MG/5 ML SYRINGE. ONE (11:15)
[2018-10-24] MEDS ORDERED: BUPIVACAINE MPF 0.5% 30 ML VIAL. ONE (12:01)
[2018-10-24] MEDS: fentaNYL PF VIAL 100 MCG/2 ML VIAL IV PRN ×2 (14:03→14:14)
[2018-10-24] MEDS: PROCHLORPERAZINE 10 MG/2 ML VIAL. IV PRN ×2 (14:19→14:40)
[2018-10-24] MEDS: HYDROmorphone 2 MG/ML VIAL IV PRN ×5 (14:20→18:30)
[2018-10-24] MEDS: IV DEXTROSE 5 %-0.45 % NACL 1,000 ML IV SCH (14:30)
[2018-10-24] MEDS ORDERED: ACETAMINOPHEN 325 MG TABLET. PO PRN (14:30)
[2018-10-24] MEDS ORDERED: CALCIUM CARBONATE 500 MG TAB.CHEW PO PRN (14:30)
[2018-10-24] MEDS ORDERED: ZOLPIDEM 5 MG TABLET. PO PRN (14:30)
[2018-10-24] MEDS ORDERED: DEXTROSE 50% 25 GM / 50ML DISP.SYRIN. IV PRN (14:30)
[2018-10-24] MEDS ORDERED: 0.9 % SODIUM CHLORIDE 10 ML DISP.SYRIN. IV PRN (14:30)
[2018-10-24] MEDS ORDERED: PROCHLORPERAZINE 5 MG TABLET. PO PRN (14:30)
[2018-10-24] MEDS ORDERED: INSULIN LISPRO 100 UNIT/ML 3ML VIAL. SQ ONE (15:15)
--- NOTE | 2018-10-24 16:30 | NUR ---
Received from PACU per w/c alert to name otherwise sedate, dressing to right shoulder clean, dry & intact with sling for support, ice pack for comfort, states discomfort level 10/10 but falls to sleep immediately, HOB elevated, call light within reach, bed alarm activated
--- NOTE | 2018-10-24 16:33 | PDOC4 ---
Operative Note Operative Note Date of surgery: 10/24/2018 Preoperative diagnosis: Distal supraspinatus tear Postoperative diagnosis: Same plus severe impingement from acromial spurring superior labral fraying Operative procedure: Right shoulder arthroscopy arthroscopic rotator cuff repair labral debridement and subacromial decompression Surgeon: Koko Anesthesia: GenJoseph Estimated blood loss: 10 mL Complications: None Operative indications: Please see my detailed dictated history and physical of today to cover operative indications and note that we had covered possibility of nonhealing continued pain nerve or blood vessel damage medical or other anesthetic consultations among others and covered the long recovery process likely from the planned rotator cuff repair all her questions were answered she wishes to proceed with surgical evaluation and treatment. Operative text: Patient was identified procedure verified patient placed in the supine position on the operative table. After adequate amounts of general anesthesia were administered she was placed in the decubitus position right side up all bony prominences were well-padded and the shoulder was examined under anesthesia found a full range of motion no instability. The right shoulder was then prepped and draped in standard sterile fashion placed in the arthroscopic arm turner with a total of 15 pounds of traction a standard posterior portal was established an anterior portal established using spinal he localization and the shoulder joint was systematically examined. She is found to have type I SLAP tear with superior labral fraying debrided back to stable tissue with overall intact long head biceps insertion. She was found to have a complete tear of distal supraspinatus visualized from the joint surface the subacromial bursa was cleared to allow visualization and she was found to have severe anterior acromial spurring and impingement anterior acromial spur was removed back to a type I acromion using cutting block technique with an arthroscopic bur. Bony fragments were removed rotator cuff was mobilized and medial row absorbable double loaded taped anchors composite TCP a total of 2 were placed along the medial row sutures were placed in a mattress fashion and tied to accomplish a medial row repair a total of 2 Ventex link knotless 4.75 mm peek anchors were then placed laterally to accomplish the double row repair with excellent apposition of the rotator cuff noted in all degrees of internal/external rotation. Joint was drained of arthroscopic fluid portals closed with subcuticular Monocryl Steri-Strips and Mastisol sterile dressings were applied she was placed in immobilizer extirpated transferred to postop holding in stable condition having tolerated procedure well BERNADETTE TOLENTINO MD Oct 24, 2018 16:33
[2018-10-24] MEDS: LISINOPRIL 5 MG TABLET. PO SCH (20:04)
[2018-10-24] MEDS: CELECOXIB 100 MG CAPSULE. PO SCH (20:49)
[2018-10-24] MEDS: CYCLOBENZAPRINE 10 MG TABLET. PO SCH (20:49)
[2018-10-24] MEDS: GABAPENTIN 400 MG CAPSULE. PO SCH (20:49)
[2018-10-24] MEDS: FERROUS SULFATE 325 MG TABLET. PO SCH (20:49)
[2018-10-24] MEDS ORDERED: traZODone 50 MG TABLET. PO SCH (21:00)
[2018-10-24] MEDS ORDERED: DOXEPIN HCL 10 MG CAPSULE. PO SCH (21:00)
[2018-10-24] MEDS ORDERED: ATORVASTATIN CALCIUM 10 MG TABLET. PO SCH (21:00)
[2018-10-24] MEDS: oxyCODONE ER 10 MG TAB.ER.12H PO SCH (21:26)
[2018-10-25] MEDS: IV DEXTROSE 5 %-0.45 % NACL 1,000 ML IV SCH (00:30)
[2018-10-25] MEDS: HYDROmorphone 2 MG/ML VIAL IV PRN (02:40)
[2018-10-25 02:57] VITALS: BP 148/85
[2018-10-25 06:32] VITALS: BP 138/75
[2018-10-25] MEDS ORDERED: ASPIRIN 325 MG TABLET PO SCH (08:00)
[2018-10-25] MEDS ORDERED: POTASSIUM CHLORIDE 10 MEQ TABLET.ER. PO SCH (08:00)
[2018-10-25] MEDS ORDERED: CLOPIDOGREL BISULFATE 75 MG TABLET PO SCH (08:00)
[2018-10-25] MEDS: oxyCODONE ER 10 MG TAB.ER.12H PO SCH (08:15)
[2018-10-25] MEDS: FERROUS SULFATE 325 MG TABLET. PO SCH (08:15)
[2018-10-25] MEDS: CELECOXIB 100 MG CAPSULE. PO SCH (08:15)
[2018-10-25] MEDS: CYCLOBENZAPRINE 10 MG TABLET. PO SCH (08:16)
[2018-10-25] MEDS: GABAPENTIN 400 MG CAPSULE. PO SCH (08:16)
[2018-10-25 08:21] VITALS: BP 139/82
[2018-10-25] MEDS: LISINOPRIL 5 MG TABLET. PO SCH (08:21)
[2018-10-25] MEDS ORDERED: GLIMEPIRIDE 2 MG TABLET. PO SCH (09:00)
[2018-10-25] MEDS ORDERED: INVOKANA 300 MG PO SCH (09:00)
[2018-10-25] MEDS ORDERED: OXYC1TAB22 PO (10:48)
[2018-10-25] MEDS ORDERED: oxyCODONE/APAP 10/325 1 TAB TABLET PO ONE (13:15)
--- NOTE | 2018-10-25 13:50 | NUR ---
Discharge instructions given with prescription. Answered questions and concerns. Verbalized understanding both pt and daughter. Extra dressings given with ice pack. Pt discharged home accompanied by family.
--- NOTE | 2018-10-31 00:30 | DS ---
DATE OF DISCHARGE: 10/25/2018 PRINCIPAL DIAGNOSIS: Right rotator cuff tear. PROCEDURE: Right shoulder arthroscopy and rotator cuff repair. DISCHARGE: To home with self-care. Follow up with Dr. Sutherland in 7-10 days. DISCHARGE INSTRUCTIONS: Restrictions include no active motion of the right shoulder, passive range of motion only. Physical therapy to follow. Discharged on an outpatient basis, fine motor use only with the right arm at her side. May remove dressings in 2 days, may then shower. No soaking until sutures removed. DISCHARGE MEDICATIONS: Include Nucynta extended release 150 mg p.o. b.i.d., Percocet 10/325 1 p.o. q. 6 hours p.r.n. pain and continue other preoperative medications including her clopidogrel 75 mg p.o. daily, which was continued preoperatively and during her hospital stay. BRIEF DESCRIPTION OF HOSPITAL COURSE: The patient underwent rotator cuff repair on the right. She was admitted overnight for expected pain control issues as she is on chronic pain medication and underwent some postoperative sedation with adequate pain medication administration, particularly as she was not able to undergo a preoperative interscalene block due to being on clopidogrel due to her previous heart stent. She did well on her OxyContin 20 mg b.i.d., but was unable to take that in the past due to her insurance requirements. Therefore, pain medicines were modified as above. On postoperative day #1, she was well controlled pain and independent and was discharged home in stable condition. BERNADETTE SUTHERLAND MD DR: ERIN/karey JOB#: [id number] / [id number]
== END 2018-10-25 13:50 | disposition home or self-care (01) | DRG 502 ==
LOC: SURG 07:34 → 4 SOUTHEST 16:49
PROVIDERS: ADMIT Orthopaedic Surgery; ATTEND Orthopaedic Surgery
PROC: 0RNJ4ZZ Release Right Shoulder Joint, Percutaneous Endoscopic Approach (ICD-10-PCS; 2018-10-24)
PROC: 0LB14ZZ Excision of Right Shoulder Tendon, Percutaneous Endoscopic Approach (ICD-10-PCS; principal; 2018-10-24 09:15)
DX: M75.101 Unspecified rotator cuff tear or rupture of right shoulder, not specified as traumatic (principal); E66.9 Obesity, unspecified; S43.431A Superior glenoid labrum lesion of right shoulder, initial encounter; F32.9 Major depressive disorder, single episode, unspecified; Z96.641 Presence of right artificial hip joint; Z96.651 Presence of right artificial knee joint; F41.9 Anxiety disorder, unspecified; G89.29 Other chronic pain; M19.90 Unspecified osteoarthritis, unspecified site; E11.9 Type 2 diabetes mellitus without complications; E78.5 Hyperlipidemia, unspecified; Z83.3 Family history of diabetes mellitus; Z90.710 Acquired absence of both cervix and uterus; Z88.8 Allergy status to other drugs, medicaments and biological substances; Z68.34 Body mass index [BMI] 34.0-34.9, adult
CPT/HCPCS: 82962; C1713; C1782; J0171; J0696; J0780; J1100; J1170; J1885; J2001; J2250; J2405; J2704; J2710; J3010; J3490; 97110; 97116; 97530; 97535

== ENCOUNTER → 2018-11-15 | Outpatient (CLI) | payer OTHER ==
[2018-10-25 08:21] VITALS: BP 139/82
[~2018-11-15] MED LIST changes: -IV RINGERS,LACTATED 1000ML 1,000 ML IV SCH; -LIDOCAINE 1% PF 2 ML VIAL. ID PRN; -MORPHINE SULFATE 2 MG/ML VIAL. IV PRN; -ONDANSETRON PF 4 MG/2 ML VIAL. IV PRN; -fentaNYL PF VIAL 100 MCG/2 ML VIAL IV PRN
--- NOTE | 2018-11-16 01:47 | PAIN ---
DATE OF SERVICE: 11/15/2018 PROGRESS NOTE FOR PAIN CLINIC DIAGNOSES: 1. Lumbar radiculopathy with post-lumbar laminectomy syndrome. 2. Right hip and knee joint pain with primary osteoarthritis. HISTORY OF PRESENT ILLNESS: The patient is a 58-year-old female who returns for followup status post caudal epidural steroid injections, last seen on 03/01/2018. The patient did very well with this with about a 75% improvement after the injection. The patient reports the pain has returned now. She has recently had heart stents placed as well as right shoulder rotator cuff repair within the last month and reports the pain in her back is significantly increased since both of these in the low back and right lower extremity, posterior gluteus, posterior thigh, posterior calf radiating to the right leg with a tingling, pain is also sharp and shooting in the low back, shooting in the leg, radiating, becoming more constant, more severe with walking, standing, changing positions. The patient reports it awakens her from sleep occasionally but it is better with sitting or lying down. The patient reports no new motor or sensory deficits and no new bowel or bladder incontinence. She is taking Plavix now, which is new for the heart stent. The patient reports her pain is a 10 on a scale of 10 at its worst, 10 on average, 8 at its least and is an 8 today. PHYSICAL EXAMINATION: VITAL SIGNS: The patient's blood pressure is 126/68, pulse is 80, respirations 18 and temperature 98.2 degrees Fahrenheit. Height is 5 feet 5 inches and weight is 252 pounds. GENERAL: She is awake, alert, oriented, appropriate and very pleasant demeanor. HEENT: Head shows normocephalic and atraumatic. Extraocular movements are intact and symmetrical. Oral cavity, mucous membranes are moist and pink. Dentition intact. NECK: Shows anterior throat supple without palpable lymphadenopathy noted. Swallow reflex symmetrical. CHEST: Shows normal with inspection. Breath sounds clear to auscultation bilaterally. HEART: Shows S1 and S2 clear. No murmurs auscultated. ABDOMEN: Soft, nontender and nondistended. No palpable organomegaly is noted. No rebound or guarding demonstrated. BACK: Shows spine grossly in the midline. Normal appearing thoracic kyphosis and lumbar lordotic curvature. Lumbar paraspinous musculature shows slightly flattened, but the paraspinous muscles show symmetrical on inspection. On palpation shows some moderate tenderness diffusely bilaterally but only diffusely without radiation. The patient has good rotational motion of lumbar spine, both laterally as well as extension and flexion without difficulty. There is no tenderness over the sacrum or sacroiliac regions or the spinous processes. EXTREMITIES: The patient's lower extremities show deep tendon reflexes 1+ patella and tendo-calcaneus tendons and equal. Motor exam is approximately 4 on a scale 5 but equal and symmetrical with dorsiflexion, extension, quadriceps and hamstring flexion. Peripheral pulses are 1+ posterior tibial. No peripheral edema is noted bilaterally. Options were discussed with the patient. The patient's old chart was reviewed as well as her current medication regimen updated. Current review of systems updated today as well. We will check the patient's model and mold maker plaster regarding holding her Plavix for 7 days prior to potential caudal epidural steroid injection. The patient was given Medrol Dosepak in the meantime with instructions, side effects to be aware of, especially cautioned about increasing blood sugar with this. The patient understands and would like to try this in the meantime and we will wait for authorization and clearance with her model and mold maker plaster. If deemed safe and effective, we have her hold the Plavix for 7 days and return for caudal epidural steroid injection at that time. NICOLETTE FRANK MD DR: ANJEL/karey JOB#: [id number] / [id number]
== END | disposition home or self-care (01) ==
LOC: PNCL 11:17
PROVIDERS: ATTEND Anesthesiology
DX: M48.061 Spinal stenosis, lumbar region without neurogenic claudication (principal); M54.16 Radiculopathy, lumbar region; M17.11 Unilateral primary osteoarthritis, right knee; M96.1 Postlaminectomy syndrome, not elsewhere classified
CPT/HCPCS: G0463

== ENCOUNTER 2019-01-07 20:45 | Emergency (ER) | payer OTHER ==
[~2019-01-07] VITALS: Ht 165.1 cm; Wt 111.1 kg
[2019-01-07 21:10] VITALS: BP 205/105
--- NOTE | 2019-01-07 21:17 | PHYS DOC ---
Past Medical History Past Medical History: Arthritis, Diabetes-Type II, Fibromyalgia, High Cho lesterol, Hypertension, Hepatitis, Other Additional Past Medical Histor: HEP C, DM WITH NEUROPATHY, back pain,insomnia, chronic cough (SANTIAGO ANDRADE APRN) Past Surgical History: Hip Replacement, Hysterectomy, Knee Replacement, Tonsillectomy, Other Additional Past Surgical Histo: ROTATOR CUFF SX, CYST REMOVAL X 3, R FOOT SX WITH NERVE DAMAGE low back (SANTIAGO ANDRADE APRN) Alcohol Use: None Drug Use: None (SANTIAGO ANDRADE APRN) Adult General Chief Complaint Chief Complaint: PAIN CONTROL HPI HPI Patient is a 58 year old female with history of diabetes, hypertension, high cholesterol, fibromyalgia, who presents to the ED today complaining of 10 out of 10 chronic right low back pain radiating to the right abdomen that began one year ago. Patient denies any known injury. She states she's been worked up for this pain multiple times including at this [place] [facility], and [facility]. He states they could not find any acute cause for this pain and she does not want any workup done today. She states she ran out of her oxycodone 10/325 mg and was wondering if we can give another rx. She states she has a prescription for oxycodone from Dr. Sutherland which she cannot fill until Tuesday. (SANTIAGO ANDRADE APRN) Review of Systems Review of Systems Constitutional: Denies fever or chills [] Eyes: Denies change in visual acuity, redness, or eye pain [] HENT: Denies nasal congestion or sore throat [] Respiratory: Denies cough or shortness of breath [] Cardiovascular: No additional information not addressed in HPI [] GI: Reports pain radiating to the right lower quadrant, denies nausea, vomiting, bloody stools or diarrhea [] : Denies dysuria or hematuria [] Musculoskeletal: Reports right low back pain Integument: Denies rash or skin lesions [] Neurologic: Denies headache, focal weakness or sensory changes [] All other systems were reviewed and found to be within normal limits, except as documented in this note. (SANTIAGO ANDRADE APRN) Current Medications Current Medications Current Medications Medications (Trade) Dose Ordered Sig/Doris Start Time Stop Time Status Last Admin Dose Admin Diazepam (Valium) 5 mg 1X ONCE 01/07/19 21:30 01/07/19 21:31 DC 01/07/19 21:21 5 MG Hydromorphone HCl (Dilaudid) 1 mg 1X ONCE 01/07/19 21:30 01/07/19 21:31 DC 01/07/19 21:23 1 MG (ODESSA SHAY MD) Allergies Allergies Allergies Coded Allergies Type Severity Reaction Last Updated Verified metformin Allergy Intermediate Diarrhea 10/24/18 Yes morphine Allergy Intermediate HIVES, HAIR LOSS 10/24/18 Yes naltrexone Allergy Intermediate HIVES, HAIR LOSS 10/24/18 Yes sitagliptin Allergy Intermediate Diarrhea 10/24/18 Yes milk Allergy Mild 10/24/18 Yes (ODESSA SHAY MD) Physical Exam Physical Exam Constitutional: Well developed, well nourished, no acute distress, non-toxic appearance. [] HENT: Normocephalic, atraumatic, bilateral external ears normal, oropharynx moist, no oral exudates, nose normal. [] Eyes: PERRLA, EOMI, conjunctiva normal, no discharge. [] Neck: Normal range of motion, no tenderness, supple, no stridor. [] Cardiovascular:Heart rate regular rhythm, no murmur [] Lungs & Thorax: Bilateral breath sounds clear to auscultation [] Abdomen: Bowel sounds normal, soft, no tenderness, no masses, no pulsatile masses. [] Skin: Warm, dry, no erythema, no rash. [] Back: Old healed surgical incision noted midline lower lumbar spine, diffuse paraspinal muscle tenderness to the right lumbar spine, no midline lumbar spine tenderness Extremities: No tenderness, no cyanosis, no clubbing, ROM intact, no edema. [] Neurologic: Alert and oriented X 3, normal motor function, normal sensory function, no focal deficits noted. [] Psychologic: Affect normal, judgement normal, mood normal. [] (SANTIAGO ANDRADE APRN) Current Patient Data Vital Signs Vital Signs Date Time Temp Pulse Resp B/P (MAP) Pulse Ox O2 Delivery O2 Flow Rate FiO2 01/07/19 21:23 18 99 Room Air 01/07/19 21:10 98.6 71 205/105 (138) 98.6 (ODESSA SHAY MD) EKG EKG [] (SANTIAGO ANDRADE APRN) Radiology/Procedures Radiology/Procedures [] (SANTIAGO ANDRADE APRN) Course & Med Decision Making Course & Med Decision Making Pertinent Labs and Imaging studies reviewed. (See chart for details) This is a 58-year-old female patient presenting to the ED today complaining of chronic right low back pain radiating to the right lower quadrant, pain began one year ago. Patient states she's had multiple workups including work up done in this hospital, [facility] and [facility] for this pain with no acute cause for her symptoms. She currently states she ran out of oxycodone 10/325 mg. She states she has a prescription she can fill on Tuesday for oxycodone but she is wondering if we can give her another prescription in hope they can fill it sooner because she is an ED patient. Informed patient we cannot give her another prescription, she has to be patient until Tuesday. Offered pain medication in the ED. She was discharged to home. (SANTIAGO ANDRADE APRN) Course & Med Decision Making Staff Physician Addendum: I was working in the ER during the course of this patient's visit. I was available for consultation as needed, but I was not directly involved in the care of this patient. (ODESSA SHAY MD) Dragon Disclaimer Dragon Disclaimer This electronic medical record was generated, in whole or in part, using a voice recognition dictation system. (SANTIAGO ANDRADE APRN) Departure Departure Impression: Primary Impression: Chronic right-sided low back pain Disposition: HOME, SELF-CARE Condition: STABLE Referrals: STEFAN CAMARA MD (PCP) Follow-up in the course of this week Patient Instructions: Abdominal Pain (Nonspecific), Back Pain, Adult Additional Instructions: You were evaluated in the emergency room with chronic low back pain and abdominal pain. Please continue following up with your own doctor as of an outpatient for this. Problem Qualifiers Primary Impression: Chronic right-sided low back pain Sciatica presence: with sciatica Sciatica laterality: sciatica of right side Qualified Codes: M54.41 - Lumbago with sciatica, right side; G89.29 - Other chronic pain SANTIAGO ANDRADE APRN Jan 07, 2019 21:17 ODESSA SHAY MD Jan 08, 2019 05:03
[2019-01-07] MEDS ORDERED: HYDROmorphone 2 MG/ML VIAL IM ONE (21:30)
[2019-01-07] MEDS ORDERED: diazePAM 5 MG TABLET PO ONE (21:30)
== END 2019-01-07 21:27 | disposition home or self-care (01) ==
LOC: ER 20:45
DX: G89.29 Other chronic pain (principal); M54.41 Lumbago with sciatica, right side; R10.31 Right lower quadrant pain; M19.90 Unspecified osteoarthritis, unspecified site; E11.9 Type 2 diabetes mellitus without complications; M79.7 Fibromyalgia; E78.00 Pure hypercholesterolemia, unspecified; I10 Essential (primary) hypertension; Z90.710 Acquired absence of both cervix and uterus; Z88.5 Allergy status to narcotic agent; Z88.8 Allergy status to other drugs, medicaments and biological substances; Z91.011 Allergy to milk products
CPT/HCPCS: 96372; 99283; J1170

== ENCOUNTER 2019-01-22 13:41 | Emergency (ER) | payer OTHER, MEDICAID ==
[~2019-01-22] VITALS: Ht 165.1 cm; Wt 109.8 kg
[2019-01-22] MEDS ORDERED: IV NORMAL SALINE 1000ML BAG 1,000 ML IV ONE (14:15)
--- NOTE | 2019-01-22 14:18 | EKG ---
[facility] [address] [place] [address] Test Date: 2019-01-22 Test Time: 14:11:46 Pat Name: YANNICK KNIGHT Department: Room: Gender: F Microarray Specialist: : [id number] Requested By: DANNI BARKER Order Number: [id number] Reading MD: Measurements Intervals [place] Rate: 68 P: 51 NM: 168 QRS: 0 QRSD: 86 T: 36 QT: 394 QTc: 419 Interpretive Statements SINUS RHYTHM LEFTWARD AXIS QRS(T) CONTOUR ABNORMALITY CONSIDER ANTEROLATERAL MYOCARDIAL DAMAGE POSSIBLY ABNORMAL ECG RI6.01 Unconfirmed report No previous ECG available for comparison
--- NOTE | 2019-01-22 14:22 | PHYS DOC ---
Past Medical History Past Medical History: Arthritis, Diabetes-Type II, Fibromyalgia, High Cholesterol, Hypertension, Hepatitis, Other Additional Past Medical Histor: HEP C, DM WITH NEUROPATHY, back pain,insomnia, chronic cough Past Surgical History: Hip Replacement, Hysterectomy, Knee Replacement, Tonsillectomy, Other Additional Past Surgical Histo: ROTATOR CUFF SX, CYST REMOVAL X 3, R FOOT SX WI TH NERVE DAMAGE low back Alcohol Use: None Drug Use: None Adult General Chief Complaint Chief Complaint: ABDOMINAL PAIN HPI HPI 58 y/o female presents to ER via POV with multiple complaints. Patient reports for the past year she has had intermittent abdominal pain and was admitted in July with an enlarged appendix as well has had one heart stent. Patient's daughter Sharon at bedside reports patient since yesterday has had increased pain and yest. Review of Systems Review of Systems Constitutional: Denies fever or chills. Reports generalized fatigue Eyes: Denies change in visual acuity, redness, or eye pain [] HENT: Denies nasal congestion or sore throat [] Respiratory: Denies cough or shortness of breath [] Cardiovascular: Reports chest pain across side to side upper portion of chest GI: Denies vomiting, bloody stools or change in bowel pattern- hx IBS with chronic diarrhea. Reports diffuse abd pain with intermittent nausea and decreased appetite : Denies dysuria or hematuria. Reports urinary urgency Musculoskeletal: Denies joint pain. Reports upper back pain Integument: Denies rash or skin lesions [] Neurologic: Denies headache, focal weakness or sensory changes [] Endocrine: Denies polyuria or polydipsia [] All other systems were reviewed and found to be within normal limits, except as documented in this note. Current Medications Current Medications Current Medications Medications (Trade) Dose Ordered Sig/Doris Start Time Stop Time Status Last Admin Dose Admin Dicyclomine HCl (Bentyl) 20 mg 1X ONCE 01/22/19 14:45 01/22/19 14:46 DC 01/22/19 14:42 20 MG Fentanyl Citrate (Fentanyl 2ml Vial) 50 mcg 1X ONCE 01/22/19 14:45 01/22/19 14:46 DC 01/22/19 14:42 50 MCG Hydromorphone HCl (Dilaudid) 0.5 mg 1X ONCE 01/22/19 17:00 01/22/19 17:02 DC 01/22/19 17:09 0.5 MG Info (CONTRAST GIVEN -- Rx MONITORING) 1 each PRN DAILY PRN 01/22/19 16:15 01/22/19 19:01 DC Iohexol (Omnipaque 300 Mg/ml) 75 ml 1X ONCE 01/22/19 16:15 01/22/19 16:16 DC 01/22/19 16:11 75 ML Ondansetron HCl (Zofran) 4 mg 1X ONCE 01/22/19 14:45 01/22/19 14:46 DC 01/22/19 14:42 4 MG Sodium Chloride 1,000 ml @ 1,000 mls/hr 1X ONCE 01/22/19 14:15 01/22/19 15:14 DC 01/22/19 14:41 1,000 MLS/HR Allergies Allergies Allergies Coded Allergies Type Severity Reaction Last Updated Verified metformin Allergy Intermediate Diarrhea 10/24/18 Yes morphine Allergy Intermediate HIVES, HAIR LOSS 10/24/18 Yes naltrexone Allergy Intermediate HIVES, HAIR LOSS 10/24/18 Yes sitagliptin Allergy Intermediate Diarrhea 10/24/18 Yes milk Allergy Mild 10/24/18 Yes Physical Exam Physical Exam Constitutional: Well developed, well nourished, no acute distress, non-toxic appearance. [] HENT: Normocephalic, atraumatic, oropharynx moist, no oral exudates, nose danna l. [] Eyes: Pupils equal, conjunctiva normal, no discharge. [] Neck: Normal range of motion, no tenderness, supple, no stridor. [] Cardiovascular: Heart rate regular rhythm, no murmur [] Lungs & Thorax: Bilateral breath sounds clear to auscultation- resp. equal/nonlabored Abdomen: Bowel sounds normal, soft/obese, diffuse tenderness in all abd- increased pain rt lower abd, no masses, no pulsatile masses. [] Skin: Warm, dry, no erythema, no rash. [] Back: No tenderness, no CVA tenderness. [] Extremities: No tenderness, no cyanosis, no clubbing, ROM intact, no edema. [] Neurologic: Alert and oriented X 3, normal motor function, normal sensory function, no focal deficits noted. [] Psychologic: Affect normal, judgement normal, mood anxious/tearful during exam and discussion of ongoing sxs Current Patient Data Vital Signs Vital Signs Date Time Temp Pulse Resp B/P (MAP) Pulse Ox O2 Delivery O2 Flow Rate FiO2 01/22/19 18:00 58 23 100 Room Air 01/22/19 17:00 123/82 (96) 01/22/19 14:21 98.1 98.1 Lab Values Laboratory Tests Test 01/22/19 15:30 01/22/19 16:55 White Blood Count 6.7 x10^3/uL (4.0-11.0) Red Blood Count 4.22 x10^6/uL (3.50-5.40) Hemoglobin 13.3 g/dL (12.0-15.5) Hematocrit 41.3 % (36.0-47.0) Mean Corpuscular Volume 98 fL (79-100) Mean Corpuscular Hemoglobin 31 pg (25-35) Mean Corpuscular Hemoglobin Concent 32 g/dL (31-37) Red Cell Distribution Width 14.7 % (11.5-14.5) H Platelet Count 250 x10^3/uL (140-400) Neutrophils (%) (Auto) 48 % (31-73) Lymphocytes (%) (Auto) 40 % (24-48) Monocytes (%) (Auto) 8 % (0-9) Eosinophils (%) (Auto) 2 % (0-3) Basophils (%) (Auto) 1 % (0-3) Neutrophils # (Auto) 3.2 x10^3/uL (1.8-7.7) Lymphocytes # (Auto) 2.7 x10^3/uL (1.0-4.8) Monocytes # (Auto) 0.5 x10^3/uL (0.0-1.1) Eosinophils # (Auto) 0.2 x10^3/uL (0.0-0.7) Basophils # (Auto) 0.1 x10^3/uL (0.0-0.2) Sodium Level 139 mmol/L (136-145) Potassium Level 3.5 mmol/L (3.5-5.1) Chloride Level 104 mmol/L (98-107) Carbon Dioxide Level 22 mmol/L (21-32) Anion Gap 13 (6-14) Blood Urea Nitrogen 15 mg/dL (7-20) Creatinine 0.7 mg/dL (0.6-1.0) Estimated GFR (Cockcroft-Gault) 104.0 BUN/Creatinine Ratio 21 (6-20) H Glucose Level 101 mg/dL (70-99) H Lactic Acid Level 2.4 mmol/L (0.4-2.0) H Calcium Level 9.3 mg/dL (8.5-10.1) Magnesium Level 2.0 mg/dL (1.8-2.4) Total Bilirubin 0.3 mg/dL (0.2-1.0) Aspartate Amino Transferase (AST) 27 U/L (15-37) Alanine Aminotransferase (ALT) 27 U/L (14-59) Alkaline Phosphatase 99 U/L (46-116) Troponin I Quantitative < 0.017 ng/mL (0.000-0.055) Total Protein 7.4 g/dL (6.4-8.2) Albumin 3.4 g/dL (3.4-5.0) Albumin/Globulin Ratio 0.9 (1.0-1.7) L Lipase 224 U/L (73-393) Urine Collection Type Unknown Urine Color Yellow Urine Clarity Clear Urine pH 7.0 Urine Specific [place] >=1.030 Urine Protein Negative mg/dL (NEG-TRACE) Urine Glucose (UA) >=1000 mg/dL (NEG) Urine Ketones (Stick) Negative mg/dL (NEG) Urine Blood Negative (NEG) Urine Nitrite Negative (NEG) Urine Bilirubin Negative (NEG) Urine Urobilinogen Dipstick 1.0 mg/dL (0.2 mg/dL) Urine Leukocyte Esterase Negative (NEG) Urine RBC 0 /HPF (0-2) Urine WBC Rare /HPF (0-4) Urine Squamous Epithelial Cells Occ /LPF Urine Bacteria Few /HPF (0-FEW) Laboratory Tests 01/22/19 15:30 Laboratory Tests 01/22/19 15:30 EKG EKG EKG obtained 01/22/19 at [address] Evans Sinus rhythm Ltward axis Rate68 No STEMI Radiology/Procedures Radiology/Procedures PROCEDURE: CHEST AP ONLY EXAM: CHEST 1 VIEW History: Chest pain COMPARISON: 07/27/2018 TECHNIQUE: Single portable radiograph of the chest FINDINGS: Mild cardiomegaly. Low lung volumes accentuates heart size and pulmonary vascularity. Minimal prominent bilateral interstitial lung markings. The costophrenic sulci are clear and well demarcated. IMPRESSION: Probable minimal congestive changes. Electronically signed by: Ashok Irvin MD (01/22/2019 2:53 PM) [place] [id number] DICTATED and SIGNED BY: ASHOK IRVIN MD DATE: 01/22/19 1453 PROCEDURE: CT ABD PELV W/ IV CONTRST ONLY EXAM: CT Abdomen and Pelvis with IV contrast CLINICAL HISTORY: Right-sided abdominal pain. COMPARISON: none TECHNIQUE: Helical CT of the abdomen and pelvis was performed following the administration of intravenous contrast. Axial, coronal and sagittal reformatted images were generated. PQRS compliance statement - One or more of the following individualized dose reduction techniques were utilized for this study: 1. Automated exposure control 2. Adjustment of the mA and/or kV according to patient size 3. Use of iterative reconstruction technique FINDINGS: Lower chest: Dependent opacities in the lower lobes bilaterally likely scarring/atelectasis. Heart is mildly enlarged. Abdomen and Pelvis: No focal liver lesion. Liver is top normal in size measuring 18 cm. Gallbladder is normal. No biliary ductal dilatation. Spleen is unremarkable. Left adrenal calcifications are again seen, possibly from prior hemorrhage or infection. Right adrenal gland is normal. Pancreas is unremarkable. Small nonobstructing left interpolar renal calculus is unchanged. No right renal calculus. Focal cortical thinning in the right upper pole from prior renal cortical scarring. Otherwise, symmetric nephrograms. No focal renal lesion. No hydronephrosis or hydroureter although evaluation of the distal ureters limited given streak artifact from right hip arthroplasty. No abdominal or pelvic ascites. No abdominal or pelvic lymphadenopathy. Retroaortic left renal vein. Atherosclerotic calcifications of the aorta is seen. Dense atheromatous plaque is seen at the origin of the celiac/SMA with significant intraluminal calcification, unchanged. Fat-containing periumbilical hernia containing a segment of colon. No small or large bowel dilatation. Appendix is normal. Bladder is grossly unremarkable. Bones: Changes of right total hip arthroplasty and lower lumbar spine hardware is seen. Degenerative changes of the spine and left hip are seen. No definite aggressive osseous lesion is seen. IMPRESSION: 1. Periumbilical hernia containing a segment of colon and fat without associated inflammatory change. 2. Nonobstructing left interpolar renal calculus. 3. No evidence for bowel obstruction. 4. Appendix is normal. Electronically signed by: Karri Alan MD (01/22/2019 4:24 PM) [facility] DICTATED and SIGNED BY: KARRI ALAN MD DATE: 01/22/19 5167 Course & Med Decision Making Course & Med Decision Making Pertinent Labs and Imaging studies reviewed. (See chart for details) 1815: Spoke with Dr. Edmonds, hand stonecutter for pt's PCP Dr. Rothman and discussed pt's case and plan of care. Following discussion on labs and CT results she feels patient is okay for discharge home with outpatient follow-up and care with primary care physician and GI/general surgeon as needed. Call placed to general surgeon to discuss patient's case prior to discharge. Discussed CT results with pt- re-exam of abd and she reports pain has improved. Abd soft/no rigidity. Gentle pressure applied periumbilical area with no palp. hernia- gentle palp. of the area and pt reported some further improvement in pain. 1829: Spoke with Dr. Brink, Gen. Surg hand stonecutter and discussed pt's case with NL WBCs, lactic acid at 2.[address] abd/pelvis with results of "Periumbilical hernia containing a segment of colon and fat without associated inflammatory change." Also discussed this provider with attempt to reduce hernia and following patient reported improved pain and was requesting food and drinks as her symptoms much improved. He is ok with pt being discharged with his referral info and pt following up outpt for re-eval and further care. These phone calls were discussed with patient with family at bedside. Patient continues to request food and drink as her symptoms have improved. She remains nontoxic in appearance and in no visible distress during discussion on plan of care. Patient reports she is comfortable with home discharge plan with plans to call tomorrow to schedule follow-up appointments. Patient advised on increasing fluid intake and advancing diet as tolerated. Education provided on signs and symptoms to return to ER. Discharge instructions were discussed. Patient to follow-up with primary care physician, GI, and Gen. Surg. for re-eval and further care. Dragon Disclaimer Dragon Disclaimer This electronic medical record was generated, in whole or in part, using a voice recognition dictation system. Departure Departure Impression: Primary Impression: Abdominal pain Additional Impression: Hernia Disposition: 01 HOME, SELF-CARE Condition: STABLE Referrals: STEFAN ROTHMAN MD (PCP) CHACHO BRINK MD, SRINIVASA G MD Patient Instructions: Abdominal Pain, Hernia, [id number] Additional Instructions: Drink plenty of fluids and slowly advance diet as tolerated. All as soon as possible and schedule follow-up appointments with your primary care physician, gastrointestinal doctor, in general surgeon for reevaluation and further care. If taking any prescribed [place] tablets he should drink plenty of fluids and you can take an [id number] stool softener to prevent constipation. Scripts Hydrocodone/Apap 5-325 (NORCO 5-325 TABLET) 1 Each Tablet 1 TAB PO PRN Q6HRS PRN for PAIN, #8 TAB 0 [address]ills [address] or drinking alcohol while taking this medication Prov: DANNI BARKER APRN 01/22/19 Dicyclomine Hcl (DICYCLOMINE HCL) 10 Mg Capsule 1 CAP PO PRN Q6HRS PRN for PAIN, #10 CAP 0 Refills Prov: DANNI BARKER APRN 01/22/19 Problem Qualifiers DANNI BARKER APRN Jan 22, 2019 14:22
[2019-01-22] MEDS ORDERED: DICYCLOMINE 20 MG/2 ML AMPUL. IM ONE (14:45)
[2019-01-22] MEDS ORDERED: fentaNYL PF VIAL 100 MCG/2 ML VIAL IV ONE (14:45)
[2019-01-22] MEDS ORDERED: ONDANSETRON PF 4 MG/2 ML VIAL. IV ONE (14:45)
--- NOTE | 2019-01-22 14:56 | RAD ---
EXAM: CHEST 1 VIEW History: Chest pain COMPARISON: 07/27/2018 TECHNIQUE: Single portable radiograph of the chest FINDINGS: Mild cardiomegaly. Low lung volumes accentuates heart size and pulmonary vascularity. Minimal prominent bilateral interstitial lung markings. The costophrenic sulci are clear and well demarcated. IMPRESSION: Probable minimal congestive changes. Electronically signed by: Ashok Irvin MD (01/22/2019 2:53 PM) [place] [id number]
[2019-01-22 15:33] LABS: BASO # 0.1 x10^3/uL (0.0-0.2); BASO % 1 % (0-3); EOS # 0.2 x10^3/uL (0.0-0.7); EOS % 2 % (0-3); HEMATOCRIT 41.3 % (36.0-47.0); HEMOGLOBIN 13.3 g/dL (12.0-15.5); LYMPH # 2.7 x10^3/uL (1.0-4.8); LYMPH % 40 % (24-48); MEAN CORPUSCULAR HEMOGLOBIN 31 pg (25-35); MEAN CORPUSCULAR HGB CONC 32 g/dL (31-37); MEAN CORPUSCULAR VOLUME 98 fL (79-100); MONO # 0.5 x10^3/uL (0.0-1.1); MONO % 8 % (0-9); NEUT # 3.2 x10^3/uL (1.8-7.7); NEUT % 48 % (31-73); PLATELET COUNT 250 x10^3/uL (140-400); RED BLOOD COUNT 4.22 x10^6/uL (3.50-5.40); RED CELL DISTRIBUTION WIDTH 14.7 % (11.5-14.5); WHITE BLOOD COUNT 6.7 x10^3/uL (4.0-11.0)
[2019-01-22 15:48] LABS: CALCIUM 9.3 mg/dL (8.5-10.1); CREATININE 0.7 mg/dL (0.6-1.0); POTASSIUM 3.5 mmol/L (3.5-5.1)
[2019-01-22 15:54] LABS: ALBUMIN 3.4 g/dL (3.4-5.0); ALBUMIN/GLOBULIN RATIO 0.9 (1.0-1.7); TOTAL BILIRUBIN 0.3 mg/dL (0.2-1.0); TOTAL PROTEIN 7.4 g/dL (6.4-8.2)
[2019-01-22] MEDS ORDERED: IOHEXOL 300 MG/ML 100ML VIAL. IV ONE (16:15)
[2019-01-22] MEDS ORDERED: CONTRAST GIVEN. MC PRN (16:15)
--- NOTE | 2019-01-22 16:27 | RAD ---
EXAM: CT Abdomen and Pelvis with IV contrast CLINICAL HISTORY: Right-sided abdominal pain. COMPARISON: none TECHNIQUE: Helical CT of the abdomen and pelvis was performed following the administration of intravenous contrast. Axial, coronal and sagittal reformatted images were generated. PQRS compliance statement - One or more of the following individualized dose reduction techniques were utilized for this study: 1. Automated exposure control 2. Adjustment of the mA and/or kV according to patient size 3. Use of iterative reconstruction technique FINDINGS: Lower chest: Dependent opacities in the lower lobes bilaterally likely scarring/atelectasis. Heart is mildly enlarged. Abdomen and Pelvis: No focal liver lesion. Liver is top normal in size measuring 18 cm. Gallbladder is normal. No biliary ductal dilatation. Spleen is unremarkable. Left adrenal calcifications are again seen, possibly from prior hemorrhage or infection. Right adrenal gland is normal. Pancreas is unremarkable. Small nonobstructing left interpolar renal calculus is unchanged. No right renal calculus. Focal cortical thinning in the right upper pole from prior renal cortical scarring. Otherwise, symmetric nephrograms. No focal renal lesion. No hydronephrosis or hydroureter although evaluation of the distal ureters limited given streak artifact from right hip arthroplasty. No abdominal or pelvic ascites. No abdominal or pelvic lymphadenopathy. Retroaortic left renal vein. Atherosclerotic calcifications of the aorta is seen. Dense atheromatous plaque is seen at the origin of the celiac/SMA with significant intraluminal calcification, unchanged. Fat-containing periumbilical hernia containing a segment of colon. No small or large bowel dilatation. Appendix is normal. Bladder is grossly unremarkable. Bones: Changes of right total hip arthroplasty and lower lumbar spine hardware is seen. Degenerative changes of the spine and left hip are seen. No definite aggressive osseous lesion is seen. IMPRESSION: 1. Periumbilical hernia containing a segment of colon and fat without associated inflammatory change. 2. Nonobstructing left interpolar renal calculus. 3. No evidence for bowel obstruction. 4. Appendix is normal. Electronically signed by: Karri Ortiz MD (01/22/2019 4:24 PM) [facility]
[2019-01-22 17:00] VITALS: BP 123/82
[2019-01-22] MEDS ORDERED: HYDROmorphone 2 MG/ML VIAL IV ONE (17:00)
[2019-01-22 17:07] LABS: BILIRUBIN,URINE NEGATIVE (NEG); CLARITY,URINE CLEAR; COLOR,URINE YELLOW; NITRITE,URINE NEGATIVE (NEG); PROTEIN,URINE NEGATIVE (NEG-TRACE)
[2019-01-22 17:12] LABS: BACTERIA,URINE FEW /HPF (0-FEW); RBC,URINE 0 /HPF (0-2); SQUAMOUS EPITHELIAL CELL,UR OCC /LPF; WBC,URINE RARE /HPF (0-4)
[2019-01-22] MEDS ORDERED: DICY10CA3 PO (18:51)
[2019-01-22] MEDS ORDERED: HYDR-3164 PO (18:51)
== END 2019-01-22 19:01 | disposition home or self-care (01) ==
LOC: ER 13:41
DX: K42.9 Umbilical hernia without obstruction or gangrene (principal); E78.00 Pure hypercholesterolemia, unspecified; I10 Essential (primary) hypertension; E11.40 Type 2 diabetes mellitus with diabetic neuropathy, unspecified; N20.0 Calculus of kidney; Z90.710 Acquired absence of both cervix and uterus; Z88.5 Allergy status to narcotic agent; Z88.8 Allergy status to other drugs, medicaments and biological substances; Z91.011 Allergy to milk products
CPT/HCPCS: 36415; 71045; 74177; 80053; 81001; 83605; 83690; 83735; 84484; 85025; 93005; 96372; 96374; 96375; 99285; J0500; J1170; J2405; J3010; J7030; Q9967

== ENCOUNTER → 2019-01-31 | Outpatient (CLI) | payer OTHER, MEDICAID ==
[2019-01-22 17:00] VITALS: BP 123/82
[~2019-01-31] MED LIST changes: +DICY10CA3 PO; +IOHEXOL 180 MG/ML 10 ML VIAL. ONE; +methylPREDNISolone ACETATE 40 MG/ML VIAL. ONE; +methylPREDNISolone ACETATE 80 MG/ML VIAL. ONE
--- NOTE | 2019-02-01 03:16 | PAIN ---
DATE OF SERVICE: 01/31/2019 PROGRESS NOTE FOR PAIN CLINIC DIAGNOSIS: Lumbar radiculopathy with lumbar post-laminectomy syndrome. SUBJECTIVE: The patient is a 58-year-old female who returns for followup status post lumbar epidural steroid injections caudal approach most recently in 02/2018. The patient did very well with these with about 75% improvement. The patient reports she was doing fairly well until the last few months and we had an office visit with her in November. She was sick after that and canceled it and rescheduled today. She has been off her Plavix now for 7 days and would like to proceed with a caudal epidural steroid injection. We discussed in her last visit. The patient reports still significant pain in low back and in bilateral lower extremities, worse on the right than the left, but in both the posterior gluteus, posterior thighs and calf, worse with walking, standing, changing positions, bending, or stooping. The patient reports the pain is stabbing, radiating, constant, becoming more severe, more unbearable, aching, sharp and shooting in the low back and legs as well. The patient reports it is 10 on a scale of 10 at its worse, 9 at least and is 10 on average, is at 10 today. The patient reports no new motor or sensory deficits, no new bowel or bladder incontinence. She does have an umbilical hernia and has a recent CT scan from that showing some periumbilical hernia with part of the colon and fat within it. PHYSICAL EXAMINATION: VITAL SIGNS: The patient's blood pressure is 143/78, pulse 60, respirations are 18, temperature is 98.4 degrees Fahrenheit. Height is 5 feet 5 inches. Weight is 253 pounds. GENERAL: The patient is awake, alert, oriented, appropriate, very pleasant demeanor. HEENT: Head shows normocephalic, atraumatic. Extraocular movements are intact and symmetrical. Oral cavity: Mucous membranes moist and pink. Dentition is intact. NECK: Shows anterior throat supple without palpable lymphadenopathy noted. Swallow reflex symmetrical. CHEST: Shows normal on inspection. Breath sounds clear to auscultation bilaterally. HEART: Shows S1, S2 clear. No murmurs auscultated. ABDOMEN: Soft, obese, nontender, and nondistended. BACK: Shows spine grossly in the midline. Lumbar paraspinous muscle shows symmetrical on inspection. A well-healed surgical scar again noted. Lumbar paraspinous muscles are tender with palpation, but only diffusely bilaterally without radiation. EXTREMITIES: The patient's lower extremities show deep tendon reflexes at 1+ in the patellar and tendo-calcaneus tendons. Motor exam is approximately 4 on a scale of 5 but equal, symmetrical with dorsiflexion, extension, quadriceps, and hamstring flexion. Peripheral pulses are 1+ posterior tibial bilaterally. Options were discussed with the patient. The patient's old chart was reviewed as her current medication regimen updated. Current review of systems updated today as well. We will proceed with a caudal approach epidural steroid injection today with fluoroscopic guidance. Risks were again discussed including, but not limited to bleeding, infection, possibility of epidural hematoma, subsequent neurological compromise, dural puncture, headaches, spinal cord and/or nerve damage, side effects of steroid medication and poor results regarding pain control. The patient understands and wished to proceed. The patient will return to clinic in approximately 2 weeks for followup. She was counseled on return appointment, activity level and side effects to be aware of. The patient will restart her Plavix tomorrow as instructed. DIAGNOSIS: Lumbar radiculopathy with lumbar post-laminectomy syndrome. PROCEDURE: Caudal approach epidural steroid injection using C-arm fluoroscopic guidance under sterile prep and drape using local anesthetic. MEDICATION INJECTED: A total of 120 mg Depo-Medrol plus 10 mL of preservative-free normal saline and 2 mL of Isovue for contrast. CONDITION AT DISCHARGE: Stable. The patient tolerated the procedure well, had no complications. NICOLETTE FRANK MD DR: ANJEL/karey JOB#: [id number] / [id number]
== END ==
LOC: PNCL 11:23
PROVIDERS: ATTEND Anesthesiology
DX: M54.16 Radiculopathy, lumbar region (principal); M96.1 Postlaminectomy syndrome, not elsewhere classified
CPT/HCPCS: 62323; J1030; J1040; Q9965

== ENCOUNTER → 2019-03-13 | Outpatient (CLI) | payer OTHER, MEDICAID ==
--- NOTE | 2019-03-13 23:43 | PAIN ---
DATE OF SERVICE: 03/13/2019 PROGRESS NOTE FOR PAIN CLINIC DIAGNOSES: Lumbar radiculopathy with lumbar post-laminectomy syndrome. HISTORY OF PRESENT ILLNESS: The patient is a 58-year-old female who returns for followup status post caudal epidural steroid injection x 1. The patient reports she did about 60% better after the first injection and returns today with being off her Plavix now for the last 7 days, overall about a 40% improvement at this time, but initially was doing quite a bit better. The patient reports no new motor or sensory deficits. Still some pain in the low back, bilateral lower extremities, posterior gluteus, posterior thighs, posterior calf and radiating radicular fashion, rates a 10 on a scale of 10 at all times, average, and worst least over the past week. The patient reports it is burning, radiating, constant, severe, shooting and sharp. We had discussed a spinal cord stimulator with her on her last visit and she discussed this with her daughter and is interested in pursuing this as I feel this may be a good option for her for more long-term decrease in pain as she has had multiple injections, multiple therapies and without any new surgical indications for any surgical correction with post-laminectomy syndrome. The patient is interested in pursuing this. We will make the arrangements to get psychiatric evaluation first and preauthorize the patient for a spinal cord stimulator in the future. The patient reports no new motor or sensory deficits, no new bowel or bladder incontinence, still awakens her from sleep at night, worse with activity, standing, walking, using a walker at all times to ambulate. PHYSICAL EXAMINATION: VITAL SIGNS: The patient's blood pressure is 123/73, pulse 72, respirations 18, temperature 98.4 degrees Fahrenheit, height is 5 feet 5 inches and weight is 250 pounds. GENERAL: The patient is awake, alert, oriented, appropriate, very pleasant demeanor. HEENT: Head shows normocephalic, atraumatic. Extraocular movements are intact and symmetrical. Oral cavity: Mucous membranes moist and pink. Dentition is intact. NECK: Shows anterior throat supple without palpable lymphadenopathy noted. Swallow reflex symmetrical. CHEST: Shows normal on inspection. Breath sounds clear to auscultation bilaterally. HEART: Shows S1, S2 clear. No murmurs auscultated. ABDOMEN: Soft, nontender, nondistended. No palpable organomegaly is noted. No rebound or guarding demonstrated. BACK: Shows spine grossly in the midline with well-healed surgical scar in the lumbar distribution, some flattening of lumbar spine as well. The patient shows good rotational motion of the lumbar distribution both 10 degrees, right and left lateral as well as extension greater than 10 degrees, forward flexion 4 to 5 degrees without significant increase in pain, only mild increase in pain. EXTREMITIES: Lower extremities show deep tendon reflexes 1+ in the patellar and tendo calcaneus tendons are equal. Motor exam is approximately 4 on a scale of 5, but symmetrical with dorsiflexion, extension, quadriceps and hamstring flexion. Peripheral pulses are 1+ posterior tibial. No peripheral edema is noted. Options were discussed with the patient. The patient's old chart was reviewed. Her current medication regimen updated. Current review of systems updated today as well. We will proceed with a caudal approach epidural steroid injection today with fluoroscopic guidance. Risks were again discussed including, but not limited to bleeding, infection, possibility of epidural hematoma, subsequent neurological compromise, dural puncture, headaches, spinal cord and/or nerve damage, side effects of steroid medication and poor results regarding pain control. The patient understands and wished to proceed. The patient will return to clinic in approximately 2 weeks for followup. She was counseled on return appointment, activity level and side effects to be aware of. Again, we will preauthorize the patient for a spinal cord stimulator trial placement. The patient with psychiatric evaluation pending, we will make those arrangements as well. DIAGNOSIS: Lumbar radiculopathy with lumbar post-laminectomy syndrome. PROCEDURE: Caudal epidural steroid injection using C-arm fluoroscopic guidance under sterile prep and drape using local anesthetic. MEDICATION INJECTED: Total of 120 mg Depo-Medrol plus 10 mL of preservative-free normal saline and 2 mL of contrast. CONDITION AT DISCHARGE: Stable. The patient tolerated the procedure well, had no complications. NICOLETTE FRANK MD DR: ANJEL/karey JOB#: [id number] / [id number]
== END ==
LOC: PNCL 10:45
PROVIDERS: ATTEND Anesthesiology
DX: M54.16 Radiculopathy, lumbar region (principal); M96.1 Postlaminectomy syndrome, not elsewhere classified; M54.5 Low back pain
CPT/HCPCS: 62323; J1030; J1040; Q9965

== ENCOUNTER 2019-04-15 19:42 | Emergency (ER) | payer OTHER, MEDICAID ==
[~2019-04-15] VITALS: Ht 165.1 cm; Wt 109.8 kg
[~2019-04-15 19:42] MED LIST changes: -GLIM1TAB2 PO; +GLIM1TAB3 PO; -IOHEXOL 180 MG/ML 10 ML VIAL. ONE; -methylPREDNISolone ACETATE 40 MG/ML VIAL. ONE; -methylPREDNISolone ACETATE 80 MG/ML VIAL. ONE
[2019-04-15] MEDS ORDERED: IV NORMAL SALINE 1000ML BAG 1,000 ML IV SCH (20:07)
[2019-04-15] MEDS ORDERED: ONDANSETRON PF 4 MG/2 ML VIAL. IV ONE (20:15)
[2019-04-15] MEDS ORDERED: fentaNYL PF VIAL 100 MCG/2 ML VIAL IV PRN (20:15)
[2019-04-15 21:06] LABS: BASO % 0 % (0-3); EOS # 0.1 x10^3/uL (0.0-0.7); EOS % 1 % (0-3); HEMATOCRIT 38.4 % (36.0-47.0); HEMOGLOBIN 12.9 g/dL (12.0-15.5); LYMPH # 2.3 x10^3/uL (1.0-4.8); LYMPH % 30 % (24-48); MEAN CORPUSCULAR HEMOGLOBIN 32 pg (25-35); MEAN CORPUSCULAR HGB CONC 34 g/dL (31-37); MEAN CORPUSCULAR VOLUME 94 fL (79-100); MONO # 0.4 x10^3/uL (0.0-1.1); MONO % 6 % (0-9); NEUT # 4.8 x10^3/uL (1.8-7.7); NEUT % 63 % (31-73); PLATELET COUNT 260 x10^3/uL (140-400); RED BLOOD COUNT 4.08 x10^6/uL (3.50-5.40); RED CELL DISTRIBUTION WIDTH 14.3 % (11.5-14.5); WHITE BLOOD COUNT 7.7 x10^3/uL (4.0-11.0)
[2019-04-15 21:13] LABS: CALCIUM 9.3 mg/dL (8.5-10.1); CREATININE 0.8 mg/dL (0.6-1.0); GFR 88.8; POTASSIUM 3.2 mmol/L (3.5-5.1)
[2019-04-15 21:19] LABS: ALBUMIN 3.3 g/dL (3.4-5.0); ALBUMIN/GLOBULIN RATIO 0.7 (1.0-1.7); TOTAL BILIRUBIN 0.4 mg/dL (0.2-1.0); TOTAL PROTEIN 7.9 g/dL (6.4-8.2)
[2019-04-15] MEDS ORDERED: CONTRAST GIVEN. MC PRN (21:45)
[2019-04-15] MEDS ORDERED: IOHEXOL 300 MG/ML 100ML VIAL. IV ONE (22:00)
--- NOTE | 2019-04-15 22:04 | PHYS DOC ---
Past Medical History Past Medical History: Arthritis, Diabetes-Type II, Fibromyalgia, High Cholesterol, Hypertension, Hepatitis, IBS, Other Additional Past Medical Histor: HEP C, DM WITH NEUROPATHY, back pain,insomnia, chronic cough Past Surgical History: Hip Replacement, Hysterectomy, Knee Replacement, Tonsillectomy, Other Additional Past Surgical Histo: ROTATOR CUFF SX, CYST REMOVAL, R FOOT SX WITH NERVE DAMAGE low back,STENT Alcohol Use: None Drug Use: None Adult General Chief Complaint Chief Complaint: NAUSEA/VOMITING/DIARRHA HPI HPI is a 59-year-old female who presents with complaint of abdominal pain with nausea, vomiting and diarrhea. Patient states that symptoms have been going on for about a week now and she states that she has not been able to keep anything down. She states that the last time she tried to eat anything was this morning and she had an ache and she states that she had vomiting almost immediately followed by diarrhea. She rates her pain to be a 10 out of 10 and describes the pain as sharp and crampy. Patient doesn't know whether or not she has been running a fever.[] Review of Systems Review of Systems Constitutional: Denies fever or chills [] Respiratory: Denies cough or shortness of breath [] Cardiovascular: No additional information not addressed in HPI [] GI: Complains of abdominal pain with vomiting and diarrhea [] Integument: Denies rash or skin lesions [] Neurologic: Denies headache, focal weakness or sensory changes [] All other systems were reviewed and found to be within normal limits, except as documented in this note. Current Medications Current Medications Current Medications Medications (Trade) Dose Ordered Sig/[facility] Start Time Stop Time Status Last Admin Dose Admin Fentanyl Citrate (Fentanyl 2ml Vial) 50 mcg PRN Q15MIN PRN 04/15/19 20:15 04/16/19 20:14 04/15/19 20:45 50 MCG Hydromorphone HCl (Dilaudid) 1 mg 1X ONCE 04/15/19 23:00 04/15/19 23:01 DC 04/15/19 22:53 1 MG Info (CONTRAST GIVEN -- Rx MONITORING) 1 each PRN DAILY PRN 04/15/19 21:45 04/17/19 21:44 Iohexol (Omnipaque 300 Mg/ml) 75 ml 1X ONCE 04/15/19 22:00 04/15/19 22:01 DC 04/15/19 21:47 75 ML Ondansetron HCl (Zofran) 4 mg 1X ONCE 04/15/19 20:15 04/15/19 20:16 DC 04/15/19 20:44 4 MG Sodium Chloride 1,000 ml @ 1,000 mls/hr Q1H 04/15/19 20:07 04/15/19 21:06 DC 04/15/19 20:45 1,000 MLS/HR Allergies Allergies Allergies Coded Allergies Type Severity Reaction Last Updated Verified metformin Allergy Intermediate Diarrhea 10/24/18 Yes morphine Allergy Intermediate HIVES, HAIR LOSS 10/24/18 Yes naltrexone Allergy Intermediate HIVES, HAIR LOSS 10/24/18 Yes sitagliptin Allergy Intermediate Diarrhea 10/24/18 Yes milk Allergy Mild 10/24/18 Yes Physical Exam Physical Exam Constitutional: Well developed, well nourished, no acute distress, non-toxic appearance. [] HENT: Normocephalic, atraumatic, bilateral external ears normal, oropharynx moist, no oral exudates, nose normal. [] Eyes: PERRLA, EOMI, conjunctiva normal, no discharge. [] Neck: Normal range of motion, no tenderness, supple, no stridor. [] Cardiovascular: Regular rate and rhythm[] Lungs & Thorax: Bilateral breath sounds clear to auscultation [] Abdomen: Bowel sounds normal, soft, with moderate diffuse tenderness. [] Skin: Warm, dry, no erythema, no rash. [] Extremities: No tenderness, no cyanosis, no clubbing, ROM intact, no edema. [] Neurologic: Alert and oriented X 3, no focal deficits noted. [] Current Patient Data Vital Signs Vital Signs Date Time Temp Pulse Resp B/P (MAP) Pulse Ox O2 Delivery O2 Flow Rate FiO2 04/15/19 22:53 18 99 Room Air 04/15/19 21:13 98.2 69 112/68 (83) 98.2 Lab Values Laboratory Tests Test 04/15/19 20:55 04/15/19 22:05 White Blood Count 7.7 x10^3/uL (4.0-11.0) Red Blood Count 4.08 x10^6/uL (3.50-5.40) Hemoglobin 12.9 g/dL (12.0-15.5) Hematocrit 38.4 % (36.0-47.0) Mean Corpuscular Volume 94 fL (79-100) Mean Corpuscular Hemoglobin 32 pg (25-35) Mean Corpuscular Hemoglobin Concent 34 g/dL (31-37) Red Cell Distribution Width 14.3 % (11.5-14.5) Platelet Count 260 x10^3/uL (140-400) Neutrophils (%) (Auto) 63 % (31-73) Lymphocytes (%) (Auto) 30 % (24-48) Monocytes (%) (Auto) 6 % (0-9) Eosinophils (%) (Auto) 1 % (0-3) Basophils (%) (Auto) 0 % (0-3) Neutrophils # (Auto) 4.8 x10^3/uL (1.8-7.7) Lymphocytes # (Auto) 2.3 x10^3/uL (1.0-4.8) Monocytes # (Auto) 0.4 x10^3/uL (0.0-1.1) Eosinophils # (Auto) 0.1 x10^3/uL (0.0-0.7) Basophils # (Auto) 0.0 x10^3/uL (0.0-0.2) Sodium Level 143 mmol/L (136-145) Potassium Level 3.2 mmol/L (3.5-5.1) L Chloride Level 107 mmol/L (98-107) Carbon Dioxide Level 28 mmol/L (21-32) Anion Gap 8 (6-14) Blood Urea Nitrogen 13 mg/dL (7-20) Creatinine 0.8 mg/dL (0.6-1.0) Estimated GFR (Cockcroft-Gault) 88.8 BUN/Creatinine Ratio 16 (6-20) Glucose Level 79 mg/dL (70-99) Calcium Level 9.3 mg/dL (8.5-10.1) Total Bilirubin 0.4 mg/dL (0.2-1.0) Aspartate Amino Transferase (AST) 18 U/L (15-37) Alanine Aminotransferase (ALT) 21 U/L (14-59) Alkaline Phosphatase 109 U/L (46-116) Total Protein 7.9 g/dL (6.4-8.2) Albumin 3.3 g/dL (3.4-5.0) L Albumin/Globulin Ratio 0.7 (1.0-1.7) L Lipase 141 U/L (73-393) Urine Collection Type Unknown Urine Color Yellow Urine Clarity Clear Urine pH 6.5 Urine Specific Willard >=1.030 Urine Protein 30 mg/dL (NEG-TRACE) Urine Glucose (UA) >=1000 mg/dL (NEG) Urine Ketones (Stick) Negative mg/dL (NEG) Urine Blood Trace (NEG) Urine Nitrite Negative (NEG) Urine Bilirubin Negative (NEG) Urine Urobilinogen Dipstick 0.2 mg/dL (0.2 mg/dL) Urine Leukocyte Esterase Moderate (NEG) Urine RBC 1-2 /HPF (0-2) Urine WBC 11-20 /HPF (0-4) Urine Squamous Epithelial Cells Many /LPF Urine Bacteria Moderate /HPF (0-FEW) Urine Mucus Slight /LPF Urine Yeast Present /HPF Laboratory Tests 04/15/19 20:55 Laboratory Tests 04/15/19 20:55 EKG EKG [] Radiology/Procedures Radiology/Procedures [] Impressions: PROCEDURE: CT ABD PELV W/ IV CONTRST ONLY Exam: CT abdomen and pelvis with contrast INDICATION: Abdominal pain TECHNIQUE: Sequential axial images through the abdomen and pelvis obtained following the administration of 75 mL of Isovue-370 IV contrast. Sagittal and coronal reformatted images were reconstructed from the axial data and reviewed. Comparisons: 01/22/2019 FINDINGS: Heart size is normal. No pericardial effusion. Strandy opacities at the dependent portion of the lung bases. Liver, spleen, pancreas, gallbladder and adrenals are unremarkable. Kidneys demonstrate symmetric enhancement. No perinephric inflammation or hydronephrosis. Nonobstructing 3 mm calculus at the mid left kidney. No ureteral calculi. Evaluation of bladder is limited secondary to metallic artifact from hip arthroplasty. There is redemonstration of an umbilical hernia containing a short segment of transverse colon. Major of the large and small bowel are unremarkable. Appendix is normal. No free intra-abdominal air or fluid. Abdominal aorta has a normal course and caliber. Abdominal vasculature is patent. No enlarged intra-abdominal lymph nodes are identified. No suspicious osseous lesions or acute fractures. IMPRESSION: 1. No acute process identified within the abdomen or pelvis. 2. Redemonstration of an umbilical hernia containing a short segment of transverse colon. No obstruction. 3. A nonobstructing calculus at the mid left kidney. No evidence for obstructive uropathy. Exposure: One or more of the following in the visualized dose reduction techniques were utilized for this examination: 1. Automated exposure control 2. Adjustment of the MA and/or KV according to patient size 3. Use of iterative of reconstructive technique Electronically signed by: Juan C Evans MD (04/15/2019 10:01 PM) [facility] – [place], [id number] DICTATED and SIGNED BY: JUAN C EVANS MD Course & Med Decision Making Course & Med Decision Making Pertinent Labs and Imaging studies reviewed. (See chart for details) Patient moved to room upon arrival was evaluated by your medical staff after which an IV was established and blood work was drawn. A CT of the abdomen and pelvis was completed as well. Workup demonstrated no acute appreciable abnormalities. Findings reviewed with patient. At this point, patient notified me that she is out of her pain medication that is prescribed by the pain management clinic and is requesting prescription for pain pills. Patient was informed that we do not manage chronic pain and it is inappropriate for us to write a prescription for patient who is involved in a pain management clinic. Of note, patient had no episodes of vomiting or diarrhea during the time she was in the emergency room. Dragon Disclaimer Dragon Disclaimer This electronic medical record was generated, in whole or in part, using a voice recognition dictation system. Departure Departure Impression: Primary Impression: Abdominal pain Additional Impression: Vomiting and diarrhea Disposition: 01 HOME, SELF-CARE Condition: STABLE Referrals: STEFAN CAMARA MD (PCP) Patient Instructions: Abdominal Pain, Chronic Pain, Chronic Pain Management, Diarrhea, Nausea and Vomiting Scripts Ondansetron Hcl (ZOFRAN) 4 Mg Tablet 4 MG PO PRN TID PRN for NAUSEA, #15 TAB nausea/vomiting Prov: CONCEPCION CHARLES Jr. DO 04/15/19 Problem Qualifiers Primary Impression: Abdominal pain Abdominal location: generalized Qualified Codes: R10.84 - Generalized abdominal pain CONCEPCION CHARLES Jr. DO Apr 15, 2019 22:04
[2019-04-15 22:12] LABS: BILIRUBIN,URINE NEGATIVE (NEG); CLARITY,URINE CLEAR; COLOR,URINE YELLOW; NITRITE,URINE NEGATIVE (NEG); PH,URINE 6.5; PROTEIN,URINE 30 mg/dL (NEG-TRACE); UROBILINOGEN,URINE 0.2 mg/dL (0.2 mg/dL)
[2019-04-15 22:19] LABS: SQUAMOUS EPITHELIAL CELL,UR MANY /LPF
[2019-04-15 22:20] LABS: BACTERIA,URINE MODERATE /HPF (0-FEW)
[2019-04-15 22:21] LABS: YEAST,URINE PRESENT /HPF
[2019-04-15] MEDS ORDERED: HYDROmorphone 2 MG/ML VIAL IV ONE (23:00)
[2019-04-15 23:02] VITALS: BP 122/69
[2019-04-15] MEDS ORDERED: ONDA4TAB7 PO (23:20)
== END 2019-04-15 23:35 | disposition home or self-care (01) ==
LOC: ER 19:42
DX: R10.84 Generalized abdominal pain (principal); R11.2 Nausea with vomiting, unspecified; R19.7 Diarrhea, unspecified; M19.90 Unspecified osteoarthritis, unspecified site; E78.00 Pure hypercholesterolemia, unspecified; I10 Essential (primary) hypertension; E11.40 Type 2 diabetes mellitus with diabetic neuropathy, unspecified; Z90.710 Acquired absence of both cervix and uterus; Z90.89 Acquired absence of other organs; Z96.649 Presence of unspecified artificial hip joint; Z96.659 Presence of unspecified artificial knee joint
CPT/HCPCS: 36415; 74177; 80053; 81001; 83690; 85025; 87086; 96361; 96374; 96375; 99285; J1170; J2405; J3010; J7030; Q9967

== ENCOUNTER 2019-05-21 17:22 | Emergency (ER) | payer OTHER, MEDICAID ==
[~2019-05-21] VITALS: Ht 165.1 cm; Wt 109.8 kg
[~2019-05-21 17:22] MED LIST changes: +ONDA4TAB7 PO
--- NOTE | 2019-05-21 18:09 | PHYS DOC ---
Past Medical History Past Medical History: Arthritis, Diabetes-Type II, Fibromyalgia, High Cholesterol, Hypertension, Hepatitis, IBS, Other Additional Past Medical Histor: HEP C, DM WITH NEUROPATHY, back pain,insomnia, chronic cough (SANTIAGO ANDRADE APRN) Past Surgical History: Hip Replacement, Hysterectomy, Knee Replacement, Tonsillectomy, Other Additional Past Surgical Histo: ROTATOR CUFF SX, CYST REMOVAL, R FOOT SX WITH NERVE DAMAGE low back,STENT (SANTIAGO ANDRADE APRN) Alcohol Use: None Drug Use: None (SANTIAGO ANDRADE APRN) Adult General Chief Complaint Chief Complaint: FLANK PAIN HPI HPI Patient is a 59 year old female with history of diabetes type 2, hypertension, fibromyalgia, high cholesterol, who presents to the ED today complaining of moderate intermittent right flank pain that has been going on "for a while". Patient denies any known injury. She states she called the PCP and they told her it could be her kidneys. Denies any urgency, frequency, dysuria. Denies any nausea vomiting. (SANTIAGO ANDRADE APRN) Review of Systems Review of Systems Constitutional: Denies fever or chills [] Eyes: Denies change in visual acuity, redness, or eye pain [] HENT: Denies nasal congestion or sore throat [] Respiratory: Denies cough or shortness of breath [] Cardiovascular: No additional information not addressed in HPI [] GI: Denies abdominal pain, nausea, vomiting, bloody stools or diarrhea [] : Reports right flank pain. Denies dysuria or hematuria [] Musculoskeletal: Denies back pain or joint pain [] Integument: Denies rash or skin lesions [] Neurologic: Denies headache, focal weakness or sensory changes [] All other systems were reviewed and found to be within normal limits, except as documented in this note. (SANTIAGO ANDRADE APRN) Current Medications Current Medications Current Medications Medications (Trade) Dose Ordered Sig/Doris Start Time Stop Time Status Last Admin Dose Admin Hydromorphone HCl (Dilaudid) 1 mg 1X ONCE 05/21/19 18:15 05/21/19 18:16 DC 05/21/19 18:56 1 MG (HOWARD NEAL APRN) Allergies Allergies Allergies Coded Allergies Type Severity Reaction Last Updated Verified metformin Allergy Intermediate Diarrhea 10/24/18 Yes morphine Allergy Intermediate HIVES, HAIR LOSS 10/24/18 Yes naltrexone Allergy Intermediate HIVES, HAIR LOSS 10/24/18 Yes sitagliptin Allergy Intermediate Diarrhea 10/24/18 Yes milk Allergy Mild 10/24/18 Yes (HOWARD NEAL APRN) Physical Exam Physical Exam Constitutional: Well developed, well nourished, no acute distress, non-toxic appearance. [] HENT: Normocephalic, atraumatic, bilateral external ears normal, oropharynx moist, no oral exudates, nose normal. [] Eyes: PERRLA, EOMI, conjunctiva normal, no discharge. [] Neck: Normal range of motion, no tenderness, supple, no stridor. [] Cardiovascular:Heart rate regular rhythm, no murmur [] Lungs & Thorax: Bilateral breath sounds clear to auscultation [] Abdomen: Bowel sounds normal, soft, no tenderness, no masses, no pulsatile masses. [] Skin: Warm, dry, no erythema, no rash. [] Back: No tenderness, no CVA tenderness. [] Extremities: No tenderness, no cyanosis, no clubbing, ROM intact, no edema. [] Neurologic: Alert and oriented X 3, normal motor function, normal sensory function, no focal deficits noted. [] Psychologic: Affect normal, judgement normal, mood normal. [] (SANTIAGO ANDRADE APRN) Current Patient Data Vital Signs Vital Signs Date Time Temp Pulse Resp B/P (MAP) Pulse Ox O2 Delivery O2 Flow Rate FiO2 05/21/19 18:56 18 96 Room Air 05/21/19 18:33 98.2 69 143/73 (96) 98.2 (HOWARD NEAL APRN) Lab Values Laboratory Tests Test 05/21/19 17:45 05/21/19 18:45 Urine Color Yellow Urine Clarity Clear Urine pH 6.0 Urine Specific [place] 1.025 Urine Protein Negative mg/dL (NEG-TRACE) Urine Glucose (UA) >=1000 mg/dL (NEG) Urine Ketones (Stick) Negative mg/dL (NEG) Urine Blood Negative (NEG) Urine Nitrite Negative (NEG) Urine Bilirubin Negative (NEG) Urine Urobilinogen Dipstick 1.0 mg/dL (0.2 mg/dL) Urine Leukocyte Esterase Negative (NEG) Urine RBC 0 /HPF (0-2) Urine WBC 1-4 /HPF (0-4) Urine Squamous Epithelial Cells Occ /LPF Urine Bacteria Few /HPF (0-FEW) Urine Mucus Slight /LPF Urine Opiates Screen Pos (NEG) Urine Methadone Screen Neg (NEG) Urine Barbiturates Neg (NEG) Urine Phencyclidine Screen Neg (NEG) Urine Amphetamine/Methamphetamine Neg (NEG) Urine Benzodiazepines Screen Neg (NEG) Urine Cocaine Screen Neg (NEG) Urine Cannabinoids Screen Neg (NEG) Urine Ethyl Alcohol Neg (NEG) White Blood Count 6.0 x10^3/uL (4.0-11.0) Red Blood Count 3.86 x10^6/uL (3.50-5.40) Hemoglobin 12.1 g/dL (12.0-15.5) Hematocrit 36.8 % (36.0-47.0) Mean Corpuscular Volume 95 fL (79-100) Mean Corpuscular Hemoglobin 31 pg (25-35) Mean Corpuscular Hemoglobin Concent 33 g/dL (31-37) Red Cell Distribution Width 14.1 % (11.5-14.5) Platelet Count 246 x10^3/uL (140-400) Neutrophils (%) (Auto) 43 % (31-73) Lymphocytes (%) (Auto) 40 % (24-48) Monocytes (%) (Auto) 10 % (0-9) H Eosinophils (%) (Auto) 6 % (0-3) H Basophils (%) (Auto) 1 % (0-3) Neutrophils # (Auto) 2.6 x10^3/uL (1.8-7.7) Lymphocytes # (Auto) 2.4 x10^3/uL (1.0-4.8) Monocytes # (Auto) 0.6 x10^3/uL (0.0-1.1) Eosinophils # (Auto) 0.4 x10^3/uL (0.0-0.7) Basophils # (Auto) 0.1 x10^3/uL (0.0-0.2) Sodium Level 141 mmol/L (136-145) Potassium Level 3.6 mmol/L (3.5-5.1) Chloride Level 106 mmol/L (98-107) Carbon Dioxide Level 26 mmol/L (21-32) Anion Gap 9 (6-14) Blood Urea Nitrogen 29 mg/dL (7-20) H Creatinine 1.1 mg/dL (0.6-1.0) H Estimated GFR (Cockcroft-Gault) 61.5 BUN/Creatinine Ratio 26 (6-20) H Glucose Level 99 mg/dL (70-99) Calcium Level 9.1 mg/dL (8.5-10.1) Total Bilirubin 0.2 mg/dL (0.2-1.0) Aspartate Amino Transferase (AST) 22 U/L (15-37) Alanine Aminotransferase (ALT) 20 U/L (14-59) Alkaline Phosphatase 94 U/L (46-116) Total Protein 7.8 g/dL (6.4-8.2) Albumin 3.2 g/dL (3.4-5.0) L Albumin/Globulin Ratio 0.7 (1.0-1.7) L Lipase 177 U/L (73-393) Ethyl Alcohol Level < 10 mg/dL (0-10) Laboratory Tests 05/21/19 18:45 Laboratory Tests 05/21/19 18:45 (HOWARD NEAL APRN) Lab Values Laboratory Tests Test 05/21/19 18:45 White Blood Count 6.0 x10^3/uL (4.0-11.0) Red Blood Count 3.86 x10^6/uL (3.50-5.40) Hemoglobin 12.1 g/dL (12.0-15.5) Hematocrit 36.8 % (36.0-47.0) Mean Corpuscular Volume 95 fL (79-100) Mean Corpuscular Hemoglobin 31 pg (25-35) Mean Corpuscular Hemoglobin Concent 33 g/dL (31-37) Red Cell Distribution Width 14.1 % (11.5-14.5) Platelet Count 246 x10^3/uL (140-400) Neutrophils (%) (Auto) 43 % (31-73) Lymphocytes (%) (Auto) 40 % (24-48) Monocytes (%) (Auto) 10 % (0-9) H Eosinophils (%) (Auto) 6 % (0-3) H Basophils (%) (Auto) 1 % (0-3) Neutrophils # (Auto) 2.6 x10^3/uL (1.8-7.7) Lymphocytes # (Auto) 2.4 x10^3/uL (1.0-4.8) Monocytes # (Auto) 0.6 x10^3/uL (0.0-1.1) Eosinophils # (Auto) 0.4 x10^3/uL (0.0-0.7) Basophils # (Auto) 0.1 x10^3/uL (0.0-0.2) Laboratory Tests 05/21/19 18:45 (SANTIAGO ANDRADE APRN) EKG EKG [] (SANTIAGO ANDRADE APRN) Radiology/Procedures Radiology/Procedures []PROCEDURE: CT ABDOMEN PELVIS WO CONTRAST Study: CT abdomen and pelvis without contrast Indication: Right-sided flank pain. Comparison: 04/15/2019 Technique: Helical CT imaging performed of the abdomen and pelvis without the use of intravenous contrast. Sagittal and coronal reformats were obtained. One or more of the following individualized dose reduction techniques were utilized for this examination: 1. Automated exposure control 2. Adjustment of the mA and/or kV according to patient size 3. Use of iterative reconstruction technique. Findings: No newly seen abnormality of the liver, gallbladder, pancreas or spleen. Redemonstrated radiodense foci along the left adrenal gland. No adrenal gland mass on the right. No hydroureteronephrosis on the right. No perinephric fat stranding or edematous enlargement of either kidney. A punctate focus of mineralization along the expected course of the right ureter at its mid aspect, image 116 series 2, was present on the comparison exam. The distal aspect of the right ureter is not well evaluated due to streak artifact from a right hip construct. Redemonstrated intrarenal stone on the left measuring 3 mm. No hydroureteronephrosis on the left. Difficult evaluation of portions of the left ureter due to streak artifact from the right hip construct and surgical hardware at the lower lumbar spine. Scattered small foci of mineralization within the left hemipelvis were present previously. The intrapelvic contents are difficult to closely evaluate due to streak artifact. Colon is again seen to extend into a ventral midline hernia but there are no findings to suggest obstruction and the overall configuration of the hernia sac is no different from the prior. Moderately constipated state. The appendix is unremarkable. Nonobstructed small bowel. The stomach is not well evaluated due to the lack of oral contrast and underdistention. Very dense calcification along the anterior wall of the abdominal aorta in the expected region of the celiac origin is redemonstrated. A SMA stent is present. Dense calcifications at the left more so than right renal artery ostia. No newly seen aneurysmal dilatation. Retroaortic left renal vein. Thin low-attenuation along the margins of the liver at the armando hepatis was present previously. No free abdominal air or fluid. No suspicious body wall abnormality has developed. No acute or destructive osseous abnormality. No interval change in spinal alignment. Impression: 1. No acute abnormality is seen throughout the abdomen or pelvis to account for the patient's symptoms. In the setting of reported right flank pain, no hydroureteronephrosis or perinephric/periureteral fat stranding is appreciated. A punctate focus of mineralization is seen along the expected location of the mid right ureter, image 116 series 2, however this was present on the 04/15/2019 comparison. The absence of proximal collecting system dilatation goes against an obstructing nephrolithiasis and this is favored a phlebolith such as within an ovarian vein. 2. Unchanged nonobstructing left renal calculus. 3. Mild to moderate constipation. 4. Redemonstrated SMA stent and dense globular mineralization at the expected location of the celiac origin. 5. Ventral midline hernia containing fat and a portion of the transverse colon but without bowel obstruction or features of incarceration. The appearance and size of the hernia sac is unchanged. Electronically signed by: GRACIE ALARCON MD (05/21/2019 6:41 PM) [facility] DICTATED and SIGNED BY: GRACIE ALARCON MD DATE: 05/21/191840 (SANTIAGO ANDRADE APRN) Course & Med Decision Making Course & Med Decision Making Pertinent Labs and Imaging studies reviewed. (See chart for details) This is a 59-year-old female patient presented to the ED today complaining of right flank pain that has been going on for a while, no known injury. Awaiting for UA and labs. CT of the abdomen and pelvis is negative. 1900 Care tx to [facility] (SANTIAGO ANDRADE APRN) Course & Med Decision Making Urine and labs are unremarkable. Will d/c home. (HOWARD NEAL APRN) Dragon Disclaimer Dragon Disclaimer This electronic medical record was generated, in whole or in part, using a voice recognition dictation system. (SANTIAGO ANDRADE APRN) Departure Departure Impression: Primary Impression: Right flank pain Disposition: HOME, SELF-CARE Condition: STABLE Referrals: HOWARD CAMARA MD (PCP) Patient Instructions: Flank Pain Additional Instructions: Thank you for visiting [facility]. We appreciate you trusting us with your care. If any additional problems come up don't hesitate to return to visit us. Please follow up with your primary care provider so they can plan additional care if needed and know about the problem that you had. If symptoms worsen come back to the Emergency Department. Any concerning symptoms that start such as chest pain, shortness of air, weakness or numbness on one side of the body, running high fevers or any other concerning symptoms return to the ER. SANTIAGO ANDRADE APRN May 21, 2019 18:09 HOWARD NEAL APRN May 21, 2019 19:18
[2019-05-21 18:33] VITALS: BP 143/73
--- NOTE | 2019-05-21 18:44 | RAD ---
Study: CT abdomen and pelvis without contrast Indication: Right-sided flank pain. Comparison: 04/15/2019 Technique: Helical CT imaging performed of the abdomen and pelvis without the use of intravenous contrast. Sagittal and coronal reformats were obtained. One or more of the following individualized dose reduction techniques were utilized for this examination: 1. Automated exposure control 2. Adjustment of the mA and/or kV according to patient size 3. Use of iterative reconstruction technique. Findings: No newly seen abnormality of the liver, gallbladder, pancreas or spleen. Redemonstrated radiodense foci along the left adrenal gland. No adrenal gland mass on the right. No hydroureteronephrosis on the right. No perinephric fat stranding or edematous enlargement of either kidney. A punctate focus of mineralization along the expected course of the right ureter at its mid aspect, image 116 series 2, was present on the comparison exam. The distal aspect of the right ureter is not well evaluated due to streak artifact from a right hip construct. Redemonstrated intrarenal stone on the left measuring 3 mm. No hydroureteronephrosis on the left. Difficult evaluation of portions of the left ureter due to streak artifact from the right hip construct and surgical hardware at the lower lumbar spine. Scattered small foci of mineralization within the left hemipelvis were present previously. The intrapelvic contents are difficult to closely evaluate due to streak artifact. Colon is again seen to extend into a ventral midline hernia but there are no findings to suggest obstruction and the overall configuration of the hernia sac is no different from the prior. Moderately constipated state. The appendix is unremarkable. Nonobstructed small bowel. The stomach is not well evaluated due to the lack of oral contrast and underdistention. Very dense calcification along the anterior wall of the abdominal aorta in the expected region of the celiac origin is redemonstrated. A SMA stent is present. Dense calcifications at the left more so than right renal artery ostia. No newly seen aneurysmal dilatation. Retroaortic left renal vein. Thin low-attenuation along the margins of the liver at the armando hepatis was present previously. No free abdominal air or fluid. No suspicious body wall abnormality has developed. No acute or destructive osseous abnormality. No interval change in spinal alignment. Impression: 1. No acute abnormality is seen throughout the abdomen or pelvis to account for the patient's symptoms. In the setting of reported right flank pain, no hydroureteronephrosis or perinephric/periureteral fat stranding is appreciated. A punctate focus of mineralization is seen along the expected location of the mid right ureter, image 116 series 2, however this was present on the 04/15/2019 comparison. The absence of proximal collecting system dilatation goes against an obstructing nephrolithiasis and this is favored a phlebolith such as within an ovarian vein. 2. Unchanged nonobstructing left renal calculus. 3. Mild to moderate constipation. 4. Redemonstrated SMA stent and dense globular mineralization at the expected location of the celiac origin. 5. Ventral midline hernia containing fat and a portion of the transverse colon but without bowel obstruction or features of incarceration. The appearance and size of the hernia sac is unchanged. Electronically signed by: GRACIE ALARCON MD (05/21/2019 6:41 PM) [facility]
[2019-05-21 18:52] LABS: BASO # 0.1 x10^3/uL (0.0-0.2); BASO % 1 % (0-3); EOS # 0.4 x10^3/uL (0.0-0.7); EOS % 6 % (0-3); HEMATOCRIT 36.8 % (36.0-47.0); HEMOGLOBIN 12.1 g/dL (12.0-15.5); LYMPH # 2.4 x10^3/uL (1.0-4.8); LYMPH % 40 % (24-48); MEAN CORPUSCULAR HEMOGLOBIN 31 pg (25-35); MEAN CORPUSCULAR HGB CONC 33 g/dL (31-37); MEAN CORPUSCULAR VOLUME 95 fL (79-100); MONO # 0.6 x10^3/uL (0.0-1.1); MONO % 10 % (0-9); NEUT # 2.6 x10^3/uL (1.8-7.7); NEUT % 43 % (31-73); PLATELET COUNT 246 x10^3/uL (140-400); RED BLOOD COUNT 3.86 x10^6/uL (3.50-5.40); RED CELL DISTRIBUTION WIDTH 14.1 % (11.5-14.5)
[2019-05-21 18:54] LABS: BILIRUBIN,URINE NEGATIVE (NEG); CLARITY,URINE CLEAR; COLOR,URINE YELLOW; NITRITE,URINE NEGATIVE (NEG); PROTEIN,URINE NEGATIVE (NEG-TRACE)
[2019-05-21] MEDS: HYDROmorphone 2 MG/ML VIAL IM ONE (18:56)
[2019-05-21 19:01] LABS: AMPHETAMINE/METHAMPHETAMINE NEG (NEG); BARBITURATES NEG (NEG); BENZODIAZEPINES NEG (NEG); CANNABINOIDS NEG (NEG); COCAINE NEG (NEG); METHADONE NEG (NEG); OPIATES POS (NEG); PHENCYCLIDINE NEG (NEG)
[2019-05-21 19:01] LABS: CALCIUM 9.1 mg/dL (8.5-10.1); CREATININE 1.1 mg/dL (0.6-1.0); GFR 61.5; POTASSIUM 3.6 mmol/L (3.5-5.1)
[2019-05-21 19:06] LABS: ALBUMIN 3.2 g/dL (3.4-5.0); ALBUMIN/GLOBULIN RATIO 0.7 (1.0-1.7); TOTAL BILIRUBIN 0.2 mg/dL (0.2-1.0); TOTAL PROTEIN 7.8 g/dL (6.4-8.2)
[2019-05-21 19:08] LABS: RBC,URINE 0 /HPF (0-2)
[2019-05-21 19:09] LABS: BACTERIA,URINE FEW /HPF (0-FEW); SQUAMOUS EPITHELIAL CELL,UR OCC /LPF
== END 2019-05-21 19:53 | disposition home or self-care (01) ==
LOC: ER 17:22
DX: R10.9 Unspecified abdominal pain (principal); E78.00 Pure hypercholesterolemia, unspecified; E11.40 Type 2 diabetes mellitus with diabetic neuropathy, unspecified; I10 Essential (primary) hypertension; K58.9 Irritable bowel syndrome, unspecified; Z90.710 Acquired absence of both cervix and uterus; Z88.5 Allergy status to narcotic agent; Z91.011 Allergy to milk products; Z88.8 Allergy status to other drugs, medicaments and biological substances
CPT/HCPCS: 36415; 74176; 80053; 80307; 81001; 83690; 85025; 96372; 99285; G0480; J1170

== ENCOUNTER → 2019-06-14 | Outpatient (CLI) | payer OTHER, MEDICAID ==
[2019-05-21 18:33] VITALS: BP 143/73
[~2019-06-14] MED LIST changes: +LIDOCAINE 1% PF 2 ML VIAL. ONE; -POTA10TA12 PO; +POTASSIUM CHLO10 ME1 PO
--- NOTE | 2019-06-15 02:02 | PAIN ---
DATE OF SERVICE: 06/14/2019 PROGRESS NOTE FOR PAIN CLINIC DIAGNOSIS: Lumbar radiculopathy with lumbar post-laminectomy syndrome. HISTORY OF PRESENT ILLNESS: The patient is a 59-year-old female who returns for followup status post previous caudal epidural steroid injections and preauthorization for spinal cord stimulator trial placement. The patient has obtained this and would like to proceed. There is still significant pain in the low back, bilateral lower extremities, greater on the right than the left, but present bilaterally in the posterior gluteus, posterior thighs, posterior calves to the feet, worse with walking, standing, changing positions, better with sitting or lying down, is waking her up from sleep about every 4 hours recently. The patient reports the pain over the past week at its worst at 10, average is a 10, least at a 10, and is a 10 today. The patient reports it is aching, sharp, shooting, stabbing, becoming more constant, more severe, more unbearable with walking, activity and standing, better with sitting, but again worse with lying down, and has been waking her from sleep. The patient reports no new motor or sensory deficits, no new changes. PHYSICAL EXAMINATION: VITAL SIGNS: The patient's blood pressure is 142/84, pulse 67, respirations 16, and temperature 97.8 degrees Fahrenheit. Weight is 248 pounds. GENERAL: The patient is awake, alert, oriented, appropriate, very pleasant demeanor. HEENT: Head shows normocephalic, atraumatic. Extraocular movements are intact and symmetrical. Oral cavity shows mucous membranes moist and pink. Dentition is intact. NECK: Shows anterior throat supple without palpable lymphadenopathy noted. Swallow reflex symmetrical. CHEST: Shows normal on inspection. Breath sounds are clear bilaterally. HEART: Shows S1, S2 clear. No murmurs are auscultated. ABDOMEN: Soft, nontender, nondistended. No palpable organomegaly is noted. No rebound or guarding demonstrated. BACK: Shows spine grossly in the midline. Slight exaggeration of thoracic kyphosis, some minor flattening of lumbar lordotic curvature. Well-healed surgical scar in the lumbar distribution. Lumbar paraspinous muscle shows symmetrical on inspection, on palpation shows some moderate tenderness bilaterally and diffusely without significant radiation. The patient has full rotational motion of lumbar spine, both laterally as well as extension and flexion without difficulty. EXTREMITIES: Lower extremities show deep tendon reflexes 1+ in the patellar and tendo calcaneus tendons. Motor exam is approximately 4 on a scale of 5, but equal and symmetrical bilaterally. Peripheral pulses are 1+ posterior tibia. No peripheral edema is noted bilaterally. Options were discussed with the patient. The patient's old chart was reviewed, her current medication regimen updated. Current review of systems updated today as well. We will proceed with a spinal cord stimulator trial placement with the stimulator leads x 2. Risks were again discussed including, but not limited to bleeding, infection, possibility of epidural hematoma, subsequent neurological compromise, dural puncture, headaches, spinal cord and/or nerve damage, side effects of steroid medication and poor results regarding pain control. The patient understands and wished to proceed. The patient will return to clinic in approximately 1 week for followup and removal of stimulator wires and reassessment at that time. DIAGNOSIS: Lumbar radiculopathy with lumbar post-laminectomy syndrome. PROCEDURE: Spinal cord stimulator temporary lead placement x 2 under sterile prep and drape using fluoroscopic guidance. The patient in prone position using C-arm fluoroscopic guidance, the patient's T8 vertebral level was identified with external marker and placed on the patient's skin and insertion of a 14-gauge bettercodes.orgtead needle with stylet x 2 at the L2-L3 level, right paramedian and approached in the midline epidural space under direct fluoroscopic guidance, both AP and lateral with good preservative-free normal saline and loss of resistance with negative aspiration with each insertion site. Spinal cord stimulator wires were then threaded through the needle under direct fluoroscopic visualization without difficulty, without resistance and without significant paresthesia to rest of the superior pole of the spinal cord stimulator lead at the superior endplate of T8 and the superior endplate of T9, juxtaposed and staggered, verified posterior in the epidural space with lateral fluoroscopic views in the midline on AP views. Crossroads were withdrawn, stylets were withdrawn with a direct fluoroscopic intermittent views of the placement to assure no movement after withdrawal of the needles and stylets which was ensured. The wires were then sutured into place with anchoring devices on the skin and 2-0 silk sutures x 2. Sterile bandages were applied. Mastisol, Tegaderm and reinforced with a gauze and tape. CONDITION AT DISCHARGE: Stable. The patient tolerated the procedure well. Programming was carried out in the recovery room with Mr. Jonathan Pinto from [employer]. The patient left under her own power, walking without difficulty and tolerated the procedure well. NICOLETTE FRANK MD DR: ANJEL/karey JOB#: [id number] / [id number]
== END ==
LOC: PNCL 13:16
PROVIDERS: ATTEND Anesthesiology
DX: M54.16 Radiculopathy, lumbar region (principal); M96.1 Postlaminectomy syndrome, not elsewhere classified
CPT/HCPCS: 63650; C1897

== ENCOUNTER → 2019-06-19 | Outpatient (CLI) | payer OTHER, MEDICAID ==
[2019-05-21 18:33] VITALS: BP 143/73
[~2019-06-19] MED LIST changes: -LIDOCAINE 1% PF 2 ML VIAL. ONE
--- NOTE | 2019-06-19 23:43 | PAIN ---
DATE OF SERVICE: 06/19/2019 PROGRESS NOTE FOR PAIN CLINIC DIAGNOSES: Lumbar radiculopathy with lumbar post-laminectomy syndrome. HISTORY OF PRESENT ILLNESS: The patient is a 59-year-old female who returns for followup status post spinal cord stimulator temporary leads placement on 06/14/2019. The patient reports she did very well, anywhere from 50-80% improvement depending on the day, initially was 80-90% improved and as the week went on down to about 50% improvement overall, but still significantly improved in the low back and bilateral lower extremity pain. The patient reports the pain was a 7 on a scale of 10 at its worst over the past week, 6 on average, 2 at its least and is a 2 today. The patient reports it is aching, shooting, stabbing that has been constant at times in the back and the legs, but overall significantly improved. She is very pleased with her progress and would like to pursue with permanent placement of the spinal cord stimulator system. The patient reports some increased her activity to a bit better with distance walking, doing household activities and traveling with greater ease and comfort and sleeping much better at night, does not awaken her from sleep throughout the time she had it. PHYSICAL EXAMINATION: VITAL SIGNS: The patient's blood pressure is 135/68, pulse 77, respirations 18, and temperature 98.1 degrees Fahrenheit. GENERAL: The patient is awake, alert, oriented, appropriate, very pleasant demeanor. HEENT: Shows normocephalic, atraumatic. Extraocular movements are intact and symmetrical. Oral cavity shows mucous membranes moist and pink. NECK: Shows anterior throat supple. CHEST: Shows normal on inspection. Breath sounds are clear bilaterally. HEART: Shows S1, S2 clear. ABDOMEN: Soft, nontender, nondistended. BACK: Shows spine grossly in the midline. The patient's bandages were taken down, showing insertion site of the spinal cord stimulator wires. Under sterile technique, the sutures were removed and the leads were removed x 2 with tips intact. Sites clean and dry, no erythema. No swelling, no drainage. Options were discussed with the patient. The patient's old chart was reviewed as her current medication regimen updated. Current review of systems updated today as well. We will have the patient scheduled for a permanent placement originally made and will follow up as scheduled. NICOLETTE FRANK MD DR: Sonia JOB#: [id number] / [id number]
== END | disposition home or self-care (01) ==
LOC: PNCL 12:32
PROVIDERS: ATTEND Anesthesiology
DX: M54.16 Radiculopathy, lumbar region (principal); M96.1 Postlaminectomy syndrome, not elsewhere classified
CPT/HCPCS: G0463

== ENCOUNTER → 2020-02-04 | Outpatient (CLI) | payer OTHER, MEDICAID ==
[~2020-02-04] MED LIST changes: -GLIM1TAB3 PO; +GLIM1TAB7 PO; +PREG-9 PO; -PREG75CA PO; +TRAZ-123 PO; -TRAZ-86 PO; -WARF-78 PO; +WARF5TAB2 PO
--- NOTE | 2020-02-04 15:36 | KCIC ---
EXAM: MRI left shoulder DATE: 02/04/2020 1:15 PM COMPARISON: None INDICATION: Reason: LEFT SHOULDER PAIN/TENDERNESS OVER AC JOINT / Spl. Instructions: / History: Left shoulder pain after a fall 3 mths ago. TECHNIQUE: Multiplanar, multisequence MRI of the left shoulder was performed without contrast. FINDINGS: AC joint degenerative changes are seen. Type I acromion. No os acromiale. Subacromial-subdeltoid bursal fluid from full-thickness rotator cuff tear and bursitis. Superior subluxation of the humeral head. There is a full-thickness, full width tear of the supraspinatus tendon and full-thickness, full thickness full width tear of the infraspinatus tendon in total measuring approximately 3.7 cm. Teres minor is intact. Mild increased signal within the subscapularis tendon likely mild tendinosis. There is moderate fatty atrophy within the infraspinatus and supraspinatus muscle bellies. Tendinous retraction of the supraspinatus and infraspinatus, just lateral to the glenoid. Intrasubstance ganglion within the infraspinatus extends medial to the glenoid. Extra-articular long head biceps tendon is seen within the bicipital groove. Mild intra-articular long head biceps tendinosis. Evaluation for labral tear is limited on this nonarthrographic study. Mild deformity of the posterior labrum likely labral tear/degeneration. No fracture or osteonecrosis. Chondral thinning superiorly within the humeral head otherwise articular cartilage is grossly preserved. IMPRESSION: 1. Full-thickness, full width tear of the supraspinatus tendon and full-thickness, full width tear of the interspace tendon measuring approximately 3.7 cm in AP dimension. 2. Moderate fatty atrophy of the supraspinatus and infraspinatus muscle bellies. 3. Intra-articular long head biceps tendinosis. Electronically signed by: Karri Ortiz MD (02/04/2020 3:33 PM) ZENAIDA
== END ==
LOC: KCIC MRI 12:50
PROVIDERS: ATTEND Orthopaedic Surgery
DX: M75.122 Complete rotator cuff tear or rupture of left shoulder, not specified as traumatic (principal); M89.8X1 Other specified disorders of bone, shoulder
CPT/HCPCS: 73221

== ENCOUNTER → 2020-04-07 | Outpatient (CLI) | payer OTHER, MEDICAID ==
[~2020-04-07] MED LIST changes: +IBUP-1060 PO; +OXYC15TA61 PO; +SERT25TA PO
[2020-04-07 15:24] LABS: HEMATOCRIT 35.8 % (36.0-47.0); HEMOGLOBIN 11.9 g/dL (12.0-15.5); MEAN CORPUSCULAR HEMOGLOBIN 31 pg (25-35); MEAN CORPUSCULAR VOLUME 94 fL (79-100); RED BLOOD COUNT 3.83 x10^6/uL (3.50-5.40); WHITE BLOOD COUNT 6.9 x10^3/uL (4.0-11.0)
[2020-04-07 15:25] LABS: BASO # 0.1 x10^3/uL (0.0-0.2); BASO % 1 % (0-3); EOS # 0.2 x10^3/uL (0.0-0.7); EOS % 3 % (0-3); LYMPH % 29 % (24-48); MEAN CORPUSCULAR HGB CONC 33 g/dL (31-37); MONO # 0.6 x10^3/uL (0.0-1.1); MONO % 8 % (0-9); NEUT # 4.1 x10^3/uL (1.8-7.7); NEUT % 59 % (31-73); PLATELET COUNT 243 x10^3/uL (140-400); RED CELL DISTRIBUTION WIDTH 13.8 % (11.5-14.5)
--- NOTE | 2020-04-07 15:28 | EKG ---
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
[2020-04-07 15:32] LABS: ALBUMIN 3.1 g/dL (3.4-5.0); CALCIUM 9.4 mg/dL (8.5-10.1); CREATININE 1.1 mg/dL (0.6-1.0); GFR 61.3; POTASSIUM 3.8 mmol/L (3.5-5.1)
[2020-04-07 15:38] LABS: PROTHROMBIN TIME PATIENT 13.4 SEC (11.7-14.0)
--- NOTE | 2020-04-07 16:15 | RAD ---
AP and Lateral Views of the Chest 04/07/2020 3:01 PM Indication: Reason: PRE-OP EVAL / Spl. Instructions: / History: Comparison: Chest radiograph January 22, 2019 Findings: There is no focal consolidation or infiltrate identified. The cardiomediastinal silhouette is within normal limits. There is no evidence of pneumothorax or pleural effusion. No acute osseous abnormalities are identified. Impression: No evidence of acute cardiopulmonary process. Electronically signed by: Jarred Velasquez MD (04/07/2020 4:12 PM) [id number]
[2020-04-08 02:08] LABS: HEMOGLOBIN A1C 6.7 % (4.8-5.6)
== END ==
LOC: SURGPAT 14:48
PROVIDERS: ATTEND Orthopaedic Surgery
DX: Z01.812 Encounter for preprocedural laboratory examination (principal); M12.812 Other specific arthropathies, not elsewhere classified, left shoulder; I49.8 Other specified cardiac arrhythmias
CPT/HCPCS: 36415; 71046; 80048; 82040; 82306; 83036; 85025; 85610; 85730; 86140; 87641; 93005

== ENCOUNTER → 2020-04-15 | Outpatient (CLI) | payer OTHER, MEDICAID ==
[~2020-04-15] MED LIST changes: +OXYC5CAP PO
== END ==
LOC: LAB 11:01
PROVIDERS: ATTEND Orthopaedic Surgery
DX: Z01.812 Encounter for preprocedural laboratory examination (principal); M12.812 Other specific arthropathies, not elsewhere classified, left shoulder
CPT/HCPCS: 87641

== ENCOUNTER → 2020-04-25 | Outpatient (CLI) | payer OTHER, MEDICAID | LOC: LAB 13:59 | PROVIDERS: ATTEND Orthopaedic Surgery | DX: Z01.812 Encounter for preprocedural laboratory examination (principal); Z20.828 Contact with and (suspected) exposure to other viral communicable diseases | CPT/HCPCS: U0003 ==

== ENCOUNTER 2020-05-31 17:27 | Emergency (ER) | payer OTHER, MEDICAID ==
[~2020-05-31] VITALS: Ht 162.6 cm; Wt 125.0 kg
--- NOTE | 2020-05-31 19:21 | PHYS DOC ---
Past Medical History Past Medical History: Arthritis, Diabetes-Type II, Fibromyalgia, High Cho lesterol, Hypertension, Hepatitis, IBS, Other Additional Past Medical Histor: HEP C, NEUROPATHY, back pain, insomnia, chronic cough Past Surgical History: Hip Replacement, Hysterectomy, Knee Replacement, Tonsillectomy, Other Additional Past Surgical Histo: ROTATOR CUFF SX, CYST REMOVAL, R FOOT SX WITH NERVE DAMAGE low back,STENT Smoking Status: Never Smoker Alcohol Use: None Drug Use: None General Adult EDM: Chief Complaint: LOWER BACK PAIN OR INJURY HPI: HPI: Patient is a 60 year old female with past medical history of fibromyalgia and chronic pain presents with report of URI type symptoms including productive cough, nasal congestion, body aches, and generalized fatigue x2 to 3 days. Patient reports she became so weak that she ended up falling striking the back of her head and losing consciousness. Patient complains of headache, neck pain, and thoracic and lumbar back pain. Denies loss of bowel or bladder. Patient reports she typically is on chronic Percocet 10/325 mg. Reports recently ran out of her medications yesterday. Patient reports she has a refill scheduled for 06/02/2020. Denies use of blood thinners. Patient requesting Dilaudid upon arrival. Patient denies known exposure to COVID-19. Denies known sick contacts. Review of Systems: Review of Systems: Constitutional: Denies fever or chills; reports generalized malaise and body aches Eyes: Denies redness or eye pain HENT: Reports nasal congestion; denies sore throat Respiratory: Reports productive cough; denies shortness of breath Cardiovascular: Denies chest pain or palpitations GI: Denies abdominal pain, nausea, or vomiting : Denies dysuria or hematuria Musculoskeletal: Reports neck and back pain Integument: Denies rash or laceration Neurologic: Denies headache, focal weakness or sensory changes; reports generalized weakness Complete systems were reviewed and found to be within normal limits, except as documented in this note. Current Medications: Current Medications Medications (Trade) Dose Ordered Sig/Doris Start Time Stop Time Status Last Admin Dose Admin Dexamethasone (Decadron) 10 mg 1X ONCE 05/31/20 19:30 05/31/20 19:31 Orphenadrine Citrate (Norflex) 60 mg 1X ONCE 05/31/20 19:30 05/31/20 19:31 Oxycodone/ Acetaminophen (Percocet 10/325) 1 tab 1X ONCE 05/31/20 19:30 05/31/20 19:31 Allergies: Allergies: Allergies Coded Allergies Type Severity Reaction Last Updated Verified metformin Allergy Intermediate Diarrhea 04/07/20 Yes morphine Allergy Intermediate HIVES, HAIR LOSS 04/07/20 Yes naltrexone Allergy Intermediate HIVES, HAIR LOSS 04/07/20 Yes sitagliptin Allergy Intermediate Diarrhea 04/07/20 Yes milk Allergy Mild 04/07/20 Yes Physical Exam: PE: Constitutional: Well developed, obese, anxious, non-toxic appearance HENT: Normocephalic, atraumatic Eyes: PERRL, EOMI, conjunctiva normal, no discharge Neck: Normal range of motion, paraspinal cervical tenderness, supple Lungs & Thorax: No respiratory distress, equal chest rise and fall Abdomen: Soft, no tenderness; pelvis stable and nontender Skin: Warm, dry, no erythema, no rash, no lacerations, no ecchymosis Back: Thoracic and lumbar midline tenderness on palpation, no step-off, no CVA tenderness Extremities: No tenderness, ROM intact, no edema Neurologic: Alert and oriented X 3, normal motor function, normal sensory function, no focal deficits noted Psychologic: Affect anxious, judgment normal Current Patient Data: Vital Signs: Vital Signs Date Time Temp Pulse Resp B/P (MAP) Pulse Ox O2 Delivery O2 Flow Rate FiO2 05/31/20 18:20 98.8 80 16 159/74 (102) 98 Room Air 98.8 EKG: EKG: [] Radiology/Procedures: Radiology/Procedures: PROCEDURE: AP chest, thoracic spine 3 views, lumbar spine 3 views. HISTORY: Pain after a fall AP view was taken of the chest. Heart is upper normal in size. There is no pneumothorax. There is no effusion. Lungs are free of infiltrates. There is a reversed total shoulder prosthesis on the left. There is arthritis in the right shoulder. Thoracic spine 3 views were taken of the thoracic spine. There is slight scoliosis. There are hypertrophic spurs. There is a mild compression fracture at T4. Shoulder prosthesis partially obscures the upper T-spine. T4 fracture is apparently old as it was present on the old CT from August 2015. Mild endplate depressions at T5, 6 and 7 were also evident on the old CT. Lumbar spine 3 views were taken lumbar spine. There is mild scoliosis convex the right. Patient had previous lower lumbar spinal fusion at L4-5. There is disc space narrowing at L5-S1. There is no acute fracture. IMPRESSION: 1. No acute infiltrates or acute chest disease. 2. Old thoracic fractures, no acute fracture noted. 3. Mild scoliosis. 4. Previous lumbar spine fusion. 5. No fracture or other acute change in the lumbar spine. Electronically signed by: Jeronimo Shaw MD (05/31/2020 7:53 PM) [facility] PROCEDURE: CT HEAD AND CERVICAL SPINE WO CT scan of the head without contrast 05/31/2020 Clinical History: Head injury. Fall. Technique: Unenhanced, contiguous, 5 mm axial sections were obtained through the head. One or more of the following individualized dose reduction techniques were utilized for this study: 1. Automated exposure control. 2. Adjustment of the mA and/or kV according to patient size. 3. Use of iterative reconstruction technique. Findings: The ventricles and sulci are within normal limits in size and configuration. No acute parenchymal abnormality is seen. No extra-axial fluid collection is noted. No skull fracture is seen. Impression: No acute intracranial abnormality is seen. CT scan of the cervical spine without contrast 05/31/2020 Clinical history: Neck pain post fall. Technique: Unenhanced, contiguous, 0.625 mm axial sections were obtained through the cervical spine. Axial, coronal and sagittal reconstructed images were obtained. One or more of the following individualized dose reduction techniques were utilized for this study: 1. Automated exposure control. 2. Adjustment of the mA and/or kV according to patient size. 3. Use of iterative reconstruction technique. Findings: Sagittal and coronal reconstructed images demonstrate very mild lateral curvature of the cervical spine, convex to the right. There is straightening of the normal cervical lordosis. No fracture or subluxation of the cervical vertebrae is seen. Degenerative changes are seen involving the uncovertebral and facet joints scattered throughout the cervical disc spaces. Moderate atherosclerotic calcification is seen in the region of the carotid bifurcations. Impression: No fracture or subluxation of the cervical vertebra is identified. Electronically signed by: Fredy Layton MD (05/31/2020 8:03 PM) [id number] Course & Med Decision Making: Course & Med Decision Making Pertinent Labs and Imaging studies reviewed. (See chart for details) Patient with fibromyalgia and chronic back pain presents with report of several day history of URI type symptoms including generalized malaise and fatigue which caused her to fall backwards striking her head. Patient reports positive loss of consciousness. Patient also complaining of cervical, thoracic, and lumbar pain. Patient appears neurologically intact. Patient reports she recently ran out of her chronic pain medications. Patient requesting Dilaudid by name. Vital signs stable. Sats normal on room air. Cannot exclude COVID-19. COVID-[address] COVID-19 testing pending. Rapid influenza negative. Chest x-ray without acute process. CT head/cervical spine also without acute process. X-rays of thoracic and lumbar spine without acute fracture. Symptomatic treatment provided with IM muscle relaxer, Percocet, and oral dexamethasone. Ice pack also provided. [facility] report obtained and noted patient with recent Rx for Oxycodone 15mg x 56 tabs on 05/14/20 (reports 14 day supply). If prescription is 14 day supply then would correlate with prescription running out yesterday 05/28/20. Patient stable for discharge with outpatient follow-up with PCP/pain management/orthopedics. Discussed findings and plan with patient, who acknowledges understanding and agreement. COVID-19 CRITERIA: The patient was evaluated during the global COVID-19 pandemic, and that diagnosis was suspected/considered upon their initial pre sentation. Their evaluation, treatment and testing was consistent with current guidelines for patients who present with complaints or symptoms that may be related to COVID-19. Kristen Disclaimer: Kristen Disclaimer: This electronic medical record was generated, in whole or in part, using a voice recognition dictation system. Departure Departure Impression: Primary Impression: Fall Qualified Codes: W19.XXXA - Unspecified fall, initial encounter Additional Impressions: URI (upper respiratory infection) Qualified Codes: J06.9 - Acute upper respiratory infection, unspecified Neck pain Thoracic back pain Qualified Codes: M54.6 - Pain in thoracic spine; G89.29 - Other chronic pain Lumbar back pain Suspected 2019 novel coronavirus infection Disposition: 01 DC HOME SELF CARE/HOMELESS Condition: STABLE Referrals: STEFAN CAMARA MD (PCP) NICOLETTE FRANK MD, TIMOTHY J MD Patient Instructions: Cervical Sprain, [id number], Chronic Back Pain, Fall Prevention and Home Safety, [id number], Upper Respiratory Infection, Adult, Ifrs-[id number]-Eieg, Viral Syndrome Additional Instructions: You have been tested for or diagnosed with COVID-19. It is an infection caused by a new type of coronavirus. COVID-19 will cause cold-like or mild flu symptoms in most. It can cause more severe symptoms like problems breathing in some. There is no treatment for COVID-19. The body will clear the infection over time. Self-care will help to ease discomfort. Steps to Take: Self-Care Rest as needed. Healthy habits may help you feel better. Steps include: Choose healthy foods including fruits and vegetables. Drink water throughout the day. Get plenty of sleep each night. If you smoke, try to quit. It may ease breathing. Avoid alcohol. Keep Others Healthy The virus can spread to others. Droplets are released every time you sneeze or c ough. The droplets can get into the mouth, nose, or eyes of people near you and lead to infection. To lower the chances of spreading COVID-19 to others: Stay at home until your doctor has said it is safe to leave. If you tested positive this will mean staying isolated until both of the following are true: At least 7 days have passed since the start of illness. You are free of fever for at least 72 hours without the use of medicine. During this time: - Avoid public areas, events, or transportation. Do not return to work or school until your doctor has said it is safe to do so. - Call ahead if you need to go to a medical center. Let them know you may have COVID-19. It will help them guide you where to go. They may also ask you to wear a facemask when you come to the office. - If you call for emergency medical services, let them know you may have COVID- 19. While at home: - Try to avoid close contact with others. Stay about 6 feet away. - If possible, spend most of your time in a separate room from others. - Use a face mask if you will be in close contact with others such as sharing a room or vehicle. - Have someone wipe down common surfaces in the home. Use household post office manager every day on areas like doorknobs, counters, or sinks. - Cough or sneeze into a tissue. Throw the tissue away right after use. If a tissue is not available, cough or sneeze into your elbow. - Wash your hands often. Wash them after sneezing or coughing. Use soap and water and wash for at least 20 seconds. Alcohol based hand rack cleaner can be used if soap and water is not available. - Do not prepare food for others. Avoid sharing personal items like forks, spoons, or toothbrushes. - Avoid close contact with pets while you are sick. There is no evidence of the virus passing to pets. This is a safety step until more is known about this virus. Isolation can be frustrating. Social interaction can help. Keep in touch with friends and family through phone and tech options. You can still interact with others in your home, just keep a safe distance of about 6 feet. Follow-up: Your doctors office will check in with you to see if there are any changes in your health. You may be asked to keep track of symptoms to share with them. They will also let you know when you are clear to be in public again. Problems to Look Out For: Contact your doctor if your recovery is not going as you expect. Get emergency care if you have problems such as: - Trouble breathing - Nonstop chest pain or pressure - Changes in awareness, confusion, or problems waking - Lips or face have bluish color - Worsening of symptoms If you think you have an emergency, call for emergency medical services right away. As taken from [facility] Orphenadrine Citrate (ORPHENADRINE CITRATE) 100 Mg Tablet.er 100 MG PO BID PRN for MUSCLE PAIN, #14 TAB Prov: STEAFN HAMILTON DO 05/31/20 Oxycodone/Apap 10-325 (PERCOCET 10-325 MG TABLET ) 1 Each Tablet 0.5-1 TAB PO PRN Q6HRS PRN for PAIN, #4 TAB 0 Refills Prov: STEFAN HAMILTON DO 05/31/20 COVID-19 Assessment: COVID-19 Patient Risks: Age 65 or older: No Sign of co-morbidity: Yes Exp to person + for COVID: No Exp to PUI: No Travel from affected area: No Lower respiratory symptoms: Yes Fever: No Other: Yes PPE Use: Full PPE with N95 mask or PAPR: Yes STEFAN HAMILTON DO May 31, 2020 19:21
[2020-05-31] MEDS ORDERED: oxyCODONE/APAP 10/325 1 TAB TABLET PO ONE (19:30)
[2020-05-31] MEDS ORDERED: DEXAMETHASONE 4 MG TABLET PO ONE (19:30)
[2020-05-31] MEDS ORDERED: ORPHENADRINE CITRATE 60 MG/2 ML VIAL. IM ONE (19:30)
[2020-05-31] MEDS ORDERED: OXYC1TAB22 PO (19:34)
[2020-05-31] MEDS ORDERED: ORPH100T PO (19:34)
--- NOTE | 2020-05-31 19:56 | RAD ---
AP chest, thoracic spine 3 views, lumbar spine 3 views. HISTORY: Pain after a fall AP view was taken of the chest. Heart is upper normal in size. There is no pneumothorax. There is no effusion. Lungs are free of infiltrates. There is a reversed total shoulder prosthesis on the left. There is arthritis in the right shoulder. Thoracic spine 3 views were taken of the thoracic spine. There is slight scoliosis. There are hypertrophic spurs. There is a mild compression fracture at T4. Shoulder prosthesis partially obscures the upper T-spine. T4 fracture is apparently old as it was present on the old CT from August 2015. Mild endplate depressions at T5, 6 and 7 were also evident on the old CT. Lumbar spine 3 views were taken lumbar spine. There is mild scoliosis convex the right. Patient had previous lower lumbar spinal fusion at L4-5. There is disc space narrowing at L5-S1. There is no acute fracture. IMPRESSION: 1. No acute infiltrates or acute chest disease. 2. Old thoracic fractures, no acute fracture noted. 3. Mild scoliosis. 4. Previous lumbar spine fusion. 5. No fracture or other acute change in the lumbar spine. Electronically signed by: Jeronimo Shaw MD (05/31/2020 7:53 PM) [facility]
--- NOTE | 2020-05-31 20:06 | RAD ---
CT scan of the head without contrast 05/31/2020 Clinical History: Head injury. Fall. Technique: Unenhanced, contiguous, 5 mm axial sections were obtained through the head. One or more of the following individualized dose reduction techniques were utilized for this study: 1. Automated exposure control. 2. Adjustment of the mA and/or kV according to patient size. 3. Use of iterative reconstruction technique. Findings: The ventricles and sulci are within normal limits in size and configuration. No acute parenchymal abnormality is seen. No extra-axial fluid collection is noted. No skull fracture is seen. Impression: No acute intracranial abnormality is seen. CT scan of the cervical spine without contrast 05/31/2020 Clinical history: Neck pain post fall. Technique: Unenhanced, contiguous, 0.625 mm axial sections were obtained through the cervical spine. Axial, coronal and sagittal reconstructed images were obtained. One or more of the following individualized dose reduction techniques were utilized for this study: 1. Automated exposure control. 2. Adjustment of the mA and/or kV according to patient size. 3. Use of iterative reconstruction technique. Findings: Sagittal and coronal reconstructed images demonstrate very mild lateral curvature of the cervical spine, convex to the right. There is straightening of the normal cervical lordosis. No fracture or subluxation of the cervical vertebrae is seen. Degenerative changes are seen involving the uncovertebral and facet joints scattered throughout the cervical disc spaces. Moderate atherosclerotic calcification is seen in the region of the carotid bifurcations. Impression: No fracture or subluxation of the cervical vertebra is identified. Electronically signed by: Fredy Layton MD (05/31/2020 8:03 PM) [id number]
[2020-05-31 20:57] LABS: INFLUENZA A PATIENT NEGATIVE (NEGATIVE); INFLUENZA B PATIENT NEGATIVE (NEGATIVE)
[2020-05-31] MEDS ORDERED: KETOROLAC 30 MG/ML VIAL. IM ONE (21:15)
[2020-05-31 21:22] VITALS: BP 139/78
--- NOTE | 2020-06-03 09:38 | NUR ---
IP: Informed pt of negative COVID results. Pt verbalized understanding
== END 2020-05-31 21:29 | disposition home or self-care (01) ==
LOC: ER 17:27
DX: J06.9 Acute upper respiratory infection, unspecified (principal); M54.2 Cervicalgia; M54.6 Pain in thoracic spine; R51.9 Headache, unspecified; G89.29 Other chronic pain; Z20.828 Contact with and (suspected) exposure to other viral communicable diseases; G89.11 Acute pain due to trauma; M54.5 Low back pain; Z88.5 Allergy status to narcotic agent; Z88.8 Allergy status to other drugs, medicaments and biological substances; Z91.011 Allergy to milk products; E78.00 Pure hypercholesterolemia, unspecified; E11.40 Type 2 diabetes mellitus with diabetic neuropathy, unspecified; I10 Essential (primary) hypertension; K58.9 Irritable bowel syndrome, unspecified; Z95.5 Presence of coronary angioplasty implant and graft; W18.09XA Striking against other object with subsequent fall, initial encounter; Y93.89 Activity, other specified; Y92.89 Other specified places as the place of occurrence of the external cause; Y99.8 Other external cause status
CPT/HCPCS: 70450; 71045; 72072; 72100; 72125; 87804; 96372; 99285; C9803; J1885; J2360; U0003

== ENCOUNTER 2020-06-24 09:41 | Emergency (ER) | payer OTHER, MEDICAID ==
[~2020-06-24] VITALS: Ht 165.1 cm; Wt 113.6 kg
[~2020-06-24 09:41] MED LIST changes: +ORPH100T PO
[2020-06-24 09:45] VITALS: BP 109/52
[2020-06-24] MEDS ORDERED: NAPROXEN 500 MG TABLET PO ONE (10:15)
--- NOTE | 2020-06-24 10:55 | PHYS DOC ---
Past Medical History Past Medical History: Arthritis, Diabetes-Type II, Fibromyalgia, High Cho lesterol, Hypertension, Hepatitis, IBS, Other Additional Past Medical Histor: HEP C, NEUROPATHY, back pain, insomnia, chronic cough Past Surgical History: Hip Replacement, Hysterectomy, Knee Replacement, Tonsillectomy, Other Additional Past Surgical Histo: ROTATOR CUFF SX, CYST REMOVAL, R FOOT SX WITH NERVE DAMAGE low back,STENT Smoking Status: Never Smoker Alcohol Use: None Drug Use: None Adult General Chief Complaint Chief Complaint: LOWEREXTREMITY INJURY [facility] HPI Patient is a 60 year old female presenting to emergency department neurological positive in pain. Patient states that 3 days ago she had an accident where she was walking down her steps and accidentally slipped causing both her legs to slide forward where she fell onto her buttocks and down the steps. Patient treated since that time she is noted worsening pain and swelling over the left knee primarily in the left lateral portion of the knee. Has noted increased difficulty walking on it secondary to the pain and pain when bearing weight. Denies any neck, head or back pain. Denies any loss of consciousness. Review of Systems Review of Systems Constitutional: Denies fever or chills [] Eyes: Denies change in visual acuity, redness, or eye pain [] HENT: Denies nasal congestion or sore throat [] Respiratory: Denies cough or shortness of breath [] Cardiovascular: No additional information not addressed in HPI [] GI: Denies abdominal pain, nausea, vomiting, bloody stools or diarrhea [] : Denies dysuria or hematuria [] Musculoskeletal: Left knee pain Integument: Denies rash or skin lesions [] Neurologic: Denies headache, focal weakness or sensory changes [] Endocrine: Denies polyuria or polydipsia [] All other systems were reviewed and found to be within normal limits, except as documented in this note. Current Medications Current Medications Current Medications Medications (Trade) Dose Ordered Sig/Doris Start Time Stop Time Status Last Admin Dose Admin Naproxen (Naprosyn) 500 mg 1X ONCE 06/24/20 10:15 06/24/20 10:16 DC 06/24/20 10:32 500 MG Allergies Allergies Allergies Coded Allergies Type Severity Reaction Last Updated Verified metformin Allergy Intermediate Diarrhea 04/07/20 Yes morphine Allergy Intermediate HIVES, HAIR LOSS 04/07/20 Yes naltrexone Allergy Intermediate HIVES, HAIR LOSS 04/07/20 Yes sitagliptin Allergy Intermediate Diarrhea 04/07/20 Yes milk Allergy Mild 04/07/20 Yes Physical Exam Physical Exam Constitutional: Well developed, well nourished, no acute distress, non-toxic appearance. [] HENT: Normocephalic, atraumatic, bilateral external ears normal, oropharynx moist, no oral exudates, nose normal. [] Eyes: PERRLA, EOMI, conjunctiva normal, no discharge. [] Neck: Normal range of motion, no tenderness, supple, no stridor. [] Cardiovascular:Heart rate regular rhythm, no murmur [] Lungs & Thorax: Bilateral breath sounds clear to auscultation [] Abdomen: Bowel sounds normal, soft, no tenderness, no masses, no pulsatile masses. [] Skin: Warm, dry, no erythema, no rash. [] Back: No tenderness, no CVA tenderness. [] Extremities: No tenderness, no cyanosis, no clubbing. Significant tenderness of the left lateral medial portion of the knee. No bony tenderness. Neurovascularly intact distal to the injury. Mild swelling noted in the lateral portion of the left knee joint Neurologic: Alert and oriented X 3, normal motor function, normal sensory function, no focal deficits noted. [] Psychologic: Affect normal, judgement normal, mood normal. [] Current Patient Data Vital Signs Vital Signs Date Time Temp Pulse Resp B/P (MAP) Pulse Ox O2 Delivery O2 Flow Rate FiO2 06/24/20 09:45 98.9 54 16 109/52 (71) 98 Room Air 98.9 EKG EKG [] Radiology/Procedures Radiology/Procedures Two-view study left knee: Left knee injury after a fall with left knee pain. FINDINGS: There is a small bone fragment of the posterior inferior pole of the patella. The edges are sclerotic and therefore this appears to represent an old finding. No acute fracture or dislocation or lytic process is seen. There is mild degenerative spurring without joint space space narrowing of the medial and lateral tibiofemoral joint compartments and the patellofemoral joint. A small small left knee joint effusion is seen. IMPRESSION: No acute fracture. Mild primary degenerative osteoarthritis. Electronically signed by: Morales Sharma MD (06/24/2020 11:02 AM) [id number][] Course & Med Decision Making Course & Med Decision Making Pertinent Labs and Imaging studies reviewed. (See chart for details) 60F present in the emergency department with new onset of left-sided knee pain after a fall. There is no significant bony tenderness but based on the location I am significantly concerned that there is a joint injury. More specifically concern for meniscal tear. At this time obtain x-rays to be sure there is no acute fracture that need to be reduced. However if this is negative I do feel that the patient will need a knee immobilizer, crutches and orthopedic surgery follow-up. 11:42 -x-ray negative for any acute fracture. Patient was placed in a knee immo bilizer was able to mobilize the emergency department with a walker. After discussion patient states that she does not want to stay wants to go home and follow-up with her normal orthopedic surgeon. Patient is being discharged to long-term where she has no stairs and has help getting up and out of bed Dragon Disclaimer Dragon Disclaimer This electronic medical record was generated, in whole or in part, using a voice recognition dictation system. Departure Departure Impression: Primary Impression: Left knee injury Disposition: 01 DC HOME SELF CARE/HOMELESS Condition: IMPROVED Referrals: STEFAN CAMARA MD (PCP) BERNADETTE TOLENTINO MD Patient Instructions: Knee - Cartilage (Meniscus) Injury Additional Instructions: Thank you for visiting our emergency department. Please return the emergency department immediately if there is any sudden numbness or weakness in your foot, worsening pain and swelling in her legs or inability to get around and take care of yourself. MARY BURLESON MD Jun 24, 2020 10:55
--- NOTE | 2020-06-24 11:05 | RAD ---
Two-view study left knee: Left knee injury after a fall with left knee pain. FINDINGS: There is a small bone fragment of the posterior inferior pole of the patella. The edges are sclerotic and therefore this appears to represent an old finding. No acute fracture or dislocation o r lytic process is seen. There is mild degenerative spurring without joint space space narrowing of t he medial and lateral tibiofemoral joint compartments and the patellofemoral joint. A small small lef t knee joint effusion is seen. IMPRESSION: No acute fracture. Mild primary degenerative osteoarthritis. Electronically signed by: Morales Sharma MD (06/24/2020 11:02 AM) [place] [id number]
== END 2020-06-24 12:11 | disposition home or self-care (01) ==
LOC: ER 09:41
DX: S89.92XA Unspecified injury of left lower leg, initial encounter (principal); E11.40 Type 2 diabetes mellitus with diabetic neuropathy, unspecified; E78.00 Pure hypercholesterolemia, unspecified; I10 Essential (primary) hypertension; Z88.5 Allergy status to narcotic agent; Z88.8 Allergy status to other drugs, medicaments and biological substances; Z91.011 Allergy to milk products; W01.0XXA Fall on same level from slipping, tripping and stumbling without subsequent striking against object, initial encounter; K58.9 Irritable bowel syndrome, unspecified; Y93.89 Activity, other specified; Y92.89 Other specified places as the place of occurrence of the external cause; Y99.8 Other external cause status
CPT/HCPCS: 29505; 73562; 99284

== ENCOUNTER 2020-07-05 04:12 | Emergency (ER) | payer OTHER, MEDICAID ==
[~2020-07-05] VITALS: Ht 165.1 cm; Wt 104.0 kg
[2020-07-05] MEDS ORDERED: FAMOTIDINE 20 MG/2 ML VIAL IVP ONE (05:00)
[2020-07-05] MEDS ORDERED: IV NORMAL SALINE 1000ML BAG 1,000 ML IV ONE (05:00)
[2020-07-05] MEDS ORDERED: KETOROLAC 15 MG/ML VIAL. IVP ONE (05:00)
[2020-07-05] MEDS ORDERED: ONDANSETRON PF 4 MG/2 ML VIAL. IVP ONE (05:00)
--- NOTE | 2020-07-05 05:05 | PHYS DOC ---
Past Medical History Past Medical History: Arthritis, Diabetes-Type II, Fibromyalgia, High Cho lesterol, Hypertension, Hepatitis, IBS, Other Additional Past Medical Histor: HEP C, NEUROPATHY, back pain, insomnia, chronic cough (STEFAN HAMILTON DO) Past Surgical History: Hip Replacement, Hysterectomy, Knee Replacement, Tonsillectomy, Other Additional Past Surgical Histo: ROTATOR CUFF SX, CYST REMOVAL, R FOOT SX WITH NERVE DAMAGE low back,STENT (STEFAN HAMILTON DO) Smoking Status: Never Smoker Alcohol Use: None Drug Use: None (STEFAN HAMILTON DO) General Adult EDM: Chief Complaint: ABDOMINAL PAIN HPI: HPI: 60-year-old female presents with report of diffuse pain primarily to abdomen with associated diarrhea x15 episodes and one episode of nausea and vomiting for the past 4 days. Patient does report recently ran out of her Percocet. Patient does report history of fibromyalgia. Patient also recently underwent left shoulder surgery. Denies known sick contacts. Denies known exposure to COVID- 19. Patient reports her doctor called in some "powder "that she tried to take without significant improvement. (STEFAN HAMILTON DO) Review of Systems: Review of Systems: Constitutional: Denies fever or chills Eyes: Denies redness or eye pain HENT: Denies nasal congestion or sore throat Respiratory: Denies cough or shortness of breath Cardiovascular: Denies chest pain or palpitations GI: Reports abdominal pain, nausea, vomiting, and diarrhea : Denies dysuria or hematuria Musculoskeletal: Denies back pain or joint pain Integument: Denies rash or skin lesions Neurologic: Denies headache, focal weakness or sensory changes Complete systems were reviewed and found to be within normal limits, except as documented in this note. (STEFAN HAMILTON DO) Current Medications: Current Medications Medications (Trade) Dose Ordered Sig/[facility] Start Time Stop Time Status Last Admin Dose Admin Famotidine (Pepcid Vial) 20 mg 1X ONCE 07/05/20 05:00 07/05/20 05:01 DC Ketorolac Tromethamine (Toradol 15mg Vial) 10 mg 1X ONCE 07/05/20 05:00 07/05/20 05:01 DC Ondansetron HCl (Zofran) 4 mg 1X ONCE 07/05/20 05:00 07/05/20 05:01 DC Sodium Chloride 1,000 ml @ 1,000 mls/hr 1X ONCE 07/05/20 05:00 07/05/20 05:59 (STEFAN HAMILTON DO) Allergies: Allergies: Allergies Coded Allergies Type Severity Reaction Last Updated Verified metformin Allergy Intermediate Diarrhea 04/07/20 Yes morphine Allergy Intermediate HIVES, HAIR LOSS 04/07/20 Yes naltrexone Allergy Intermediate HIVES, HAIR LOSS 04/07/20 Yes sitagliptin Allergy Intermediate Diarrhea 04/07/20 Yes milk Allergy Mild 04/07/20 Yes (STEFAN HAMILTON DO) Physical Exam: PE: Constitutional: Well developed, well nourished, no acute distress, non-toxic appearance HENT: Normocephalic, atraumatic Eyes: Conjunctiva normal, no discharge Neck: Normal range of motion, no tenderness, supple Lungs & Thorax: No respiratory distress, equal chest rise and fall Abdomen: Soft, diffuse abdominal tenderness, voluntary guarding, Skin: Warm, dry, no erythema, no rash Extremities: No tenderness, ROM intact, no edema Neurologic: Alert and oriented X 3, no focal deficits noted Psychologic: Affect normal, judgment normal (STEFAN HAMILTON DO) Current Patient Data: Labs: Laboratory Tests Test 07/05/20 05:25 White Blood Count 7.4 x10^3/uL Red Blood Count 4.40 x10^6/uL Hemoglobin 13.0 g/dL Hematocrit 39.6 % Mean Corpuscular Volume 90 fL Mean Corpuscular Hemoglobin 29 pg Mean Corpuscular Hemoglobin Concent 33 g/dL Red Cell Distribution Width 14.5 % Platelet Count 287 x10^3/uL Neutrophils (%) (Auto) 64 % Lymphocytes (%) (Auto) 24 % Monocytes (%) (Auto) 10 % Eosinophils (%) (Auto) 2 % Basophils (%) (Auto) 1 % Neutrophils # (Auto) 4.7 x10^3/uL Lymphocytes # (Auto) 1.8 x10^3/uL Monocytes # (Auto) 0.8 x10^3/uL Eosinophils # (Auto) 0.1 x10^3/uL Basophils # (Auto) 0.1 x10^3/uL Urine Collection Type U cath Urine Color Yellow Urine Clarity Clear Urine pH 6.5 Urine Specific Chapman >=1.030 Urine Protein 100 mg/dL Urine Glucose (UA) >=1000 mg/dL Urine Ketones (Stick) 40 mg/dL Urine Blood Negative Urine Nitrite Negative Urine Bilirubin Moderate Urine Urobilinogen Dipstick 0.2 mg/dL Urine Leukocyte Esterase Negative Urine RBC 0 /HPF Urine WBC 0 /HPF Urine Squamous Epithelial Cells Few /LPF Urine Bacteria 0 /HPF Sodium Level 140 mmol/L Potassium Level 3.5 mmol/L Chloride Level 105 mmol/L Carbon Dioxide Level 19 mmol/L Anion Gap 16 Blood Urea Nitrogen 14 mg/dL Creatinine 0.6 mg/dL Estimated GFR (Cockcroft-Gault) 123.4 BUN/Creatinine Ratio 23 Glucose Level 127 mg/dL Lactic Acid Level 1.0 mmol/L Calcium Level 9.5 mg/dL Total Bilirubin 0.5 mg/dL Aspartate Amino Transf (AST/SGOT) 27 U/L Alanine Aminotransferase (ALT/SGPT) 24 U/L Alkaline Phosphatase 98 U/L Creatine Kinase 117 U/L Creatine Kinase MB (Mass) 1.3 ng/mL Creatine Kinase MB Relative Index 1.1 % Troponin I Quantitative < 0.017 ng/mL Total Protein 8.4 g/dL Albumin 3.2 g/dL Albumin/Globulin Ratio 0.6 Lipase 122 U/L Current Medications Medications (Trade) Dose Ordered Sig/Doris Route PRN Reason Start Time Stop Time Status Last Admin Dose Admin Ondansetron HCl (Zofran) 4 mg 1X ONCE IVP 07/05/20 05:00 07/05/20 05:01 DC 07/05/20 05:23 Famotidine (Pepcid Vial) 20 mg 1X ONCE IVP 07/05/20 05:00 07/05/20 05:01 DC 07/05/20 05:23 Sodium Chloride 1,000 ml @ 1,000 mls/hr 1X ONCE IV 07/05/20 05:00 07/05/20 05:59 DC 07/05/20 05:23 Ketorolac Tromethamine (Toradol 15mg Vial) 10 mg 1X ONCE IVP 07/05/20 05:00 07/05/20 05:01 DC 07/05/20 05:23 Iohexol (Omnipaque 300 Mg/ml) 75 ml 1X ONCE IV 07/05/20 06:30 07/05/20 06:31 DC Info (CONTRAST GIVEN -- Rx MONITORING) 1 each PRN DAILY PRN MC SEE COMMENTS 07/05/20 06:15 07/07/20 06:14 Fentanyl Citrate (Fentanyl 2ml Vial) 50 mcg 1X ONCE IVP 07/05/20 07:30 07/05/20 07:31 DC 07/05/20 06:54 Fentanyl Citrate (Fentanyl 2ml Vial) 100 mcg STK-MED ONCE .ROUTE 07/05/20 06:51 07/05/20 06:52 DC (DENISHA PARKS DO) EKG: EKG: @0451 NSR at 79bpm, NO ST elevation, QRS 86ms, QT/QTc 382/439ms, incomplete RBBB (STEFAN HAMILTON DO) Radiology/Procedures: Radiology/Procedures: [] (STEFAN HAMILTON DO) Radiology/Procedures: [facility] [address] [place] [address] IMAGING REPORT Signed PATIENT: YANNICK KNIGHT ACCOUNT: [id number] : 1960 LOCATION: ER AGE: 60 SEX: F EXAM STATUS: REG ER ORD. PHYSICIAN: STEFAN HAMILTON DO REASON: abdominal pain, diarrhea PROCEDURE: CT ABDOMEN PELVIS WO CONTRAST PQRS Compliance Statement: One or more of the following individualized dose reduction techniques were utilized for this examination: 1. Automated exposure control 2. Adjustment of the mA and/or kV according to patient size 3. Use of iterative reconstruction technique CT abdomen/pelvis without contrast 07/05/2020 6:02 AM INDICATION: Abdominal pain, diarrhea COMPARISON: CT abdomen/pelvis 04/15/2019 TECHNIQUE: Multiple axial CT images of the abdomen and pelvis were obtained without intravenous contrast. Coronal and sagittal reformats are provided. FINDINGS: There is subsegmental atelectasis at the left lung base. Heart size within normal limits. Evaluation of the solid abdominal viscera is limited by lack of intravenous contrast. Spleen is normal in appearance. Right adrenal gland, pancreas and gallbladder are normal in appearance. Calcification involving the left adrenal gland may represent sequela of prior hemorrhage. Dense calcified atheromatous plaque is identified at the abdominal aorta. There is coarse calcification of the origin of the superior mesenteric artery. A stent is identified at the origin of the superior mesenteric artery with dense ca lcification. Limited evaluation without intravenous contrast. Abdominal aorta is normal in course and caliber. No free fluid or free intraperitoneal air. There is a umbilical hernia containing nondilated transverse colon. The neck of the hernia measures 4.9 cm. Small and large bowel are normal in caliber. There is no evidence for bowel obstruction. There are no pericolonic inflammatory changes. A normal, nondilated appendix is visualized without adjacent inflammatory changes. There is a 3 mm nonobstructing calculus in the superior pole of left kidney. Punctate nonobstructing calculi identified in inferior pole the right kidney. No hydronephrosis. Urinary bladder is within normal limits given degree of distention. No suspicious pelvic mass. Right total hip arthroplasty changes are identified. Posterior fusion is identified at L4-L5 . IMPRESSION: 1. There is a umbilical hernia containing nondilated transverse colon. 2. No evidence for bowel obstruction or inflammation. 3. Nonobstructing bilateral renal calculi measuring up to 3 mm in superior pole left kidney. No hydronephrosis. Electronically signed by: Trung Matias MD (07/05/2020 6:42 AM) [facility] DICTATED and SIGNED BY: TRUNG MTAIAS MD DATE: 07/05/20 [id number] (DENISHA PARKS DO) Course & Med Decision Making: Course & Med Decision Making Pertinent Labs and Imaging studies reviewed. (See chart for details) Patient presents with report of diffuse abdominal pain and nausea/vomiting/diarrhea. History of fibromyalgia. Patient does report she is currently out of Percocet. Pain addressed. IV fluid hydration provided. Labs obtained and pending. CT abdomen/pelvis pending. 00- Signout given to Dr. Parks for further evaluation and final disposition. Discussed current findings and plan with patient, who acknowledges understanding and agreement. (STEFAN HAMILTON DO) Course & Med Decision Making Patient was found to be dehydrated. She was given IV fluid and nausea medication in the ER. Patient felt much better. Her symptoms are due to combination of narcotic withdrawal and viral syndrome. Patient will be discharged home with nausea medication and pain medication. She is scheduled to see her orthopedic doctor on . Her orthopedic doctor is the one who has been prescribed her pain medication. (DENISHA PARKS DO) Dragon Disclaimer: Dragon Disclaimer: This electronic medical record was generated, in whole or in part, using a voice recognition dictation system. (STEFAN HAMILTON DO) Departure Departure Impression: Primary Impression: Abdominal pain Qualified Codes: R10.84 - Generalized abdominal pain Additional Impression: Gastroenteritis Disposition: 01 DC HOME SELF CARE/HOMELESS Condition: IMPROVED Referrals: STEFAN CAMARA MD (PCP) Please call your doctor for follow up as scheduled next week. Patient Instructions: Abdominal Pain, Viral Gastroenteritis Additional Instructions: Thank you for visiting our Emergency Department. We appreciate you trusting us with your care. If any additional problems come up don't hesitate to return to visit us. Please follow up with your primary care provider so they can plan additional care if needed and know about the problem that you had. If symptoms worsen come back to the Emergency Department. Any concerning symptoms that start such as chest pain, shortness of air, weakness or numbness on one side of the body, running high fevers or any other concerning symptoms return to the ER. Scripts Ondansetron Hcl (ZOFRAN) 4 Mg Tablet 1 TAB PO Q6HRS PRN for NAUSEA, #15 TAB Prov: DENISHA PARKS DO 07/05/20 Oxycodone HCl/Acetaminophen (Percocet 5-325 mg Tablet) 1 Each Tablet 1 TAB PO QIDPRN PRN for PAIN MDD 4 Tablet(s) for 4 Days, #20 TAB 0 Refills Prov: DENISHA PARKS DO 07/05/20 STEFAN HAMILTON DO Jul 05, 2020 05:05 DENISHA PARKS DO Jul 05, 2020 07:13
[2020-07-05 05:56] LABS: CALCIUM 9.5 mg/dL (8.5-10.1); CREATININE 0.6 mg/dL (0.6-1.0); GFR 123.4; POTASSIUM 3.5 mmol/L (3.5-5.1)
[2020-07-05 06:02] LABS: ALBUMIN 3.2 g/dL (3.4-5.0); ALBUMIN/GLOBULIN RATIO 0.6 (1.0-1.7); TOTAL BILIRUBIN 0.5 mg/dL (0.2-1.0); TOTAL PROTEIN 8.4 g/dL (6.4-8.2)
[2020-07-05 06:08] LABS: BILIRUBIN,URINE MODERATE (NEG); CLARITY,URINE CLEAR; COLOR,URINE YELLOW; NITRITE,URINE NEGATIVE (NEG); PH,URINE 6.5 (<5.0-8.0); PROTEIN,URINE 100 mg/dL (NEG-TRACE); UROBILINOGEN,URINE 0.2 mg/dL (0.2 mg/dL)
[2020-07-05 06:09] LABS: BASO # 0.1 x10^3/uL (0.0-0.2); BASO % 1 % (0-3); EOS # 0.1 x10^3/uL (0.0-0.7); EOS % 2 % (0-3); HEMATOCRIT 39.6 % (36.0-47.0); LYMPH # 1.8 x10^3/uL (1.0-4.8); LYMPH % 24 % (24-48); MEAN CORPUSCULAR HEMOGLOBIN 29 pg (25-35); MEAN CORPUSCULAR HGB CONC 33 g/dL (31-37); MEAN CORPUSCULAR VOLUME 90 fL (79-100); MONO # 0.8 x10^3/uL (0.0-1.1); MONO % 10 % (0-9); NEUT # 4.7 x10^3/uL (1.8-7.7); NEUT % 64 % (31-73); PLATELET COUNT 287 x10^3/uL (140-400); RED CELL DISTRIBUTION WIDTH 14.5 % (11.5-14.5); WHITE BLOOD COUNT 7.4 x10^3/uL (4.0-11.0)
[2020-07-05] MEDS ORDERED: CONTRAST GIVEN. MC PRN (06:15)
[2020-07-05] MEDS ORDERED: IOHEXOL 300 MG/ML 100ML VIAL. IV ONE (06:30)
[2020-07-05 06:37] LABS: BACTERIA,URINE 0 /HPF (0-FEW); RBC,URINE 0 /HPF (0-2); WBC,URINE 0 /HPF (0-4)
--- NOTE | 2020-07-05 06:44 | RAD ---
PQRS Compliance Statement: One or more of the following individualized dose reduction techniques were utilized for this examinat ion: 1. Automated exposure control 2. Adjustment of the mA and/or kV according to patient size 3. Use of iterative reconstruction technique CT abdomen/pelvis without contrast 07/05/2020 6:02 AM INDICATION: Abdominal pain, diarrhea COMPARISON: CT abdomen/pelvis 04/15/2019 TECHNIQUE: Multiple axial CT images of the abdomen and pelvis were obtained without intravenous contr ast. Coronal and sagittal reformats are provided. FINDINGS: There is subsegmental atelectasis at the left lung base. Heart size within normal limits. Evaluation of the solid abdominal viscera is limited by lack of intravenous contrast. Spleen is normal in appear ance. Right adrenal gland, pancreas and gallbladder are normal in appearance. Calcification involving the left adrenal gland may represent sequela of prior hemorrhage. Dense calcified atheromatous plaque is identified at the abdominal aorta. There is coarse calcificati on of the origin of the superior mesenteric artery. A stent is identified at the origin of the superi or mesenteric artery with dense calcification. Limited evaluation without intravenous contrast. Abdom inal aorta is normal in course and caliber. No free fluid or free intraperitoneal air. There is a umb ilical hernia containing nondilated transverse colon. The neck of the hernia measures 4.9 cm. Small and large bowel are normal in caliber. There is no evidence for bowel obstruction. There are no pericolonic inflammatory changes. A normal, nondilated appendix is visualized without adjacent infla mmatory changes. There is a 3 mm nonobstructing calculus in the superior pole of left kidney. Punctate nonobstructing calculi identified in inferior pole the right kidney. No hydronephrosis. Urinary bladder is within no rmal limits given degree of distention. No suspicious pelvic mass. Right total hip arthroplasty changes are identified. Posterior fusion is identified at L4-L5 . IMPRESSION: 1. There is a umbilical hernia containing nondilated transverse colon. 2. No evidence for bowel obstruction or inflammation. 3. Nonobstructing bilateral renal calculi measuring up to 3 mm in superior pole left kidney. No hydr onephrosis. Electronically signed by: Apple Hunter MD (07/05/2020 6:42 AM) [facility]
[2020-07-05] MEDS ORDERED: fentaNYL PF VIAL 100 MCG/2 ML VIAL ONE (06:51)
[2020-07-05] MEDS ORDERED: fentaNYL PF VIAL 100 MCG/2 ML VIAL IVP ONE (07:30)
[2020-07-05] MEDS ORDERED: ONDA4TAB7 PO (07:50)
[2020-07-05] MEDS ORDERED: OXYC-325 PO (07:50)
[2020-07-05 08:15] VITALS: BP 161/70
--- NOTE | 2020-07-06 07:47 | EKG ---
[facility] [address] [place] [address] Test Date: 2020-07-05 Test Time: 04:51:52 Pat Name: YANNICK KNIGHT Department: Room: Gender: F [employer]: : 1960 Requested By: STEFAN HAMILTON Order Number: [id number] Reading MD: Measurements Intervals [place] Rate: 79 P: 62 FL: 162 QRS: -5 QRSD: 86 T: 41 QT: 382 QTc: 439 Interpretive Statements SINUS RHYTHM LEFTWARD AXIS R-S TRANSITION ZONE IN V LEADS DISPLACED TO THE RIGHT INCOMPLETE RIGHT BUNDLE BRANCH BLOCK OTHERWISE NORMAL ECG RI6.02 No previous ECG available for comparison
== END 2020-07-05 08:35 | disposition home or self-care (01) ==
LOC: ER 04:12
DX: K52.9 Noninfective gastroenteritis and colitis, unspecified (principal); K42.9 Umbilical hernia without obstruction or gangrene; E11.40 Type 2 diabetes mellitus with diabetic neuropathy, unspecified; I10 Essential (primary) hypertension; E78.00 Pure hypercholesterolemia, unspecified; G89.29 Other chronic pain; Z90.710 Acquired absence of both cervix and uterus; Z95.5 Presence of coronary angioplasty implant and graft; Z88.5 Allergy status to narcotic agent; Z88.8 Allergy status to other drugs, medicaments and biological substances; Z91.011 Allergy to milk products
CPT/HCPCS: 36415; 74176; 80053; 81001; 82553; 83605; 83690; 84484; 85025; 93005; 96361; 96374; 96375; 99285; J1885; J2405; J3010; J3490; J7030

== ENCOUNTER → 2020-08-01 | Outpatient (CLI) | payer OTHER, MEDICAID ==
[2020-07-05 08:15] VITALS: BP 161/70
[~2020-08-01] MED LIST changes: +OXYC-325 PO
--- NOTE | 2020-08-01 14:53 | RAD ---
EXAMINATION: MRI LEFT KNEE WITHOUT IV CONTRAST CLINICAL HISTORY: Left knee contusion following fall TECHNIQUE: Multiplanar multisequential images obtained through the knee without intravenous contrast. COMPARISON: Left knee radiographs 06/24/2020 FINDINGS: MENISCI: Medial Meniscus: Complex tear in the posterior horn and body Lateral Meniscus: Complex tear greatest in the anterior horn with additional involvement of the body and posterior horn LIGAMENTS: ACL: Intact PCL: Intact MCL: Intact LCL Complex: Intact CARTILAGE: Medial Femoral Condyle: Small area of full thickness cartilage loss and or fissuring in the weightbea ring portion of the condyle Medial Tibial Plateau: Within normal limits Lateral Femoral Condyle: Within normal limits Lateral Tibial Plateau: Within normal limits Patella: Moderate sized area(s) of full thickness cartilage loss and or fissuring with subchondral ma rrow reactive/cystic changes in the lateral facet Trochlea: Within normal limits TENDONS: Distal quadriceps and patellar tendons intact. Popliteus tendon intact. BONES AND MARROW: No evidence of acute fracture or suspicious marrow replacing process. Mild subcorti javy marrow edema in the lateral tibial spine. MUSCLES: Muscle bulk and signal intensity within normal limits. JOINT FLUID AND SYNOVIUM: Moderate joint effusion. No synovitis. Small Stapleton's cyst, partially ruptur ed inferiorly. IMPRESSION: Complex medial and lateral meniscus tears. Moderate full-thickness chondral wear in the patella and mild wear in the medial femoral condyle. Electronically signed by: Ethan Banegas DO (08/01/2020 2:51 PM) [id number]
== END ==
LOC: MRI 11:50
PROVIDERS: ATTEND Orthopaedic Surgery
DX: S83.242A Other tear of medial meniscus, current injury, left knee, initial encounter (principal); S83.282A Other tear of lateral meniscus, current injury, left knee, initial encounter; X58.XXXA Exposure to other specified factors, initial encounter; Y93.89 Activity, other specified; Y92.89 Other specified places as the place of occurrence of the external cause; Y99.8 Other external cause status
CPT/HCPCS: 73721

== ENCOUNTER → 2020-10-17 | Outpatient (CLI) | payer OTHER, MEDICAID ==
[~2020-10-17] MED LIST changes: -LISI-338 PO; +LISI-517 PO
--- NOTE | 2020-10-17 15:23 | KCIC ---
EXAMINATION: Magnetic resonance imaging (MRI) of the lumbar spine without contrast 10/17/2020 12:45 PM HISTORY: Spinal stenosis L4-L5. Prior surgery in 2018 TECHNIQUE: Multiplanar multi-weighted MRI of the lumbar spine was performed without intravenous contr ast using the standard lumbar spine protocol. Contrast information: None administered. COMPARISON: None available. FINDINGS: There is grade 1 anterolisthesis of L4 on L5. Posterior fusion is identified at L4-L5. Minimal marrow edema involving the superior endplate of L4. Conus medullaris terminates at L1. Distal spinal cord s ignal intensity is normal sequences. Disc desiccation is identified at all levels of lumbar spine. Th ere is mild disc height loss at L2-L3, L4-L5 and L5-S1. Fracture is visualized. Mild anterior margina l osteophytosis. There is a central disc extrusion at T10-T11, new from the prior examination resulti ng in moderate spinal canal stenosis and minimal T2 signal at the level. Abdominal aorta is normal in caliber. No suspicious retroperitoneal lymphadenopathy. Sacrum is intact. T10-T11: There is a circumferential disc bulge with central disc extrusion. Moderate spinal canal nam nosis. There may be faint T2 signal hyperintensity involving the cord. Mild facet arthropathy. Severe bilateral neuroforaminal stenosis. T11-T12: Mild disc bulge. Mild facet arthropathy. Mild spinal canal stenosis. T12-L1: Disc is normal in configuration. Mild left facet arthropathy. No neuroforaminal or spinal can al stenosis. L2-L3: There is a circumferential disc bulge. Moderate facet arthropathy. Moderate bilateral neurofor aminal stenosis. Mild spinal canal stenosis. L3-L4: Disc is normal in configuration. Mild facet arthropathy. No neuroforaminal or spinal canal nam nosis. L4-L5: This level is fused and probably decompressed. No residual spinal canal stenosis. L5-S1: Disc is normal in configuration. Moderate facet arthropathy. No neuroforaminal or spinal canal stenosis. IMPRESSION: New central disc extrusion at T10-T11 with moderate spinal canal stenosis and subtle T2 signal within the cord which could reflect myelomalacia or developing cord edema. Post surgical changes are identified at L4-L5 with posterior fusion. No residual spinal canal stenosi s is post right partial laminectomy. Mild superior endplate edema identified at L4 without significan t height loss. Electronically signed by: Apple Hunter MD (10/17/2020 3:21 PM) [facility]
== END ==
LOC: KCIC MRI 12:23
PROVIDERS: ATTEND Nurse Practitioner Gerontology
DX: M47.817 Spondylosis without myelopathy or radiculopathy, lumbosacral region (principal); M48.061 Spinal stenosis, lumbar region without neurogenic claudication; M47.815 Spondylosis without myelopathy or radiculopathy, thoracolumbar region; M48.04 Spinal stenosis, thoracic region
CPT/HCPCS: 72148

== ENCOUNTER → 2020-11-12 | Outpatient (CLI) | payer OTHER, MEDICAID ==
--- NOTE | 2020-11-12 17:19 | KCIC ---
MRI of the thoracic spine without contrast 11/12/2020 CLINICAL HISTORY: Mid back pain. TECHNIQUE: Unenhanced T1-weighted, T2-weighted and inversion recovery sagittal and T2-weighted and T1 -weighted axial images of the thoracic spine were obtained. FINDINGS: Very mild S-shaped curvature of the thoracolumbar spine is seen. There is accentuation of t he normal thoracic kyphosis. Degenerative signal changes are seen involving all the disks of the thor acic spine. Degenerative signal changes are seen within the marrow surrounding these discs. Mild old compression deformities of the superior endplates of the T3, T4, and T5 vertebral bodies is seen. No retropulsion of bone fragments into the central spinal canal is noted. Schmorl's node formation is se en scattered throughout endplates of the mid and lower thoracic spine. There is no MRI evidence of an acute compression fracture involving the thoracic vertebrae. No area of abnormal signal intensity is seen involving the thoracic spinal cord. Degenerative changes are seen throughout the thoracic spine consisting of minimal to mild generalized disc bulges and degenerative changes involving the facet joints. . At the T11-12 disc space there is a moderate generalized disc bulge which is eccentric to the right. Superimposed on this disc bulge i s a central/left paracentral focal disc protrusion. This measures 4 mm in AP diameter. These findings result in mild to moderate central spinal canal stenosis with severe bilateral lateral recess stenos is and severe right greater than left neural foraminal stenosis without evidence of cord impingement. IMPRESSION: Degenerative changes are seen throughout the thoracic spine. These findings result in mil d to moderate central spinal canal stenosis without evidence of cord impingement and severe bilateral recess stenosis with severe right greater than left neural foraminal stenosis at T11-T12. Electronically signed by: Fredy Layton MD (11/12/2020 5:17 PM) [place] [id number]
--- NOTE | 2020-11-13 08:40 | KCIC ---
MRI of the cervical spine without contrast 11/20/2020 CLINICAL HISTORY: Neck pain. TECHNIQUE: Unenhanced T1-weighted, T2-weighted and inversion recovery sagittal and gradient echo and T2-weighted axial images of the cervical spine were obtained. FINDINGS: Mild lateral curvature of the cervical spine is seen convex to the right. There is straight ening of the normal cervical lordosis. Degenerative signal changes are seen involving all of the disk s of the cervical spine. Degenerative signal changes are seen within the marrow surrounding these dis cs. The cervical spinal cord is normal in morphology, position, and signal characteristics. At the C2-3, C3-4 and C4-5 disc spaces there are minimal to mild generalized disc bulges. Degenerativ e changes are seen involving the uncovertebral and facet joints bilaterally. These findings do not re sult in significant central spinal canal or neural foraminal stenosis. At the C5-6 disc space there is a mild generalized disc bulge. Degenerative changes are seen involvin g the uncovertebral and facet joints, left greater than right. These findings do not result in signif icant central spinal canal or neural foraminal stenosis. At the C6-7 disc space there is a mild to moderate generalized disc bulge. This is eccentric to the l eft. Degenerative changes are seen involving the uncovertebral and facet joints, left greater than ri ght. These findings when combined do not result in significant central spinal canal stenosis. Moderat e left neural foraminal stenosis is seen. The right neural foramen is patent. At the C7-T1 disc space there is a mild generalized disc bulge. Degenerative changes are seen involvi ng the facet joints bilaterally. These findings do not result in significant central spinal canal or neural foraminal stenosis. IMPRESSION: Degenerative changes are seen throughout the cervical spine. These findings do not result in significant central spinal canal stenosis. Moderate left neural foraminal stenosis is seen at C6- 7. Electronically signed by: Fredy Layton MD (11/13/2020 8:38 AM) [id number]
== END ==
LOC: KCIC MRI 13:23
PROVIDERS: ATTEND Neurological Surgery
DX: M47.813 Spondylosis without myelopathy or radiculopathy, cervicothoracic region (principal); M48.03 Spinal stenosis, cervicothoracic region; G89.29 Other chronic pain
CPT/HCPCS: 72141; 72146

== ENCOUNTER → 2020-11-21 | Outpatient (CLI) | payer OTHER, MEDICAID ==
[~2020-11-21] MED LIST changes: +CHOL4POW11 PO; +DAPA10TA PO
== END ==
LOC: LAB 11:20
PROVIDERS: ATTEND Orthopaedic Surgery
DX: Z01.812 Encounter for preprocedural laboratory examination (principal); S83.207D Unspecified tear of unspecified meniscus, current injury, left knee, subsequent encounter; X58.XXXD Exposure to other specified factors, subsequent encounter; Z20.822 Contact with and (suspected) exposure to COVID-19
CPT/HCPCS: U0003; U0005

== ENCOUNTER → 2020-11-25 | Day surgery (SDC) | payer OTHER, MEDICAID ==
[~2020-11-25] VITALS: Ht 165.1 cm; Wt 102.0 kg
[~2020-11-25] MED LIST changes: +BUPIVACAINE-EPI 0.5% 30 ML VIAL KIT. ONE; +DEXAMETHASONE SOD PHOS 4 MG/ML VIAL ONE; +HYDROmorphone 2 MG/ML VIAL ONE; +IV RINGERS,LACTATED 1000ML 1,000 ML IV SCH; +KETOROLAC 30 MG/ML VIAL. IVP ONE; +LIDOCAINE 2% PF 5 ML VIAL. ONE; +MORPHINE SULFATE 2 MG/ML VIAL. IVP PRN; +ONDANSETRON PF 4 MG/2 ML VIAL. ONE; +PHENYLEPHRINE 10 MG/ML VIAL. ONE; +PROCHLORPERAZINE 10 MG/2 ML VIAL. IVP PRN; +PROPOFOL 10 MG/ML (20ML) VIAL. IV ONE; +SEVOFLURANE 61 TO 120 MINUTES. IH ONE; +ePHEDrine PF IN SALINE 50 MG/10 ML SYRINGE. IV ONE; +fentaNYL PF VIAL 100 MCG/2 ML VIAL IVP PRN; +fentaNYL PF VIAL 100 MCG/2 ML VIAL ONE; +oxyCODONE/APAP 10/325 1 TAB TABLET PO ONE
[2020-11-25 06:51] VITALS: BP 120/56
--- NOTE | 2020-11-25 07:37 | DISCH ---
DISCHARGE INSTRUCTIONS Condition on Discharge Condition on Discharge: Stable Activity After Discharge Activity Instructions for Disc: Activity as tolerated, Progressive ambulation Lifting Instructions after Dis: No heavy lifting, No pulling or pushing Driving Instructions after Dis: Do not drive Weight Bearing Status after Di: No restrictions Diet after Discharge Diet after Discharge: Diabetic No Calorie Level Diet Texture: Regular Liquid Texture: Thin Liquid Swallowing Supervision: None needed Wound Incision Care Wound/Incision Care: Ice to area for comfort, Change dressing (Remove dressing in 2 days may then shower no soaking until sutures removed) Contacting the after DC Call your doctor for: Concerns you may have Follow-Up Follow up with: Dr. Sutherland or Rd 7-10 days Treatment/Equipment after DC Adaptive Equipment Issued: None BERNADETTE SUTHERLAND MD November 25, 2020 07:37
[2020-11-25] MEDS: fentaNYL PF VIAL 100 MCG/2 ML VIAL IVP PRN ×2 (08:42→09:13)
[2020-11-25] MEDS: HYDROmorphone 2 MG/ML VIAL IVP PRN ×3 (09:35→10:01)
[2020-11-25 09:45] VITALS: BP 121/73
--- NOTE | 2020-11-25 13:53 | PDOC4 ---
Operative Note Operative Note Date of surgery: 11/25/2020 Preoperative diagnosis left knee medial and lateral meniscus tears Postoperative diagnosis: Same with some partial-thickness ACL fraying and medial parapatellar plica causing medial femoral condyle irritation Operative procedure: Left knee arthroscopy partial medial and lateral meniscectomies and debridement of ACL and excision medial parapatellar plica Surgeon: [employer] Counselor: Catie sheppard assist Anesthesia: General Estimated blood loss: 5 cc Complications: None Operative indications: Patient is a 60-year-old female well-known to me who has been having left knee mechanical symptoms of sharp stabbing pain particularly with twisting pivoting maneuvers getting out of a chair somewhat lesser on stairs and with regular walking. She did have a positive Sundeep's sign on clinical examination and MRI confirmed clinical suspicion of meniscal tears. I went over with her the rationale for operative management with arthroscopic excision of the unstable portion of the meniscus and the inability to undo any type of symptoms due to degenerative arthritis which seem to be relatively minimal based on her imaging. We also talked about the risks of continued pain infection nerve or blood vessel damage blood clots medical or other anesthetic complications among others all her questions were answered she wishes to proceed with surgical evaluation and treatment Operative text: Patient was identified procedure verified patient placed in the supine position on the operating table. After adequate amounts of general anesthesia were administered she was placed on the operating table in supine position and the left lower extremity was prepped and draped in standard sterile fashion with a thigh tourniquet. After timeout was performed patient procedure identified and verified the left lower extremity was exsanguinated by Esmarch bandage tourniquet inflated to 300 mmHg and a lateral portal was established and a medial portal established under spinal needle localization and the knee joint was systematically examined. She was found to have a displaceable tear posterior horn of the medial meniscus which was trimmed back to stable tissue using the arthroscopic punch and shaver. She also had some fraying of the anterior cruciate ligament potentially impinging in the notch which was trimmed back to stable tissue and the remaining 90% of the ACL was noted to be intact. She also had free edge tearing in the body and posterior horn of the lateral meniscus which was trimmed back to stable tissue with the arthroscopic punch and shaver. She also had a area of abrasion over the medial femoral condyle from a medial parapatellar plica which was trimmed back to stable tissue. She had slight condylar fraying at the medial facet of the patella which was gently trimmed with arthroscopic shaver and no loose bodies noted in the gutters or suprapatellar pouch. The knee was again toward to ensure no loose cartilage fragments and drained of arthroscopic fluid portals and fat pad area were injected with half percent plain Marcaine and portals closed with nylon suture sterile dressings were applied toes were noted be warm pink following deflation of the tourniquet patient was returned to recovery room in stable condition having tolerated procedure well. Catie kulkarni was present for the procedure and assisted in patient positioning prepping draping limb positioning closure and dressings BERNADETTE TOLENTINO MD November 25, 2020 13:53
== END | disposition home or self-care (01) ==
LOC: SURG 06:14
PROVIDERS: ATTEND Orthopaedic Surgery
DX: S83.242A Other tear of medial meniscus, current injury, left knee, initial encounter (principal); S83.282A Other tear of lateral meniscus, current injury, left knee, initial encounter; I25.10 Atherosclerotic heart disease of native coronary artery without angina pectoris; I10 Essential (primary) hypertension; E78.00 Pure hypercholesterolemia, unspecified; K21.9 Gastro-esophageal reflux disease without esophagitis; E66.9 Obesity, unspecified; M19.90 Unspecified osteoarthritis, unspecified site; E11.42 Type 2 diabetes mellitus with diabetic polyneuropathy; F41.9 Anxiety disorder, unspecified; F32.9 Major depressive disorder, single episode, unspecified; Z79.899 Other long term (current) drug therapy; Z98.890 Other specified postprocedural states; Z79.82 Long term (current) use of aspirin; Z88.8 Allergy status to other drugs, medicaments and biological substances; Z82.49 Family history of ischemic heart disease and other diseases of the circulatory system; Z83.3 Family history of diabetes mellitus; X58.XXXA Exposure to other specified factors, initial encounter; Y93.89 Activity, other specified; Y92.89 Other specified places as the place of occurrence of the external cause; Y99.8 Other external cause status
CPT/HCPCS: 29880; 82962; A4930; J0690; J1100; J1170; J1885; J2370; J2405; J2704; J3010

== ENCOUNTER → 2020-12-15 | Outpatient (CLI) | payer OTHER, MEDICAID ==
[2020-11-25 09:45] VITALS: BP 121/73
[~2020-12-15] MED LIST changes: -BUPIVACAINE-EPI 0.5% 30 ML VIAL KIT. ONE; -DEXAMETHASONE SOD PHOS 4 MG/ML VIAL ONE; -HYDROmorphone 2 MG/ML VIAL ONE; -IV RINGERS,LACTATED 1000ML 1,000 ML IV SCH; -KETOROLAC 30 MG/ML VIAL. IVP ONE; -LIDOCAINE 2% PF 5 ML VIAL. ONE; -MORPHINE SULFATE 2 MG/ML VIAL. IVP PRN; -ONDANSETRON PF 4 MG/2 ML VIAL. ONE; -PHENYLEPHRINE 10 MG/ML VIAL. ONE; -PROCHLORPERAZINE 10 MG/2 ML VIAL. IVP PRN; -PROPOFOL 10 MG/ML (20ML) VIAL. IV ONE; -SEVOFLURANE 61 TO 120 MINUTES. IH ONE; -ePHEDrine PF IN SALINE 50 MG/10 ML SYRINGE. IV ONE; -fentaNYL PF VIAL 100 MCG/2 ML VIAL IVP PRN; -fentaNYL PF VIAL 100 MCG/2 ML VIAL ONE; -oxyCODONE/APAP 10/325 1 TAB TABLET PO ONE
--- NOTE | 2020-12-15 17:44 | CARD ---
MR#: [id number] Date of Study: 12/15/2020 Ordering Physician: GAYE STRONG, Referring Physician: GAYE STRONG, Tech: Ca Martin, [facility] APPROVED REPORT EXAM: Two-dimensional and M-mode echocardiogram with Doppler and color Doppler. Other Information Quality : AverageHR: 78bpm INDICATION Abnormal Heart Sounds, Enlarged heart RISK FACTORS Hypertension Hyperlipidemia 2D DIMENSIONS RVDd2.9 (2.9-3.5cm)Left Atrium(2D)2.5 (1.6-4.0cm) IVSd1.0 (0.7-1.1cm)Aortic Root(2D)3.4 (2.0-3.7cm) LVDd4.9 (3.9-5.9cm)LVOT Diameter2.1 (1.8-2.4cm) PWd1.0 (0.7-1.1cm)LVDs3.4 (2.5-4.0cm) FS (%) 31.4 %SV67.6 ml Aortic Valve AoV Peak Brian.145.6cm/sAoV VTI29.6cm AO Peak GR.8.5mmHgLVOT Peak Brian.111.1cm/s LVOT VTI 24.83cmAO Mean GR.4mmHg SAM (VMAX)1.45gw1HIZ (VTI)2.84cm2 Mitral Valve MV E Ihffusso58.2cm/sMV DECEL [id number] MV A Ikpexnrx23.3cm/sMV [id number] E/A Ratio0.9MVA (PHT)3.23cm2 TDI E/Lateral E'6.5E/Medial E'9.5 Pulmonary Valve PV Peak Aewxfein372.2cm/sPV Peak Grad.4mmHg Tricuspid Valve TR P. Ogatqnsu205zi/sRAP [id number] TR Peak Gr.04isTePUNA19ahLb Pulmonary Vein S1 Fpgpcpyi79.0cm/sD2 Gukrgaey34.5cm/s PVa [id number] LEFT VENTRICLE The left ventricle is normal size. There is borderline concentric left ventricular hypertrophy. The l eft ventricular systolic function is normal and the ejection fraction is within normal range. The Eje ction Fraction is 50-55%. There is normal LV segmental wall motion. Transmitral Doppler flow pattern is Grade I-abnormal relaxation pattern. RIGHT VENTRICLE The right ventricle is mildly dilated. There is normal right ventricular wall thickness. The right ve ntricular systolic function is normal. ATRIA The left atrium size is normal. The right atrium is mildly dilated. The interatrial septum is intact with no evidence for an atrial septal defect or patent foramen ovale as noted on 2-D or Doppler imagi ng. AORTIC VALVE The aortic valve is normal in structure and function. Doppler and Color Flow revealed trace aortic re gurgitation. There is no significant aortic valvular stenosis. Calculated aortic valve area is 2.88 c m2 with maximum pressure gradient of 10 mmHg and mean pressure gradient of 5 mmHg. MITRAL VALVE The mitral valve is normal in structure and function. There is no evidence of mitral valve prolapse. There is no mitral valve stenosis. Doppler and Color-flow revealed trace mitral regurgitation. TRICUSPID VALVE The tricuspid valve is normal in structure and function. Doppler and Color Flow revealed trace tricus pid regurgitation with an estimated PAP of 33 mmHg. There is no tricuspid valve stenosis. PULMONIC VALVE The pulmonic valve is not well visualized. Doppler and Color Flow revealed trace pulmonic valvular re gurgitation. GREAT VESSELS The aortic root is normal in size. The IVC is normal in size and collapses >50% with inspiration. PERICARDIAL EFFUSION There is no evidence of significant pericardial effusion. Critical Notification Critical Value: No <Conclusion> The left ventricle is normal size. The left ventricular systolic function is normal and the ejection fraction is within normal range. The Ejection Fraction is 50-55%. There is borderline concentric left ventricular hypertrophy. Doppler and Color Flow revealed trace aortic regurgitation. There is no significant aortic valvular stenosis. Doppler and Color-flow revealed trace mitral regurgitation. Doppler and Color Flow revealed trace tricuspid regurgitation with an estimated PAP of 33 mmHg. Signed by : Davie Guerrero MD Electronically Approved : 12/15/2020 17:44:16
== END ==
LOC: ECHO 09:55
PROVIDERS: ATTEND Nurse Practitioner Gerontology
DX: I51.7 Cardiomegaly (principal); R01.2 Other cardiac sounds
CPT/HCPCS: 93306

== ENCOUNTER → 2021-01-15 | Outpatient (CLI) | payer OTHER, MEDICAID ==
[2020-11-25 09:45] VITALS: BP 121/73
[~2021-01-15] MED LIST changes: +CRESTOR40 MG PO; +METH-562 PO; +SITA100T PO
[2021-01-15 15:00] LABS: BASO % 1 % (0-3); EOS # 0.2 x10^3/uL (0.0-0.7); EOS % 4 % (0-3); HEMATOCRIT 37.3 % (36.0-47.0); HEMOGLOBIN 12.2 g/dL (12.0-15.5); LYMPH # 1.8 x10^3/uL (1.0-4.8); LYMPH % 37 % (24-48); MEAN CORPUSCULAR HEMOGLOBIN 30 pg (25-35); MEAN CORPUSCULAR HGB CONC 33 g/dL (31-37); MEAN CORPUSCULAR VOLUME 92 fL (79-100); MONO # 0.4 x10^3/uL (0.0-1.1); MONO % 9 % (0-9); NEUT # 2.5 x10^3/uL (1.8-7.7); NEUT % 50 % (31-73); PLATELET COUNT 214 x10^3/uL (140-400); RED BLOOD COUNT 4.07 x10^6/uL (3.50-5.40); RED CELL DISTRIBUTION WIDTH 15.9 % (11.5-14.5)
[2021-01-15 15:08] LABS: PROTHROMBIN TIME PATIENT 12.8 SEC (11.7-14.0)
[2021-01-15 15:21] LABS: ALBUMIN 3.4 g/dL (3.4-5.0); ALBUMIN/GLOBULIN RATIO 0.7 (1.0-1.7); CALCIUM 9.4 mg/dL (8.5-10.1); CREATININE 0.6 mg/dL (0.6-1.0); GFR 123.4; POTASSIUM 3.6 mmol/L (3.5-5.1); TOTAL BILIRUBIN 0.2 mg/dL (0.2-1.0); TOTAL PROTEIN 8.4 g/dL (6.4-8.2)
[2021-01-16 00:10] LABS: HEMOGLOBIN A1C 6.6 % (4.8-5.6)
== END ==
LOC: SURGPAT 13:52
PROVIDERS: ATTEND Neurological Surgery
DX: Z01.812 Encounter for preprocedural laboratory examination (principal); Z20.822 Contact with and (suspected) exposure to COVID-19; M51.24 Other intervertebral disc displacement, thoracic region
CPT/HCPCS: 80053; 83036; 85025; 85610; 85730; 87641; U0003; U0005